=== PATIENT | female | born 1955 | race Caucasian/White ===

== ENCOUNTER → 2017-09-29 16:03 | Outpatient (CLI) | payer OTHER, SELFPAY ==
[2017-09-29 17:28] LABS: Vitamin D,25 Hydroxy 36.9 ng/mL (19.95-100.01)
[2017-09-29 17:33] LABS: ALB/GLOB Ratio 0.8 RATIO (0.9-2.4); AST(SGOT) 16 U/L (15-37); Alanine Aminotransfer ALT/SGPT 18 U/L (13-56); Albumin, Serum 3.2 g/dL (3.2-5.0); Alkaline Phosphatase 94 U/L (45-117); Anion Gap 10 (5-15); BUN 17 mg/dL (7-18); BUN/Creat Ratio 19.3 RATIO (10-20); Calcium,Total 7.3 mg/dL (8.5-10.1); Chloride 103 mmol/L (98-107); Creatinine, Serum 0.88 mg/dL (0.55-1.02); EST Glomerular Filtration Rate 69 mL/min (>60); Est Glom Filt Rate - Afr Amer 84 mL/min (>60); Glucose 93 mg/dL (74-106); Magnesium 2.1 mg/dL (1.6-2.6); Potassium 3.7 mmol/L (3.5-5.1); Protein, Total 7.2 g/dL (6.4-8.2); Sodium Level 140 mmol/L (136-145)
== END ==
PROVIDERS: Family Provider Student in an Organized Health Care Education/Training Program; PCP Student in an Organized Health Care Education/Training Program; Visit Provider Internal Medicine Endocrinology, Diabetes & Metabolism
DX: E89.0 Postprocedural hypothyroidism (principal); E83.42 Hypomagnesemia; M81.0 Age-related osteoporosis without current pathological fracture; E55.9 Vitamin D deficiency, unspecified
CPT/HCPCS: 36415; 80053; 82306; 83735; 83970; 84443

== ENCOUNTER → 2017-10-21 11:26 | Outpatient (CLI) | payer OTHER, SELFPAY ==
[2017-10-21 13:40] LABS: Anion Gap 9 (5-15); BUN 21 mg/dL (7-18); BUN/Creat Ratio 20.8 RATIO (10-20); Calcium,Total 8.5 mg/dL (8.5-10.1); Chloride 105 mmol/L (98-107); Creatinine, Serum 1.01 mg/dL (0.55-1.02); EST Glomerular Filtration Rate 59 mL/min (>60); Est Glom Filt Rate - Afr Amer 71 mL/min (>60); Glucose 81 mg/dL (74-106); Potassium 3.8 mmol/L (3.5-5.1); Sodium Level 141 mmol/L (136-145)
== END ==
PROVIDERS: Family Provider Student in an Organized Health Care Education/Training Program; PCP Student in an Organized Health Care Education/Training Program; Visit Provider Internal Medicine Endocrinology, Diabetes & Metabolism
DX: E89.0 Postprocedural hypothyroidism (principal)
CPT/HCPCS: 36415; 80048; 84439

== ENCOUNTER → 2018-03-12 15:48 | Outpatient (CLI) | payer OTHER, SELFPAY ==
[2018-03-12 18:49] LABS: ALB/GLOB Ratio 0.8 RATIO (0.9-2.4); AST(SGOT) 15 U/L (15-37); Alanine Aminotransfer ALT/SGPT 17 U/L (13-56); Albumin, Serum 3.2 g/dL (3.2-5.0); Alkaline Phosphatase 89 U/L (45-117); Anion Gap 8 (5-15); BUN 11 mg/dL (7-18); BUN/Creat Ratio 12.6 RATIO (10-20); Calcium,Total 7.9 mg/dL (8.5-10.1); Chloride 104 mmol/L (98-107); Creatinine, Serum 0.87 mg/dL (0.55-1.02); EST Glomerular Filtration Rate 70 mL/min (>60); Est Glom Filt Rate - Afr Amer 84 mL/min (>60); Globulin 4.1 g/dL (2.2-4.2); Glucose 76 mg/dL (74-106); Potassium 3.9 mmol/L (3.5-5.1); Protein, Total 7.3 g/dL (6.4-8.2); Sodium Level 142 mmol/L (136-145); Thyroid Stim Hormone (TSH) 0.23 uIU/mL (0.358-3.74)
== END ==
PROVIDERS: Family Provider Student in an Organized Health Care Education/Training Program; PCP Student in an Organized Health Care Education/Training Program; Visit Provider Internal Medicine Endocrinology, Diabetes & Metabolism
DX: E89.0 Postprocedural hypothyroidism (principal)
CPT/HCPCS: 36415; 80053; 83735; 84443

== ENCOUNTER → 2018-05-05 08:40 | Outpatient (CLI) | payer OTHER, SELFPAY ==
[2018-05-05 10:17] LABS: Anion Gap 8 (5-15); BUN 19 mg/dL (7-18); BUN/Creat Ratio 19.4 RATIO (10-20); Calcium,Total 8.6 mg/dL (8.5-10.1); Chloride 104 mmol/L (98-107); Cholesterol 197 mg/dL (200); Creatinine, Serum 0.98 mg/dL (0.55-1.02); EST Glomerular Filtration Rate 61 mL/min (>60); Est Glom Filt Rate - Afr Amer 74 mL/min (>60); Glucose 83 mg/dL (74-106); High Density Lipoprotein 62 mg/dL; Magnesium 2.1 mg/dL (1.6-2.6); Potassium 3.9 mmol/L (3.5-5.1); Sodium Level 142 mmol/L (136-145); Thyroid Stim Hormone (TSH) 0.26 uIU/mL (0.358-3.74); Triglycerides 120 mg/dL; Very Low Density Lipoprotein 24 mg/dL (5-40)
[2018-05-07 09:55] LABS: PTHIN 11.5 pg/mL (18.4-80.1)
== END ==
PROVIDERS: Family Provider Student in an Organized Health Care Education/Training Program; PCP Student in an Organized Health Care Education/Training Program; Visit Provider Internal Medicine Endocrinology, Diabetes & Metabolism
DX: E89.0 Postprocedural hypothyroidism (principal); E83.51 Hypocalcemia; E78.00 Pure hypercholesterolemia, unspecified
CPT/HCPCS: 36415; 80048; 80061; 82306; 83735; 83970; 84443

== ENCOUNTER → 2018-06-28 15:34 | Outpatient (CLI) | payer OTHER, SELFPAY ==
[2018-06-28 16:18] LABS: Thyroid Stim Hormone (TSH) 0.32 uIU/mL (0.358-3.74)
== END ==
PROVIDERS: Family Provider Student in an Organized Health Care Education/Training Program; PCP Student in an Organized Health Care Education/Training Program
DX: E89.0 Postprocedural hypothyroidism (principal)
CPT/HCPCS: 36415; 84443

== ENCOUNTER → 2018-08-08 13:00 | Outpatient (CLI) | payer OTHER, SELFPAY ==
[2018-08-08 14:09] LABS: ALB/GLOB Ratio 0.8 RATIO (0.9-2.4); AST(SGOT) 13 U/L (15-37); Alanine Aminotransfer ALT/SGPT 14 U/L (13-56); Albumin, Serum 3.4 g/dL (3.2-5.0); Alkaline Phosphatase 98 U/L (45-117); Anion Gap 7 (5-15); BUN 15 mg/dL (7-18); BUN/Creat Ratio 14.2 RATIO (10-20); Calcium,Total 8.7 mg/dL (8.5-10.1); Chloride 105 mmol/L (98-107); Creatinine, Serum 1.06 mg/dL (0.55-1.02); EST Glomerular Filtration Rate 56 mL/min (>60); Est Glom Filt Rate - Afr Amer 67 mL/min (>60); Globulin 4.1 g/dL (2.2-4.2); Glucose 60 mg/dL (74-106); Potassium 3.8 mmol/L (3.5-5.1); Protein, Total 7.5 g/dL (6.4-8.2); Sodium Level 143 mmol/L (136-145); Thyroid Stim Hormone (TSH) 0.74 uIU/mL (0.358-3.74)
--- OUTSIDE RECORDS SUMMARY | 2018-11-09 18:24 | XMS RPT_ITS ---
:1955 Author Organization OHIP Care Team Providers Name Role Phone MISSY SMITH Attending Unavailable MISSY SMITH Referring Unavailable Blane Gusman Primary Care Unavailable MISSY SMITH Attending Unavailable MISSY SMITH Referring Unavailable Blane Gusman Primary Care Unavailable MISSY SMITH Attending Unavailable WIETECHA, MISSY Referring Unavailable Gusman, Blane Primary Care Unavailable WITOMI MISSY Attending Unavailable WIETECHA, MISSY Referring Unavailable Gusman, Blane Primary Care Unavailable WIETECHA, MISSY Attending Unavailable WIETECHA, MISSY Referring Unavailable Gusman, Blane Primary Care Unavailable ABILIO GARRETT Attending Unavailable ABILIO GARRETT Referring Unavailable Gusman, Blane Primary Care Unavailable PODLOGAR, DOMENICO (CASE LOADER OPERATOR) Referring Unavailable PODLOGDOMENICO ORELLANA (KETAN) Attending Unavailable VISHAL ANNE Attending Unavailable VISHAL ANNE Referring Unavailable PROBLEMS PROBLEMS DATE TYPE CONDITION / CODE ATTENDING STATUS SOURCE 08/08/2018 Unknown E89.0 - Postprocedural WIETECHA, Active [place] hypothyroidism / [facility] E89.0(ICD-10) Hospital Repository 08/08/2018 Unknown E89.2 - Postprocedural WIETECHA, Active [place] hypoparathyroidism / [facility] E89.2(ICD-10) Hospital Repository 05/05/2018 Unknown E83.51 - Hypocalcemia / WIETECHA, Active [place] E83.51(ICD-10) [facility] Hospital Repository 05/05/2018 Unknown E78.00 - Pure WIETECHA, Active [place] hypercholesterolemia, [facility] unspecified / Hospital E78.00(ICD-10) Repository 03/28/2018 Active Dysuria / R30.0(ICD-10) NA Active [facility] Repository 12/12/2017 Active Unknown / UNK(Unknown) [place] Active [facility] Repository PROCEDURES PROCEDURES No Procedure Records FoundRESULTS RESULTS PTHIN Collected: 08/08/2018 Status: F Source: [place] 1:03 PM [facility] REPOSITORY TYPE CODE TESTS RESULT OUT OF RANGE REFERENCE UNITS LAB L509.1000 18.4-80.1 pg/mL Low PTHIN 14.0 Performed By: #### L509.1000 #### [facility] [place], [address] COMPREHENSIVE METABOLIC Collected: 08/08/2018 Status: F Source: [place] PROFIL 1:03 PM [facility] REPOSITORY TYPE CODE TESTS RESULT OUT OF RANGE REFERENCE UNITS LAB L501.0100 74-106 mg/dL Low GLU 60 Result Comment: Please note revised GLUCOSE reference range effective 2017. LAB L501.1000 7-18 mg/dL Normal BUN 15 LAB L501.1100 0.55-1.02 mg/dL High CREAT,SERUM 1.06 Result Comment: The validity of the calculated GFR AND GFRAA in patients over 70 years has not been determined. Clinical correlation is essential. LAB L501.1110 >60 mL/min Low EST GFR 56 Result Comment: Non- GFR Calc LAB L501.1115 >60 mL/min Normal EST GFR - AA 67 Result Comment: GFR Calc LAB L501.1300 10-20 RATIO Normal BUN/CRE 14.2 LAB L501.1500 6.4-8.2 g/dL T Normal PROT 7.5 LAB L501.1800 3.2-5.0 g/dL Normal ALB 3.4 LAB L501.1950 2.2-4.2 g/dL Normal GLOB 4.1 LAB L501.2000 0.9-2.4 RATIO Low A/G 0.8 LAB L501.2200 8.5-10.1 mg/dL CA Normal 8.7 LAB L501.4100 15-37 U/L Low AST 13 LAB L501.4305 45-117 U/L Normal ALK P 98 LAB L501.4405 13-56 U/L Normal ALT 14 LAB L501.4600 0.20-1.00 mg/dL T Normal BILI 0.50 LAB L501.5300 136-145 mmol/L NA Normal 143 LAB L501.5600 3.5-5.1 mmol/L K Normal 3.8 LAB L501.5900 98-107 mmol/L CL Normal 105 LAB L501.6100 21.0-32.0 mmol/L Normal CO2 31.0 LAB L501.6200 5-15 Normal GAP 7 Performed By: #### L500.4050, L501.9520 #### [facility] [address] [place], [place], [id number] THYROID STIM HORMONE Collected: 08/08/2018 Status: F Source: [place] (TSH) 1:03 PM [facility] REPOSITORY TYPE CODE TESTS RESULT OUT OF RANGE REFERENCE UNITS LAB L501.9520 0.358-3.74 uIU/mL Normal TSH 0.74 Performed By: #### L500.4050, L501.9520 #### [facility] [address] [place], [address] THYROID STIM HORMONE Collected: 06/28/2018 Status: F Source: [place] (TSH) 3:37 PM [facility] REPOSITORY TYPE CODE TESTS RESULT OUT OF RANGE REFERENCE UNITS LAB L501.9520 0.358-3.74 uIU/mL Low TSH 0.32 Performed By: #### L501.9520 #### [facility] [address] [place], [address] BASIC METABOLIC Collected: 05/05/2018 Status: F Source: [place] PROFILE (BMP) 8:45 AM [facility] REPOSITORY TYPE CODE TESTS RESULT OUT OF RANGE REFERENCE UNITS LAB L501.0100 74-106 mg/dL Normal GLU 83 Result Comment: Please note revised GLUCOSE reference range effective 2017. LAB L501.1000 7-18 mg/dL High BUN 19 LAB L501.1100 0.55-1.02 mg/dL Normal CREAT,SERUM 0.98 Result Comment: The validity of the calculated GFR AND GFRAA in patients over 70 years has not been determined. Clinical correlation is essential. LAB L501.1110 >60 mL/min Normal EST GFR 61 Result Comment: Non- GFR Calc LAB L501.1115 >60 mL/min Normal EST GFR - AA 74 Result Comment: GFR Calc LAB L501.1300 10-20 RATIO Normal BUN/CRE 19.4 LAB L501.2200 8.5-10.1 mg/dL CA Normal 8.6 LAB L501.5300 136-145 mmol/L NA Normal 142 LAB L501.5600 3.5-5.1 mmol/L K Normal 3.9 LAB L501.5900 98-107 mmol/L CL Normal 104 LAB L501.6100 21.0-32.0 mmol/L Normal CO2 30.0 LAB L501.6200 5-15 Normal GAP 8 Performed By: #### L500.2500, L500.4100, L501.5200, L501.9520 #### [facility] [address] [place], [place], [address] LIPID PROFILE Collected: 05/05/2018 Status: F Source: [place] 8:45 AM [facility] REPOSITORY TYPE CODE TESTS RESULT OUT OF RANGE REFERENCE UNITS LAB L501.4900 200 mg/dL Normal CHOL 197 Result Comment: <200 mg/dL Desirable 200-240 mg/dL Borderline >240 mg/dL High Risk LAB L501.5000 mg/dL Normal TRIG 120 Result Comment: The drugs N-Acetylcysteine and Metamizole may falsely depress this assay. Serum Triglycerides Reference Interval Normal <150 mg/dL Borderline high 150 - 199 mg/dL High 200 - 499 mg/dL Very High > or = 500 mg/dL LAB L501.6400 mg/dL Normal HDL 62 Result Comment: The drugs N-Acetylcysteine and Metamizole may falsely depress this assay. Reference Range HDL <40 mg/dL Low HDL Cholesterol HDL >or= 60 mg/dL High HDL Cholesterol LAB L501.6500 0-130 mg/dL Normal LDL 111 LAB L501.6600 5-40 mg/dL Normal VLDL 24 Performed By: #### L500.2500, L500.4100, L501.5200, L501.9520 #### [facility] [address] [place], [place], [id number] MAGNESIUM Collected: 05/05/2018 Status: F Source: [place] 8:45 AM [facility] REPOSITORY TYPE CODE TESTS RESULT OUT OF RANGE REFERENCE UNITS LAB L501.5200 1.6-2.6 mg/dL Normal MG 2.1 Performed By: #### L500.2500, L500.4100, L501.5200, L501.9520 #### [facility] [address] [place], [address] THYROID STIM HORMONE Collected: 05/05/2018 Status: F Source: [place] (TSH) 8:45 AM [facility] REPOSITORY TYPE CODE TESTS RESULT OUT OF RANGE REFERENCE UNITS LAB L501.9520 0.358-3.74 uIU/mL Low TSH 0.26 Performed By: #### L500.2500, L500.4100, L501.5200, L501.9520 #### [facility] [address] [place], [address] VITAMIN D,25 HYDROXY Collected: 05/05/2018 Status: F Source: [facility] 8:45 AM [facility] REPOSITORY TYPE CODE TESTS RESULT OUT OF RANGE REFERENCE UNITS LAB L506.1000 29.95-100.01 ng/mL Normal Vitamin D 57.0 25-OH Result Comment: Vitamin D 25(OH) Status Range Deficiency <20 ng/mL (50nmol/L) Insuffciency 20 - 30 ng/mL (50 - 75 nmol/L) Sufficiency 30 - 100 ng/mL (75 - 250 nmol/L) Toxicity >100 ng/mL (>250 nmol/L) Performed By: #### L506.1000 #### [facility] [address] [place], [address] PTHIN Collected: 05/05/2018 Status: F Source: [facility] 8:45 AM [facility] REPOSITORY TYPE CODE TESTS RESULT OUT OF RANGE REFERENCE UNITS LAB L509.1000 18.4-80.1 pg/mL Low PTHIN 11.5 Performed By: #### L509.1000 #### [facility] [address] [place], [address] URINALYSIS WITH Collected: 03/28/2018 Status: F [facility] 3[facility]37 PM [facility] REPOSITORY TYPE CODE TESTS RESULT OUT OF RANGE REFERENCE UNITS LAB UCOL Yellow Color Abnormal Peggy Alert LAB [facility] Clear Clarity Clear LAB UGLUC Negative mg/dL Glucose, Urine Negative LAB UBIL Negative Bilirubin, Urine Negative LAB UKET Negative Ketones, Abnormal Urine Trace Alert LAB USPG 1.005-1.030 Specific [place], Ur 1.017 LAB UHGB Negative Abnormal Hemoglobin/Blood, 2+ Alert Ur LAB UPH 4.5-8.0 pH 6.0 LAB UPROT Negative mg/dL Protein, Abnormal Urine 100 Alert LAB UUROB Normal Abnormal Urobilinogen Elevated Alert LAB UNITR Negative Nitrites Abnormal Positive Alert LAB ULKEST Negative Leukest Negative LAB UCOM Comments SEE COMMENT Result Comment: N/A LAB UMCOM Urine SEE Star Comment COMMENT Result Comment: N/A LAB UWBC 0-5 /HPF Abnormal Alert WBC 6-10 LAB URBC 0-3 /HPF Abnormal Alert RBC >25 LAB UCAST 0 /LPF Abnormal Alert Cast SEE COMMENT Result Comment: 1-3 Hyaline Cast LAB UEPI /HPF Epithelial SEE Cells COMMENT Result Comment: Few Squamous Epithelial Cells Performed By: #### UAWMIC #### [facility] [address], [place] [address] Observed: 03/28/2018 Status: F Source: [place] URINE CULTURE 3:37 PM [facility] REPOSITORY Culture Result - <10,000 CFU/ml Normal urogenital rocky Performed By: #### URCUL #### [facility] [address] [address] Observed: 03/22/2018 Status: F Source: [place] URINE CULTURE 9:48 AM [facility] REPOSITORY Sp. Request/Comment: - Specimen received in preservative Culture Result - <10,000 CFU/ml Enterococcus faecalis --> ABNORMAL ALERT Cephalosporins, clindamycin, and TMP-SMX are not effective for the treatment of enterococcal infections. --> ABNORMAL AL ERT Insignificant colony count. No further workup. --> ABNORMAL ALERT <10,000 CFU/ml Normal urogenital rocky Performed By: #### URCUL #### [facility] [address] [place], [place] [address] PROGRESS Observed: 03/22/2018 Status: COMPLETED Source: [place] 8:44 AM [facility] REPOSITORY HNO ID: [id number] Author: Domenico (Insurance Follow Up Rep) Podlogar Service: (none) Author Type: Nurse Practitioner Type: Progress Notes Filed: 03/22/2018 9:39 AM Note Text: 03/22/2018 Patient presents with: Kidney Problem: pt states history of kidney stones, For about a week been having rt flank pain that goes around to the front abdomin with low abdominal pressure SUBJECTIVE: This is a 62 year old that is here today for Above Complaints. ONSET: 1 week ago LOCATION: right flank DURATION: intemittnet CHARACTERISTICS:achy AGGRAVATING FEATURES: after urination ALLITERATING FEATURES: heat, left over oxycodone RADIATION: to right lower abdomen Denies fever, vomiting, constipation, hematochezia, melena, frequency, urgency dysuria, vomiting, and abnormal vaginal bleeding. Positive for hx of kidney stones, hot/cold flash, blood after wiping, loose stools, and mild nausea. Urine dip shows: Glucose, Urine (mg/dL) Date Value 03/22/2018 neg Bilirubin, Urine (no units) Date Value 03/22/2018 neg Bilirubin, Urine (no units) Date Value 03/22/2018 neg Ketones, Urine (no units) Date Value 03/22/2018 neg Specific Val[place], Ur (no units) Date Value 03/22/2018 1.005 Hemoglobin/Blood,Ur (no units) Date Value 03/22/2018 large No results found for: PH Protein, Urine (mg/dL) Date Value 03/22/2018 trace Urobilinogen, Urine (EU) Date Value 03/22/2018 normal No components found for: NITR Leukocytes (no units) Date Value 03/22/2018 trace Color/Appearance (comment:) Date Value 03/22/2018 peggy PAST MEDICAL HISTORY Diagnosis Date - Broken wrist Left wrist - Hemorrhage of gastrointestinal tract, unspecified - Herpes zoster without mention of complication shingles - hyperparathyroidism Endo Dr. Smith, s/p removal x 1 gland, cause of kidney stones - Hyperthyroidism - Osteoporosis due to hyperparathyroidism - Other malignant neoplasm of skin, site unspecified basal cell carcinoma - PMH - PAST MEDICAL HISTORY OF renal/kidney stones - Post-surgical hypothyroidism s/p thyroidectomy total, Endo Dr. Smith - Sciatica ALLERGIES No Known Drug Allergies MEDICATIONS Current Outpatient Prescriptions: venlafaxine ER (EFFEXOR XR) 75 mg 24 hr capsule TAKE 1 CAPSULE BY MOUTH ONCE DAILY. conjugated estrogens-medroxyPROGESTERone (PREMPRO) 0.45-1.5 mg per tablet Take 1 tablet by mouth once daily. Omeprazole 40 mg capsule TAKE 1 CAPSULE EVERY DAY levothyroxine (SYNTHROID) 50 mcg tablet Take 1 tablet by mouth once daily. Take on empty stomach. Take one tablet M-Sat and / on Monday. Per endo calcium combo no.2-vitamin D3 600 mg calcium- 500 unit TbER Take 600 mg by mouth three times daily. Magnesium 250 mg Tab Take 400 mg by mouth once daily. calcitriol 0.25 mcg ORAL capsule daily tamsulosin ER (FLOMAX) 0.4 mg cp24 Take 0.4 mg by mouth daily at bedtime. As needed for kidney stone symptoms/pain clotrimazole (LOTRIMIN, CLOTRIM) 1 % cream Apply 1 application to affected area twice daily as needed (angular chelitis). cyanocobalamin (VITAMIN B-12) 1,000 mcg ORAL Tab Take 1,000 mcg by mouth once daily. 2 tabs No current facility-administered medications for this visit. Medications and allergies reviewed by this provider. 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 Social History Main Topics Smoking status: Never Smoker Smokeless tobacco: Never Used Alcohol use: No Drug use: No Sexual activity: Yes Partners with: Male control/protection: Tubal Ligation Comment: btl Social History Narrative , 3 grown children (goes by [place]) REVIEW OF SYSTEMS All other reviewed and negative other than HPI. OBJECTIVE: BP 100/64 (BP Site: Right Arm, BP Position: Sitting, BP Cuff Size: Regular Adult) Pulse 64 Resp 18 Wt 54.5 kg (120 lb 1.3 oz) LMP 11/23/2010 BMI 21.96 kg/m? . Vital signs reviewed by this provider. APPEARANCE Well appearing, alert, in no acute distress, well-hydrated, well nourished. HEART RRR with normal S1 and S2, no murmurs, no gallops, no JVD appreciated LUNG clear to auscultation. No wheezes, rhonchi, or rales ABDOMEN bowel sounds normoactive, no bruits, soft, non-tender, non-distended, without organomegaly or palpable masses, no tenderness to palpation BACK: Normal exam, No CVA tenderness SKIN Skin color, texture, turgor normal, no suspicious rashes or lesions to exposed skin ASSESSMENT/PLAN: 1. Right flank pain - ICD9: 789.09, ICD10: R10.9 (primary diagnosis) - suspect kidney stone - no red flag exam findings - red flag symptoms discussed, verbalizes understanding - UA DIP B/O - CT ABD/PEL WO IVCON - URINALYSIS WITH MICROSCOPIC - URINE CULTURE - follow-up pending CT 2. Microscopic hematuria - ICD9: 599.72, ICD10: R31.29 - plan as above - CT ABD/PEL WO IVCON - URINALYSIS WITH MICROSCOPIC - URINE CULTURE 3. Need for vaccination - ICD9: V05.9, ICD10: Z23 - TETANUS/DIPTHERIA BOOSTER (OVER 7), PF IM 4. Personal history of kidney stones - ICD9: V13.01, ICD10: Z87.442 - Plan as in #1 Domenico Olmedo APRN.CNP Prescription instructions reviewed with patient as applicable. Patient advised if symptoms do not improve or if symptoms worsen sooner, to contact their primary care physician. Potential red flag symptoms discussed with the patient. Reviewed appropriate action plan to take if red flag symptoms occur. Patient agreeable to treatment plan. CNOV Observed: 03/22/2018 Status: COMPLETED Source: [place] 8:20 AM [facility] REPOSITORY Office Visit (FAMPWS) GELY SHIRLEY ([id number]) 1955 F Date Time Provider Department 03/22/18 8:20 AM DOMENICO OLMEDO (KETAN) FAMPWS During your visit today, we recorded the following information about you: Pulse Respiration Blood pressure Weight 64/minute 18/minute 100/64 54.5 kg Domenico Olmedo APRN.CNP 03/22/2018 9:39 AM Signed 03/22/2018 Patient presents with: Kidney Problem: pt states history of kidney stones, For about a week been having rt flank pain that goes around to the front abdomin with low abdominal pressure SUBJECTIVE: This is a 62 year old that is here today for Above Complaints. ONSET: 1 week ago LOCATION: right flank DURATION: intemittnet CHARACTERISTICS:achy AGGRAVATING FEATURES: after urination ALLITERATING FEATURES: heat, left over oxycodone RADIATION: to right lower abdomen Denies fever, vomiting, constipation, hematochezia, melena, frequency, urgency dysuria, vomiting, and abnormal vaginal bleeding. Positive for hx of kidney stones, hot/cold flash, blood after wiping, loose stools, and mild nausea. Urine dip shows: Glucose, Urine (mg/dL) Date Value 03/22/2018 neg Bilirubin, Urine (no units) Date Value 03/22/2018 neg Bilirubin, Urine (no units) Date Value 03/22/2018 neg Ketones, Urine (no units) Date Value 03/22/2018 neg Specific [place], Ur (no units) Date Value 03/22/2018 1.005 Hemoglobin/Blood,Ur (no units) Date Value 03/22/2018 large No results found for: PH Protein, Urine (mg/dL) Date Value 03/22/2018 trace Urobilinogen, Urine (EU) Date Value 03/22/2018 normal No components found for: NITR Leukocytes (no units) Date Value 03/22/2018 trace Color/Appearance (comment:) Date Value 03/22/2018 peggy PAST MEDICAL HISTORY Diagnosis Date - Broken wrist Left wrist - Hemorrhage of gastrointestinal tract, unspecified - Herpes zoster without mention of complication shingles - hyperparathyroidism Endo Dr. Smith, s/p removal x 1 gland, cause of kidney stones - Hyperthyroidism - Osteoporosis due to hyperparathyroidism - Other malignant neoplasm of skin, site unspecified basal cell carcinoma - PMH - PAST MEDICAL HISTORY OF renal/kidney stones - Post-surgical hypothyroidism s/p thyroidectomy total, Endo Dr. Smith - Sciatica ALLERGIES No Known Drug Allergies MEDICATIONS Current Outpatient Prescriptions: venlafaxine ER (EFFEXOR XR) 75 mg 24 hr capsule TAKE 1 CAPSULE BY MOUTH ONCE DAILY. conjugated estrogens-medroxyPROGESTERone (PREMPRO) 0.45-1.5 mg per tablet Take 1 tablet by mouth once daily. Omeprazole 40 mg capsule TAKE 1 CAPSULE EVERY DAY levothyroxine (SYNTHROID) 50 mcg tablet Take 1 tablet by mouth once daily. Take on empty stomach. Take one tablet M-Sat and 06/22 on Monday. Per endo calcium combo no.2-vitamin D3 600 mg calcium- 500 unit TbER Take 600 mg by mouth three times daily. Magnesium 250 mg Tab Take 400 mg by mouth once daily. calcitriol 0.25 mcg ORAL capsule daily tamsulosin ER (FLOMAX) 0.4 mg cp24 Take 0.4 mg by mouth daily at bedtime. As needed for kidney stone symptoms/pain clotrimazole (LOTRIMIN, CLOTRIM) 1 % cream Apply 1 application to affected area twice daily as needed (angular chelitis). cyanocobalamin (VITAMIN B-12) 1,000 mcg ORAL Tab Take 1,000 mcg by mouth once daily. 2 tabs No current facility-administered medications for this visit. Medications and allergies reviewed by this provider. 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 OBJECTIVE: BP 100/64 (BP Site: Right Arm, BP Position: Sitting, BP Cuff Size: Regular Adult) Pulse 64 Resp 18 Wt 54.5 kg (120 lb 1.3 oz) LMP 11/23/2010 BMI 21.96 kg/m? . Vital signs reviewed by this provider. APPEARANCE Well appearing, alert, in no acute distress, well- hydrated, well nourished. HEART RRR with normal S1 and S2, no murmurs, no gallops, no JVD appreciated LUNG clear to auscultation. No wheezes, rhonchi, or rales ABDOMEN bowel sounds normoactive, no bruits, soft, non-tender, non-distended, without organomegaly or palpable masses, no tenderness to palpation BACK: Normal exam, No CVA tenderness SKIN Skin color, texture, turgor normal, no suspicious rashes or lesions to exposed skin ASSESSMENT/PLAN: 1. Right flank pain - ICD9: 789.09, ICD10: R10.9 (primary diagnosis) - suspect kidney stone - no red flag exam findings - red flag symptoms discussed, verbalizes understanding - UA DIP B/O - CT ABD/PEL WO IVCON - URINALYSIS WITH MICROSCOPIC - URINE CULTURE - follow-up pending CT 2. Microscopic hematuria - ICD9: 599.72, ICD10: R31.29 - plan as above - CT ABD/PEL WO IVCON - URINALYSIS WITH MICROSCOPIC - URINE CULTURE 3. Need for vaccination - ICD9: V05.9, ICD10: Z23 - TETANUS/DIPTHERIA BOOSTER (OVER 7), PF IM 4. Personal history of kidney stones - ICD9: V13.01, ICD10: Z87.442 - Plan as in #1 Domenico Podlogar, FORMING PROCESS LINE WORKER.KETAN Prescription instructions reviewed with patient as applicable. Patient advised if symptoms do not improve or if symptoms worsen sooner, to contact their primary care physician. Potential red flag symptoms discussed with the patient. Reviewed appropriate action plan to take if red flag symptoms occur. Patient agreeable to treatment plan. Domenico Michellelogammon, JASPER.KETAN 03/22/2018 9:02 AM Signed If you develop severe pain, nausea, abdominal pain, fevers, or difficult urinating got to ER Referring Provider: SELF [200] Allergies As of Date: 03/22/2018 Noted Allergy Reaction NO KNOWN DRUG ALLERGIES 09/01/2009 Date Reviewed: 03/22/2018 Reviewed by: Domenico (Ketan) Podlogar - Fully Assessed Reason for Visit: Kidney Problem [61] Cmt: pt states history of kidney stones, For about a week been having rt flank pain that goes around to the front abdomin with low abdominal pressure Primary Visit Diagnosis:Right flank pain [R10.9] Other Visit Diagnoses:Microscopic hematuria [R31.29] Need for vaccination [Z23] Personal history of kidney stones [Z87.442] Order(s):TETANUS/DIPTHERIA BOOSTER (OVER 7), PF IM [[id number]] Order #: [id number] UA DIP B/O [[id number]] Order #: [id number] CT ABD/PEL WO IVCON [[id number]] Order #: [id number] FUTURE URINALYSIS WITH MICROSCOPIC [SQUAWMIC] Order #: [id number]. #:[id number] URINE CULTURE [SQURCUL] Order #: [id number] naproxen (NAPROSYN) 500 mg tabletTake 1 tablet by mouth twice daily as needed (for pain/inflammation). Take with food.Disp: 60 tabletRfl: 1 Prescriptions as of 03/22/2018 Sig: VENLAFAXINE ER 75 MG CAPSULE,* TAKE 1 CAPSULE BY MOUTH ONCE * CONJ ESTROGEN-MEDROXYPROGESTE* Take 1 tablet by mouth once d* OMEPRAZOLE 40 MG CAPSULE,ROSITA* TAKE 1 CAPSULE EVERY DAY LEVOTHYROXINE 50 MCG TABLET Take 1 tablet by mouth once d* CALCIUM CARB,CIT ER 600 MG CA* Take 600 mg by mouth three ti* MAGNESIUM 250 MG TABLET Take 400 mg by mouth once yvette* CALCITRIOL 0.25 MCG CAPSULE daily NAPROXEN 500 MG TABLET Take 1 tablet by mouth twice * Problem List As Of Date 03/22/2018 Noted Resolved MALIGNANT NEOPLASM NOS [C80.1] INVALID FOR* SEBORRHEIC KERATOSIS INFLAMED [L82.0] INVALID FOR* SOLAR LENGINES///DYSCHROMIA OTHER [L81.9] INVALID FOR* NEVUS///BENIGN SALEEM SKIN TRUNK [D23.5] INVALID FOR* CHR SOLAR SKIN DAMAGE NOS [L57.8] INVALID FOR* NEVI///BENIGN SALEEM SKIN LEG [D23.70] INVALID FOR* MELENA, BLOOD IN STOOL [K92.1] INVALID FOR* Thyroid Dysfunction [E07.9] INVALID FOR* Osteoporosis [M81.0] INVALID FOR* Hyperparathyroidism, Primary [E21.0] INVALID FOR* 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 Take with food. Medications Discontinued During This Encounter tamsulosin ER (FLOMAX) 0.4 mg cp24 30 c* 1 08/08/2017 03/22/2018 Route: ORAL Sig: Take 0.4 mg by mouth daily at bedtime. As needed for kidney stone symptoms/pain Disc: Discontinued by Patient clotrimazole (LOTRIMIN, CLOTRIM) 1 %* 30 g 3 11/11/2015 03/22/2018 Route: TOPICAL Sig: Apply 1 application to affected area twice daily as needed (angular chelitis). Disc: Discontinued by another Health Care Provider cyanocobalamin (VITAMIN B-12) 1,000 * 03/22/2018 Class: Med Update Route: ORAL Sig: Take 1,000 mcg by mouth once daily. 2 tabs Disc: Discontinued by another Health Care Provider Follow-up and Disposition History Recorded Encounter Status:Closed by BASILLOGDOMENICO ORELLANA CNP on 03/22/18 URINALYSIS WITH Collected: 03/22/2018 Status: F Source: [facility] 8:00 AM [facility] REPOSITORY TYPE CODE TESTS RESULT OUT OF RANGE REFERENCE UNITS LAB UCOL Yellow Color Yellow LAB [facility] Clear Clarity Abnormal Cloudy Alert LAB UGLUC Negative mg/dL Glucose, Urine Negative LAB UBIL Negative Bilirubin, Urine Negative LAB UKET Negative Ketones, Urine Negative LAB USPG 1.005-1.030 Specific [place], Ur 1.017 LAB UHGB Negative Abnormal Hemoglobin/Blood, 2+ Alert Ur LAB UPH 4.5-8.0 pH 7.0 LAB UPROT Negative mg/dL Protein, Abnormal Urine 30 Alert LAB UUROB Normal Urobilinogen Normal LAB UNITR Negative Nitrites Negative LAB ULKEST Negative Leukest Abnormal Trace Alert LAB UCOM Comments SEE COMMENT Result Comment: N/A LAB UMCOM Urine SEE Star Comment COMMENT Result Comment: N/A LAB UWBC 0-5 /HPF Abnormal Alert WBC 6-10 LAB URBC 0-3 /HPF Abnormal Alert RBC >25 LAB UCAST 0 /LPF Abnormal Alert Cast SEE COMMENT Result Comment: 1-3 Hyaline Cast LAB UEPI /HPF Epithelial SEE Cells COMMENT Result Comment: Few Squamous Epithelial Cells Performed By: #### UAWMIC #### [facility] [address] [place] [address] COMPREHENSIVE METABOLIC Collected: 03/12/2018 Status: F Source: [facility] [place] 4:07 PM [facility] REPOSITORY Order Comment: Comments: TSH TYPE CODE TESTS RESULT OUT OF RANGE REFERENCE UNITS LAB L501.0100 74-106 mg/dL Normal GLU 76 Result Comment: Please note revised GLUCOSE reference range effective 2017. LAB L501.1000 7-18 mg/dL Normal BUN 11 LAB L501.1100 0.55-1.02 mg/dL Normal CREAT,SERUM 0.87 Result Comment: The validity of the calculated GFR AND GFRAA in patients over 70 years has not been determined. Clinical correlation is essential. LAB L501.1110 >60 mL/min Normal EST GFR 70 Result Comment: Non- GFR Calc LAB L501.1115 >60 mL/min Normal EST GFR - AA 84 Result Comment: GFR Calc LAB L501.1300 10-20 RATIO Normal BUN/CRE 12.6 LAB L501.1500 6.4-8.2 g/dL T Normal PROT 7.3 LAB L501.1800 3.2-5.0 g/dL Normal ALB 3.2 LAB L501.1950 2.2-4.2 g/dL Normal GLOB 4.1 LAB L501.2000 0.9-2.4 RATIO Low A/G 0.8 LAB L501.2200 8.5-10.1 mg/dL Low CA 7.9 LAB L501.4100 15-37 U/L Normal AST 15 LAB L501.4305 45-117 U/L Normal ALK P 89 LAB L501.4405 13-56 U/L Normal ALT 17 LAB L501.4600 0.20-1.00 mg/dL T Normal BILI 0.40 LAB L501.5300 136-145 mmol/L NA Normal 142 LAB L501.5600 3.5-5.1 mmol/L K Normal 3.9 LAB L501.5900 98-107 mmol/L CL Normal 104 LAB L501.6100 21.0-32.0 mmol/L Normal CO2 30.0 LAB L501.6200 5-15 Normal GAP 8 Performed By: #### L500.4050, L501.5200, L501.9520 #### [facility] [address] [place], [address] MAGNESIUM Collected: 03/12/2018 Status: F Source: [place] 4:07 PM [facility] REPOSITORY Order Comment: Comments: TSH TYPE CODE TESTS RESULT OUT OF RANGE REFERENCE UNITS LAB L501.5200 1.6-2.6 mg/dL Normal MG 2.0 Performed By: #### L500.4050, L501.5200, L501.9520 #### [facility] [address] [place], [address] THYROID STIM HORMONE Collected: 03/12/2018 Status: F Source: [place] (TSH) 4:07 PM [facility] REPOSITORY Order Comment: Comments: TSH TYPE CODE TESTS RESULT OUT OF RANGE REFERENCE UNITS LAB L501.9520 0.358-3.74 uIU/mL Low TSH 0.23 Performed By: #### L500.4050, L501.5200, L501.9520 #### [facility] [address] [place], [address] PROGRESS Observed: 01/03/2018 Status: COMPLETED Source: [place] 4:29 PM [facility] REPOSITORY HNO ID: [id number] Author: Leta Stephen Service: (none) Author Type: Nurse Practitioner Type: Progress Notes Filed: 01/03/2018 4:45 PM Note Text: Subjective The history is provided by the patient. No world language teacher was used. MAHAMED Shirley is a 62 year old female who presents today for CC of right side jaw swelling. This started over the past 2 days and is painful. She was seen 2 weeks ago by her dentist for dental pain and was treated for a sinus infection with amoxicillin, and he did upper xrays at the time which did not show any dental infection. She returned to him after the 10 days and was not better, having a mild scratchy throat. Symptoms are worsened by chewing. She has tried treatments as discussed above. Since starting on antibiotics she has developed redness and white patches on tongue and a burning sensation in mouth. Risk factors antibiotic use. PMH h/o thrush BP 124/72 Pulse 74 Temp 36.6 ?C (97.8 ?F) (Tympanic) Resp 16 Wt 55.3 kg (122 lb) LMP 11/23/2010 BMI 22.31 kg/m? ALLERGIES Allergen Reactions - No Known Drug Aller* ACTIVE PROBLEM LIST Other Malignant Neoplasm Without Specification of Site Inflamed Seborrheic Keratosis SOLAR LENGINES///DYSCHROMIA OTHER NEVUS///BENIGN SALEEM SKIN TRUNK Other Chronic Dermatitis Due to Solar Radiation NEVI///BENIGN SALEEM SKIN LEG Blood in Stool Thyroid Dysfunction Osteoporosis Hyperparathyroidism, Primary (Hcc) Calcium Nephrolithiasis Iron Deficiency Anemia Hot flushes, perimenopausal Diarrhea Llq Pain Angular Cheilitis Post-Surgical Hypothyroidism Family History Problem Relation Age of Onset - Colon Cancer Maternal Grandmother - Breast Cancer Sister diagnosed september 2005 - Cancer Sister lymphoma, leukemia - Thyroid Sister Social History Marital status: Spouse name: earnest Years of education: 12 Number of children: 3 Occupational History 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 Social History Main Topics Smoking status: Never Smoker Smokeless tobacco: Never Used Alcohol use: No Drug use: No Sexual activity: Yes Partners with: Male control/protection: Tubal Ligation Comment: btl Social History Narrative , 3 grown children (goes by [place]) Review of Systems Constitutional: Negative. Negative for chills, fever and malaise/fatigue. HENT: Positive for ear pain (referred) and sore throat (mild scratchy, burning.). Negative for congestion and sinus pain. See HPI Respiratory: Negative for cough, sputum production, shortness of breath and wheezing. Cardiovascular: Negative for chest pain. Musculoskeletal: Negative for myalgias. Skin: Negative for rash. Neurological: Negative for headaches. Objective Physical Exam Constitutional: She is oriented to person, place, and time and well-developed, well-nourished, and in no distress. HENT: Head: Normocephalic and atraumatic. Right Ear: Tympanic membrane, external ear and ear canal normal. Tympanic membrane is not injected, not erythematous, not retracted and not bulging. No middle ear effusion. Left Ear: Tympanic membrane, external ear and ear canal normal. Tympanic membrane is not injected, not erythematous, not retracted and not bulging. No middle ear effusion. Nose: Nose normal. Right sinus exhibits no maxillary sinus tenderness and no frontal sinus tenderness. Left sinus exhibits no maxillary sinus tenderness and no frontal sinus tenderness. Mouth/Throat: Uvula is midline and mucous membranes are normal. Posterior oropharyngeal erythema (mild) present. No oropharyngeal exudate, posterior oropharyngeal edema or tonsillar abscesses. Eyes: Conjunctivae and EOM are normal. Pupils are equal, round, and reactive to light. Neck: Normal range of motion. Neck supple. Pulmonary/Chest: Effort normal. Lymphadenopathy: Head (right side): No submental, no submandibular, no tonsillar, no preauricular and no posterior auricular adenopathy present. Head (left side): No submental, no submandibular, no tonsillar, no preauricular and no posterior auricular adenopathy present. She has no cervical adenopathy. Right cervical: No superficial cervical adenopathy present. Left cervical: No superficial cervical adenopathy present. Neurological: She is alert and oriented to person, place, and time. Skin: Skin is warm and dry. Psychiatric: Affect normal. Nursing note and vitals reviewed. ASSESSMENT/PLAN: 1. Jaw swelling - ICD9: 784.2, ICD10: R22.0 Possible parotitis Advise to stop clindamycin, consult dentist also Advise to notify dentist, and follow up with him if continued dental pain. Advise to use lemon heads, suck on hard candy several times through out the day Tylenol and ibuprofen as needed for pain If worsening symptoms spike a fever, need to go to ER for treatment You can take an OTC probiotic such as Culturelle or Align to help with stomach upset/loose stool that you may get as a side effect of the antibiotic. 2. Thrush - ICD9: 112.0, ICD10: B37.0 Use as directed for 14 days - CLOTRIMAZOLE 10 MG NEELIMA Diagnosis and treatment plan were discussed and questions were answered to the patient's satisfaction. Pt acknowledged understanding of concepts and follow up plan. Specific signs and symptoms that would indicate the need for higher level of care were discussed in detail warranting prompt ER evaluation. Leta Stephen APRN.CASE LOADER OPERATOR CNOV Observed: 01/03/2018 Status: COMPLETED Source: [place] 4:00 PM [facility] REPOSITORY Office Visit ([facility]) GELY SHIRLEY ([id number]) 1955 F Date Time Provider Department 01/03/18 4:00 PM LETA STEPHEN (KETAN) WSTR During your visit today, we recorded the following information about you: Temperature Pulse Respiration Blood pressure 97.8 degrees 74/minute 16/minute 124/72 Weight 55.3 kg Leta Stephen APRN.CNP 01/03/2018 4:22 PM Signed ASSESSMENT/PLAN: 1. Jaw swelling - ICD9: 784.2, ICD10: R22.0 Possible parotitis Advise to stop clindamycin, consult dentist also Advise to notify dentist, and follow up with him if continued dental pain. Advise to use lemon heads, suck on hard candy several times through out the day Tylenol and ibuprofen as needed for pain If worsening symptoms spike a fever, need to go to ER for treatment You can take an OTC probiotic such as Culturelle or Align to help with stomach upset/loose stool that you may get as a side effect of the antibiotic. 2. Thrush - ICD9: 112.0, ICD10: B37.0 Use as directed for 14 days - CLOTRIMAZOLE 10 MG NEELIMA Leta Stephen APRN.CNP 01/03/2018 4:45 PM Signed Subjective The history is provided by the patient. No world language teacher was used. HPI Gely Shirley is a 62 year old female who presents today for CC of right side jaw swelling. This started over the past 2 days and is painful. She was seen 2 weeks ago by her dentist for dental pain and was treated for a sinus infection with amoxicillin, and he did upper xrays at the time which did not show any dental infection. She returned to him after the 10 days and was not better, having a mild scratchy throat. Symptoms are worsened by chewing. She has tried treatments as discussed above. Since starting on antibiotics she has developed redness and white patches on tongue and a burning sensation in mouth. Risk factors antibiotic use. PMH h/o thrush BP 124/72 Pulse 74 Temp 36.6 ?C (97.8 ?F) (Tympanic) Resp 16 Wt 55.3 kg (122 lb) LMP 11/23/2010 BMI 22.31 kg/m? ALLERGIES Allergen Reactions - No Known Drug Aller* ACTIVE PROBLEM LIST Other Malignant Neoplasm Without Specification of Site Inflamed Seborrheic Keratosis SOLAR LENGINES///DYSCHROMIA OTHER NEVUS///BENIGN SALEEM SKIN TRUNK Other Chronic Dermatitis Due to Solar Radiation NEVI///BENIGN SALEEM SKIN LEG Blood in Stool Thyroid Dysfunction Osteoporosis Hyperparathyroidism, Primary (Hcc) Calcium Nephrolithiasis Iron Deficiency Anemia Hot flushes, perimenopausal Diarrhea Llq Pain Angular Cheilitis Post-Surgical Hypothyroidism Family History Problem Relation Age of Onset - Colon Cancer Maternal Grandmother - Breast Cancer Sister diagnosed september 2005 - Cancer Sister lymphoma, leukemia - Thyroid Sister Social History Marital status: Spouse name: earnest Years of education: 12 Number of children: 3 Occupational History 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 Negative for chills, fever and malaise/fatigue. HENT: Positive for ear pain (referred) and sore throat (mild scratchy, burning.). Negative for congestion and sinus pain. See HPI Respiratory: Negative for cough, sputum production, shortness of breath and wheezing. Cardiovascular: Negative for chest pain. Musculoskeletal: Negative for myalgias. Skin: Negative for rash. Neurological: Negative for headaches. Objective Physical Exam Constitutional: She is oriented to person, place, and time and well-developed, well-nourished, and in no distress. HENT: Head: Normocephalic and atraumatic. Right Ear: Tympanic membrane, external ear and ear canal normal. Tympanic membrane is not injected, not erythematous, not retracted and not bulging. No middle ear effusion. Left Ear: Tympanic membrane, external ear and ear canal normal. Tympanic membrane is not injected, not erythematous, not retracted and not bulging. No middle ear effusion. Nose: Nose normal. Right sinus exhibits no maxillary sinus tenderness and no frontal sinus tenderness. Left sinus exhibits no maxillary sinus tenderness and no frontal sinus tenderness. Mouth/Throat: Uvula is midline and mucous membranes are normal. Posterior oropharyngeal erythema (mild) present. No oropharyngeal exudate, posterior oropharyngeal edema or tonsillar abscesses. Eyes: Conjunctivae and EOM are normal. Pupils are equal, round, and reactive to light. Neck: Normal range of motion. Neck supple. Pulmonary/Chest: Effort normal. Lymphadenopathy: Head (right side): No submental, no submandibular, no tonsillar, no preauricular and no posterior auricular adenopathy present. Head (left side): No submental, no submandibular, no tonsillar, no preauricular and no posterior auricular adenopathy present. She has no cervical adenopathy. Right cervical: No superficial cervical adenopathy present. Left cervical: No superficial cervical adenopathy present. Neurological: She is alert and oriented to person, place, and time. Skin: Skin is warm and dry. Psychiatric: Affect normal. Nursing note and vitals reviewed. ASSESSMENT/PLAN: 1. Jaw swelling - ICD9: 784.2, ICD10: R22.0 Possible parotitis Advise to stop clindamycin, consult dentist also Advise to notify dentist, and follow up with him if continued dental pain. Advise to use lemon heads, suck on hard candy several times through out the day Tylenol and ibuprofen as needed for pain If worsening symptoms spike a fever, need to go to ER for treatment You can take an OTC probiotic such as Culturelle or Align to help with stomach upset/loose stool that you may get as a side effect of the antibiotic. 2. Thrush - ICD9: 112.0, ICD10: B37.0 Use as directed for 14 days - CLOTRIMAZOLE 10 MG NEELIMA Diagnosis and treatment plan were discussed and questions were answered to the patient's satisfaction. Pt acknowledged understanding of concepts and follow up plan. Specific signs and symptoms that would indicate the need for higher level of care were discussed in detail warranting prompt ER evaluation. Leta Stephen APRN.CASE LOADER OPERATOR Referring Provider: SELF [[id number]] Allergies As of Date: 01/03/2018 Noted Allergy Reaction NO KNOWN DRUG ALLERGIES 09/01/2009 Date Reviewed: 12/12/2017 Reviewed by: Jacklyn Quijano Ma - Fully Assessed Reason for Visit: Mass [64] Cmt: right side jaw area was previously seen at dentist dx with sinus infection, given amoxillin switched to clindamycin 2 days ago Primary Visit Diagnosis:Jaw swelling [R22.0] Other Visit Diagnosis:Thrush [B37.0] Order(s):clotrimazole (MYCELEX) 10 mg trocheUse 1 Neelima as instructed five times daily for 14 days.Disp: 70 tabletRfl: 0 Prescriptions as of 01/03/2018 Sig: CLOTRIMAZOLE 10 MG NEELIMA Use 1 Neelima as instructed fi* CONJ ESTROGEN-MEDROXYPROGESTE* Take 1 tablet by mouth once d* VENLAFAXINE ER 75 MG CAPSULE,* TAKE 1 CAPSULE BY MOUTH ONCE * OMEPRAZOLE 40 MG CAPSULE,ROSITA* TAKE 1 CAPSULE EVERY DAY TAMSULOSIN 0.4 MG CAPSULE Take 0.4 mg by mouth daily at* LEVOTHYROXINE 50 MCG TABLET Take 1 tablet by mouth once d* CLOTRIMAZOLE 1 % TOPICAL CREAM Apply 1 application to affect* CALCIUM CARB,CIT ER 600 MG CA* Take 600 mg by mouth three ti* MAGNESIUM 250 MG TABLET Take 400 mg by mouth once yvette* CYANOCOBALAMIN (VIT B-12) 1,0* Take 1,000 mcg by mouth once * CALCITRIOL 0.25 MCG CAPSULE daily Problem List As Of Date 01/03/2018 Noted Resolved MALIGNANT NEOPLASM NOS [C80.1] INVALID FOR* SEBORRHEIC KERATOSIS INFLAMED [L82.0] INVALID FOR* SOLAR LENGINES///DYSCHROMIA OTHER [L81.9] INVALID FOR* NEVUS///BENIGN SALEEM SKIN TRUNK [D23.5] INVALID FOR* CHR SOLAR SKIN DAMAGE NOS [L57.8] INVALID FOR* NEVI///BENIGN SALEEM SKIN LEG [D23.70] INVALID FOR* MELENA, BLOOD IN STOOL [K92.1] INVALID FOR* Thyroid Dysfunction [E07.9] INVALID FOR* Osteoporosis [M81.0] INVALID FOR* Hyperparathyroidism, Primary [E21.0] INVALID FOR* Calcium Nephrolithiasis [N20.0] INVALID FOR* Iron deficiency anemia [D50.9] INVALID FOR* Hot flushes, perimenopausal [N95.1] INVALID FOR* Diarrhea [R19.7] INVALID FOR* LLQ pain [R10.32] INVALID FOR* Angular cheilitis [K13.0] INVALID FOR* Post-surgical hypothyroidism [E89.0] INVALID FOR* Other instructions from your clinician: ASSESSMENT/PLAN: 1. Jaw swelling - ICD9: 784.2, ICD10: R22.0 Possible parotitis Advise to stop clindamycin, consult dentist also Advise to notify dentist, and follow up with him if continued dental pain. Advise to use lemon heads, suck on hard candy several times through out the day Tylenol and ibuprofen as needed for pain If worsening symptoms spike a fever, need to go to ER for treatment You can take an OTC probiotic such as Culturelle or Align to help with stomach upset/loose stool that you may get as a side effect of the antibiotic. 2. Thrush - ICD9: 112.0, ICD10: B37.0 Use as directed for 14 days - CLOTRIMAZOLE 10 MG NEELIMA Prescriptions ordered this encounter Disp Refills Start End CLOTRIMAZOLE 10 MG NEELIMA 70 t* 0 01/03/2018 01/17/2018 Route: MUCOUS MEM Sig: Use 1 Neelima as instructed five times daily for 14 days. Encounter Status:Closed by LETA STEPHEN CNP on 01/03/18 PROGRESS Observed: 12/20/2017 Status: COMPLETED Source: [place] 11:42 AM [facility] REPOSITORY HNO ID: [id number] Author: Mirela Mas Psr Service: (none) Author Type: (none) Type: Progress Notes Filed: 12/20/2017 11:43 AM Note Text: pap logged, letter sent. Mirela Mas Psr CYTOLOGY Observed: 12/12/2017 Status: C Source: [place] 9:25 AM [facility] REPOSITORY ADDITIONAL PROCEDURES PRESENT Specimen originated from [facility] Specimen #: [id number] Submitting Physician: VISHAL JOAQUIN MD SPECIMEN SUBMITTED A: CERVICAL, SCREENING, FLUID FINAL DIAGNOSIS A. CERVICAL, SCREENING, FLUID Satisfactory for interpretation. Negative for intraepithelial lesion or malignancy. This specimen has been analyzed by the ThinPrep Imaging System, an automated imaging and review system, which assists the laboratory in evaluating cells on ThinPrep Pap tests. Following automated imaging, selected kennedy from every slide are reviewed by a wheel borer. SHAISTA Carranza (ASCP) (Electronic Signature) ADDITIONAL PROCEDURE(S) HUMAN PAPILLOMA VIRUS Date Ordered: 12/13/2017 Date Reported: 12/14/2017 Procedure Results and Interpretation Negative for HPV DNA high risk type 16 by PCR. Negative for HPV DNA high risk type 18 by PCR. Negative for HPV DNA high risk types: 31,33,35,39,45,51,52,56,58,59,66,68 by PCR. This test was developed and its performance characteristics determined by [facility]'s Raghav Johansen [facility] [place] ([facility]). It has not been cleared or approved by the FDA. -[facility] is regulated under CLIA as qualified to perform high-complexity testing. This test is used for clinical purposes. It should not be regarded as investigational or for research. CLINICAL DATA ROUTINE EXAM, HPV Testing: Yes, automatic HPV patients over 30 Date of Last Menstrual Period: 11/23/2010 Menstrual History: Post-Menopausal STAINS A: CERVICAL, SCREENING, FLUID THIN PREP STATOR TESTER Deisy Parrish M.D., Senior Administrative Services Officer Date of Report: 12/20/2017 Date of Procedure: 12/12/2017 Date of Receipt: 12/13/2017 Submitted by: VISHAL JOAQUIN MD Location: [facility] Diagnostic interpretation performed at [facility], [address] [place] [address]. The Pap Smear is a screening test for cervical cancer. False negative results occur with all screening tests, emphasizing the need for rescreening at recommended intervals, and clinical correlation. PROGRESS Observed: 12/12/2017 Status: COMPLETED Source: [place] 9:03 AM [facility] REPOSITORY HNO ID: [id number] Author: Vishal Joaquin Service: (none) Author Type: Physician Type: Progress Notes Filed: 12/12/2017 9:27 AM Note Text: Water Softener Servicer And Installer offered: Patient declines. Gely Shirley is a 62 year old who presents for her annual gynecologic exam without complaints. Works at [employer]. Two grandchildren ages 1/2. Planning family trip to [facility] April. Postmenopausal: Yes since age 55 HRT use: Yes, Prempro How long: years . Last Pap: 2011 normal HPV: 2011 negative History of abnormal pap: No Last mammogram: 2017 normal History of abnormal mammogram: No Sexually active: Yes History of STDS: None Patient concerns for STD exposure: No. Pain with intercourse: No Postcoital bleeding: No Hot flashes: No Night sweats: No Vaginal dryness: No Exercise: not routine Diet: balanced Obstetric History T4 L3 SAB0 TAB0 Ectopic0 Multiple0 Live Births0 Comment: one son born living but passed 2 days after . Still has 3 living children. PAST MEDICAL HISTORY Diagnosis Date - Broken wrist Left wrist - Hemorrhage of gastrointestinal tract, unspecified - Herpes zoster without mention of complication shingles - hyperparathyroidism Endo Dr. Smith, s/p removal x 1 gland, cause of kidney stones - Hyperthyroidism - Osteoporosis due to hyperparathyroidism - Other malignant neoplasm of skin, site unspecified basal cell carcinoma - PMH - PAST MEDICAL HISTORY OF renal/kidney stones - Post-surgical hypothyroidism s/p thyroidectomy total, Endo Dr. Ev Myers PAST SURGICAL HISTORY Procedure Laterality Date - ; THYROIDECTOMY TOTAL OR COMPLETE 05/10/12 total - COLONOSCOP W/ OR W/O BRS SPEC 07/11/2008 Normal - COLONOSCOP W/ OR W/O BRS SPEC 04/05/13 Colonoscopy - COLONOSCOPY W/BX 10/02/15 normal - EGD W/O BRSH SPECIMEN W/BX 10/02/15 gastritis - ENDOMETRIAL BIOPSY 03/2010 - F ESWL UNILATERAL Left 2010 - HYSTEROSCOPY BX W/WO DANDC 11/2013 benign - LIGATE FALLOPIAN TUBE - PARATHYROID 05/10/12 removed - PAST SURGICAL HISTORY OF excision of a basal cell carcinoma, left supraorbital area. - PAST SURGICAL HISTORY OF 02/2015 surgery on left wrist after breaking it FAMILY HISTORY Problem Relation Age of Onset - Breast Cancer Sister diagnosed september 2005 - Colon Cancer Maternal Grandmother - Cancer Sister lymphoma, leukemia - Thyroid Sister SOCIAL HISTORY Social History Substance Use Topics - Smoking status: Never Smoker - Smokeless tobacco: Never Used - Alcohol use No REVIEW OF SYSTEMS Abdomen: No abdominal pain, nausea, vomiting, diarrhea, or constipation. No bloating, early satiety, indigestion, or increased flatulence. Bladder: No dysuria, gross hematuria, urinary frequency, urinary urgency, or incontinence Breast: No breast lumps, nipple d/c, overlying skin changes, redness or skin retraction Allergies and current medication updated:Yes EXAM: LMP 11/23/2010 GENERAL: pleasant, female in no apparent distress HEENT: Normocephalic, atraumatic, mucus membranes moist and no lesions NECK: Supple, full range of motion, no adenopathy and thyroid normal DERMATOLOGY: Normal, without lesions, non-icteric and non-hirsute BREAST: soft, non-tender, symmetric, no dominant mass, normal nipple-areolar complex, no lymphadenopathy and no nipple discharge ABDOMEN: soft, non-tender and no masses PELVIC: external genitalia normal, normal Bartholin's glands, urethra, Itasca's glands, no vulvar lesions, no cervical lesions, good vaginal support, physiologic discharge present, normal appearing perineal body and perianal region BIMANUAL: uterus normal size, shape and consistency, no adnexal masses and non-tender RECTOVAGINAL: deferred. NEURO: alert and oriented x3,exam grossly non-focal EXTREMITIES: normal ASSESSMENT/PLAN: 1) Health maintenance: Pap done with HPV. Mammogram ordered Nutrition, exercise and routine health maintenance exams reviewed. Calcium/Vitamin D supplementation information provided. Smoking cessation: Patient does not smoke. 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 Gely Shirley is a 62 year old who presents for her annual gynecologic exam without complaints. Works at [employer]. Two grandchildren ages 1/2. Planning family trip to [facility] April. Postmenopausal: Yes since age 55 HRT use: Yes, Prempro How long: years . Last Pap: 2011 normal HPV: 2011 negative History of abnormal pap: No Last mammogram: 2017 normal History of abnormal mammogram: No Sexually active: Yes History of STDS: None Patient concerns for STD exposure: No. Pain with intercourse: No Postcoital bleeding: No Hot flashes: No Night sweats: No Vaginal dryness: No Exercise: not routine Diet: balanced Obstetric History T4 L3 SAB0 TAB0 Ectopic0 Multiple0 Live Births0 Comment: one son born living but passed 2 days after . Still has 3 living children. PAST MEDICAL HISTORY Diagnosis Date - Broken wrist Left wrist - Hemorrhage of gastrointestinal tract, unspecified - Herpes zoster without mention of complication shingles - hyperparathyroidism Endo Dr. Smith, s/p removal x 1 gland, cause of kidney stones - Hyperthyroidism - Osteoporosis due to hyperparathyroidism - Other malignant neoplasm of skin, site unspecified basal cell carcinoma - PMH - PAST MEDICAL HISTORY OF renal/kidney stones - Post-surgical hypothyroidism s/p thyroidectomy total, Endo Dr. Smith - Sciatica PAST SURGICAL HISTORY Procedure Laterality Date - ; THYROIDECTOMY TOTAL OR COMPLETE 05/10/12 total - COLONOSCOP W/ OR W/O BRSH SPEC 07/11/2008 Normal - COLONOSCOP W/ OR W/O BRSH SPEC 04/05/13 Colonoscopy - COLONOSCOPY W/BX 10/02/15 normal - EGD W/O BRSH SPECIMEN W/BX 10/02/15 gastritis - ENDOMETRIAL BIOPSY 03/2010 - F ESWL UNILATERAL Left 2010 - HYSTEROSCOPY BX W/WO DANDC 11/2013 benign - LIGATE FALLOPIAN TUBE - PARATHYROID 05/10/12 removed - PAST SURGICAL HISTORY OF excision of a basal cell carcinoma, left supraorbital area. - PAST SURGICAL HISTORY OF 02/2015 surgery on left wrist after breaking it FAMILY HISTORY Problem Relation Age of Onset - Breast Cancer Sister diagnosed september 2005 - Colon Cancer Maternal Grandmother - Cancer Sister lymphoma, leukemia - Thyroid Sister SOCIAL HISTORY Social History Substance Use Topics - Smoking status: Never Smoker - Smokeless tobacco: Never Used - Alcohol use No REVIEW OF SYSTEMS Abdomen: No abdominal pain, nausea, vomiting, diarrhea, or constipation. No bloating, early satiety, indigestion, or increased flatulence. Bladder: No dysuria, gross hematuria, urinary frequency, urinary urgency, or incontinence Breast: No breast lumps, nipple d/c, overlying skin changes, redness or skin retraction Allergies and current medication updated:Yes EXAM: LMP 11/23/2010 GENERAL: pleasant, female in no apparent distress HEENT: Normocephalic, atraumatic, mucus membranes moist and no lesions NECK: Supple, full range of motion, no adenopathy and thyroid normal DERMATOLOGY: Normal, without lesions, non-icteric and non-hirsute BREAST: soft, non-tender, symmetric, no dominant mass, normal nipple-areolar complex, no lymphadenopathy and no nipple discharge ABDOMEN: soft, non-tender and no masses PELVIC: external genitalia normal, normal Bartholin's glands, urethra, Itasca's glands, no vulvar lesions, no cervical lesions, good vaginal support, physiologic discharge present, normal appearing perineal body and perianal region BIMANUAL: uterus normal size, shape and consistency, no adnexal masses and non-tender RECTOVAGINAL: deferred. NEURO: alert and oriented x3,exam grossly non-focal EXTREMITIES: normal ASSESSMENT/PLAN: 1) Health maintenance: Pap done with HPV. Mammogram ordered Nutrition, exercise and routine health maintenance exams reviewed. Calcium/Vitamin D supplementation information provided. Smoking cessation: Patient does not smoke. Colon cancer screening: up to date with screening 2) Follow up one year or sooner as needed MD Mirela Elizabeth Psr 12/20/2017 11:43 AM Signed pap logged, letter sent. Mirela Mas Psr Referring Provider: VISHAL ANNE [[id number]] Allergies As of Date: 12/12/2017 Noted Allergy Reaction NO KNOWN DRUG ALLERGIES 09/01/2009 Date Reviewed: 12/12/2017 Reviewed by: Jacklyn Quijano Ma - Fully Assessed Reason for Visit: Yearly Exam [187] Visit Diagnoses:Encounter for gynecological examination (general) (routine) without abnormal findings [Z01.419] Encounter for screening for human papillomavirus (HPV) [Z11.51] Pap smear for cervical cancer screening [Z12.4] Encounter for screening mammogram for breast cancer [Z12.31] Order(s):PAP FLUID CERVICAL SCREENING [[id number]] Order #: [id number] #:[id number] [place] SCREENING [[id number]] Order #: [id number] FUTURE conjugated estrogens-medroxyPROGESTERone (PREMPRO) 0.45-1.5 mg per tabletTake 1 tablet by mouth once daily.Disp: 84 tabletRfl: 3 HPV W/GENOTYPE [SQHPVHRR] Order #: [id number]. #:[id number] Prescriptions as of 12/12/2017 Sig: CONJ ESTROGEN-MEDROXYPROGESTE* Take 1 tablet by mouth once d* VENLAFAXINE ER 75 MG CAPSULE,* TAKE 1 CAPSULE BY MOUTH ONCE * OMEPRAZOLE 40 MG CAPSULE,ROSITA* TAKE 1 CAPSULE EVERY DAY LEVOTHYROXINE 50 MCG TABLET Take 1 tablet by mouth once d* CALCIUM CARB,CIT ER 600 MG CA* Take 600 mg by mouth three ti* MAGNESIUM 250 MG TABLET Take 400 mg by mouth once yvette* CALCITRIOL 0.25 MCG CAPSULE daily TAMSULOSIN 0.4 MG CAPSULE Take 0.4 mg by mouth daily at* CLOTRIMAZOLE 1 % TOPICAL CREAM Apply 1 application to affect* CYANOCOBALAMIN (VIT B-12) 1,0* Take 1,000 mcg by mouth once * Problem List As Of Date 12/12/2017 Noted Resolved MALIGNANT NEOPLASM NOS [C80.1] INVALID FOR* SEBORRHEIC KERATOSIS INFLAMED [L82.0] INVALID FOR* SOLAR LENGINES///DYSCHROMIA OTHER [L81.9] INVALID FOR* NEVUS///BENIGN SALEEM SKIN TRUNK [D23.5] INVALID FOR* CHR SOLAR SKIN DAMAGE NOS [L57.8] INVALID FOR* NEVI///BENIGN SALEEM SKIN LEG [D23.70] INVALID FOR* MELENA, BLOOD IN STOOL [K92.1] INVALID FOR* Thyroid Dysfunction [E07.9] INVALID FOR* Osteoporosis [M81.0] INVALID FOR* Hyperparathyroidism, Primary [E21.0] INVALID FOR* Calcium Nephrolithiasis [N20.0] INVALID FOR* Iron deficiency anemia [D50.9] INVALID FOR* Hot flushes, perimenopausal [N95.1] INVALID FOR* Diarrhea [R19.7] INVALID FOR* LLQ pain [R10.32] INVALID FOR* Angular cheilitis [K13.0] INVALID FOR* Post-surgical hypothyroidism [E89.0] INVALID FOR* Prescriptions ordered this encounter Disp Refills Start End CONJ ESTROGEN-MEDROXYPROGESTERONE 0.* 84 t* 3 12/12/2017 Route: ORAL Sig: Take 1 tablet by mouth once daily. Medications Discontinued During This Encounter PREMPRO 0.45-1.5 mg per tablet 84 t* 0 10/23/2017 12/12/2017 Sig: TAKE 1 TAB BY MOUTH DAILY Disc: Reason for discontinue is not on file. Disposition: Return in 1 year (on 12/12/2018) for Annual Exam. Follow-up and Disposition History Recorded Letter Text Vishal Joaquin MD [facility] [address], [place] [address] Gely Shirley [address] [facility] [address] 12/20/2017 [facility]: [id number] Dear Gely, We are pleased to inform you that your recent Pap Test was within normal limits. Because Pap tests are so effective in the early detection of cervical cancer, you are encouraged to continue having the test at regular intervals. You will be due for a 1 year Gynecological Exam after this date 12/12/2018. If you have any questions regarding the above information, do not hesitate to call our office at between the hours of 8:00 a.m. and 5:00 p.m. Sincerely, Vishal Joaquin MD Encounter Status:Closed by VISHAL JOAQUIN MD on 12/12/17 HPV W/GENOTYPE Collected: 12/12/2017 Status: F Source: [place] 4:38 AM [facility] REPOSITORY TYPE CODE TESTS RESULT OUT OF REFERENCE UNITS RANGE LAB HPVT16 HPV HighRisk Negative for Type 16 HPV DNA high risk type 16 by PCR. LAB HPVT18 HPV HighRisk Negative for Type 18 HPV DNA high risk type 18 by PCR. LAB HPVHRO HPV HighRisk Negative for Other HPV DNA high risk types: 31,33,35,39,45 ,51,52,56,58,5 9,66,68 by PCR. Result Comment: This test was developed and its performance characteristics determined by [facility] [place] ([facility]). It has not been cleared or approved by the FDA. [facility] is regulated under CLIA as qualified to perform high-complexity testing. This test is used for clinical purposes. It should not be regarded as inv estigational or for research. Performed By: #### HPVHRR #### [facility] [address] [place], [place] [address] BASIC METABOLIC Collected: 10/21/2017 Status: F Source: [facility] PROFILE ([facility]) 11:31 AM [facility] REPOSITORY TYPE CODE TESTS RESULT OUT OF RANGE REFERENCE UNITS LAB L501.0100 74-106 mg/dL Normal GLU 81 Result Comment: Please note revised GLUCOSE reference range effective 2017. LAB L501.1000 7-18 mg/dL High BUN 21 LAB L501.1100 0.55-1.02 mg/dL Normal CREAT,SERUM 1.01 Result Comment: The validity of the calculated GFR AND GFRAA in patients over 70 years has not been determined. Clinical correlation is essential. LAB L501.1110 >60 mL/min Low EST GFR 59 Result Comment: Non- GFR Calc LAB L501.1115 >60 mL/min Normal EST GFR - AA 71 Result Comment: GFR Calc LAB L501.1300 10-20 RATIO High BUN/CRE 20.8 LAB L501.2200 8.5-10.1 mg/dL CA Normal 8.5 LAB L501.5300 136-145 mmol/L NA Normal 141 LAB L501.5600 3.5-5.1 mmol/L K Normal 3.8 LAB L501.5900 98-107 mmol/L CL Normal 105 LAB L501.6100 21.0-32.0 mmol/L Normal CO2 27.0 LAB L501.6200 5-15 Normal GAP 9 Performed By: #### L500.2500, L506.0400 #### [facility] [address] [place], [address] T4 FREE DIRECT Collected: 10/21/2017 Status: F Source: [place] 11:31 AM [facility] REPOSITORY TYPE CODE TESTS RESULT OUT OF RANGE REFERENCE UNITS LAB L506.0400 0.76-1.46 ng/dL Normal T4 FREE 1.10 DIRECT Performed By: #### L500.2500, L506.0400 #### [facility] [address] [place], [address] VITAMIN D,25 HYDROXY Collected: 09/29/2017 Status: F Source: [place] 4:07 PM [facility] REPOSITORY TYPE CODE TESTS RESULT OUT OF RANGE REFERENCE UNITS LAB L506.1000 19.95-100.01 ng/mL Normal Vitamin D 36.9 25-OH Result Comment: Vitamin D 25(OH) Status Range Deficiency <20 ng/mL (50nmol/L) Insuffciency 20 - 30 ng/mL (50 - 75 nmol/L) Sufficiency 30 - 100 ng/mL (75 - 250 nmol/L) Toxicity >100 ng/mL (>250 nmol/L) Performed By: #### L506.1000 #### [facility] [address] [place], [address] PTHIN Collected: 09/29/2017 Status: F Source: [facility] 4:07 PM [facility] REPOSITORY TYPE CODE TESTS RESULT OUT OF RANGE REFERENCE UNITS LAB L509.1000 18.4-80.1 pg/mL Normal PTHIN 50.0 Result Comment: Please Note: PTH INTACT METHOD AND REFERENCE RANGE CHANGE Effective 08/09/2017. Performed By: #### L509.1000 #### [facility] [address] [place], [address] COMPREHENSIVE METABOLIC Collected: 09/29/2017 Status: F Source: [facility] 4:07 PM [facility] REPOSITORY TYPE CODE TESTS RESULT OUT OF RANGE REFERENCE UNITS LAB L501.0100 74-106 mg/dL Normal GLU 93 Result Comment: Please note revised GLUCOSE reference range effective 2017. LAB L501.1000 7-18 mg/dL Normal BUN 17 LAB L501.1100 0.55-1.02 mg/dL Normal CREAT,SERUM 0.88 Result Comment: The validity of the calculated GFR AND GFRAA in patients over 70 years has not been determined. Clinical correlation is essential. LAB L501.1110 >60 mL/min Normal EST GFR 69 Result Comment: Non- GFR Calc LAB L501.1115 >60 mL/min Normal EST GFR - AA 84 Result Comment: GFR Calc LAB L501.1300 10-20 RATIO Normal BUN/CRE 19.3 LAB L501.1500 6.4-8.2 g/dL T Normal PROT 7.2 LAB L501.1800 3.2-5.0 g/dL Normal ALB 3.2 LAB L501.1950 2.2-4.2 g/dL Normal GLOB 4.0 LAB L501.2000 0.9-2.4 RATIO Low A/G 0.8 LAB L501.2200 8.5-10.1 mg/dL Low CA 7.3 LAB L501.4100 15-37 U/L Normal AST 16 LAB L501.4305 45-117 U/L Normal ALK P 94 LAB L501.4405 13-56 U/L Normal ALT 18 Result Comment: Please note revised ALT reference range effective 2017. LAB L501.4600 0.20-1.00 mg/dL Normal T BILI 0.30 LAB L501.5300 136-145 mmol/L Normal NA 140 LAB L501.5600 3.5-5.1 mmol/L Normal K 3.7 LAB L501.5900 98-107 mmol/L Normal CL 103 LAB L501.6100 21.0-32.0 mmol/L Normal CO2 27.0 LAB L501.6200 5-15 Normal GAP 10 Performed By: #### L500.4050, L501.5200, L501.9520 #### [facility] [address] [place], [place], [address] MAGNESIUM Collected: 09/29/2017 Status: F Source: [facility] 4:07 PM [facility] REPOSITORY TYPE CODE TESTS RESULT OUT OF RANGE REFERENCE UNITS LAB L501.5200 1.6-2.6 mg/dL Normal MG 2.1 Result Comment: Please note revised Magnesium reference range effective 2017. Performed By: #### L500.4050, L501.5200, L501.9520 #### [facility] [address] [place], [place], [address] THYROID STIM HORMONE Collected: 09/29/2017 Status: F Source: [facility] ([facility]) 4:07 PM [facility] REPOSITORY TYPE CODE TESTS RESULT OUT OF RANGE REFERENCE UNITS LAB L501.9520 0.358-3.74 uIU/mL High TSH 4.90 Performed By: #### L500.4050, L501.5200, L501.9520 #### [facility] [address] [place], [address] ALLERGIES ALLERGIES DATE TYPE / CODE NAME / CODE REACTION SEVERITY SOURCE 09/01/2009 Drug NO KNOWN DRUG [facility] Class/30351 ALLERGIES Main [place] 1003(SNOMED Repository CT) ENCOUNTERS ENCOUNTERS ADMIT/DISCHARGE ACCOUNT ADMITTING ENCOUNTER LOCATION SOURCE NUMBER CLASS 08/08/2018 [id number] [facility] ing:LAB Repository 06/28/2018 [id number] [facility] ing:LAB Repository 05/05/2018 [id number] [facility] ing:LAB Repository 03/28/2018/03/28/20 [id number] Ambulatory [address] Repository 03/22/2018/03/23/20 [id number] Ambulatory [address] Repository 03/12/2018 [id number] Ambulatory [facility] ing:LAB Repository 01/03/2018/01/05/20 [id number] Ambulatory [address] Repository 12/12/2017/12/15/19 [id number] Ambulatory [address] Repository 10/21/2017 [id number] [facility] ing:LAB Repository 09/29/2017 [id number] [facility] ing:LAB Repository PAYERS PAYERS ENCOUNTER GUARANTOR PAYER SUBSCRIBER SOURCE 08/08/2018 GELY Keenan Primary GELY Avendaño [id number] [facility] [place] [address] [id number] Number: Repository [address]Wey: 330 [id number] [phone] () Date:4436-81-16FY [id number] [place] [address]NF: 08/08/2018 Secondary NOT GIVENUNK [place] Insurance:SELF PAY [facility] Number: Effective Repository Date:2018-08-08 06/28/2018 GELY Keenan Primary GELY Avendaño [id number] [facility]: [address] [id number] Number: Repository [address]Vmf: [phone] [id number] [phone] () Date:[id number] [address]LX: 06/28/2018 Secondary NOT GIVENUNK [place] Insurance:SELF PAY [facility] Number: Effective Repository Date:2018-06-28 05/05/2018 GELY Keenan Primary GELY Keenan [place] [id number] Insurance:[employer] REESEDOB: Community [facility] [id number] [id number] Number: Repository [address]Xob: 330 [id number] [phone] (HP) Date:4650-91-42TL [facility] [address]55[address], [place] [address]CL: 05/05/2018 Secondary NOT GIVENUNK [place] Insurance:SELF PAY [facility] Number: Effective Repository Date:2018-05-05 03/12/2018 GELY Keenan Primary GELY Keenan [place] [id number] Insurance:[employer] REESEDOB: Community [facility] [id number] [id number] Number: Repository [address]Ckq: 330 [id number] [phone] () Date:6339-95-86KR [facility] 395128ZSQ[place]FI, [place] [address]JD: 03/12/2018 Secondary NOT GIVENUNK [place] Insurance:SELF PAY [facility] Number: Effective Repository Date:2018-03-12 10/21/2017 GELY Keenan Primary GELY Keenan [place] [id number] Insurance:[employer] REESEDOB: Community [facility] [id number] [id number], [place] Number: Repository [address]Crg: 330 [id number] [phone] () Date:7120-91-41SE [facility] 394648BCWJEQV, [place] [address]SY: 10/21/2017 Secondary NOT GIVENUNK [place] Insurance:SELF PAY [facility] Number: Effective Repository Date:2017-10-21 09/29/2017 GELY Keenan Primary GELY Avendaño [id number] Insurance:[facility] REESEDOB: [facility] [address]Xbjmfg [id number], [place] Number: Repository [address]Jum: [phone] [id number] [phone] () Date:4477-80-99FP [address]XLUGDE, [place] [address]IX: 09/29/2017 Secondary NOT GIVENRAMÍREZ [place] Insurance:SELF PAY [facility] Number: Effective Repository Date:2017-09-29
== END ==
PROVIDERS: Family Provider Student in an Organized Health Care Education/Training Program; PCP Student in an Organized Health Care Education/Training Program; Referring Provider Internal Medicine Endocrinology, Diabetes & Metabolism; Visit Provider Internal Medicine Endocrinology, Diabetes & Metabolism
DX: E89.0 Postprocedural hypothyroidism (principal); E89.2 Postprocedural hypoparathyroidism
CPT/HCPCS: 36415; 80053; 83970; 84443

== ENCOUNTER → 2018-10-24 14:59 | Outpatient (CLI) | payer OTHER, SELFPAY ==
--- NOTE | 2018-10-24 15:27 | CT_ITS ---
STUDY: CT ABDOMEN AND PELVIS WITH CONTRAST REASON FOR EXAM: Female, 62 years old. Left lower quadrant pain. RADIATION DOSAGE (If Supplied By Facility): CTDIvol = ( 10.91 ) mGy, DLP = ( 423.78 ) mGycm TECHNIQUE: Transaxial images were obtained from the dome of the diaphragm to the symphysis pubis without oral contrast. 100 ml of Isovue 300 contrast was administered. Sagittal and coronal images were reconstructed. Individualized dose optimization techniques were used for this CT. COMPARISON: None. FINDINGS: The visualized lung bases are clear. The visualized portions of the heart and pericardium are within normal limits. There are no calcified gallstones present. The liver is within normal limits. There are no suspicious hepatic lesions. The spleen is normal in size. The pancreas is within normal limits. The adrenal glands are within normal limits. There are no renal or ureteral stones. There is no hydronephrosis. There are bilateral subcentimeter renal hypodensities which are too small to characterize. Normal visualized stomach. There is no bowel obstruction or inflammation. There is a large amount of stool in the colon, consistent with constipation. The appendix is visualized and appears normal. The aorta is normal in caliber. Uterus is normal in size. There are bilateral adnexal clips, consistent with prior tubal ligation. There is no abdominal or pelvic free air, free fluid, fluid collection or lymphadenopathy. There are no destructive osseous lesions. CT/Abdomen/Pelvis WITH Contrast IMPRESSION: No acute abdominal or pelvic pathology. Constipation. Electronically Signed: Bishnu Mcknight, at 18:01 EST Tel , Service support ,
[2018-10-24 17:30] LABS: CREATININE FINGERSTICK 1.2 mg/dL (0.55-1.02)
== END ==
PROVIDERS: Family Provider Student in an Organized Health Care Education/Training Program; PCP Student in an Organized Health Care Education/Training Program; Referring Provider Student in an Organized Health Care Education/Training Program; Visit Provider Student in an Organized Health Care Education/Training Program
DX: R10.32 Left lower quadrant pain (principal); K65.9 Peritonitis, unspecified; R11.0 Nausea; R19.7 Diarrhea, unspecified; R63.0 Anorexia
CPT/HCPCS: 74177; Q9967

== ENCOUNTER → 2018-12-03 15:52 | Outpatient (CLI) | payer OTHER, SELFPAY ==
[2018-12-03 18:34] LABS: PTHIN 7.6 pg/mL (18.4-80.1); Vitamin D,25 Hydroxy 47.4 ng/mL (29.95-100.01)
[2018-12-03 18:35] LABS: ALB/GLOB Ratio 0.9 RATIO (0.9-2.4); AST(SGOT) 16 U/L (15-37); Alanine Aminotransfer ALT/SGPT 13 U/L (13-56); Albumin, Serum 3.5 g/dL (3.2-5.0); Alkaline Phosphatase 95 U/L (45-117); Anion Gap 4 (5-15); BUN 21 mg/dL (7-18); BUN/Creat Ratio 19.4 RATIO (10-20); Calcium,Total 8.6 mg/dL (8.5-10.1); Chloride 103 mmol/L (98-107); Creatinine, Serum 1.08 mg/dL (0.55-1.02); EST Glomerular Filtration Rate 54 mL/min (>60); Est Glom Filt Rate - Afr Amer 66 mL/min (>60); Globulin 4.1 g/dL (2.2-4.2); Glucose 78 mg/dL (74-106); Potassium 3.3 mmol/L (3.5-5.1); Protein, Total 7.6 g/dL (6.4-8.2); Sodium Level 138 mmol/L (136-145); Thyroid Stim Hormone (TSH) 0.42 uIU/mL (0.358-3.74)
== END ==
PROVIDERS: Family Provider Student in an Organized Health Care Education/Training Program; PCP Student in an Organized Health Care Education/Training Program; Referring Provider Internal Medicine Endocrinology, Diabetes & Metabolism; Visit Provider Internal Medicine Endocrinology, Diabetes & Metabolism
DX: E89.0 Postprocedural hypothyroidism (principal); E89.2 Postprocedural hypoparathyroidism; E55.9 Vitamin D deficiency, unspecified
CPT/HCPCS: 36415; 80053; 82306; 83970; 84443

== ENCOUNTER → 2018-12-07 16:10 | Outpatient (CLI) | payer OTHER, SELFPAY ==
[2018-12-07 17:33] LABS: Anion Gap 4 (5-15); BUN 18 mg/dL (7-18); BUN/Creat Ratio 16.8 RATIO (10-20); Calcium,Total 8.1 mg/dL (8.5-10.1); Chloride 107 mmol/L (98-107); Creatinine, Serum 1.07 mg/dL (0.55-1.02); EST Glomerular Filtration Rate 55 mL/min (>60); Est Glom Filt Rate - Afr Amer 67 mL/min (>60); Glucose 89 mg/dL (74-106); Potassium 4.2 mmol/L (3.5-5.1); Sodium Level 140 mmol/L (136-145)
== END ==
PROVIDERS: Family Provider Student in an Organized Health Care Education/Training Program; PCP Student in an Organized Health Care Education/Training Program
DX: E89.0 Postprocedural hypothyroidism (principal)
CPT/HCPCS: 36415; 80048

== ENCOUNTER → 2019-06-14 11:16 | Outpatient (CLI) | payer OTHER, SELFPAY ==
[2019-06-14 12:34] LABS: ALB/GLOB Ratio 0.8 RATIO (0.9-2.4); AST(SGOT) 14 U/L (15-37); Alanine Aminotransfer ALT/SGPT 16 U/L (13-56); Albumin, Serum 3.2 g/dL (3.2-5.0); Alkaline Phosphatase 110 U/L (45-117); Anion Gap 4 (5-15); BUN 15 mg/dL (7-18); BUN/Creat Ratio 15.2 RATIO (10-20); Calcium,Total 8.6 mg/dL (8.5-10.1); Chloride 103 mmol/L (98-107); Creatinine, Serum 0.99 mg/dL (0.55-1.02); EST Glomerular Filtration Rate 60 mL/min (>60); Est Glom Filt Rate - Afr Amer 73 mL/min (>60); Globulin 4.1 g/dL (2.2-4.2); Glucose 76 mg/dL (74-106); Potassium 3.6 mmol/L (3.5-5.1); Protein, Total 7.3 g/dL (6.4-8.2); Sodium Level 138 mmol/L (136-145); Thyroid Stim Hormone (TSH) 2.49 uIU/mL (0.358-3.74)
== END ==
PROVIDERS: Family Provider Student in an Organized Health Care Education/Training Program; PCP Student in an Organized Health Care Education/Training Program; Referring Provider Internal Medicine Endocrinology, Diabetes & Metabolism; Visit Provider Internal Medicine Endocrinology, Diabetes & Metabolism
DX: E89.0 Postprocedural hypothyroidism (principal)
CPT/HCPCS: 36415; 80053; 84443

== ENCOUNTER → 2020-04-08 10:53 | Outpatient (CLI) | payer OTHER, SELFPAY ==
[2020-04-08 11:57] LABS: Vitamin D,25 Hydroxy 71.6 ng/mL
[2020-04-08 12:06] LABS: ALB/GLOB Ratio 0.8 RATIO (0.9-2.4); AST(SGOT) 12 U/L (15-37); Alanine Aminotransfer ALT/SGPT 13 U/L (13-56); Albumin, Serum 3.2 g/dL (3.2-5.0); Alkaline Phosphatase 100 U/L (45-117); Anion Gap 4 (5-15); BUN 16 mg/dL (7-18); BUN/Creat Ratio 16.3 RATIO (10-20); Calcium,Total 7.7 mg/dL (8.5-10.1); Chloride 107 mmol/L (98-107); Creatinine, Serum 0.98 mg/dL (0.55-1.02); EST Glomerular Filtration Rate 61 mL/min (>60); Est Glom Filt Rate - Afr Amer 73 mL/min (>60); Globulin 4.2 g/dL (2.2-4.2); Glucose 78 mg/dL (74-106); Potassium 3.8 mmol/L (3.5-5.1); Protein, Total 7.4 g/dL (6.4-8.2); Sodium Level 140 mmol/L (136-145); Thyroid Stim Hormone (TSH) 2.27 uIU/mL (0.358-3.74)
== END ==
PROVIDERS: PCP Student in an Organized Health Care Education/Training Program; Referring Provider Internal Medicine Endocrinology, Diabetes & Metabolism; Visit Provider Internal Medicine Endocrinology, Diabetes & Metabolism
DX: E89.0 Postprocedural hypothyroidism (principal); E55.9 Vitamin D deficiency, unspecified
CPT/HCPCS: 36415; 80053; 82306; 84443

== ENCOUNTER → 2020-04-18 08:59 | Outpatient (CLI) | payer OTHER, SELFPAY ==
[2020-04-18 09:54] LABS: Anion Gap 4 (5-15); BUN 20 mg/dL (7-18); BUN/Creat Ratio 18.3 RATIO (10-20); Calcium,Total 8.2 mg/dL (8.5-10.1); Chloride 108 mmol/L (98-107); Creatinine, Serum 1.09 mg/dL (0.55-1.02); EST Glomerular Filtration Rate 54 mL/min (>60); Est Glom Filt Rate - Afr Amer 65 mL/min (>60); Glucose 87 mg/dL (74-106); Potassium 3.8 mmol/L (3.5-5.1); Sodium Level 142 mmol/L (136-145)
== END ==
PROVIDERS: PCP Student in an Organized Health Care Education/Training Program; Referring Provider Internal Medicine Endocrinology, Diabetes & Metabolism; Visit Provider Internal Medicine Endocrinology, Diabetes & Metabolism
DX: M81.0 Age-related osteoporosis without current pathological fracture (principal)
CPT/HCPCS: 36415; 80048

== ENCOUNTER → 2020-05-01 12:02 | Outpatient (CLI) | payer OTHER, SELFPAY ==
[2020-05-01 13:09] LABS: Anion Gap 5 (5-15); BUN 19 mg/dL (7-18); Calcium,Total 9.3 mg/dL (8.5-10.1); Chloride 104 mmol/L (98-107); Creatinine, Serum 1.27 mg/dL (0.55-1.02); EST Glomerular Filtration Rate 45 mL/min (>60); Est Glom Filt Rate - Afr Amer 54 mL/min (>60); Glucose 94 mg/dL (74-106); Potassium 3.8 mmol/L (3.5-5.1); Sodium Level 140 mmol/L (136-145)
[2020-05-01 13:13] LABS: Vitamin B12 287 pg/mL (211-911)
== END ==
PROVIDERS: PCP Student in an Organized Health Care Education/Training Program; Referring Provider Physician Assistant; Visit Provider Physician Assistant
DX: E89.0 Postprocedural hypothyroidism (principal); E53.9 Vitamin B deficiency, unspecified
CPT/HCPCS: 36415; 80048; 82607

== ENCOUNTER → 2020-05-20 12:13 | Outpatient (CLI) | payer OTHER, SELFPAY ==
[2020-05-20 13:22] LABS: Anion Gap 4 (5-15); BUN 20 mg/dL (7-18); BUN/Creat Ratio 13.8 RATIO (10-20); Calcium,Total 8.8 mg/dL (8.5-10.1); Chloride 103 mmol/L (98-107); Creatinine, Serum 1.45 mg/dL (0.55-1.02); EST Glomerular Filtration Rate 39 mL/min (>60); Est Glom Filt Rate - Afr Amer 47 mL/min (>60); Glucose 90 mg/dL (74-106); Potassium 3.9 mmol/L (3.5-5.1); Sodium Level 138 mmol/L (136-145)
== END ==
PROVIDERS: PCP Student in an Organized Health Care Education/Training Program; Referring Provider Internal Medicine Endocrinology, Diabetes & Metabolism; Visit Provider Internal Medicine Endocrinology, Diabetes & Metabolism
DX: E89.0 Postprocedural hypothyroidism (principal)
CPT/HCPCS: 36415; 80048

== ENCOUNTER → 2020-05-28 09:44 | Outpatient (CLI) | payer OTHER, SELFPAY ==
[2020-05-28 10:31] LABS: Anion Gap 5 (5-15); BUN 15 mg/dL (7-18); BUN/Creat Ratio 13.3 RATIO (10-20); Calcium,Total 8.1 mg/dL (8.5-10.1); Chloride 104 mmol/L (98-107); Creatinine, Serum 1.13 mg/dL (0.55-1.02); EST Glomerular Filtration Rate 51 mL/min (>60); Est Glom Filt Rate - Afr Amer 62 mL/min (>60); Glucose 93 mg/dL (74-106); Potassium 4.1 mmol/L (3.5-5.1); Sodium Level 138 mmol/L (136-145)
== END ==
PROVIDERS: PCP Student in an Organized Health Care Education/Training Program; Referring Provider Internal Medicine Endocrinology, Diabetes & Metabolism; Visit Provider Internal Medicine Endocrinology, Diabetes & Metabolism
DX: E89.0 Postprocedural hypothyroidism (principal)
CPT/HCPCS: 36415; 80048

== ENCOUNTER → 2020-06-03 11:53 | Outpatient (CLI) | payer OTHER, SELFPAY ==
[2020-06-03 13:28] LABS: Anion Gap 4 (5-15); BUN 17 mg/dL (7-18); BUN/Creat Ratio 12.6 RATIO (10-20); Calcium,Total 9.3 mg/dL (8.5-10.1); Chloride 102 mmol/L (98-107); Creatinine, Serum 1.35 mg/dL (0.55-1.02); EST Glomerular Filtration Rate 42 mL/min (>60); Est Glom Filt Rate - Afr Amer 51 mL/min (>60); Glucose 105 mg/dL (74-106); Magnesium 2.3 mg/dL (1.6-2.6); Potassium 3.6 mmol/L (3.5-5.1); Sodium Level 138 mmol/L (136-145)
== END ==
PROVIDERS: PCP Student in an Organized Health Care Education/Training Program; Referring Provider Nurse Practitioner Adult Health; Visit Provider Nurse Practitioner Adult Health
DX: D50.9 Iron deficiency anemia, unspecified (principal); E83.42 Hypomagnesemia
CPT/HCPCS: 36415; 80048; 83735

== ENCOUNTER → 2020-07-29 11:32 | Outpatient (CLI) | payer OTHER, SELFPAY ==
[2020-07-29 13:23] LABS: Vitamin D,25 Hydroxy 66.8 ng/mL
[2020-07-29 13:31] LABS: ALB/GLOB Ratio 0.7 RATIO (0.9-2.4); AST(SGOT) 12 U/L (15-37); Alanine Aminotransfer ALT/SGPT 15 U/L (13-56); Albumin, Serum 3.2 g/dL (3.2-5.0); Alkaline Phosphatase 108 U/L (45-117); Anion Gap 3 (5-15); BUN 22 mg/dL (7-18); BUN/Creat Ratio 14.3 RATIO (10-20); Chloride 103 mmol/L (98-107); Creatinine, Serum 1.54 mg/dL (0.55-1.02); EST Glomerular Filtration Rate 36 mL/min (>60); Est Glom Filt Rate - Afr Amer 44 mL/min (>60); Globulin 4.3 g/dL (2.2-4.2); Glucose 77 mg/dL (74-106); Potassium 3.6 mmol/L (3.5-5.1); Protein, Total 7.5 g/dL (6.4-8.2); Sodium Level 137 mmol/L (136-145); Thyroid Stim Hormone (TSH) 3.12 uIU/mL (0.358-3.74)
== END ==
PROVIDERS: PCP Student in an Organized Health Care Education/Training Program; Referring Provider Internal Medicine Endocrinology, Diabetes & Metabolism; Visit Provider Internal Medicine Endocrinology, Diabetes & Metabolism
DX: D50.9 Iron deficiency anemia, unspecified (principal); E89.0 Postprocedural hypothyroidism; E55.9 Vitamin D deficiency, unspecified
CPT/HCPCS: 36415; 80053; 82306; 84443

== ENCOUNTER → 2020-08-05 12:12 | Outpatient (CLI) | payer OTHER, SELFPAY ==
[2020-08-05 13:28] LABS: Anion Gap 6 (5-15); BUN 19 mg/dL (7-18); BUN/Creat Ratio 13.8 RATIO (10-20); Calcium,Total 9.4 mg/dL (8.5-10.1); Chloride 103 mmol/L (98-107); Creatinine, Serum 1.38 mg/dL (0.55-1.02); EST Glomerular Filtration Rate 41 mL/min (>60); Est Glom Filt Rate - Afr Amer 49 mL/min (>60); Glucose 81 mg/dL (74-106); Potassium 4.1 mmol/L (3.5-5.1); Sodium Level 138 mmol/L (136-145)
== END ==
PROVIDERS: PCP Student in an Organized Health Care Education/Training Program; Referring Provider Internal Medicine Endocrinology, Diabetes & Metabolism; Visit Provider Internal Medicine Endocrinology, Diabetes & Metabolism
DX: E89.0 Postprocedural hypothyroidism (principal)
CPT/HCPCS: 36415; 80048

== ENCOUNTER → 2020-12-09 13:31 | Outpatient (CLI) | payer MEDICARE, BC, SELFPAY ==
[2020-12-09 15:05] LABS: Vitamin D,25 Hydroxy 58.9 ng/mL
[2020-12-09 15:12] LABS: ALB/GLOB Ratio 0.9 RATIO (0.9-2.4); AST(SGOT) 10 U/L (15-37); Alanine Aminotransfer ALT/SGPT 11 U/L (13-56); Albumin, Serum 3.5 g/dL (3.2-5.0); Alkaline Phosphatase 115 U/L (45-117); Anion Gap 5 (5-15); BUN 20 mg/dL (7-18); Chloride 102 mmol/L (98-107); Creatinine, Serum 1.67 mg/dL (0.55-1.02); EST Glomerular Filtration Rate 33 mL/min (>60); Est Glom Filt Rate - Afr Amer 40 mL/min (>60); Globulin 4.1 g/dL (2.2-4.2); Glucose 83 mg/dL (74-106); Potassium 3.9 mmol/L (3.5-5.1); Protein, Total 7.6 g/dL (6.4-8.2); Sodium Level 136 mmol/L (136-145); Thyroid Stim Hormone (TSH) 3.84 uIU/mL (0.358-3.74)
== END ==
PROVIDERS: PCP Student in an Organized Health Care Education/Training Program; Referring Provider Internal Medicine Endocrinology, Diabetes & Metabolism; Visit Provider Internal Medicine Endocrinology, Diabetes & Metabolism
DX: E89.0 Postprocedural hypothyroidism (principal)
CPT/HCPCS: 36415; 80053; 82306; 84443

== ENCOUNTER → 2020-12-16 12:22 | Outpatient (CLI) | payer MEDICARE, BC, SELFPAY ==
[2020-12-16 13:48] LABS: Anion Gap 5 (5-15); BUN 27 mg/dL (7-18); Calcium,Total 9.7 mg/dL (8.5-10.1); Chloride 103 mmol/L (98-107); Creatinine, Serum 1.93 mg/dL (0.55-1.02); EST Glomerular Filtration Rate 28 mL/min (>60); Est Glom Filt Rate - Afr Amer 34 mL/min (>60); Glucose 84 mg/dL (74-106); Sodium Level 136 mmol/L (136-145)
== END ==
PROVIDERS: PCP Student in an Organized Health Care Education/Training Program; Referring Provider Internal Medicine Endocrinology, Diabetes & Metabolism; Visit Provider Internal Medicine Endocrinology, Diabetes & Metabolism
DX: M81.0 Age-related osteoporosis without current pathological fracture (principal)
CPT/HCPCS: 36415; 80048

== ENCOUNTER → 2020-12-24 12:56 | Outpatient (CLI) | payer MEDICARE, BC, SELFPAY ==
[2020-12-24 13:55] LABS: Anion Gap 7 (5-15); BUN 19 mg/dL (7-18); BUN/Creat Ratio 15.6 RATIO (10-20); Calcium,Total 8.7 mg/dL (8.5-10.1); Chloride 104 mmol/L (98-107); Creatinine, Serum 1.22 mg/dL (0.55-1.02); EST Glomerular Filtration Rate 47 mL/min (>60); Est Glom Filt Rate - Afr Amer 57 mL/min (>60); Glucose 80 mg/dL (74-106); Sodium Level 136 mmol/L (136-145)
== END ==
PROVIDERS: PCP Student in an Organized Health Care Education/Training Program; Referring Provider Internal Medicine Endocrinology, Diabetes & Metabolism; Visit Provider Internal Medicine Endocrinology, Diabetes & Metabolism
DX: E89.0 Postprocedural hypothyroidism (principal)
CPT/HCPCS: 36415; 80048

== ENCOUNTER → 2021-01-13 12:05 | Outpatient (CLI) | payer MEDICARE, BC, SELFPAY ==
[2021-01-13 12:59] LABS: Anion Gap 5 (5-15); BUN 31 mg/dL (7-18); BUN/Creat Ratio 24.8 RATIO (10-20); Chloride 107 mmol/L (98-107); Creatinine, Serum 1.25 mg/dL (0.55-1.02); EST Glomerular Filtration Rate 46 mL/min (>60); Est Glom Filt Rate - Afr Amer 55 mL/min (>60); Glucose 104 mg/dL (74-106); Potassium 4.1 mmol/L (3.5-5.1); Sodium Level 139 mmol/L (136-145)
== END ==
PROVIDERS: PCP Student in an Organized Health Care Education/Training Program; Referring Provider Internal Medicine Endocrinology, Diabetes & Metabolism; Visit Provider Internal Medicine Endocrinology, Diabetes & Metabolism
DX: E89.2 Postprocedural hypoparathyroidism (principal)
CPT/HCPCS: 36415; 80048

== ENCOUNTER → 2021-02-16 10:01 | Outpatient (CLI) | payer MEDICARE, BC, SELFPAY ==
[2021-02-16 11:08] LABS: ALB/GLOB Ratio 0.8 RATIO (0.9-2.4); AST(SGOT) 15 U/L (15-37); Alanine Aminotransfer ALT/SGPT 14 U/L (13-56); Albumin, Serum 3.2 g/dL (3.2-5.0); Alkaline Phosphatase 93 U/L (45-117); Anion Gap 3 (5-15); BUN 23 mg/dL (7-18); BUN/Creat Ratio 21.3 RATIO (10-20); Calcium,Total 8.7 mg/dL (8.5-10.1); Chloride 107 mmol/L (98-107); Creatinine, Serum 1.08 mg/dL (0.55-1.02); EST Glomerular Filtration Rate 54 mL/min (>60); Est Glom Filt Rate - Afr Amer 65 mL/min (>60); Glucose 91 mg/dL (74-106); Potassium 4.1 mmol/L (3.5-5.1); Protein, Total 7.2 g/dL (6.4-8.2); Sodium Level 139 mmol/L (136-145); Thyroid Stim Hormone (TSH) 0.12 uIU/mL (0.358-3.74)
== END ==
PROVIDERS: PCP Student in an Organized Health Care Education/Training Program; Referring Provider Internal Medicine Endocrinology, Diabetes & Metabolism; Visit Provider Internal Medicine Endocrinology, Diabetes & Metabolism
DX: E89.0 Postprocedural hypothyroidism (principal)
CPT/HCPCS: 36415; 80053; 84443

== ENCOUNTER → 2021-03-31 11:57 | Outpatient (CLI) | payer MEDICARE, BC, SELFPAY ==
[2021-03-31 13:21] LABS: Thyroid Stim Hormone (TSH) 0.43 uIU/mL (0.358-3.74)
== END ==
PROVIDERS: PCP Student in an Organized Health Care Education/Training Program; Visit Provider Internal Medicine Endocrinology, Diabetes & Metabolism
DX: E89.0 Postprocedural hypothyroidism (principal)
CPT/HCPCS: 36415; 84443

== ENCOUNTER → 2021-04-27 | Outpatient (CLI) | payer MEDICARE, BC, SELFPAY | END | disposition home or self-care (01) | LOC: LABSPEC 15:26 | PROVIDERS: PCP Student in an Organized Health Care Education/Training Program; Referring Provider Otolaryngology; Visit Provider Otolaryngology | DX: J02.9 Acute pharyngitis, unspecified (principal) | CPT/HCPCS: 87070; 87077; 87186 ==

== ENCOUNTER 2021-08-23 10:50 | Outpatient (CLI) | payer MEDICARE, BC, SELFPAY ==
[2021-08-23 11:53] LABS: Vitamin D,25 Hydroxy 95.3 ng/mL
[2021-08-23 12:07] LABS: ALB/GLOB Ratio 0.6 RATIO (0.9-2.4); AST(SGOT) 19 U/L (15-37); Alanine Aminotransfer ALT/SGPT 25 U/L (13-56); Albumin, Serum 2.9 g/dL (3.2-5.0); Alkaline Phosphatase 129 U/L (45-117); Anion Gap 8 (5-15); BUN 20 mg/dL (7-18); BUN/Creat Ratio 20.5 RATIO (10-20); Calcium,Total 8.5 mg/dL (8.5-10.1); Chloride 104 mmol/L (98-107); Cholesterol 222 mg/dL (200); Creatinine, Serum 0.97 mg/dL (0.55-1.02); EST Glomerular Filtration Rate 61 mL/min (>60); Est Glom Filt Rate - Afr Amer 74 mL/min (>60); Globulin 4.8 g/dL (2.2-4.2); Glucose 89 mg/dL (74-106); High Density Lipoprotein 51 mg/dL; Potassium 4.2 mmol/L (3.5-5.1); Protein, Total 7.7 g/dL (6.4-8.2); Sodium Level 137 mmol/L (136-145); Thyroid Stim Hormone (TSH) 0.37 uIU/mL (0.358-3.74); Triglycerides 180 mg/dL; Very Low Density Lipoprotein 36 mg/dL (5-40)
== END 2021-08-23 23:59 | disposition short-term general hospital (02) ==
LOC: LAB 10:53
PROVIDERS: PCP Student in an Organized Health Care Education/Training Program; Referring Provider Internal Medicine Endocrinology, Diabetes & Metabolism; Visit Provider Internal Medicine Endocrinology, Diabetes & Metabolism
DX: E89.0 Postprocedural hypothyroidism (principal); E78.00 Pure hypercholesterolemia, unspecified; E55.9 Vitamin D deficiency, unspecified
CPT/HCPCS: 36415; 80053; 80061; 82306; 84443

== ENCOUNTER 2021-09-22 09:37 | Outpatient (CLI) | payer MEDICARE, BC, SELFPAY ==
[2021-09-22 10:26] LABS: PTHIN 8.2 pg/mL (18.4-80.1)
== END 2021-09-22 23:59 | disposition short-term general hospital (02) ==
LOC: LAB.FUTURE 09:41 → LAB 09:44
PROVIDERS: PCP Student in an Organized Health Care Education/Training Program; Referring Provider Internal Medicine Endocrinology, Diabetes & Metabolism; Visit Provider Internal Medicine Endocrinology, Diabetes & Metabolism
DX: N20.0 Calculus of kidney (principal); E89.2 Postprocedural hypoparathyroidism
CPT/HCPCS: 36415; 81050; 83970

== ENCOUNTER → 2021-10-18 11:41 | Outpatient (CLI) | payer MEDICARE, BC, SELFPAY | LOC: LABSPEC 10-12 12:31 → LAB 11:42 | PROVIDERS: PCP Student in an Organized Health Care Education/Training Program | DX: D47.2 Monoclonal gammopathy (principal) | CPT/HCPCS: 82274 ==

== ENCOUNTER 2021-11-17 10:28 | Outpatient (CLI) | payer MEDICARE, BC, SELFPAY ==
[2021-11-17 11:37] LABS: PTHIN 23.5 pg/mL (18.4-80.1); Vitamin D,25 Hydroxy 97.5 ng/mL
[2021-11-17 11:50] LABS: ALB/GLOB Ratio 0.7 RATIO (0.9-2.4); AST(SGOT) 18 U/L (15-37); Alanine Aminotransfer ALT/SGPT 14 U/L (13-56); Albumin, Serum 3.3 g/dL (3.2-5.0); Alkaline Phosphatase 107 U/L (45-117); Anion Gap 5 (5-15); BUN 22 mg/dL (7-18); Chloride 105 mmol/L (98-107); Cholesterol 147 mg/dL (200); EST Glomerular Filtration Rate 59 mL/min (>60); Est Glom Filt Rate - Afr Amer 71 mL/min (>60); Globulin 4.5 g/dL (2.2-4.2); Glucose 86 mg/dL (74-106); High Density Lipoprotein 61 mg/dL; Protein, Total 7.8 g/dL (6.4-8.2); Sodium Level 137 mmol/L (136-145); Thyroid Stim Hormone (TSH) 0.15 uIU/mL (0.358-3.74); Triglycerides 92 mg/dL; Very Low Density Lipoprotein 18 mg/dL (5-40)
== END 2021-11-17 23:59 | disposition home or self-care (01) ==
LOC: LAB 10:30
PROVIDERS: PCP Student in an Organized Health Care Education/Training Program; Referring Provider Internal Medicine Endocrinology, Diabetes & Metabolism; Visit Provider Internal Medicine Endocrinology, Diabetes & Metabolism
DX: E89.0 Postprocedural hypothyroidism (principal); E89.2 Postprocedural hypoparathyroidism; E78.2 Mixed hyperlipidemia; E55.9 Vitamin D deficiency, unspecified
CPT/HCPCS: 36415; 80053; 80061; 82306; 83970; 84443

== ENCOUNTER 2021-12-08 08:20 | Outpatient (CLI) | payer MEDICARE, BC, SELFPAY ==
[2021-12-08 09:24] LABS: Anion Gap 5 (5-15); BUN 22 mg/dL (7-18); BUN/Creat Ratio 20.6 RATIO (10-20); Calcium,Total 8.7 mg/dL (8.5-10.1); Chloride 107 mmol/L (98-107); Creatinine, Serum 1.07 mg/dL (0.55-1.02); EST Glomerular Filtration Rate 55 mL/min (>60); Est Glom Filt Rate - Afr Amer 66 mL/min (>60); Glucose 96 mg/dL (74-106); PTHIN 12.1 pg/mL (18.4-80.1); Potassium 4.4 mmol/L (3.5-5.1); Sodium Level 140 mmol/L (136-145)
== END 2021-12-08 23:59 | disposition home or self-care (01) ==
LOC: LAB 08:22
PROVIDERS: PCP Student in an Organized Health Care Education/Training Program; Visit Provider Internal Medicine Endocrinology, Diabetes & Metabolism
DX: E89.2 Postprocedural hypoparathyroidism (principal); E89.0 Postprocedural hypothyroidism
CPT/HCPCS: 36415; 80048; 83970

== ENCOUNTER → 2021-12-23 | Outpatient (CLI) | payer MEDICARE, BC, SELFPAY ==
[2021-12-23 13:40] LABS: Absolute Lymphocyte Count 1.94 X10^3/uL (0.83-4.51); Absolute Neutrophil Count 3.8 X10^3/uL (2.0-7.7); Basophil# 0.05 X10^3/uL; Basophil% 0.8 % (0-1); Eosinophil# 0.15 X10^3/uL; Eosinophils% 2.4 % (0-5); Hematocrit 41.2 % (37-47); Lymphocyte # 1.94 X10^3/ul (0.83-4.51); Lymphocyte % 30.7 % (19-41); Mean Corp Hgb Conc 31.6 g/dL (32-36); Mean Corpuscular Volume 88.6 fL (81-99); Mean Platelet Vol. 9.7 fl (6.2-12.0); Monocyte# 0.33 X10^3/uL; Monocyte% 5.2 % (0-10); NRBC Flagged by Analyzer 0 % (0-5); Neutrophil # 3.83 X10^3/uL (2.7-7.7); Neutrophil % 60.6 % (47-70); Platelet Count 254 K/mm3 (150-450); RBC Distribution Width CV 13.5 % (11.6-14.6); Red Blood Count 4.65 M/mm3 (4.2-5.4); White Blood Count 6.3 K/mm3 (4.4-11.0)
[2021-12-23 14:23] LABS: ALB/GLOB Ratio 0.8 RATIO (0.9-2.4); AST(SGOT) 16 U/L (15-37); Alanine Aminotransfer ALT/SGPT 16 U/L (13-56); Albumin, Serum 3.6 g/dL (3.2-5.0); Alkaline Phosphatase 89 U/L (45-117); Anion Gap 4 (5-15); BUN 17 mg/dL (7-18); BUN/Creat Ratio 17.6 RATIO (10-20); Calcium,Total 8.7 mg/dL (8.5-10.1); Chloride 107 mmol/L (98-107); Creatinine, Serum 0.96 mg/dL (0.55-1.02); EST Glomerular Filtration Rate 62 mL/min (>60); Est Glom Filt Rate - Afr Amer 74 mL/min (>60); Ferritin 19 ng/mL (8-252); Globulin 4.3 g/dL (2.2-4.2); Glucose 81 mg/dL (74-106); Iron 64 ug/dL (50-170); Iron Binding Capacity,Total 355 ug/dL (250-450); Potassium 4.5 mmol/L (3.5-5.1); Protein, Total 7.9 g/dL (6.4-8.2); Sodium Level 138 mmol/L (136-145)
[2021-12-28 00:06] LABS: Albumin 3.8 g/dL (2.9-4.4); Alpha-1-Globulins 0.3 g/dL (0.0-0.4); Alpha-2-Globulins 0.8 g/dL (0.4-1.0); Free Kappa Light Chains 28.6 mg/L (3.3-19.4); Free Lambda Light Chains 19.5 mg/L (5.7-26.3); Gamma Globulin 1.4 g/dL (0.4-1.8); Immunoglobulin A 257 mg/dL (87-352); Immunoglobulin G 1394 mg/dL (586-1602); Immunoglobulin M 127 mg/dL (26-217); PROEL- TOTAL PROTEIN 7.3 g/dL (6.0-8.5)
[2021-12-28 14:09] LABS: Albumin, Ur 43.2 % (.); Alpha-1-Globulin, Ur 5.8 % (.); Alpha-2-Globulins, Ur 12.7 % (.); Gamma Globulin, Ur 18.3 % (.); M-Spike, Ur % Not Observed % (Not Observed); Total Protein, Ur 16.8 mg/dL (Not Estab.)
== END | disposition home or self-care (01) ==
PROVIDERS: PCP Student in an Organized Health Care Education/Training Program
DX: D47.2 Monoclonal gammopathy (principal)
CPT/HCPCS: 36415; 80053; 82728; 82784; 83540; 83550; 83883; 84165; 84166; 85025; 86334; 86335

== ENCOUNTER → 2022-01-06 | Outpatient (CLI) | payer MEDICARE, BC, SELFPAY ==
[2022-01-06 10:29] LABS: PTHIN 31.8 pg/mL (18.4-80.1)
[2022-01-06 10:43] LABS: Anion Gap 7 (5-15); BUN 14 mg/dL (7-18); BUN/Creat Ratio 14.8 RATIO (10-20); Calcium,Total 7.8 mg/dL (8.5-10.1); Chloride 108 mmol/L (98-107); Creatinine, Serum 0.94 mg/dL (0.55-1.02); EST Glomerular Filtration Rate 63 mL/min (>60); Est Glom Filt Rate - Afr Amer 76 mL/min (>60); Glucose 92 mg/dL (74-106); Potassium 3.9 mmol/L (3.5-5.1); Sodium Level 141 mmol/L (136-145); Thyroid Stim Hormone (TSH) 0.12 uIU/mL (0.358-3.74)
== END | disposition home or self-care (01) ==
LOC: LAB 09:13
PROVIDERS: PCP Student in an Organized Health Care Education/Training Program; Visit Provider Physician Assistant Medical
DX: E89.0 Postprocedural hypothyroidism (principal); E89.2 Postprocedural hypoparathyroidism
CPT/HCPCS: 36415; 80048; 83970; 84443

== ENCOUNTER → 2022-01-13 | Outpatient (CLI) | payer MEDICARE, BC, SELFPAY ==
[2022-01-13 13:59] LABS: PTHIN 12.8 pg/mL (18.4-80.1)
[2022-01-13 14:01] LABS: ALB/GLOB Ratio 0.9 RATIO (0.9-2.4); AST(SGOT) 17 U/L (15-37); Alanine Aminotransfer ALT/SGPT 17 U/L (13-56); Albumin, Serum 3.4 g/dL (3.2-5.0); Alkaline Phosphatase 90 U/L (45-117); Anion Gap 5 (5-15); BUN 16 mg/dL (7-18); BUN/Creat Ratio 15.1 RATIO (10-20); Calcium,Total 8.6 mg/dL (8.5-10.1); Chloride 105 mmol/L (98-107); Creatinine, Serum 1.06 mg/dL (0.55-1.02); EST Glomerular Filtration Rate 55 mL/min (>60); Est Glom Filt Rate - Afr Amer 67 mL/min (>60); Globulin 3.9 g/dL (2.2-4.2); Glucose 91 mg/dL (74-106); Magnesium 2.1 mg/dL (1.6-2.6); Potassium 3.6 mmol/L (3.5-5.1); Protein, Total 7.3 g/dL (6.4-8.2); Sodium Level 140 mmol/L (136-145)
[2022-01-13 14:03] LABS: Vitamin D,25 Hydroxy 80.9 ng/mL
== END | disposition home or self-care (01) ==
LOC: LAB 13:14
PROVIDERS: PCP Student in an Organized Health Care Education/Training Program; Visit Provider Internal Medicine Endocrinology, Diabetes & Metabolism
DX: E89.0 Postprocedural hypothyroidism (principal); E89.2 Postprocedural hypoparathyroidism; E55.9 Vitamin D deficiency, unspecified
CPT/HCPCS: 36415; 80053; 82306; 83735; 83970

== ENCOUNTER → 2022-01-27 | Outpatient (CLI) | payer MEDICARE, BC, SELFPAY ==
[2022-01-27 10:57] LABS: Anion Gap 5 (5-15); BUN 20 mg/dL (7-18); BUN/Creat Ratio 16.7 RATIO (10-20); Calcium,Total 9.7 mg/dL (8.5-10.1); Chloride 107 mmol/L (98-107); EST Glomerular Filtration Rate 48 mL/min (>60); Est Glom Filt Rate - Afr Amer 58 mL/min (>60); Glucose 92 mg/dL (74-106); Potassium 3.5 mmol/L (3.5-5.1); Sodium Level 142 mmol/L (136-145)
== END | disposition home or self-care (01) ==
LOC: LAB 08:35
PROVIDERS: PCP Student in an Organized Health Care Education/Training Program; Referring Provider Internal Medicine Endocrinology, Diabetes & Metabolism; Visit Provider Internal Medicine Endocrinology, Diabetes & Metabolism
DX: E89.0 Postprocedural hypothyroidism (principal)
CPT/HCPCS: 36415; 80048

== ENCOUNTER → 2022-02-02 | Outpatient (CLI) | payer MEDICARE, BC, SELFPAY ==
[2022-02-02 11:05] LABS: Thyroid Stim Hormone (TSH) 0.29 uIU/mL (0.358-3.74)
== END | disposition home or self-care (01) ==
LOC: LAB 09:13
PROVIDERS: PCP Student in an Organized Health Care Education/Training Program; Referring Provider Internal Medicine Endocrinology, Diabetes & Metabolism; Visit Provider Internal Medicine Endocrinology, Diabetes & Metabolism
DX: E89.0 Postprocedural hypothyroidism (principal)
CPT/HCPCS: 36415; 84443

== ENCOUNTER → 2022-04-13 | Outpatient (CLI) | payer MEDICARE, BC, SELFPAY ==
[2022-04-13 09:42] LABS: ALB/GLOB Ratio 0.8 RATIO (0.9-2.4); AST(SGOT) 15 U/L (15-37); Alanine Aminotransfer ALT/SGPT 21 U/L (13-56); Albumin, Serum 3.3 g/dL (3.2-5.0); Alkaline Phosphatase 88 U/L (45-117); Anion Gap 5 (5-15); BUN 19 mg/dL (7-18); BUN/Creat Ratio 15.2 RATIO (10-20); Calcium,Total 9.5 mg/dL (8.5-10.1); Chloride 103 mmol/L (98-107); Creatinine, Serum 1.25 mg/dL (0.55-1.02); EST Glomerular Filtration Rate 46 mL/min (>60); Est Glom Filt Rate - Afr Amer 55 mL/min (>60); Globulin 4.1 g/dL (2.2-4.2); Glucose 91 mg/dL (74-106); Potassium 3.6 mmol/L (3.5-5.1); Protein, Total 7.4 g/dL (6.4-8.2); Sodium Level 138 mmol/L (136-145); Thyroid Stim Hormone (TSH) 7.83 uIU/mL (0.358-3.74)
[2022-04-13 09:44] LABS: Vitamin D,25 Hydroxy 82.8 ng/mL
== END | disposition home or self-care (01) ==
LOC: LAB 08:15
PROVIDERS: PCP Student in an Organized Health Care Education/Training Program; Referring Provider Internal Medicine Endocrinology, Diabetes & Metabolism; Visit Provider Internal Medicine Endocrinology, Diabetes & Metabolism
DX: E89.0 Postprocedural hypothyroidism (principal); E55.9 Vitamin D deficiency, unspecified
CPT/HCPCS: 36415; 80053; 82306; 84443

== ENCOUNTER → 2022-05-30 | Outpatient (CLI) | payer MEDICARE, BC, SELFPAY | END | disposition home or self-care (01) | LOC: LAB 12:11 | PROVIDERS: PCP Student in an Organized Health Care Education/Training Program; Referring Provider Internal Medicine Endocrinology, Diabetes & Metabolism; Visit Provider Internal Medicine Endocrinology, Diabetes & Metabolism | DX: E89.0 Postprocedural hypothyroidism (principal) | CPT/HCPCS: 36415; 84443 ==

== ENCOUNTER → 2022-06-30 | Outpatient (CLI) | payer MEDICARE, BC, SELFPAY ==
[2022-06-30 09:27] LABS: Absolute Lymphocyte Count 1.61 X10^3/uL (0.83-4.51); Absolute Neutrophil Count 3.9 X10^3/uL (2.0-7.7); Basophil# 0.04 X10^3/uL; Basophil% 0.7 % (0-1); Eosinophil# 0.13 X10^3/uL; Eosinophils% 2.1 % (0-5); Hematocrit 34.4 % (37-47); Hemoglobin 11.3 g/dL (12.0-15.0); Lymphocyte # 1.61 X10^3/ul (0.83-4.51); Lymphocyte % 26.6 % (19-41); Mean Corp Hgb Conc 32.8 g/dL (32-36); Mean Corpuscular Volume 91.2 fL (81-99); Mean Platelet Vol. 9.3 fl (6.2-12.0); Monocyte# 0.32 X10^3/uL; Monocyte% 5.3 % (0-10); NRBC Flagged by Analyzer 0 % (0-5); Neutrophil # 3.94 X10^3/uL (2.7-7.7); Platelet Count 242 K/mm3 (150-450); RBC Distribution Width SD 43.2 fl (35.1-43.9); Red Blood Count 3.77 M/mm3 (4.2-5.4); White Blood Count 6.1 K/mm3 (4.4-11.0)
[2022-06-30 10:12] LABS: ALB/GLOB Ratio 0.9 RATIO (0.9-2.4); AST(SGOT) 30 U/L (15-37); Alanine Aminotransfer ALT/SGPT 35 U/L (13-56); Albumin, Serum 3.4 g/dL (3.2-5.0); Alkaline Phosphatase 84 U/L (45-117); Anion Gap 5 (5-15); BUN 26 mg/dL (7-18); Calcium,Total 8.8 mg/dL (8.5-10.1); Chloride 106 mmol/L (98-107); Creatinine, Serum 1.18 mg/dL (0.55-1.02); EST Glomerular Filtration Rate 49 mL/min (>60); Est Glom Filt Rate - Afr Amer 59 mL/min (>60); Ferritin 63 ng/mL (8-252); Globulin 3.9 g/dL (2.2-4.2); Glucose 85 mg/dL (74-106); Iron 62 ug/dL (50-170); Iron Binding Capacity,Total 310 ug/dL (250-450); Protein, Total 7.3 g/dL (6.4-8.2); Sodium Level 140 mmol/L (136-145)
[2022-07-04 11:08] LABS: Albumin, Ur 27.4 % (.); Alpha-1-Globulin, Ur 6.7 % (.); Alpha-2-Globulins, Ur 14.3 % (.); Beta Globulin, Ur 30.9 % (.); Gamma Globulin, Ur 20.7 % (.); M-Spike, Ur % Not Observed % (Not Observed); Total Protein, Ur 10.4 mg/dL (Not Estab.)
[2022-07-04 16:09] LABS: Free Kappa Light Chains 41.8 mg/L (3.3-19.4); Free Lambda Light Chains 29.8 mg/L (5.7-26.3); Immunoglobulin A 246 mg/dL (87-352); Immunoglobulin G 1213 mg/dL (586-1602); Immunoglobulin M 122 mg/dL (26-217); PROEL- A/G Ratio 1.1 (0.7-1.7); PROEL- Albumin 3.7 g/dL (2.9-4.4); PROEL- Alpha-1 Globulin 0.3 g/dL (0.0-0.4); PROEL- Alpha-2 Globulin 0.8 g/dL (0.4-1.0); PROEL- Beta Globulin 1.1 g/dL (0.7-1.3); PROEL- Gamma Globulin 1.1 g/dL (0.4-1.8); PROEL- Globulin, Total 3.3 g/dL (2.2-3.9)
== END | disposition home or self-care (01) ==
PROVIDERS: PCP Student in an Organized Health Care Education/Training Program
DX: D47.2 Monoclonal gammopathy (principal)
CPT/HCPCS: 36415; 80053; 82728; 82784; 83540; 83550; 83883; 84165; 84166; 85025; 86335

== ENCOUNTER → 2022-11-09 | Outpatient (CLI) | payer MEDICARE, BC, SELFPAY ==
[2022-11-09 11:27] LABS: Vitamin D,25 Hydroxy 73.5 ng/mL
[2022-11-09 11:34] LABS: ALB/GLOB Ratio 0.8 RATIO (0.9-2.4); AST(SGOT) 35 U/L (15-37); Alanine Aminotransfer ALT/SGPT 48 U/L (13-56); Albumin, Serum 3.2 g/dL (3.2-5.0); Alkaline Phosphatase 87 U/L (45-117); Anion Gap 7 (5-15); BUN 24 mg/dL (7-18); BUN/Creat Ratio 20.7 RATIO (10-20); Calcium,Total 8.5 mg/dL (8.5-10.1); Chloride 106 mmol/L (98-107); Cholesterol 163 mg/dL (200); Creatinine, Serum 1.16 mg/dL (0.55-1.02); EST Glomerular Filtration Rate 50 mL/min (>60); Est Glom Filt Rate - Afr Amer 60 mL/min (>60); Glucose 90 mg/dL (74-106); High Density Lipoprotein 57 mg/dL; Potassium 4.1 mmol/L (3.5-5.1); Protein, Total 7.2 g/dL (6.4-8.2); Sodium Level 141 mmol/L (136-145); Thyroid Stim Hormone (TSH) 2.38 uIU/mL (0.358-3.74); Triglycerides 113 mg/dL; Very Low Density Lipoprotein 23 mg/dL (5-40)
== END | disposition home or self-care (01) ==
PROVIDERS: PCP Student in an Organized Health Care Education/Training Program; Referring Provider Internal Medicine Endocrinology, Diabetes & Metabolism; Visit Provider Internal Medicine Endocrinology, Diabetes & Metabolism
DX: E89.0 Postprocedural hypothyroidism (principal); E78.2 Mixed hyperlipidemia; E55.9 Vitamin D deficiency, unspecified
CPT/HCPCS: 36415; 80053; 80061; 82306; 84443

== ENCOUNTER → 2023-01-04 | Outpatient (CLI) | payer MEDICARE, BC, SELFPAY ==
[2023-01-04 09:29] LABS: Absolute Lymphocyte Count 1.92 X10^3/uL (0.83-4.51); Absolute Neutrophil Count 3.4 X10^3/uL (2.0-7.7); Basophil# 0.07 X10^3/uL; Basophil% 1.1 % (0-1); Eosinophil# 0.24 X10^3/uL; Eosinophils% 3.9 % (0-5); Hematocrit 34.5 % (37-47); Hemoglobin 11.1 g/dL (12.0-15.0); Lymphocyte # 1.92 X10^3/ul (0.83-4.51); Lymphocyte % 31.5 % (19-41); Mean Corp Hgb Conc 32.2 g/dL (32-36); Mean Corpuscular Hgb 30.2 pg (27.0-32.0); Mean Platelet Vol. 9.4 fl (6.2-12.0); Monocyte# 0.41 X10^3/uL; Monocyte% 6.7 % (0-10); NRBC Flagged by Analyzer 0 % (0-5); Neutrophil # 3.43 X10^3/uL (2.7-7.7); Neutrophil % 56.3 % (47-70); Platelet Count 245 K/mm3 (150-450); RBC Distribution Width CV 13.4 % (11.6-14.6); RBC Distribution Width SD 46.4 fl (35.1-43.9); Red Blood Count 3.67 M/mm3 (4.2-5.4); White Blood Count 6.1 K/mm3 (4.4-11.0)
[2023-01-04 09:48] LABS: Anion Gap 3 (5-15); BUN 28 mg/dL (7-18); BUN/Creat Ratio 20.4 RATIO (10-20); Calcium,Total 9.7 mg/dL (8.5-10.1); Chloride 105 mmol/L (98-107); Creatinine, Serum 1.37 mg/dL (0.55-1.02); EST Glomerular Filtration Rate 41 mL/min (>60); Est Glom Filt Rate - Afr Amer 49 mL/min (>60); Ferritin 60 ng/mL (8-252); Glucose 95 mg/dL (74-106); Iron 62 ug/dL (50-170); Iron Binding Capacity,Total 295 ug/dL (250-450); Sodium Level 137 mmol/L (136-145)
[2023-01-04 09:57] LABS: Vitamin B12 > 2000 pg/mL (211-911)
[2023-01-06 15:08] LABS: Albumin 3.5 g/dL (2.9-4.4); Albumin, Ur 48.9 % (.); Alpha-1-Globulin, Ur 6.3 % (.); Alpha-1-Globulins 0.3 g/dL (0.0-0.4); Alpha-2-Globulins 0.7 g/dL (0.4-1.0); Alpha-2-Globulins, Ur 12.5 % (.); Beta Globulin, Ur 19.1 % (.); Free Kappa Light Chains 38.7 mg/L (3.3-19.4); Free Lambda Light Chains 25.4 mg/L (5.7-26.3); Gamma Globulin 1.2 g/dL (0.4-1.8); Gamma Globulin, Ur 13.1 % (.); Immunoglobulin A 218 mg/dL (87-352); Immunoglobulin G 1269 mg/dL (586-1602); Immunoglobulin M 101 mg/dL (26-217); M-Spike, Ur % Not Observed % (Not Observed); PROEL- TOTAL PROTEIN 6.8 g/dL (6.0-8.5); Total Protein, Ur 9.8 mg/dL (Not Estab.)
== END | disposition home or self-care (01) ==
PROVIDERS: PCP Student in an Organized Health Care Education/Training Program
DX: D47.2 Monoclonal gammopathy (principal); D69.6 Thrombocytopenia, unspecified
CPT/HCPCS: 36415; 80048; 82607; 82728; 82784; 83540; 83550; 83883; 84165; 84166; 85025; 86334; 86335

== ENCOUNTER → 2023-07-17 | Outpatient (CLI) | payer MEDICARE, BC, SELFPAY ==
[2023-07-17 10:02] LABS: Absolute Lymphocyte Count 1.64 X10^3/uL (0.83-4.51); Absolute Neutrophil Count 3.4 X10^3/uL (2.0-7.7); Basophil# 0.06 X10^3/uL; Basophil% 1.1 % (0-1); Eosinophil# 0.17 X10^3/uL; Eosinophils% 3.1 % (0-5); Hematocrit 37.7 % (37-47); Hemoglobin 12.3 g/dL (12.0-15.0); Lymphocyte # 1.64 X10^3/ul (0.83-4.51); Lymphocyte % 29.8 % (19-41); Mean Corp Hgb Conc 32.6 g/dL (32-36); Mean Corpuscular Hgb 30.4 pg (27.0-32.0); Mean Corpuscular Volume 93.1 fL (81-99); Mean Platelet Vol. 9.1 fl (6.2-12.0); Monocyte# 0.27 X10^3/uL; Monocyte% 4.9 % (0-10); NRBC Flagged by Analyzer 0 % (0-5); Neutrophil # 3.35 X10^3/uL (2.7-7.7); Neutrophil % 60.9 % (47-70); Platelet Count 214 K/mm3 (150-450); RBC Distribution Width CV 13.1 % (11.6-14.6); RBC Distribution Width SD 44.6 fl (35.1-43.9); Red Blood Count 4.05 M/mm3 (4.2-5.4); White Blood Count 5.5 K/mm3 (4.4-11.0)
[2023-07-17 11:01] LABS: Vitamin B12 > 2000 pg/mL (211-911)
[2023-07-17 11:04] LABS: ALB/GLOB Ratio 0.8 RATIO (0.9-2.4); AST(SGOT) 105 U/L (15-37); Alanine Aminotransfer ALT/SGPT 164 U/L (13-56); Albumin, Serum 3.3 g/dL (3.2-5.0); Alkaline Phosphatase 124 U/L (45-117); Anion Gap 4 (5-15); BUN 22 mg/dL (7-18); BUN/Creat Ratio 20.4 RATIO (10-20); Calcium,Total 8.4 mg/dL (8.5-10.1); Chloride 107 mmol/L (98-107); Creatinine, Serum 1.08 mg/dL (0.55-1.02); EST Glomerular Filtration Rate 54 mL/min (>60); Est Glom Filt Rate - Afr Amer 65 mL/min (>60); Ferritin 85 ng/mL (8-252); Globulin 3.9 g/dL (2.2-4.2); Glucose 113 mg/dL (74-106); Iron 74 ug/dL (50-170); Iron Binding Capacity,Total 336 ug/dL (250-450); Potassium 3.9 mmol/L (3.5-5.1); Protein, Total 7.2 g/dL (6.4-8.2); Sodium Level 138 mmol/L (136-145)
== END | disposition home or self-care (01) ==
PROVIDERS: PCP Student in an Organized Health Care Education/Training Program
DX: D47.2 Monoclonal gammopathy (principal); D64.9 Anemia, unspecified
CPT/HCPCS: 36415; 80053; 82607; 82728; 83540; 83550; 85025

== ENCOUNTER → 2023-08-18 | Outpatient (CLI) | payer MEDICARE, BC, SELFPAY ==
[2023-08-18 11:05] LABS: ALB/GLOB Ratio 0.8 RATIO (0.9-2.4); AST(SGOT) 78 U/L (15-37); Alanine Aminotransfer ALT/SGPT 138 U/L (13-56); Albumin, Serum 3.1 g/dL (3.2-5.0); Alkaline Phosphatase 94 U/L (45-117); Anion Gap 7 (5-15); BUN 25 mg/dL (7-18); BUN/Creat Ratio 20.7 RATIO (10-20); Calcium,Total 8.3 mg/dL (8.5-10.1); Chloride 108 mmol/L (98-107); Creatinine, Serum 1.21 mg/dL (0.55-1.02); EST Glomerular Filtration Rate 47 mL/min (>60); Est Glom Filt Rate - Afr Amer 57 mL/min (>60); Globulin 3.7 g/dL (2.2-4.2); Glucose 111 mg/dL (74-106); Protein, Total 6.8 g/dL (6.4-8.2); Sodium Level 141 mmol/L (136-145); Thyroid Stim Hormone (TSH) 7.46 uIU/mL (0.358-3.74)
== END | disposition home or self-care (01) ==
LOC: LAB 09:25
PROVIDERS: PCP Student in an Organized Health Care Education/Training Program; Referring Provider Internal Medicine Endocrinology, Diabetes & Metabolism; Visit Provider Internal Medicine Endocrinology, Diabetes & Metabolism
DX: E89.0 Postprocedural hypothyroidism (principal)
CPT/HCPCS: 36415; 80053; 84443

== ENCOUNTER → 2023-08-26 | Outpatient (CLI) | payer MEDICARE, BC, SELFPAY ==
--- OUTSIDE RECORDS SUMMARY | 2023-08-26 11:49 | XMS RPT_ITS | CCD ---
Author Name Unknown Address [address] [place] [address] Organization [facility] Care Team Providers Care Cloud Security Architect Name Role Phone Blane Gannon DO Primary Care Provider [phone] BLANE GANNON Primary Care Unavailable MARYANNE JACOBS Referring Unavailable BLANE GANNON Primary Care Unavailable MARYANNE JACOBS Attending Unavailable BLANE GANNON Referring Unavailable BLANE GANNON Primary Care Unavailable MARYANNE JACOBS Attending Unavailable VISHAL CARRASCO Attending Unavail able BLANE GANNON Primary Care Unavailable BLANE GANNON Primary Care Unavailable LUANN LAGUNAS Attending Unavailable BLANE GANNON Referring Unavailable BLANE GANNON Primary Care Unavailable Medications Current Medications Medication Drug Class(es) Dates Sig (Normalized) Sig (Original) diclofenac sodium 75 mg delayed release oral tablet (9 sources) Nonsteroidal Anti-inflammatory Drug Start: 11-07-2022 End: 03-07-2023 take 1 tablet by mouth twice daily for pain diclofenac, EC, (VOLTAREN) 75 mg EC tablet Indications: Hip pain TAKE 1 TABLET BY MOUTH TWICE DAILY. FOR PAIN 60 tablet 3 11/07/2022 03/07/2023 Active Completed/Discontinued Medications Medication Drug Class(es) Dates Sig (Normalized) Sig (Original) atorvastatin 20 mg oral tablet (3 sources) HMG-CoA Reductase Inhibitor Start: 04-05-2023 take 1 tablet by mouth once atorvastatin (LIPITOR) 20 mg tablet Take 1 tablet by mouth every afternoon. 0 04/05/2023 Active Problems Active Problems Problem Classification Problem Date Documented Da te Episodic/Chronic Abdominal pain (20 sources) Left lower quadrant pain; Translations: [Left lower quadrant pain] Onset: 09-10-2015 09-10-2015 Episodic Biliary tract disease (1 source) Polyp of gallbladder; Translations: [Cholesterolosis of gallbladder] Episodic Complications of surgical procedures or medical care (20 sources) Postoperative hypothyroidism; Translations: [Postprocedural hypothyroidism] Onset: 11-12-2015 11-12-2015 Chronic Esophageal disorders (3 sources) Gastro-esophageal reflux disease with esophagitis; Translations: [Gastroesophageal reflux disease with esophagitis without hemorrhage] Chronic Esophageal disorders (1 source) Esophageal disorders; Translations: [Gastroesophageal reflux disease with esophagitis, unspecified whether hemorrhage] Onset: 10-20-2022 Gastritis and duodenitis (1 source) Gastritis; Translations: [Other gastritis without bleeding] Episodic Malignant neoplasm without specification of site (20 sources) Malignant neoplastic disease; Translations: [Malignant (primary) neoplasm, unspecified] Onset: 04-16-2004 04-16-2004 Chronic Menopausal disorders (20 sources) Menopausal flushing; Translations: [Menopausal and female climacteric states] Onset: 05-21-2012 05-21-2012 Chronic Menopausal disorders (2 sources) Drug therapy status; Translations: [Hormone replacement therapy] Episodic Menstrual disorders (3 sources) Menstrual spotting; Translations: [Excessive and frequent menstruation with regular cycle] Onset: 04-27-2023 04-13-2023 Chronic Nutritional deficiencies (1 source) Iron deficiency; Translations: [Iron deficiency] Episodic Osteoarthritis (20 sources) Osteoarthritis of first carpometacarpal joint of right hand; Translations: [Unilateral primary osteoarthritis of first carpometacarpal joint, right hand] Onset: 10-19-2020 10-19-2020 Chronic Osteoporosis (20 sources) Osteoporosis; Translations: [Age-related osteoporosis without current pathological fracture] Onset: 10-02-2009 10-02-2009 Chronic Other endocrine disorders (20 sources) Primary hyperparathyroidism; Translations: [Primary hyperparathyroidism] Onset: 10-02-2009 10-02-2009 Chronic Other female genital disorders (1 source) Polyp of corpus uteri; Translations: [Polyp of corpus uteri] Episodic Other female genital disorders (1 source) Polyp of corpus uteri; Translations: [Polyp of corpus uteri] 07-04-2023 Episodic Other gastrointestinal disorders (1 source) Loose stool; Translations: [Other fecal abnormalities] Episodic Other gastrointestinal disorders (1 source) Alteration in bowel elimination; Translations: [Change in bowel habit] Episodic Other non-traumatic joint disorders (5 sources) Hip pain; Translations: [Pain in left hip] Episodic Other screening for suspected conditions (not mental disorders or infectious disease) (7 sources) Patient encounter status; Translations: [Encounter for screening mammogram for malignant neoplasm of breast] Onset: 04-27-2023 Episodic Past or Other Problems Problem Classification Problem Date Documented Da te Episodic/Chronic Allergic reactions (20 sources) Radiation-induced dermatosis; Translations: [Other skin changes due to chronic exposure to nonionizing radiation] Onset: 10-10-2007 10-10-2007 Episodic Calculus of urinary tract (20 sources) Calcium renal calculus ; Translations: [Calculus of kidney] Onset: 10-02-2009 10-02-2009 Episodic Deficiency and other anemia (20 sources) Iron deficiency anemia; Translations: [Iron deficiency anemia, unspecified] Onset: 07-29-2011 07-29-2011 Episodic Diseases of mouth; excluding dental (20 sources) Angular cheilitis; Translations: [Diseases of lips] Onset: 11-11-2015 11-11-2015 Episodic Gastrointestinal hemorrhage (20 sources) Hematochezia; Translations: [Melena] Onset: 07-08-2008 07-08-2008 Episodic Other and unspecified benign neoplasm (20 sources) Benign neoplasm of skin of trunk; Translations: [Other benign neoplasm of skin of trunk] Onset: 10-10-2007 10-10-2007 Episodic Other and unspecified benign neoplasm (20 sources) Benign neoplasm of skin of lower limb; Translations: [Other benign neoplasm of skin of unspecified lower limb, including hip] Onset: 10-10-2007 10-10-2007 Episodic Other gastrointestinal disorders (20 sources) Diarrhea; Translations: [Diarrhea, unspecified] Onset: 09-10-2015 09-10-2015 Episodic Other skin disorders (20 sources) Inflamed seborrheic keratosis; Translations: [Inflamed seborrheic keratosis] Onset: 10-10-2007 10-10-2007 Episodic Other skin disorders (20 sources) Disorder of skin pigmentation; Translations: [Disorder of pigmentation, unspecified] Onset: 10-10-2007 10-10-2007 Episodic Thyroid disorders (20 sources) Thyroid dysfunction; Translations: [Disorder of thyroid, unspecified] Onset: 10-02-2009 10-02-2009 Episodic Results Test Name Value Interpretation Reference Range Facil ity Vital Signs Date Time Vital Sign Value Performing Clinician Vernon romero 07-04-2023 09:02-0500 Body weight 55.79 kg Vishal Solis MD Work Phone: [facility] 07-04-2023 09:02-0500 Diastolic blood pressure 78 mm[Hg] Vishal Solis MD Work Phone: [facility] 07-04-2023 09:02-0500 Systolic blood pressure 120 mm[Hg] Vishal Solis MD Work Phone: [facility] 04-13-2023 08:35-0400 Body height 158 cm Maryanne Jacobs SR ACCOUNT EXECUTIVE.CHIMNEY BUILDER BRICK Work Phone: [facility] 04-13-2023 08:35-0400 Body weight 56.06 kg Maryanne Jacobs SR ACCOUNT EXECUTIVE.CHIMNEY BUILDER BRICK Work Phone: [facility] 04-13-2023 08:35-0400 Diastolic blood pressure 68 mm[Hg] Maryanne Jacobs SR ACCOUNT EXECUTIVE.CHIMNEY BUILDER BRICK Work Phone: [facility] 04-13-2023 08:35-0400 Heart rate 82 /min Maryanne Jacobs SR ACCOUNT EXECUTIVE.CHIMNEY BUILDER BRICK Work Phone: [facility] 04-13-2023 08:35-0400 Respiratory rate 12 /min Maryanne Jacobs SR ACCOUNT EXECUTIVE.CHIMNEY BUILDER BRICK Work Phone: [facility] 04-13-2023 08:35-0400 Systolic blood pressure 112 mm[Hg] Maryanne Jacobs SR ACCOUNT EXECUTIVE.CHIMNEY BUILDER BRICK Work Phone: [facility] 10-20-2022 07:59-0500 Body weight 57.64 kg Maryanne Jacobs SR ACCOUNT EXECUTIVE.CHIMNEY BUILDER BRICK Work Phone: [facility] 10-20-2022 07:59-0500 Diastolic blood pressure 76 mm[Hg] Maryanne Jacobs SR ACCOUNT EXECUTIVE.CHIMNEY BUILDER BRICK Work Phone: [facility] 10-20-2022 07:59-0500 Heart rate 64 /min Maryanne Jacobs SR ACCOUNT EXECUTIVE.CHIMNEY BUILDER BRICK Work Phone: [facility] 10-20-2022 07:59-0500 Respiratory rate 14 /min Maryanne Jacobs SR ACCOUNT EXECUTIVE.CHIMNEY BUILDER BRICK Work Phone: [facility] 10-20-2022 07:59-0500 Systolic blood pressure 120 mm[Hg] Maryanne Jacobs SR ACCOUNT EXECUTIVE.CHIMNEY BUILDER BRICK Work Phone: [facility] 06-14-2022 09:09-0400 Body weight 57.15 kg Vishal Solis MD Work Phone: [facility] 06-14-2022 09:09-0400 Diastolic blood pressure 72 mm[Hg] Vishal Solis MD Work Phone: [facility] 06-14-2022 09:09-0400 Systolic blood pressure 118 mm[Hg] Vishal Solis MD Work Phone: [facility] 01-26-2022 09:54-0400 Body height 156.2 cm Vishal Solis MD Work Phone: [facility] 01-26-2022 09:54-0400 Body weight 53.52 kg Vishal Solis MD Work Phone: [facility] 01-26-2022 09:54-0400 Diastolic blood pressure 72 mm[Hg] Vishal Solis MD Work Phone: [facility] 01-26-2022 09:54-0400 Systolic blood pressure 110 mm[Hg] Vishal Solis MD Work Phone: [facility] 11-02-2021 09:51-0400 Body height 157.5 cm Lexi NEGRON-C Work Phone: [facility] 11-02-2021 09:51-0400 Body temperature 97.5 [degF] Lexi NEGRON-C Work Phone: [facility] 11-02-2021 09:51-0400 Body weight 53.98 kg Lexi Villeda PA-C Work Phone: [facility] 11-02-2021 09:51-0400 Diastolic blood pressure 75 mm[Hg] Lexi Villeda PA-C Work Phone: [facility] 11-02-2021 09:51-0400 Heart rate 89 /min Lexi Villeda PA-C Work Phone: [facility] 11-02-2021 09:51-0400 SaO2% (BldA) [Mass fraction] 99 % Lexi Villeda PA-C Work Phone: [facility] 11-02-2021 09:51-0400 Systolic blood pressure 127 mm[Hg] Lexi Villeda PA-C Work Phone: [facility] Encounters Encounter Date Encounter Type Care Provider Facility Start: 07-21-2023 Admission to [facility] Vishal Solis MD Work Phone: OB/Gynecology Procedures Date Procedure Procedure Detail Performing Clinician Start: 04-27-2023 Us pelvic nonobstetr ic image dcmtn limited/f/u Maryanne Jacobs SR ACCOUNT EXECUTIVE.CHIMNEY BUILDER BRICK Work Phone: Start: 04-27-2023 End: 04-27-2023 Mammography Bulk Order Provider Start: 04-13-2023 Urnls dip stick/tabl et rgnt auto w/o microscopy Maryanne Jacobs SR ACCOUNT EXECUTIVE.CHIMNEY BUILDER BRICK Work Phone: Start: 02-07-2022 Radex hip unilateral with pelvis 2-3 views Crow Cross MD Work Phone: Start: 01-27-2022 VALENTINA SCREENING W ULI Green MD Work Phone: Start: 01-27-2022 Mammography Screen Wst r Start: 10-19-2021 Colonoscopy Lexi chang PA-C Work Phone: Start: 01-21-2021 Mammography Lexi chang PA-C Work Phone: Start: 10-24-2018 Adult depression scr eening assessment Lexi Layton PA-C Work Phone: Start: 05-05-2018 Lipid 1996 panel - S kimmie or Plasma Screen [facility] Plan of Treatment Date Care Activity Detail Author Start: 10-20-2031 Colonoscopy COLONOSCOPY [facility] Start: 10-20-2031 COLORECTAL CANCER SCREENING COLORECTAL CANCER SCREENING [facility] Start: 04-13-2026 DIABETES [facility]CRE[facility] Start: 04-13-2026 Diabetes Screening Diabetes Screenin g [facility] Start: 04-27-2024 Mammography [facility] Start: 04-13-2024 ANNUAL PCP TEAM DIGITAL SALES MANAGER LUCIANO DISEASE VISIT ANNUAL PCP TEAM CHRONIC DISEASE VISIT [facility] Start: 04-13-2024 BONE DENSITY BONE DENSITY [facility] Immunizations Immunization Date Immunization Notes Care Provider Fa jeremy 08-27-2021 pneumococcal polysaccharide vaccine, 23 valent Lexi Villeda PA-C Work Phone: [facility] 07-29-2021 influenza virus vacc ine, unspecified formulation Screen [facility] 06-05-2019 influenza, seasonal, injectable Lexi Villeda PA-C Work Phone: [facility] 03-22-2018 tetanus and diphther ia toxoids, adsorbed, preservative free, for adult use (5 Lf of tetanus toxoid and 2 Lf of diphtheria toxoid) Lexi Villeda PA-C Work Phone: [facility] 07-26-2017 zoster vaccine, live Lexi NEGRON-C Work Phone: [facility] Work Phone: 06-07-2017 influenza, seasonal, injectable Lexi Villeda PA-C Work Phone: [facility] Work Phone: 04-30-2011 influenza virus vacc ine, unspecified formulation Lexi Vilelda PA-C Work Phone: [facility] Payers Date Payer Category Payer Medicare MEDICARE MEDICAR E A AND B [id number] 2020-Present [phone] [place] [address] Medicare [id number] 2020 Medicare MEDICARE MEDICAR E A AND B [id number] 2020-Present [phone] [address] [address] [place] [address] Medicare [id number] 2020 Medicare [id number] 2020 Medicare [id number] 2020 Unknown [place] D[place]LE[place] [id number] 2020-Present [phone] [address] [place] [address] Indemnity [id number] 2020 Unknown [employer] [place] DICARE SUPPLEMENT [id number] 2020-Present [phone] [address] [place] [address] Indemnity [id number] Social History Date Type Detail Facility Start: 07-27-2011 End: 06-14-2022 Tobacco smoking status WAIS Never smoked tobacco [facility] Start: 11-02-2021 End: 07-04-2023 Alcohol intake Current non-drinker of alcohol (finding) [facility] Start: 01-01-2020 History SDOH Social Connections Phone 5 [facility] Start: 01-01-2020 History SDOH Social Connections Get Together 2 [facility] Start: 01-01-2020 History SDOH Social Connections Yarsanism 3 [facility] Start: 01-01-2020 History SDOH Social Connections Meetings 1 [facility] Start: 1955 Sex Assigned At Not on file [facility] Start: 10-23-2021 End: 02-07-2022 Exposure to SARS-CoV-2 (event) Not sure [facility] Start: 01-09-2022 End: 01-19-2022 Exposure to SARS-CoV-2 (event) Unable to assess [facility] Start: 07-27-2011 End: 06-14-2022 Tobacco use and exposure Smokeless tobacco non-user [facility] Work Phone: Start: 10-20-2022 End: 04-13-2023 History of Social function [facility] Work Phone: Start: 10-20-2022 End: 04-13-2023 Tobacco use panel [facility] Work Phone: Adult Depression Screening Assessment 0 [facility] Work Phone: Start: 12-07-2020 Gender identity Identifies as female gender (finding) [facility] Start: 12-07-2020 Sexual orientation Heterosexual (finding) [facility] Do you belong to any clubs or organizations such as uatsdin groups, [employer], fraMoney-Wizards or athletic groups, or school groups? No [facility] Are you now , , , , never or living with a partner? [facility] Do you feel stress - tense, restless, nervous, or anxious, or unable to sleep at night because your mind is troubled all the time - these days [OSQ] Not at all [facility] (I/We) worried wheth er (my/our) food would run out before (I/we) got money to buy more. Never true [facility] Clinical Notes 11-06-2020 to 07-19-2023 Telephone Encounter - Shelley Alcala LPN - 07/19/2023 12:29 PM ESTTelephone Encounter - Deisy Jose RN - 07/18/2023 10:58 AM Vishal Hutton MD - 07/04/2023 9:01 AM EST Note Date & Type Note Facility 07-19-2023 Miscellaneous Notes Patient rescheduled Patient returned call. She would like September 07 for surgery. Rescheduled her Pre Op for 08/30. Left message to call officel. Next available dates for surgery with Dr. Solis at [facility] are , , or . Patient will need pre-operative appointment rescheduled Left message on patient's voicemail that I would contact her next week to reschedule surgery Patient changed her mind and does not want surgery on 08/18. Wants to wait until sometime in August instead. Forwarded to patient scheduler. Nicci Lopez RN Noted. Patient called to inform DM that she found her bottle of Estradiol and does not need additional refills. Aware patient scheduler will be contacting her to schedule. Patient met her deductible and hoping to have it done this year. Message also forwarded to patient scheduler. Deisy Jose RN documented in this encounter [facility] 07-04-2023 Note HNO ID: [id number] Author: Vishal Carrasco MD Service: ? Author Type: Physician Type: Progress Notes Filed: 07/04/2023 1:24 PM Note Text: Provider Enrollment Specialist offered: Patient declines. Gely Shirley is a 67 year old female who presents discussion regarding PMB. Pt reports had spotting intermittently. Has had ultrasound with EMB and Endosee which was benign and did not show any lesions. Pt is taking HRT, does not wish to stop it at this time. Pt understands that bleeding may stop if she stops HRT- pt understands but declines this option and would like to proceed with hysteroscopy DANDC with possible polypectomy at this time. OB History T4 L3 SAB0 IAB0 Ectopic0 Multiple0 Live Births0 Comment: one son born living but passed 2 days after . Still has 3 living children. Epic Analyst History LMP: 11/23/2010, Postmenopausal Age at Menarche: Age at First : Age at Menopause: Epic Analyst History Comments: Sexual Activity: Yes; Male; btl Contraception: Tubal Ligation PAST MEDICAL HISTORY Diagnosis Date Broken wrist Left wrist Hemorrhage of gastrointestinal tract, unspecified Herpes zoster without mention of complication shingles History of transfusion hyperparathyroidism Endo Dr. Carreno, s/p removal x 1 gland, cause of kidney stones Hyperthyroidism Osteoporosis due to hyperparathyroidism PMH - PAST MEDICAL HISTORY OF renal/kidney stones Post-surgical hypothyroidism s/p thyroidectomy total, Endo Dr. Carreno Sciatica PAST SURGICAL HISTORY Procedure Laterality Date ARTHRP INTERPOS INTERCARPAL/METACARPAL JOINTS Right 11/06/2020 Right thumb CMC arthroplasty with ligament reconstruction tendon interposition, palmaris longus ; THYROIDECTOMY TOTAL OR COMPLETE 05/10/2012 total COLONOSCOPY 10/02/2015 COLONOSCOPY 10/19/2021 repeat in 10 years COLONOSCOPY FLX DX W/COLLJ SPEC WHEN PFRMD 07/11/2008 Normal COLONOSCOPY FLX DX W/COLLJ SPEC WHEN PFRMD 04/05/2013 Colonoscopy COLONOSCOPY FLX DX W/COLLJ SPEC WHEN PFRMD 12/04/2018 Colonoscopy COLONOSCOPY W/BIOPSY SINGLE/MULTIPLE 10/02/2015 normal EGD TRANSORAL BIOPSY SINGLE/MULTIPLE 10/02/2015 gastritis EGD W/O BRSH SPEC VARICIES INJ 10/19/2021 ENDOMETRIAL BX W/WO ENDOCERVIX BX W/O DILAT SPX 03/2010 ESOPHAGOGASTRODUODENOSCOPY TRANSORAL DIAGNOSTIC 12/04/2018 EGD F ESWL UNILATERAL Left 2011 FRACTURE SURGERY HYSTEROSCOPY BX W/WO DANDC 11/2013 benign LIG/TRNSXJ FLP TUBE ABDL/VAG APPR UNI/BI PARATHYROID 05/10/2012 removed PAST SURGICAL HISTORY OF excision of a basal cell carcinoma, left supraorbital area. PAST SURGICAL HISTORY OF 02/2015 ORIF left wrist, hardware remains as of 08-09 SKIN BIOPSY HX FAMILY HISTORY Problem Relation Age of Onset No Known Problems Mother other (lymphoma) Father Colon Cancer Maternal Grandmother Breast Cancer Sister diagnosed september 2005 Cancer Sister lymphoma, leukemia Thyroid Sister Social History Tobacco Use Smoking status: Never Smokeless tobacco: Never Vaping Use Vaping Use: Never used Substance Use Topics Alcohol use: No Drug use: No Current Outpatient Medications Medication Sig atorvastatin (LIPITOR) 20 mg tablet Take 1 tablet by mouth every afternoon. calcitriol (ROCALTROL) 0.25 mcg capsule Take 1 capsule by mouth every afternoon. miSOPROStol (CYTOTEC) 200 mcg tablet Use 2 tablets vaginally as directed. The night before the procedure and the morning of the procedure. medroxyPROGESTERone (PROVERA) 2.5 mg tablet TAKE 1 TABLET BY MOUTH EVERY DAY venlafaxine ER (EFFEXOR XR) 75 mg 24 hr capsule TAKE 1 CAPSULE BY MOUTH ONCE DAILY omeprazole (PRILOSEC) 20 mg capsule Take 1 capsule by mouth daily before breakfast. 1/2 hr before meal. estradiol (ESTRACE) 1 mg tablet Take 1 tablet by mouth once daily. ferrous sulfate 325 mg (65 mg iron) tablet Take 325 mg by mouth daily with breakfast. VITAMIN E ORAL Take by mouth once daily. levothyroxine (SYNTHROID) 75 mcg tablet Take 75 mcg by mouth once daily. calcium combo no.2-vitamin D3 600 mg calcium- 500 unit TbER Take 600 mg by mouth three times daily. Magnesium 250 mg Tab Take 400 mg by mouth twice daily. No current facility-administered medications for this visit. Allergies As of Date: 07/04/2023 Allergen Noted Reaction NO KNOWN DRUG ALLERGIES 09/01/2009 Fully Assessed 05/18/2023 REVIEW OF SYSTEMS Abdomen: no pain . Expanded ROS: negative fever Allergies and current medication updated:Yes EXAM: BP 120/78 Wt 123 lb (55.8kg) LMP 11/23/2010 GENERAL: pleasant, female in no apparent distress HEENT: Normocephalic and atraumatic NECK: full range of motion DERMATOLOGY: Normal and without lesions NEURO: alert and oriented x3,exam grossly non-focal ASSESSMENT AND PLAN: Encounter Diagnosis ICD-10-CM 1. PMB (postmenopausal bleeding) N95.0 2. Hormone replacement therapy (HRT) Z79.890 3. Endometrial polyp N84.0 4. Reviewed (more content not included)... [facility] 07-04-2023 History of Present illness Narrative Provider Enrollment Specialist offered: Patient declines. Gely Shirley is a 67 year old female who presents discussion regarding PMB. Pt reports had spotting intermittently. Has had ultrasound with EMB and Endosee which was benign and did not show any lesions. Pt is taking HRT, does not wish to stop it at this time. Pt understands that bleeding may stop if she stops HRT- pt understands but declines this option and would like to proceed with hysteroscopy D&C with possible polypectomy at this time. OB History T4 L3 SAB0 IAB0 Ectopic0 Multiple0 Live Births0 Comment: one son born living but passed 2 days after . Still has 3 living children. Epic Analyst History LMP: 11/23/2010, Postmenopausal Age at Menarche: Age at First : Age at Menopause: Epic Analyst History Comments: Sexual Activity: Yes; Male; btl Contraception: Tubal Ligation PAST MEDICAL HISTORY Diagnosis Date Broken wrist Left wrist Hemorrhage of gastrointestinal tract, unspecified Herpes zoster without mention of complication shingles History of transfusion hyperparathyroidism Endo Dr. Carreno, s/p removal x 1 gland, cause of kidney stones Hyperthyroidism Osteoporosis due to hyperparathyroidism PMH - PAST MEDICAL HISTORY OF renal/kidney stones Post-surgical hypothyroidism s/p thyroidectomy total, Endo Dr. Carreno Sciatica PAST SURGICAL HISTORY Procedure Laterality Date ARTHRP INTERPOS INTERCARPAL/METACARPAL JOINTS Right 11/06/2020 Right thumb CMC arthroplasty with ligament reconstruction tendon interposition, palmaris longus ; THYROIDECTOMY TOTAL OR COMPLETE 05/10/2012 total COLONOSCOPY 10/02/2015 COLONOSCOPY 10/19/2021 repeat in 10 years COLONOSCOPY FLX DX W/COLLJ SPEC WHEN PFRMD 07/11/2008 Normal COLONOSCOPY FLX DX W/COLLJ SPEC WHEN PFRMD 04/05/2013 Colonoscopy COLONOSCOPY FLX DX W/COLLJ SPEC WHEN PFRMD 12/04/2018 Colonoscopy COLONOSCOPY W/BIOPSY SINGLE/MULTIPLE 10/02/2015 normal EGD TRANSORAL BIOPSY SINGLE/MULTIPLE 10/02/2015 gastritis EGD W/O BRSH SPEC VARICIES INJ 10/19/2021 ENDOMETRIAL BX W/WO ENDOCERVIX BX W/O DILAT SPX 03/2010 ESOPHAGOGASTRODUODENOSCOPY TRANSORAL DIAGNOSTIC 12/04/2018 EGD F ESWL UNILATERAL Left 2010 FRACTURE SURGERY HYSTEROSCOPY BX W/WO D&C 11/2013 benign LIG/TRNSXJ FLP TUBE ABDL/VAG APPR UNI/BI PARATHYROID 05/10/2012 removed PAST SURGICAL HISTORY OF excision of a basal cell carcinoma, left supraorbital area. PAST SURGICAL HISTORY OF 02/2015 ORIF left wrist, hardware remains as of 08-09 SKIN BIOPSY HX FAMILY HISTORY Problem Relation Age of Onset No Known Problems Mother other (lymphoma) Father Colon Cancer Maternal Grandmother Breast Cancer Sister diagnosed september 2005 Cancer Sister lymphoma, leukemia Thyroid Sister Social History Tobacco Use Smoking status: Never Smokeless tobacco: Never Vaping Use Vaping Use: Never used Substance Use Topics Alcohol use: No Drug use: No Current Outpatient Medications Medication Sig atorvastatin (LIPITOR) 20 mg tablet Take 1 tablet by mouth every afternoon. calcitriol (ROCALTROL) 0.25 mcg capsule Take 1 capsule by mouth every afternoon. miSOPROStol (CYTOTEC) 200 mcg tablet Use 2 tablets vaginally as directed. The night before the procedure and the morning of the procedure. medroxyPROGESTERone (PROVERA) 2.5 mg tablet TAKE 1 TABLET BY MOUTH EVERY DAY venlafaxine ER (EFFEXOR XR) 75 mg 24 hr capsule TAKE 1 CAPSULE BY MOUTH ONCE DAILY omeprazole (PRILOSEC) 20 mg capsule Take 1 capsule by mouth daily before breakfast. 1/2 hr before meal. estradiol (ESTRACE) 1 mg tablet Take 1 tablet by mouth once daily. ferrous sulfate 325 mg (65 mg iron) tablet Take 325 mg by mouth daily with breakfast. VITAMIN E ORAL Take by mouth once daily. levothyroxine (SYNTHROID) 75 mcg tablet Take 75 mcg by mouth once daily. calcium combo no.2-vitamin D3 600 mg calcium- 500 unit TbER Take 600 mg by mouth three times daily. Magnesium 250 mg Tab Take 400 mg by mouth twice daily. No current facility-administered medications for this visit. Allergies As of Date: 07/04/2023 Allergen Noted Reaction NO KNOWN DRUG ALLERGIES 09/01/2009 Fully Assessed 05/18/2023 REVIEW OF SYSTEMS Abdomen: no pain . Expanded ROS: negative fever Allergies and current medication updated:Yes EXAM: BP 120/78 Wt 123 lb (55.8kg) LMP 11/23/2010 GENERAL: pleasant, female in no apparent distress HEENT: Normocephalic and atraumatic NECK: full range of motion DERMATOLOGY: Normal and without lesions NEURO: alert and oriented x3,exam grossly non-focal ASSESSMENT AND PLAN: Encounter Diagnosis ICD-10-CM 1. PMB (postmenopausal bleeding) N95.0 2. Hormone replacement therapy (HRT) Z79.890 3. Endometrial polyp N84.0 4. Reviewed previous Endosee and EMB results- benign- discussed at this time since she has had multiple episodes would recommend Hysteroscopy D&C with possibly polypectomy. Pt agreeable to this. OR booking sheet filled out. Will see her back in office for pre op. Medical Decision Making: Problems: Moderate: New problem with uncertain prognosis Data: Unique test result(s) reviewed: 2 Risk: Moderate: Decision on minor surgery w/ risk factors Medical Decision Making Level: 4 - Moderate Vsihal Luna MD documented in this encounter [facility] 05-18-2023 Note HNO ID: [id number] Author: Luann Lagunas APRN.KETAN Service: ? Author Type: Nurse Practitioner Type: Progress Notes Filed: 05/18/2023 10:28 AM Note Text: Gely is a 67 year old Female who presents today for an endometrial biopsy for post menopausal bleeding. test: n/a UNIVERSAL PROTOCOL / SAFETY CHECKLIST Procedure to be Performed: Endometrial biopsy Sign In: A Moment of CARE was completed. Personnel directly involved with the procedure wore the appropriate PPE (Personal Protective Equipment). Patient/Surrogate Stated/Verified: PATIENT VERIFIED(optional for EMERGENT procedures): Patient name, Date of , Relevant allergies, and The intended procedure Time Out Communication: Intended patient and procedure match the source documents. Consent documented and matches the intended procedure. Sign Out: SIGN OUT (optional for EMERGENT procedures): All specimen containers correctly labeled. All instruments, equipment, possible retained foreign bodies accounted for. Post-procedure follow-up management communicated and Plan of Care Visit completed when applicable. Luann Lagunas CNP PROCEDURE: EXTERNAL GENITALIA: Normal in appearance without lesions VAGINA: Normal in appearance without lesions BIOPSY: Speculum placed into the vagina with excellent visualization of the cervix. Cervix cleaned with betadine. Anterior lip of cervix grasped with single toothed tenaculum. Uterus sounded to 7 cm. Pipelle inserted into the uterus without difficulty and endometrial biopsy obtained. Specimen labeled and sent to pathology. Hemostasis achieved. Procedure Summary: Patient tolerated procedure well. ASSESSMENT: post menopausal bleeding PLAN: Specimens labeled and sent to Pathology. Will notify patient of results in 1-2 weeks. Post-procedure instructions reviewed and written material given to the patient. Luann Lagunas APRN.[facility] 04-27-2023 Note HNO ID: [id number] Author: Libby Esquivel Mammo Tech Service: ? Author Type: Credit Report Checker Type: Progress Notes Filed: 04/27/2023 9:52 AM Note Text: Radiology Service Progress Note PATIENT NAME: Gely Shirley DATE OF SERVICE: April 27, 2023 TIME: 9:34 AM PATIENT IDENTITY VERIFICATION COMPLETED USING TWO (2) IDENTIFIERS: Name and Date of confirmed by patient verbally. FALL SCREENING: Has the patient had 2 falls in the last year or 1 fall with injury or currently using an Ambulatory Assistive Device (Walker, Cane, Wheelchair, Crutches, etc.)? No PATIENT GENDER DATA: Female. status: : No status: NO. PATIENT RELEVANT IMPLANT DATA REVIEWED: Not Applicable RADIOLOGY DEPARTMENT: Mammography PERIPHERAL IV DATA: Not applicable SIGNED BY: Conor Mahoney April 27, 2023 9:34 AM [facility] 04-27-2023 Note HNO ID: [id number] Author: Gisselle Millan RDMS Service: ? Author Type: Interior Decorator Painting Type: Progress Notes Filed: 04/27/2023 11:09 AM Note Text: Radiology Service Progress Note PATIENT NAME: Gely Shirley DATE OF SERVICE: April 27, 2023 TIME: 11:09 AM PATIENT IDENTITY VERIFICATION COMPLETED USING TWO (2) IDENTIFIERS: Name and Date of confirmed by patient verbally. FALL SCREENING: Has the patient had 2 falls in the last year or 1 fall with injury or currently using an Ambulatory Assistive Device (Walker, Cane, Wheelchair, Crutches, etc.)? No PATIENT GENDER DATA: Female. status: : No status: NO. PATIENT RELEVANT IMPLANT DATA REVIEWED: Not Applicable RADIOLOGY DEPARTMENT: Ultrasound PERIPHERAL IV DATA: Not applicable SIGNED BY: Gisselle Millan RDMS RVT April 27, 2023 11:09 AM [facility] 04-27-2023 History of Present illness Narrative Radiology Service Progress Note PATIENT NAME: Gely Shirley DATE OF SERVICE: April 27, 2023 TIME: 9:34 AM PATIENT IDENTITY VERIFICATION COMPLETED USING TWO (2) IDENTIFIERS: Name and Date of confirmed by patient verbally. FALL SCREENING: Has the patient had 2 falls in the last year or 1 fall with injury or currently using an Ambulatory Assistive Device (Walker, Cane, Wheelchair, Crutches, etc.)? No PATIENT GENDER DATA: Female. status: : No status: NO. PATIENT RELEVANT IMPLANT DATA REVIEWED: Not Applicable RADIOLOGY DEPARTMENT: Mammography PERIPHERAL IV DATA: Not applicable SIGNED BY: Conor Mahoney April 27, 2023 9:34 AM documented in this encounter [facility] 04-27-2023 Miscellaneous Notes April 28, 2023 PID: [id number] Gely Shirley [address] [place] [address] Dear Ms. Shirley, We are pleased to inform you that the results of your recent breast imaging exam on 04/27/2023 are normal. Your mammogram demonstrates that you have dense breast tissue, which could hide abnormalities. Dense breast tissue, in and of itself, is a relatively common condition. Therefore, this information is not provided to cause undue concern; rather, it is to raise your awareness and promote discussion with your health care provider regarding the presence of dense breast tissue in addition to other risk factors. Early detection of cancer is very important. We also understand recommendations regarding breast cancer screening are controversial. Please discuss with your primary care provider which strategy is best for you and whether a mammogram is right for you. Your imaging studies and report will be kept on file at [facility] as part of your permanent medical record and are available for your continuing care. Thank you for allowing us to help in meeting your health care needs. Sincerely, Dr. Leslie Interpreting Radiologist [facility] (Normal over 40) documented in this encounter [facility] 04-27-2023 History of Present illness Narrative Radiology Service Progress Note PATIENT NAME: Gely Shirley DATE OF SERVICE: April 27, 2023 TIME: 11:09 AM PATIENT IDENTITY VERIFICATION COMPLETED USING TWO (2) IDENTIFIERS: Name and Date of confirmed by patient verbally. FALL SCREENING: Has the patient had 2 falls in the last year or 1 fall with injury or currently using an Ambulatory Assistive Device (Walker, Cane, Wheelchair, Crutches, etc.)? No PATIENT GENDER DATA: Female. status: : No status: NO. PATIENT RELEVANT IMPLANT DATA REVIEWED: Not Applicable RADIOLOGY DEPARTMENT: Ultrasound PERIPHERAL IV DATA: Not applicable SIGNED BY: Gisselle Millan RDMS RVT April 27, 2023 11:09 AM documented in this encounter [facility] 04-14-2023 Miscellaneous Notes Pt informed, verbalized understanding. Yara Edmonds Please call patient and let her know that urine culture was inconclusive for bacteria. Continue antibiotic if improving symptoms. OK to start diflucan if symptoms are not resolving as well. 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 Thank you, Maryanne Jacobs APRN.KETAN documented in this encounter [facility] 04-13-2023 Note HNO ID: [id number] Author: Maryanne Jacobs APRN.CNP Service: ? Author Type: Nurse Practitioner Type: Progress Notes Filed: 04/13/2023 10:31 AM Note Text: Chief Complaint Patient presents with: Physical HPI Gely Shirley is a 67 year old female who presents here today for Above Complaints.. Gely is an established patient of Dr. Gannon, and myself. Concerns today... Vaginal bleeding -- Spotting intermittently x 6 weeks. Reports 4 episodes in the last 6 weeks lasting a few days at a time. Reports dark blood x 1 episode, but bright red blood the other 3 episodes. Also reports mild pelvic pressure. Hx of polyp that was removed about 1.5-[address] Solis. Also reports feeling like she had yeast infection a few days ago -- treated with OTC Monostat with no relief. Itchiness remains. Past medical history, appointments, medications, allergies reviewed. Previous Medical History PAST MEDICAL HISTORY Diagnosis Date Broken wrist Left wrist Hemorrhage of gastrointestinal tract, unspecified Herpes zoster without mention of complication shingles History of transfusion hyperparathyroidism Endo Dr. Carreno, s/p removal x 1 gland, cause of kidney stones Hyperthyroidism Osteoporosis due to hyperparathyroidism PMH - PAST MEDICAL HISTORY OF renal/kidney stones Post-surgical hypothyroidism s/p thyroidectomy total, Endo Dr. Carreno Sciatica Previous Surgical History PAST SURGICAL HISTORY Procedure Laterality Date ARTHRP INTERPOS INTERCARPAL/METACARPAL JOINTS Right 11/06/2020 Right thumb CMC arthroplasty with ligament reconstruction tendon interposition, palmaris longus ; THYROIDECTOMY TOTAL OR COMPLETE 05/10/2012 total COLONOSCOPY 10/02/2015 COLONOSCOPY 10/19/2021 repeat in 10 years COLONOSCOPY FLX DX W/COLLJ SPEC WHEN PFRMD 07/11/2008 Normal COLONOSCOPY FLX DX W/COLLJ SPEC WHEN PFRMD 04/05/2013 Colonoscopy COLONOSCOPY FLX DX W/COLLJ SPEC WHEN PFRMD 12/04/2018 Colonoscopy COLONOSCOPY W/BIOPSY SINGLE/MULTIPLE 10/02/2015 normal EGD TRANSORAL BIOPSY SINGLE/MULTIPLE 10/02/2015 gastritis EGD W/O BRSH SPEC VARICIES INJ 10/19/2021 ENDOMETRIAL BX W/WO ENDOCERVIX BX W/O DILAT SPX 03/2010 ESOPHAGOGASTRODUODENOSCOPY TRANSORAL DIAGNOSTIC 12/04/2018 EGD F ESWL UNILATERAL Left 2011 FRACTURE SURGERY HYSTEROSCOPY BX W/WO DANDC 11/2013 benign LIG/TRNSXJ FLP TUBE ABDL/VAG APPR UNI/BI PARATHYROID 05/10/2012 removed PAST SURGICAL HISTORY OF excision of a basal cell carcinoma, left supraorbital area. PAST SURGICAL HISTORY OF 02/2015 ORIF left wrist, hardware remains as of 08-09 SKIN BIOPSY HX Family History FAMILY HISTORY Problem Relation Age of Onset No Known Problems Mother other (lymphoma) Father Colon Cancer Maternal Grandmother Breast Cancer Sister diagnosed september 2005 Cancer Sister lymphoma, leukemia Thyroid Sister Patient Allergies ALLERGIES Allergen Reactions No Known Drug Aller* Current Medications Current Outpatient Medications on File Prior to Visit Medication Sig medroxyPROGESTERone (PROVERA) 2.5 mg tablet TAKE 1 TABLET BY MOUTH EVERY DAY venlafaxine ER (EFFEXOR XR) 75 mg 24 hr capsule TAKE 1 CAPSULE BY MOUTH ONCE DAILY omeprazole (PRILOSEC) 20 mg capsule Take 1 capsule by mouth daily before breakfast. 1/2 hr before meal. estradiol (ESTRACE) 1 mg tablet Take 1 tablet by mouth once daily. ferrous sulfate 325 mg (65 mg iron) tablet Take 325 mg by mouth daily with breakfast. VITAMIN E ORAL Take by mouth once daily. levothyroxine (SYNTHROID) 75 mcg tablet Take 75 mcg by mouth once daily. calcium combo no.2-vitamin D3 600 mg calcium- 500 unit TbER Take 600 mg by mouth three times daily. Magnesium 250 mg Tab Take 400 mg by mouth twice daily. No current facility-administered medications on file prior to visit. Social History Social History Tobacco Use Smoking status: Never Smokeless tobacco: Never Vaping Use Vaping Use: Never used Substance Use Topics Alcohol use: No Drug use: No REVIEW OF SYSTEMS: as above Reviewed relevant PMHx, PSHx, Social Hx, current medications and allergies. Review of Symptoms REVIEW OF SYSTEMS See HPI. EXAM: BP 112/68 (BP Site: Left Arm, BP Position: Sitting, BP Cuff Size: Regular Adult) Pulse 82 Resp 12 Ht 158 cm (5' 2.21 ) Wt 56.1 kg (123 lb 9.6 oz) LMP 11/23/2010 BMI 22.46 kg/m? General Appearance: Well appearing, alert, in no acute distress, well-hydrated, well nourished.. Skin: Skin color, texture, turgor normal, no suspicious rashes or lesions. Head: Normocephalic, no masses, lesions, tenderness or abnormalities. Lungs: Lungs clear to auscultation. No wheezing, rhonchi, rales.. Heart: RRR without murmur, gallop, or rubs. No ectopy. Abdomen: Normal abdominal exam, Abdomen soft, non-tender. Bowel sounds normal. No masses, organomegaly. Pelvic: Deferred . Genitalia: deferred. Rectal: Deferred exam. (more content not included)... [facility] 04-13-2023 History of Present illness Narrative Chief Complaint Patient presents with: Physical HPI Gely Shirley is a 67 year old female who presents here today for Above Complaints.. Gely is an established patient of Dr. Gannon, and myself. Concerns today... Vaginal bleeding -- Spotting intermittently x 6 weeks. Reports 4 episodes in the last 6 weeks lasting a few days at a time. Reports dark blood x 1 episode, but bright red blood the other 3 episodes. Also reports mild pelvic pressure. Hx of polyp that was removed about 1.5-[address] Solis. Also reports feeling like she had yeast infection a few days ago -- treated with OTC Monostat with no relief. Itchiness remains. Past medical history, appointments, medications, allergies reviewed. Previous Medical History PAST MEDICAL HISTORY Diagnosis Date Broken wrist Left wrist Hemorrhage of gastrointestinal tract, unspecified Herpes zoster without mention of complication shingles History of transfusion hyperparathyroidism Endo Dr. Carreno, s/p removal x 1 gland, cause of kidney stones Hyperthyroidism Osteoporosis due to hyperparathyroidism PMH - PAST MEDICAL HISTORY OF renal/kidney stones Post-surgical hypothyroidism s/p thyroidectomy total, Endo Dr. Carreno Sciatica Previous Surgical History PAST SURGICAL HISTORY Procedure Laterality Date ARTHRP INTERPOS INTERCARPAL/METACARPAL JOINTS Right 11/06/2020 Right thumb CMC arthroplasty with ligament reconstruction tendon interposition, palmaris longus ; THYROIDECTOMY TOTAL OR COMPLETE 05/10/2012 total COLONOSCOPY 10/02/2015 COLONOSCOPY 10/19/2021 repeat in 10 years COLONOSCOPY FLX DX W/COLLJ SPEC WHEN PFRMD 07/11/2008 Normal COLONOSCOPY FLX DX W/COLLJ SPEC WHEN PFRMD 04/05/2013 Colonoscopy COLONOSCOPY FLX DX W/COLLJ SPEC WHEN PFRMD 12/04/2018 Colonoscopy COLONOSCOPY W/BIOPSY SINGLE/MULTIPLE 10/02/2015 normal EGD TRANSORAL BIOPSY SINGLE/MULTIPLE 10/02/2015 gastritis EGD W/O BRSH SPEC VARICIES INJ 10/19/2021 ENDOMETRIAL BX W/WO ENDOCERVIX BX W/O DILAT SPX 03/2010 ESOPHAGOGASTRODUODENOSCOPY TRANSORAL DIAGNOSTIC 12/04/2018 EGD F ESWL UNILATERAL Left 2010 FRACTURE SURGERY HYSTEROSCOPY BX W/WO D&C 11/2013 benign LIG/TRNSXJ FLP TUBE ABDL/VAG APPR UNI/BI PARATHYROID 05/10/2012 removed PAST SURGICAL HISTORY OF excision of a basal cell carcinoma, left supraorbital area. PAST SURGICAL HISTORY OF 02/2015 ORIF left wrist, hardware remains as of 08-09 SKIN BIOPSY HX Family History FAMILY HISTORY Problem Relation Age of Onset No Known Problems Mother other (lymphoma) Father Colon Cancer Maternal Grandmother Breast Cancer Sister diagnosed september 2005 Cancer Sister lymphoma, leukemia Thyroid Sister Patient Allergies ALLERGIES Allergen Reactions No Known Drug Aller* Current Medications Current Outpatient Medications on File Prior to Visit Medication Sig medroxyPROGESTERone (PROVERA) 2.5 mg tablet TAKE 1 TABLET BY MOUTH EVERY DAY venlafaxine ER (EFFEXOR XR) 75 mg 24 hr capsule TAKE 1 CAPSULE BY MOUTH ONCE DAILY omeprazole (PRILOSEC) 20 mg capsule Take 1 capsule by mouth daily before breakfast. 1/2 hr before meal. estradiol (ESTRACE) 1 mg tablet Take 1 tablet by mouth once daily. ferrous sulfate 325 mg (65 mg iron) tablet Take 325 mg by mouth daily with breakfast. VITAMIN E ORAL Take by mouth once daily. levothyroxine (SYNTHROID) 75 mcg tablet Take 75 mcg by mouth once daily. calcium combo no.2-vitamin D3 600 mg calcium- 500 unit TbER Take 600 mg by mouth three times daily. Magnesium 250 mg Tab Take 400 mg by mouth twice daily. No current facility-administered medications on file prior to visit. Social History Social History Tobacco Use Smoking status: Never Smokeless tobacco: Never Vaping Use Vaping Use: Never used Substance Use Topics Alcohol use: No Drug use: No REVIEW OF SYSTEMS: as above Reviewed relevant PMHx, PSHx, Social Hx, current medications and allergies. Review of Symptoms REVIEW OF SYSTEMS See HPI. EXAM: BP 112/68 (BP Site: Left Arm, BP Position: Sitting, BP Cuff Size: Regular Adult) Pulse 82 Resp 12 Ht 158 cm (5' 2.21 ) Wt 56.1 kg (123 lb 9.6 oz) LMP 11/23/2010 BMI 22.46 kg/m General Appearance: Well appearing, alert, in no acute distress, well-hydrated, well nourished.. Skin: Skin color, texture, turgor normal, no suspicious rashes or lesions. Head: Normocephalic, no masses, lesions, tenderness or abnormalities. Lungs: Lungs clear to auscultation. No wheezing, rhonchi, rales.. Heart: RRR without murmur, gallop, or rubs. No ectopy. Abdomen: Normal abdominal exam, Abdomen soft, non-tender. Bowel sounds normal. No masses, organomegaly. Pelvic: Deferred . Genitalia: deferred. Rectal: Deferred exam. Health Maintenance List HEPATITIS C SCREENING Never done ADVANCE DIRECTIVE DISCUSSION Never done DIABETES SCREEN due on 10/11/2022 MAMMOGRAM due on 01/27/2023 LIPID SCREEN due on 05/05/2023 COVID-19 VACCINE(4 - Moderna series) due on 10/21/2023 DTAP,TDAP,TD(1 - Tdap) due on 04/13/2024 BONE DENSITY due on 04/13/2024 SHINGRIX VACCINE(2 of 3) due on 04/13/2024 PNEUMOCOCCAL: 65+(2 - PCV) due on 04/13/2024 INFLUENZA(1) due on 04/21/2023 ANNUAL PCP TEAM CHRONIC DISEASE VISIT due on 04/13/2024 COLORECTAL CANCER SCREENING due on 10/20/2031 DEPRESSION ASSESSMENT Completed HPV VACCINE Aged Out PAP TESTING Discontinued ASSESSMENT/PLAN: 1. Post-menopausal bleeding - ICD9: 627.1, ICD10: N95.0 (primary diagnosis) Transvag and abd US to find cause. Make appointment to follow-up with OBGYN. - UA DIP, URINE (POC) - UA DIP, URINE (POC) - US FEMALE PELVIS TRANSABD LTD - US FEMALE PELVIS TRANSVAG - URINE CULTURE - NITROFURANTOIN MONOHYDRATE & MACROCRYSTAL 100 MG ORAL CAP - FLUCONAZOLE 150 MG TABLET 2. Spotting - ICD9: 623.8, ICD10: N92.0 UA dip + for leukocytes, negative for blood. Antibiotic as prescribed for UTI , will reach out with urine culture results. Diflucan if itchiness remains after UTI regimen. - UA DIP, URINE (POC) - UA DIP, URINE (POC) - US FEMALE PELVIS TRANSABD LTD - US FEMALE PELVIS TRANSVAG - URINE CULTURE - NITROFURANTOIN MONOHYDRATE & MACROCRYSTAL 100 MG ORAL CAP - FLUCONAZOLE 150 MG TABLET 3. Pelvic pressure in female - ICD9: 625.8, ICD10: R10.2 - Work up with Ultrasound transvaginal UA dip + for leukocytes, negative for blood. Antibiotic as prescribed for UTI , will reach out with urine culture results. Diflucan if itchiness remains after UTI regimen. Make appointment to follow-up with OBGYN. - UA DIP, URINE (POC) - UA DIP, URINE (POC) - US FEMALE PELVIS TRANSABD LTD - US FEMALE PELVIS TRANSVAG - URINE CULTURE - NITROFURANTOIN MONOHYDRATE & MACROCRYSTAL 100 MG ORAL CAP - FLUCONAZOLE 150 MG TABLET RTO as needed. Prescription instructions reviewed with patient as applicable. Potential red flag symptoms discussed with the patient. Reviewed appropriate action plan to take if red flag symptoms occur. Patient agreeable to treatment plan. Maryanne Davison APRN.[employer]IM[employer] [address] [place] [address] documented in this encounter [facility] 04-13-2023 Nurse Note Pt states spotting states in last 6 weeks 4 different times. Pt states feels has a yeast infection . Did treat with over the counter meds . It helped a little but is coming back. documented in this encounter [facility] 03-15-2023 Note Patient Outreach (IN [facility]) GELY SHIRLEY ([id number]) 1955 F Date Time Provider Department 03/15/23 BLANE GANNON During your visit today, we recorded the following information about you: Allergies As of Date: 03/15/2023 Noted Allergy Reaction NO KNOWN DRUG ALLERGIES 09/01/2009 Date Reviewed: 10/20/2022 Reviewed by: Maryanne Jacobs APRN.CHIM[employer] BUIL[employer] - Fully Assessed Visit Diagnosis:Encounter for screening mammogram for breast cancer [Z12.31] Order(s):[facility] SCREENING [facility] [[id number]] Order #: [id number] FUTURE Prescriptions as of 03/20/2023 - medroxyPROGESTERone (PROVERA) 2.5 mg tablet TAKE 1 TABLET BY MOUTH EVERY DAY - venlafaxine ER (EFFEXOR XR) 75 mg 24 hr capsule TAKE 1 CAPSULE BY MOUTH ONCE DAILY - omeprazole (PRILOSEC) 20 mg capsule Take 1 capsule by mouth daily before breakfast. 1/2 hr before meal. - estradiol (ESTRACE) 1 mg tablet Take 1 tablet by mouth once daily. - ferrous sulfate 325 mg (65 mg iron) tablet Take 325 mg by mouth daily with breakfast. - VITAMIN E ORAL Take by mouth once daily. - levothyroxine (SYNTHROID) 75 mcg tablet Take 75 mcg by mouth once daily. - calcium combo no.2-vitamin D3 600 mg calcium- 500 unit TbER Take 600 mg by mouth three times daily. - Magnesium 250 mg Tab Take 400 mg by mouth twice daily. 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 Pt was last seen in the office 06/14/22. Please advise. Mirela Gonzales LPN ' documented in this encounter [facility] 01-20-2023 Miscellaneous Notes Jeffery--10/20/22 Nov--nothing scheduled Last refill--10/20/22 30 with 2 refills Last labs--01/04/23 Patient has been identified by name and date of : Yes Last office visit in this department: 10/20/2022 RX INSTRUCTIONS: Patient aware RX will be sent to pharmacy. No need to notify patient. Patient phones requesting refills as follows: Requested Prescriptions Pending Prescriptions Disp Refills omeprazole (PRILOSEC) 20 mg capsule 30 capsule 2 Sig: Take 1 capsule by mouth daily before breakfast. 1/2 hr before meal. Please review and advise. Divya Cross Pss documented in this encounter [facility] 10-20-2022 Note HNO ID: [id number] Author: Maryanne Jacobs APRN.[employer] Service: ? Author Type: Nurse Practitioner Type: Progress Notes Filed: 10/20/2022 8:36 AM Note Text: Chief Complaint Patient presents with: stomach issues: For about a monyh now stomach issues with burning , nausea, bloated , HPI Gely Shirley is a 66 year old female who presents here today for Above Complaints.. Gely is an established patient of Dr. Naseem DO. She is a new patient to me today. Concerns today.. Intermittent burning sensation in chest x 1 month. Occurring daily/constantly at this point. Very nausea. Burping a lot. Feeling very bloating to epigastric and upper abdominal region. Worse at night. Unsure if certain foods makes it worse or not. Eating crackers in the middle of the night to help with the discomfort and settle stomach. No dx of GERD. No current regimen with H2 stephen or PPI. Has not tried OTC TUMs EGD on 10/19/21-- Impression: - Normal examined jejunum. - Normal examined duodenum. - Gastritis. Biopsied. - Non-severe reflux esophagitis. Biopsied. Recommended follow-up EGD in 10 years. Past medical history, appointments, medications, allergies reviewed. Previous Medical History PAST MEDICAL HISTORY Diagnosis Date Broken wrist Left wrist Hemorrhage of gastrointestinal tract, unspecified Herpes zoster without mention of complication shingles History of transfusion hyperparathyroidism Endo Dr. Carreno, s/p removal x 1 gland, cause of kidney stones Hyperthyroidism Osteoporosis due to hyperparathyroidism PMH - PAST MEDICAL HISTORY OF renal/kidney stones Post-surgical hypothyroidism s/p thyroidectomy total, Endo Dr. Carreno Sciatica Previous Surgical History PAST SURGICAL HISTORY Procedure Laterality Date ARTHRP INTERPOS INTERCARPAL/METACARPAL JOINTS Right 11/06/2020 Right thumb CMC arthroplasty with ligament reconstruction tendon interposition, palmaris longus ; THYROIDECTOMY TOTAL OR COMPLETE 05/10/2012 total COLONOSCOPY 10/02/2015 COLONOSCOPY 10/19/2021 repeat in 10 years COLONOSCOPY FLX DX W/COLLJ SPEC WHEN PFRMD 07/11/2008 Normal COLONOSCOPY FLX DX W/COLLJ SPEC WHEN PFRMD 04/05/2013 Colonoscopy COLONOSCOPY FLX DX W/COLLJ SPEC WHEN PFRMD 12/04/2018 Colonoscopy COLONOSCOPY W/BIOPSY SINGLE/MULTIPLE 10/02/2015 normal EGD TRANSORAL BIOPSY SINGLE/MULTIPLE 10/02/2015 gastritis EGD W/O BRSH SPEC VARICIES INJ 10/19/2021 ENDOMETRIAL BX W/WO ENDOCERVIX BX W/O DILAT SPX 03/2010 ESOPHAGOGASTRODUODENOSCOPY TRANSORAL DIAGNOSTIC 12/04/2018 EGD F ESWL UNILATERAL Left 2011 FRACTURE SURGERY HYSTEROSCOPY BX W/WO DANDC 11/2013 benign LIG/TRNSXJ FLP TUBE ABDL/VAG APPR UNI/BI PARATHYROID 05/10/2012 removed PAST SURGICAL HISTORY OF excision of a basal cell carcinoma, left supraorbital area. PAST SURGICAL HISTORY OF 02/2015 ORIF left wrist, hardware remains as of 08-09 SKIN BIOPSY HX Family History FAMILY HISTORY Problem Relation Age of Onset No Known Problems Mother other (lymphoma) Father Colon Cancer Maternal Grandmother Breast Cancer Sister diagnosed september 2005 Cancer Sister lymphoma, leukemia Thyroid Sister Patient Allergies ALLERGIES Allergen Reactions No Known Drug Aller* Current Medications Current Outpatient Medications on File Prior to Visit Medication Sig miSOPROStol (CYTOTEC) 200 mcg tablet Take two tablets PO night before procedure and two tablets morning of procedure venlafaxine ER (EFFEXOR XR) 75 mg 24 hr capsule Take 1 capsule by mouth once daily. medroxyPROGESTERone (PROVERA, CYCRIN) 2.5 mg tablet Take 1 tablet by mouth once daily. estradiol (ESTRACE) 1 mg tablet Take 1 tablet by mouth once daily. ferrous sulfate (IRON) 325 mg (65 mg iron) tablet Take 325 mg by mouth daily with breakfast. VITAMIN E ORAL Take by mouth once daily. levothyroxine (LEVOXYL) 75 mcg tablet Take 75 mcg by mouth once daily. calcium combo no.2-vitamin D3 600 mg calcium- 500 unit TbER Take 600 mg by mouth three times daily. Magnesium 250 mg Tab Take 400 mg by mouth twice daily. No current facility-administered medications on file prior to visit. Social History Social History Tobacco Use Smoking status: Never Smokeless tobacco: Never Vaping Use Vaping Use: Never used Substance Use Topics Alcohol use: No Drug use: No REVIEW OF SYSTEMS: as above Reviewed relevant PMHx, PSHx, Social Hx, current medications and allergies. Review of Symptoms REVIEW OF SYSTEMS See HPI. EXAM: BP 120/76 (BP Site: Left Arm, BP Position: Sitting, BP Cuff Size: Regular Adult) Pulse 64 Resp 14 Wt 57.6 kg (127 lb 1.3 oz) LMP 11/23/2010 BMI 23.62 kg/m? General Appearance: Well appearing, alert, in no acute distress, well-hydrated, well nourished.. Skin: Skin color, texture, turgor normal, no suspicious rashes or lesions. Head: Normocephalic, no masses, lesions, tenderness or abnormalities. (more content not included)... [facility] 10-20-2022 History of Present illness Narrative Chief Complaint Patient presents with: stomach issues: For about a monyh now stomach issues with burning , nausea, bloated , HPI Gely Shirley is a 66 year old female who presents here today for Above Complaints.. Gely is an established patient of Dr. Naseem DO. She is a new patient to me today. Concerns today.. Intermittent burning sensation in chest x 1 month. Occurring daily/constantly at this point. Very nausea. Burping a lot. Feeling very bloating to epigastric and upper abdominal region. Worse at night. Unsure if certain foods makes it worse or not. Eating crackers in the middle of the night to help with the discomfort and settle stomach. No dx of GERD. No current regimen with H2 stephen or PPI. Has not tried OTC TUMs EGD on 10/19/21-- Impression: - Normal examined jejunum. - Normal examined duodenum. - Gastritis. Biopsied. - Non-severe reflux esophagitis. Biopsied. Recommended follow-up EGD in 10 years. Past medical history, appointments, medications, allergies reviewed. Previous Medical History PAST MEDICAL HISTORY Diagnosis Date Broken wrist Left wrist Hemorrhage of gastrointestinal tract, unspecified Herpes zoster without mention of complication shingles History of transfusion hyperparathyroidism Endo Dr. Carreno, s/p removal x 1 gland, cause of kidney stones Hyperthyroidism Osteoporosis due to hyperparathyroidism PMH - PAST MEDICAL HISTORY OF renal/kidney stones Post-surgical hypothyroidism s/p thyroidectomy total, Endo Dr. Carreno Sciatica Previous Surgical History PAST SURGICAL HISTORY Procedure Laterality Date ARTHRP INTERPOS INTERCARPAL/METACARPAL JOINTS Right 11/06/2020 Right thumb CMC arthroplasty with ligament reconstruction tendon interposition, palmaris longus ; THYROIDECTOMY TOTAL OR COMPLETE 05/10/2012 total COLONOSCOPY 10/02/2015 COLONOSCOPY 10/19/2021 repeat in 10 years COLONOSCOPY FLX DX W/COLLJ SPEC WHEN PFRMD 07/11/2008 Normal COLONOSCOPY FLX DX W/COLLJ SPEC WHEN PFRMD 04/05/2013 Colonoscopy COLONOSCOPY FLX DX W/COLLJ SPEC WHEN PFRMD 12/04/2018 Colonoscopy COLONOSCOPY W/BIOPSY SINGLE/MULTIPLE 10/02/2015 normal EGD TRANSORAL BIOPSY SINGLE/MULTIPLE 10/02/2015 gastritis EGD W/O [facility] SPEC VARICIES INJ 10/19/2021 ENDOMETRIAL BX W/WO ENDOCERVIX BX W/O DILAT SPX 03/2010 ESOPHAGOGASTRODUODENOSCOPY TRANSORAL DIAGNOSTIC 12/04/2018 EGD F ESWL UNILATERAL Left 2011 FRACTURE SURGERY HYSTEROSCOPY BX W/WO D&C 11/2013 benign LIG/TRNSXJ FLP TUBE ABDL/VAG APPR UNI/BI PARATHYROID 05/10/2012 removed PAST SURGICAL HISTORY OF excision of a basal cell carcinoma, left supraorbital area. PAST SURGICAL HISTORY OF 02/2015 ORIF left wrist, hardware remains as of 08-09 SKIN BIOPSY HX Family History FAMILY HISTORY Problem Relation Age of Onset No Known Problems Mother other (lymphoma) Father Colon Cancer Maternal Grandmother Breast Cancer Sister diagnosed september 2005 Cancer Sister lymphoma, leukemia Thyroid Sister Patient Allergies ALLERGIES Allergen Reactions No Known Drug Aller* Current Medications Current Outpatient Medications on File Prior to Visit Medication Sig miSOPROStol (CYTOTEC) 200 mcg tablet Take two tablets PO night before procedure and two tablets morning of procedure venlafaxine ER (EFFEXOR XR) 75 mg 24 hr capsule Take 1 capsule by mouth once daily. medroxyPROGESTERone (PROVERA, CYCRIN) 2.5 mg tablet Take 1 tablet by mouth once daily. estradiol (ESTRACE) 1 mg tablet Take 1 tablet by mouth once daily. ferrous sulfate (IRON) 325 mg (65 mg iron) tablet Take 325 mg by mouth daily with breakfast. VITAMIN E ORAL Take by mouth once daily. levothyroxine (LEVOXYL) 75 mcg tablet Take 75 mcg by mouth once daily. calcium combo no.2-vitamin D3 600 mg calcium- 500 unit TbER Take 600 mg by mouth three times daily. Magnesium 250 mg Tab Take 400 mg by mouth twice daily. No current facility-administered medications on file prior to visit. Social History Social History Tobacco Use Smoking status: Never Smokeless tobacco: Never Vaping Use Vaping Use: Never used Substance Use Topics Alcohol use: No Drug use: No REVIEW OF SYSTEMS: as above Reviewed relevant PMHx, PSHx, Social Hx, current medications and allergies. Review of Symptoms REVIEW OF SYSTEMS See HPI. EXAM: BP 120/76 (BP Site: Left Arm, BP Position: Sitting, BP Cuff Size: Regular Adult) Pulse 64 Resp 14 Wt 57.6 kg (127 lb 1.3 oz) LMP 11/23/2010 BMI 23.62 kg/m General Appearance: Well appearing, alert, in no acute distress, well-hydrated, well nourished.. Skin: Skin color, texture, turgor normal, no suspicious rashes or lesions. Head: Normocephalic, no masses, lesions, tenderness or abnormalities. Neck: Supple, no adenopathy; thyroid symmetric, normal size, no bruits. Back:no pain to palpation of vertebrae, good flexion and extension, good range of motion, no muscle tenderness, reflexes are 2+ and symmetric, motor and sensory appear to be normal, negative SLR test, no evidence of scoliosis Lungs: Lungs clear to auscultation. No wheezing, rhonchi, rales.. Heart: RRR without murmur, gallop, or rubs. No ectopy. Abdomen: Normal abdominal exam, Abdomen soft, non-tender. Bowel sounds normal. No masses, organomegaly. Health Maintenance List HEPATITIS C SCREENING Never done SHINGRIX VACCINE(2 of 3) due on 09/20/2017 DTAP,TDAP,TD(1 - Tdap) due on 03/23/2018 BONE DENSITY due on 10/26/2020 COVID-19 VACCINE(4 - Booster for Moderna series) due on 08/15/2021 INFLUENZA(1) due on 04/21/2022 ADVANCE DIRECTIVE DISCUSSION Never done DEPRESSION ASSESSMENT Never done ANNUAL PCP TEAM CHRONIC DISEASE VISIT due on 08/27/2022 PNEUMOCOCCAL: 65+(2 - PCV) due on 08/27/2022 DIABETES SCREEN due on 10/11/2022 MAMMOGRAM due on 01/27/2023 LIPID SCREEN due on 05/05/2023 COLORECTAL CANCER SCREENING due on 10/20/2031 ASSESSMENT/PLAN: 1. Gastroesophageal reflux disease with esophagitis, unspecified whether hemorrhage - ICD9: 530.11, ICD10: K21.00 - Discussed lifestyle modifications including losing weight, limiting caffeine, no meals three hours before sleep, and head of bed elevation - Begin treatment with Prilosec 20 mg every day After 8 weeks on medication and asymptomatic, can trial off of medication. Pt agreeable. - OTC TUMs as needed for breakthrough discomfort/heartburn. - DEPRESSION SCREENING/ASSESSMENT - OMEPRAZOLE 20 MG CAPSULE,DELAYED RELEASE RTO if symptoms do not improve. RTO for routine wellness exam -- pt declined scheduling at this time. Prescription instructions reviewed with patient as applicable. Potential red flag symptoms discussed with the patient. Reviewed appropriate action plan to take if red flag symptoms occur. Patient agreeable to treatment plan. Maryanne Davison APRN.[employer] [address] [place] [address] documented in this encounter [facility] 06-14-2022 Instructions Jacklyn Esparza Ma - 06/14/2022 9:48 AM EDT YOUR RECOVERY After your biopsy you may have: Vaginal bleeding (less than a normal menstrual period) Mild cramping Do NOT put anything in the vagina for 1 week after your endometrial biopsy. This includes: tampons douches and refraining from having sexual intercourse If you have any discomfort, you may take an over the counter pain medication (motrin, advil, ibuprofen, tylenol, etc). If this does not relieve your discomfort, contact the office. It is okay to wear a sanitary pad until the discharge and spotting stops. RISKS Although problems seldom occur with endometrial biopsies, there can be some complications. You may feel faint during and shortly after the procedure as well as have some bleeding after the procedure. There is also a risk of infection after the procedure. These complications are rare and can be easily treated. You should contact you doctor is you have any of the following: Heavy bleeding (more than your normal period) Bleeding with clots Severe abdominal pain Fever (more than 100.4F) Foul smelling vaginal discharge RESULTS We will have the results of your biopsy in 1-2 weeks. If you do not hear the results of your biopsy after 2 weeks, please contact the office for the results. If you have any additional questions or concerns please do not hesitate to contact the office. documented in this encounter [facility] 06-14-2022 History of Present illness Narrative Gely Shirley presents for hysteroscopy. Indication: Postmenopausal bleeding possible EMB Age: [age] year old LMP: Patient's last menstrual period was 11/23/2010. Contraception: none test: n/a VS: BP 118/72 Wt 126 lb (57.2kg) LMP 11/23/2010 UNIVERSAL PROTOCOL / SAFETY CHECKLIST Procedure to be Performed: ENDOSEE and EMB Sign In: A Moment of CARE was completed. Personnel directly involved with the procedure wore the appropriate PPE (Personal Protective Equipment). Patient/Surrogate Stated/Verified: PATIENT VERIFIED(optional for EMERGENT procedures): Patient name, Date of , Relevant allergies, and The intended procedure Time Out Communication: Intended patient and procedure match the source documents. Consent documented and matches the intended procedure. Sign Out: SIGN OUT (optional for EMERGENT procedures): All specimen containers correctly labeled. Vishal Luna MD OBJECTIVE: Cervix cleaned with betadine. A single tooth tenaculum was used to grasp cervix. Cervix was dilated. Under sterile conditions, using 30 mL normal saline as distention, ENDOSEE hysteroscopy performed without incident. No endocervical lesions seen. Endometrial lining is atrophic. Scant tissue on posterior aspect of uterus- but not polypoid and appears to be free floating. Thick cervical mucous present. No intrauterine lesions. Tubal ostia visualized and normal. Endometrial biopsy performed. PROCEDURE SUMMARY: Patient tolerated procedure well. ASSESMENT: Postmenopausal bleeding with no lesions on hysteroscopy. PLAN: Follow up endometrial biopsy results. Vishal Luna MD documented in this encounter [facility] 06-13-2022 Miscellaneous Notes Patient notified. Nicci Lopez RN Left message for patient to call office. Nicci Lopez RN ----- Message from Vishal Solis MD sent at 06/08/2022 12:55 PM EDT ----- Notify patient that she has likely endometrial polyp which is source of bleeding- recommend Hysteroscopy, D&C, polypectomy in OR. Has small likely dermoid cyst on right ovary- will need follow up in 6-12 weeks with ultrasound. We an discuss further at her appt on 06/14/22 documented in this encounter [facility] 02-24-2022 Miscellaneous Notes Patient calling needing a refill on her Effexor as she is leaving for vacation tomorrow. Refill was sent on 02/22, but went to incorrect place. Pharmacy updated, please file. Claudette Cheung RN documented in this encounter [facility] 02-22-2022 Miscellaneous Notes Patient called needing a refill. Last annual 01/26/22. Leaving for vacation and will run out while out of town. Pending Prescriptions Disp Refills VENLAFAXINE ER 75 MG CAPSULE,EXTENDED RELEASE 24 HR 90 capsule 3 Sig: Take 1 capsule by mouth once daily. IGLESIA: No documented in this encounter [facility] 02-14-2022 Miscellaneous Notes Pt. notified and verbalizes understanding. Rx for oral diclofenac was sent to her pharmacy. Pt called in to say that she is having no luck relieving symptoms with Tylenol as directed. Pt states that Dr. Cross offered a prescription for an antiinflammatory medication and she would like that filled. Pt did not know the name of the medication. Pt states she gets her medication filled at [facility] in [place]. Please call pt at [phone]. documented in this encounter [facility] 02-07-2022 History of Present illness Narrative Crow Cross MD Department of Orthopaedics Orthopaedics [address] [facility] [address] Dept: [phone] Dept February 07, 2022 CHIEF COMPLAINT: Established Patient and Pain of the Left Hip HPI Patient here today for left hip pain x 9 months. She denies any injury. Pain gradually becoming worse. She has been taking tylenol with good relief. She is active in water aerobics and she is quite painful during the exercises. She pushes through the pain and then takes Tylenol when she gets home. She does not work outside the home. ASSESSMENT: M16.12 Primary osteoarthritis of left hip (primary encounter diagnosis) M25.552, G89.29 Chronic left hip pain PLAN: Based on her history exam and x-ray findings, I do feel that her symptoms are stemming from some early arthritic changes in the left hip. We discussed multiple treatment options including her activities and strengthening and some short-term anti-inflammatories as she is concerned about her long-term kidney function. Also possibility of a cortisone injection intra-articularly. She certainly has not anywhere close to hip replacement discussions. Ms. Gely Shirley was advised as to contrast therapies and/or to take analgesics/anti-inflammatories as needed and all contraindications were reviewed. OBJECTIVE: Ms. Gely Shirley is a pleasant 66 year old in no apparent distress. Gen:LMP 11/23/2010 nl development, Fit appearing, no deformities ENT: Normocephalic, normal hearing, moist mucosa CV: Pulses:DP/PT= 2+ and symmetric, capillary refill < 2 secs, no peripheral edema/varicosities Skin: no rash, bruising or lesions. Good turgor. Psych: cooperative and appropriate, alert and oriented x 3, good mood and affect. Musculoskeletal: Patient walks without antalgia. Able to get up and down from a seated position without any issues. Flexion and internal rotation reproduce pain in the groin with about 110 degrees of flexion and 25 degrees of internal rotation. Nontender over the greater trochanter, short external rotators and posterior hip. Imaging: IMPRESSION: Minimal/mild narrowing of the left hip. Warehouse Distribution Associate: JOSÉ ANTONIO Transcribe Date/Time: Feb 07 2022 12:57P Dictated by : JANYN SOTO MD This examination was interpreted and the report reviewed and electronically signed by: JANNY SOTO MD on Feb 07 2022 1:10PM EST Results-Findings * * *Final Report* * * DATE OF EXAM: Feb 07 2022 8:09AM [id number] - XR HIP 3V PELV+ AP/LAT LT / PROCEDURE REASON: Pain in left hip * * * * Physician Interpretation * * * * HISTORY: Anterior left hip pain x 9 months without injury. Pain in left hip . TECHNIQUE: XR HIP 3V PELV+ AP/LAT LT Laterality: LEFT Number of different views (projections): 3 COMPARISON: None RESULT: There is minimal/mild narrowing of the superolateral medial aspect of the left hip compared to the right side. No other significant findings about the left hip. Bony pelvis is intact. SI joints appear unremarkable. Tubal ligation clips Supporting Subjective Information Below: Past Surgical History: PAST SURGICAL HISTORY Procedure Laterality Date ARTHRP INTERPOS INTERCARPAL/METACARPAL JOINTS Right 11/06/2020 Right thumb CMC arthroplasty with ligament reconstruction tendon interposition, palmaris longus ; THYROIDECTOMY TOTAL OR COMPLETE 05/10/2012 total COLONOSCOPY 10/02/2015 COLONOSCOPY 10/19/2021 repeat in 10 years COLONOSCOPY FLX DX W/COLLJ SPEC WHEN PFRMD 07/11/2008 Normal COLONOSCOPY FLX DX W/COLLJ SPEC WHEN PFRMD 04/05/2013 Colonoscopy COLONOSCOPY FLX DX W/COLLJ SPEC WHEN PFRMD 12/04/2018 Colonoscopy COLONOSCOPY W/BIOPSY SINGLE/MULTIPLE 10/02/2015 normal EGD TRANSORAL BIOPSY SINGLE/MULTIPLE 10/02/2015 gastritis EGD W/O BRSH SPEC VARICIES INJ 10/19/2021 ENDOMETRIAL BX W/WO ENDOCERVIX BX W/O DILAT SPX 03/2010 ESOPHAGOGASTRODUODENOSCOPY TRANSORAL DIAGNOSTIC 12/04/2018 EGD F ESWL UNILATERAL Left 2011 FRACTURE SURGERY HYSTEROSCOPY BX W/WO D&C 11/2013 benign LIG/TRNSXJ FLP TUBE ABDL/VAG APPR UNI/BI PARATHYROID 05/10/2012 removed PAST SURGICAL HISTORY OF excision of a basal cell carcinoma, left supraorbital area. PAST SURGICAL HISTORY OF 02/2015 ORIF left wrist, hardware remains as of 08-09 SKIN BIOPSY HX Medications: Current Outpatient Medications Medication Sig medroxyPROGESTERone (PROVERA, CYCRIN) 2.5 mg tablet Take 1 tablet by mouth once daily. estradiol (ESTRACE) 1 mg tablet Take 1 tablet by mouth once daily. ferrous sulfate (IRON) 325 mg (65 mg iron) tablet Take 325 mg by mouth daily with breakfast. venlafaxine ER (EFFEXOR XR) 75 mg 24 hr capsule TAKE 1 CAPSULE BY MOUTH EVERY DAY VITAMIN E ORAL Take by mouth once daily. levothyroxine (LEVOXYL) 75 mcg tablet Take 75 mcg by mouth once daily. calcium combo no.2-vitamin D3 600 mg calcium- 500 unit TbER Take 600 mg by mouth three times daily. Magnesium 250 mg Tab Take 400 mg by mouth twice daily. No current facility-administered medications for this visit. Allergies: No Known Drug Allergies ROS: General (negative for fatigue, malaise, weight loss/gain) HEENT (negative for headache, earache, recent vision changes, sinus pain, sore throat) Respiratory (no recent shortness of breath, hemoptysis) CV (negative for chest tightness, palpitations) Musculoskeletal (see HPI) Psych (no depression, anxiety) Crow Cross MD documented in this encounter [facility] 02-07-2022 History of Present illness Narrative Radiology Service Progress Note PATIENT NAME: Gely Shirley DATE OF SERVICE: February 07, 2022 TIME: 7:57 AM PATIENT IDENTITY VERIFICATION COMPLETED USING TWO (2) IDENTIFIERS: Name and Date of confirmed by patient verbally. FALL SCREENING: Has the patient had 2 falls in the last year or 1 fall with injury or currently using an Ambulatory Assistive Device (Walker, Cane, Wheelchair, Crutches, etc.)? No PATIENT GENDER DATA: Female. status: : No status: NO. PATIENT RELEVANT IMPLANT DATA REVIEWED: Yes RADIOLOGY DEPARTMENT: General X-ray: Exam(s) Completed: Pelvis X-Ray: Pelvis with Hip Left PERIPHERAL IV DATA: Not applicable SIGNED BY: RT Chitra(R) February 07, 2022 7:57 AM documented in this encounter [facility] 01-27-2022 Miscellaneous Notes January 27, 2022 PID: [id number] Gely Shirley [id number] [id number] Dear Ms. Shirley, We are pleased to inform you that the results of your recent breast imaging exam on 01/27/2022 are normal. Your mammogram demonstrates that you have dense breast tissue, which could hide abnormalities. Dense breast tissue, in and of itself, is a relatively common condition. Therefore, this information is not provided to cause undue concern; rather, it is to raise your awareness and promote discussion with your health care provider regarding the presence of dense breast tissue in addition to other risk factors. Early detection of cancer is very important. We also understand recommendations regarding breast cancer screening are controversial. Please discuss with your primary care provider which strategy is best for you and whether a mammogram is right for you. Your imaging studies and report will be kept on file at [facility] as part of your permanent medical record and are available for your continuing care. Thank you for allowing us to help in meeting your health care needs. Sincerely, Dr. Leslie Interpreting Radiologist [facility] (Normal over 40) documented in this encounter [facility] 01-27-2022 History of Present illness Narrative Radiology Service Progress Note PATIENT NAME: Gely Shirley DATE OF SERVICE: January 27, 2022 TIME: 9:29 AM PATIENT IDENTITY VERIFICATION COMPLETED USING TWO (2) IDENTIFIERS: Name and Date of confirmed by patient verbally. FALL SCREENING: Has the patient had 2 falls in the last year or 1 fall with injury or currently using an Ambulatory Assistive Device (Walker, Cane, Wheelchair, Crutches, etc.)? No PATIENT GENDER DATA: Female. status: : No status: NO. PATIENT RELEVANT IMPLANT DATA REVIEWED: Not Applicable RADIOLOGY DEPARTMENT: Mammography PERIPHERAL IV DATA: Not applicable SIGNED BY: RT Blue(R) January 27, 2022 9:29 AM documented in this encounter [facility] 01-26-2022 History of Present illness Narrative Provider Enrollment Specialist offered: Patient declinesJimena Smith is a 66 year old who presents for an annual gynecologic exam without complaints. Heading to this year with family . Left sided hip pain this year seeing ortho Postmenopausal: Yes HRT use: yes, years. Last Pap: 12/20/2017 normal HPV: 12/14/2017 negative History of abnormal pap: No Last mammogram: 2020 normal History of abnormal mammogram: No Sexually active: Yes History of STDS: None Patient concerns for STD exposure: No. Pain with intercourse: No Postcoital bleeding: No Hot flashes: occasional Night sweats: No Vaginal dryness: No Exercise: water aerobics Diet: balanced OB History T4 L3 SAB0 IAB0 Ectopic0 Multiple0 Live Births0 Comment: one son born living but passed 2 days after . Still has 3 living children. Epic Analyst History LMP: 11/23/2010, Postmenopausal Age at Menarche: Age at First : Age at Menopause: Epic Analyst History Comments: Sexual Activity: Yes; Male; btl Contraception: Tubal Ligation PAST MEDICAL HISTORY Diagnosis Date Broken wrist Left wrist Hemorrhage of gastrointestinal tract, unspecified Herpes zoster without mention of complication shingles History of transfusion hyperparathyroidism Endo Dr. Carreno, s/p removal x 1 gland, cause of kidney stones Hyperthyroidism Osteoporosis due to hyperparathyroidism PMH - PAST MEDICAL HISTORY OF renal/kidney stones Post-surgical hypothyroidism s/p thyroidectomy total, Gerardo Carreno Sciatica PAST SURGICAL HISTORY Procedure Laterality Date ARTHRP INTERPOS INTERCARPAL/METACARPAL JOINTS Right 11/06/2020 Right thumb CMC arthroplasty with ligament reconstruction tendon interposition, palmaris longus ; THYROIDECTOMY TOTAL OR COMPLETE 05/10/2012 total COLONOSCOPY 10/02/2015 COLONOSCOPY 10/19/2021 repeat in 10 years COLONOSCOPY FLX DX W/COLLJ SPEC WHEN PFRMD 07/11/2008 Normal COLONOSCOPY FLX DX W/COLLJ SPEC WHEN PFRMD 04/05/2013 Colonoscopy COLONOSCOPY FLX DX W/COLLJ SPEC WHEN PFRMD 12/04/2018 Colonoscopy COLONOSCOPY W/BIOPSY SINGLE/MULTIPLE 10/02/2015 normal EGD TRANSORAL BIOPSY SINGLE/MULTIPLE 10/02/2015 gastritis EGD W/O BRSH SPEC VARICIES INJ 10/19/2021 ENDOMETRIAL BX W/WO ENDOCERVIX BX W/O DILAT SPX 03/2010 ESOPHAGOGASTRODUODENOSCOPY TRANSORAL DIAGNOSTIC 12/04/2018 EGD F ESWL UNILATERAL Left 2010 FRACTURE SURGERY HYSTEROSCOPY BX W/WO D&C 11/2013 benign LIG/TRNSXJ FLP TUBE ABDL/VAG APPR UNI/BI PARATHYROID 05/10/2012 removed PAST SURGICAL HISTORY OF excision of a basal cell carcinoma, left supraorbital area. PAST SURGICAL HISTORY OF 02/2015 ORIF left wrist, hardware remains as of 08-09 SKIN BIOPSY HX FAMILY HISTORY Problem Relation Age of Onset No Known Problems Mother other (lymphoma) Father Colon Cancer Maternal Grandmother Breast Cancer Sister diagnosed september 2005 Cancer Sister lymphoma, leukemia Thyroid Sister SOCIAL HISTORY Social History Tobacco Use Smoking status: Never Smoker Smokeless tobacco: Never Used Vaping Use Vaping Use: Never used Substance Use Topics Alcohol use: No Drug use: No REVIEW OF SYSTEMS Abdomen: No abdominal pain, nausea, vomiting, diarrhea, or constipation. No bloating, early satiety, indigestion, or increased flatulence. Bladder: No dysuria, gross hematuria, urinary frequency, urinary urgency, or incontinence Breast: No breast lumps, nipple d/c, overlying skin changes, redness or skin retraction Allergies and current medication updated:Yes EXAM: BP 110/72 Ht 5' 1.5 (1.56m) Wt 118 lb (53.5kg) LMP 11/23/2010 BMI 21.94 kg/(m^2). GENERAL: pleasant, female in no apparent distress HEENT: Normocephalic, atraumatic, mucus membranes moist and no lesions NECK: Supple, full range of motion, no adenopathy and thyroid absent DERMATOLOGY: Normal, without lesions, non-icteric and non-hirsute BREAST: soft, non-tender, symmetric, no dominant mass, normal nipple-areolar complex, no lymphadenopathy and no nipple discharge ABDOMEN: soft, non-tender and no masses PELVIC: external genitalia normal, normal Bartholin's glands, urethra, [place]'s glands, no vulvar lesions, no cervical lesions, good vaginal support, physiologic discharge present, normal appearing perineal body and perianal region BIMANUAL: uterus normal size, shape and consistency, no adnexal masses and non-tender RECTOVAGINAL: deferred. NEURO: alert and oriented x3,exam grossly non-focal EXTREMITIES: normal ASSESSMENT/PLAN: 1) Health maintenance: Pap/HPV screening no longer needed Mammogram ordered Nutrition, exercise and routine health maintenance exams reviewed. Calcium/Vitamin D supplementation information provided. Colon cancer screening: up to date with screening BMD: scheduled by jukebox route driver 2) Follow up one year or sooner as needed 3) HRT reviewed- no contraindication to continue. Vishal Luna MD documented in this encounter [facility] 12-23-2021 Miscellaneous Notes Received refill request for Progesterone. Called patient to inquire how she was doing with estradiol and progesterone together. States she is doing well. Needs 90 days supply. A new RX for Estradiol was sent on 12/17/21. Please file. Pending Prescriptions Disp Refills MEDROXYPROGESTERONE 2.5 MG TABLET 90 tablet 0 Sig: TAKE 1 TABLET BY MOUTH EVERY DAY IGLESIA: Yes Deisy Jose RN documented in this encounter [facility] 11-02-2021 Instructions Lexi Villeda PA-C - 11/02/2021 10:30 AM EDT -Contact office if any recurrent right upper quadrant pain or if diarrhea recurs -Recommend follow up right upper quadrant ultrasound at 6 months (due February 2022) for surveillance of gallbladder polyp noted on prior ultrasound in August The following instructions are important for you related to your office visit today with the [facility]. INSTRUCTIONS FOLLOWING A NORMAL COLONOSCOPY 10YR I discussed with you the findings of your colonoscopy. Since there were no worrisome abnormalities, I recommend you undergo repeat endoscopic screening every 10 years. This is the current recommendation for colon cancer screening. If you note bleeding, change in bowel habits, or other suspicious colon related symptoms before that time, those symptoms should be evaluated as necessary. INSTRUCTIONS FOR PEPTIC ULCER DISEASE - ESOPHAGITIS I discussed with you the findings of your upper endoscopy. Your upper endoscopy demonstrated esophagitis Esophagitis may be a form of peptic irritation, with acid moving from the stomach to the esophagus (gastroesophageal reflux) Factors that increase acid production include smoking and stress. If you smoke, stopping smoking will often cure these issues without needing other medications. Over the counter medications including antiacids and acid reducing medications including H2 blockers (Zantac and the like) and proton pump inhibitors (prilosec, prevacid and the like) neutralize or prevent acid production. Prescription strength proton pump inhibitors (PPIs) may be necessary if your symptoms persist. Carafate may be added to PPI treatment in refractory cases. Avoiding smoking, alcohol and antiinflammatory medications are important in the successful treatment of reflux esophagitis and peptic diseases. Other factors that contribute to GERD and esophagitis are being overweight, eating large meals before laying down and certain foods. Weight loss will help improve many GERD complaints. Remaining upright after eating large meals and having a small supper will also help symptoms. Avoiding food that contribute to reflux - chocolate, caffeine, cheddar cheese may also help. Follow up upper endoscopy may be recommended to assure healing of the esophagus. New or worsening symptoms such are epigastric pain, burning, difficulty swallowing or food sticking should be relayed to your physician. Feeling full early after eating, or black, tarry, foul smelling stools are also worrisome. If you have any difficulties or concerns, you should contact our office immediately. If you note any additional difficulties, questions, or concerns, you should contact our office immediately @ [phone] and ask to be transferred to the General Surgery department. documented in this encounter [facility] 11-02-2021 History of Present illness Narrative FOLLOW UP VISIT - ENDOSCOPY NAME: Gely Keenan [facility] NO.: [id number] DATE OF SERVICE: 11/02/2021 : 1955 REFERRING PHYSICIAN: Blane Gannon DO Gely is a patient I am following with Dr. Wan for loose stools and anemia. Dr. Wan performed upper and lower endoscopy on 10/19/21. The patient was found to have per EGD report: Impression: - Normal examined jejunum. - Normal examined duodenum. - Gastritis. Biopsied. - Non-severe reflux esophagitis. Biopsied. And per colonoscopy report: Impression: - The entire examined colon is normal. Biopsied. - Foreign body in the cecum. Removal was successful. - The distal rectum and anal verge are normal on retroflexion view. Pathology demonstrated: FINAL DIAGNOSIS A. Stomach, antrum, biopsy: - Antral type gastric mucosa with changes of reactive gastropathy. - No helicobacter organisms identified. B. Esophagogastric junction, biopsy: - Squamous mucosa with reactive and regenerative epithelial changes of the type often associated with gastroesophageal reflux disease. C. Colon, biopsy: - Colonic mucosa with no diagnostic abnormalities. The patient notes no complaints since the procedure. Notes bowel movements have been improving. On review of records, it was noted that patient had a prior incidental finding of gallbladder polyp on imaging ordered by her jukebox route driver: IMPRESSION: Gallbladder polyp. No biliary dilatation. Hyperechoic RIGHT kidney consistent medical renal disease. Lower pole RIGHT renal hyperechoic foci suggestive of calculi. Right renal cysts one of which is mildly complex VITALS: Blood pressure 127/75, pulse 89, temperature 36.4 C (97.5 F), height 157.5 cm (5' 2 ), weight 54 kg (119 lb), last menstrual period 11/23/2010, SpO2 99 %. General: patient is alert, cooperative, pleasant and in no acute distress On examination, the abdomen is benign. Assessment IMPRESSION: Gastritis and esophagitis. Foreign material in colon, possibly residue from OTC supplement. History of gallbladder polyp PLAN: The operative findings and pathology report were reviewed with the patient, and the patient has had the opportunity to ask questions and have questions answered. If the patient notes any problems or changes in bowel function, the patient should contact me immediately. Otherwise I recommend follow up endoscopy in 10 years. HM updated and recall letter generated. Reviewed dietary and lifestyle modifications for GERD. -Contact office if any recurrent right upper quadrant pain or if diarrhea recurs -Recommend follow up right upper quadrant ultrasound at 6 months (due February 2022) for surveillance of gallbladder polyp noted on prior ultrasound in August Patient verbalized understanding of all above and agreed with the plan Diagnoses: (K29.60) Other gastritis without bleeding (primary encounter diagnosis) (K21.00) Gastroesophageal reflux disease with esophagitis without hemorrhage (R19.5) Loose stools (K82.4) Gallbladder polyp I spent a total of 25 minutes on the date of the service which included preparing to see the patient, [id number] patient care, completing clinical documentation, obtaining and/or reviewing separately obtained history, counseling and educating the patient/family/caregiver, communicating with other HCPs (not separately reported), independently interpreting results (not separately reported), communicating results to the patient/family/caregiver and care coordination (not separately reported). Lexi Villeda PA-C documented in this encounter [facility] 10-05-2021 Miscellaneous Notes 10/19/21 EGD & Colonoscopy with Dr. Wan at the [facility] with Miralax/Dulcolax prep documented in this encounter [facility] 01-11-2021 Note HNO ID: [id number] Author: Piper Bullock OT/Shlomo Service: ? Author Type: Occupational Therapist Type: Progress Notes Filed: 01/11/2021 12:03 PM Note Text: Episode Visit Count: 5 Therapist That Will Oversee The Plan Of Care: Kobe Saldaña Start of Care Date: 12/08/20 Onset Date: 11/06/20 Plan of Care Certification Date: 12/08/20 Next Certification Due Date: 02/17/21 Patient Identified by Name and Date of : Yes REHABILITATION AND SPORTS THERAPY OCCUPATIONAL THERAPY DISCONTINUANCE OF CARE PLAN OF CARE UPDATE: Assessment: Gely Shirley is discontinued from Occupational Therapy services due to goal achievement and maximal benefit.. Patient was seen for 5 visits from Start of Care Date: 12/08/20 to 01/11/2021 and treatment included: Therapeutic exercise, Self-fci management, Modalities, Custom orthosis fabrication and Prefabricated orthosis fitting. Goals for Episode of Care created on 12/08/20 through 02/17/21 Patient will report a good understanding of diagnosis and OT recommendations for progression of program.MET Patient will demonstrate independence with ongoing home recommendations/exercise program throughout therapy plan of care.MET Patient will increase AROM of Right wrist and thumb to WFL in order to be able to improve function for basic self-care tasks and light functional tasks.MET Patient will independently demonstrate correct application of CUSTOM orthosis and verbalize understanding of proper wear/care. MET Patient will report a good understanding of edema control, scar / wound management throughout therapy plan of care to promote non-adherent / non-tender soft tissue MET SUBJECTIVE: 8 weeks s/p CMC arthroplasty reporting motion is better but she feel a lack of strength Pain: Pain Pain Level: 1 Post Treatment Pain Post Treatment Pain Level: No Change PROMIS Scales T-scores: mean of general population = 50. 5 points is clinically meaningfully difference Percentiles provide an indication of how the patient's score ranks in relation to the general population. Higher percentile rankings indicate better function/quality of life. 50th percentile is the average of the general population and indicates half of respondents had a worse score. T-scores: mean of general population = 50. 5 points is clinically meaningfully difference Percentiles provide an indication of how the patient's score ranks in relation to the general population. Higher percentile rankings indicate better function/quality of life. 50th percentile is the average of the general population and indicates half of respondents had a worse score. OBJECTIVE MEASURES WITH LEVEL OF FUNCTION: Hand Wrist AROM: Right Limitation Thumb AROM: Right Limitation Strength: Cattle Rancher Position 2;Pinch Meter Hand Strength R Cattle Rancher Position 2 (lbs): 30 lbs R Lateral Pinch (lbs): 5 lbs R Tripod/ 3 Jaw Kavin (lbs): 5 lbs R Tip Pinch (lbs): 6.5 lbs UE AROM R Wrist Extension: 65 Degrees R Wrist Flexion: 50 Degrees R Wrist Radial Deviation: 20 Degrees R Wrist Ulnar Deviation: 35 Degrees Thumb AROM: Right Limitation Hand AROM R Thumb MP Flexion : 43 Degrees R Thumb IP Flexion : 52 Degrees R Thumb Radial Abduction: 70 Degrees R Thumb Palmar Abduction: 60 Degrees TREATMENT: Therapeutic Exercise: 1: objective measurements taken and recorded 2: thumb AROM flex/ext circumduction cw and ccw flex ext and opposition 3: with med putty plant operator helper, digit flexion tripod pinch 4: instrucxted in activity modification and use of splint during heavier functional activities Skilled Intervention: Patient was educated in proper exercise technique and purpose for exercises. Skilled judgment was provided in selection of appropriate interventions. Modalities: Fluidotherapy Body Region Treated - Fluidotherapy: right hand Patient Position: seated Temperature: 104 Minute(s): 10 Activity 1: AROM Skilled Intervention: Proper administration and selection of modality based on clinical presentation, deficits, and needs. Patient response monitored throughout treatment. Billing: [place]: Therapeutic Exercise (40497): 1:1 time:30 minutes (2 units: 23-37 mins) Fluidotherapy (31874) 1 unit(s) Total time / Length of visit: 45 minutes Piper Bullock OT/Shlomo [facility] 01-04-2021 Note HNO ID: [id number] Author: ANITA Cyr Service: ? Author Type: Occupational Therapist Type: Progress Notes Filed: 01/04/2021 12:02 PM Note Text: Episode Visit Count: 4 Therapist That Will Oversee The Plan Of Care: Kobe Saldaña Start of Care Date: 12/08/20 Onset Date: 11/06/20 Plan of Care Certification Date: 12/08/20 Next Certification Due Date: 02/17/21 Patient Identified by Name and Date of : Yes REHABILITATION AND SPORTS THERAPY OCCUPATIONAL THERAPY TREATMENT NOTE ASSESSMENT: Gely Shirley demonstrated difficulty with strength. The patient will continue to benefit from continued skilled occupational therapy for exercises education and modalities PLAN FOR NEXT VISIT: reassess anticipate discharge determine tolerance to strengthening SUBJECTIVE: 7 weeks s/p CMC arthroplasty reporting some soreness not constant No longer using splint per MD, does not need to return to him unless she has an issue Pain: OBJECTIVE MEASURES WITH LEVEL OF FUNCTION: Hand Skin / Wound: Scar Strength: Cattle Rancher Position 2;Pinch Meter Hand Strength R Cattle Rancher Position 2 (lbs): 6 lbs L Cattle Rancher Position 2 (lbs): 54 lbs R Lateral Pinch (lbs): 4 lbs R Tripod/ 3 Jaw Kavin (lbs): 5 lbs R Tip Pinch (lbs): 5 lbs TREATMENT: Therapeutic Exercise: 1: with soft puttyu plant operator helper digit ext roll digit flexion 2: with soft putty digit extension abduction 3: wrist flex, ext deviation and sup pro 4: thumb flex ext radial and palmar abduction and opposition 5: with 1# weight 6: with soft putty lateral pinch and thumb adduction Skilled Intervention: Patient was educated in proper exercise technique and purpose for exercises. Skilled judgment was provided in selection of appropriate interventions. Modalities: Fluidotherapy Body Region Treated - Fluidotherapy: right hand Patient Position: seated Temperature: 104 Minute(s): 10 Activity 1: AROM Skilled Intervention: Proper administration and selection of modality based on clinical presentation, deficits, and needs. Patient response monitored throughout treatment. Billing: [place]: Therapeutic Exercise (31275): 1:1 time:35 minutes (2 units: 23-37 mins) Fluidotherapy (62849) 1 unit(s) Total time / Length of visit: 45 minutes Piper Bullock OT/Shlomo [facility] 12-28-2020 Note HNO ID: [id number] Author: ANITA Cyr Service: ? Author Type: Occupational Therapist Type: Progress Notes Filed: 12/28/2020 11:59 AM Note Text: Episode Visit Count: 3 Therapist That Will Oversee The Plan Of Care: Kobe Saldaña Start of Care Date: 12/08/20 Onset Date: 11/06/20 Plan of Care Certification Date: 12/08/20 Next Certification Due Date: 02/17/21 Patient Identified by Name and Date of : Yes REHABILITATION AND SPORTS THERAPY OCCUPATIONAL THERAPY TREATMENT NOTE ASSESSMENT: Gely Shirley demonstrated difficulty with strength. The patient will continue to benefit from continued skilled occupational therapy for exercises modalities education PLAN FOR NEXT VISIT: progress to weight and putty SUBJECTIVE: 6 weeks s/p CMC arthroplasty reporting some soreness not constant Pain: Pain Pain Level: 5 OBJECTIVE MEASURES WITH LEVEL OF FUNCTION: Hand Wrist AROM: Right Limitation Thumb AROM: Right Limitation UE AROM R Wrist Extension: 60 Degrees R Wrist Flexion: 35 Degrees Thumb AROM: Right Limitation Hand AROM R Thumb MP Flexion : 41 Degrees R Thumb IP Flexion : 35 Degrees R Thumb Radial Abduction: 70 Degrees R Thumb Palmar Abduction: 60 Degrees TREATMENT: Therapeutic Exercise: 1: instructed pt in weaning form splint 2: discussed precautions in returning to water aerobics 3: wrist flex, ext deviation and sup pro 4: thumb flex ext radial and palmar abduction and opposition 5: soft sponge plant operator helper manipulate and worm picker 6: adjusted splint 7: circumduction cw and ccw 8: notched pegboard Skilled Intervention: Patient was educated in proper exercise technique and purpose for exercises. Skilled judgment was provided in selection of appropriate interventions. Modalities: Fluidotherapy Body Region Treated - Fluidotherapy: right hand Patient Position: seated Temperature: 104 Minute(s): 10 Activity 1: AROM Skilled Intervention: Proper administration and selection of modality based on clinical presentation, deficits, and needs. Patient response monitored throughout treatment. Billing: [place]: Therapeutic Exercise ([id number]): 1:1 time:35 minutes (2 units: 23-37 mins) Fluidotherapy (38879) 1 unit(s) Total time / Length of visit: 45 minutes Piper Bullock OT/Shlomo [facility] 12-14-2020 Note HNO ID: [id number] Author: Piper Bullock Service: ? Author Type: Occupational Therapist Type: Progress Notes Filed: 12/14/2020 4:44 PM Note Text: Episode Visit Count: 2 Therapist That Will Oversee The Plan Of Care: Kobe Saldaña Start of Care Date: 12/08/20 Onset Date: 11/06/20 Plan of Care Certification Date: 12/08/20 Next Certification Due Date: 02/17/21 Patient Identified by Name and Date of : Yes REHABILITATION AND SPORTS THERAPY OCCUPATIONAL THERAPY TREATMENT NOTE ASSESSMENT: Gely Shirley demonstrated difficulty with strength and full AROM . The patient will continue to benefit from continued skilled occupational therapy for education exercises and modalities PLAN FOR NEXT VISIT: progress to soft sponge SUBJECTIVE: 5 weeks s/p CMC arthroplasty reporting hand is feeling somewhat better has some discomfort with splint Pain: Pain Pain Level: 6 (after exercises ) OBJECTIVE MEASURES WITH LEVEL OF FUNCTION: Hand Strength: Cattle Rancher Position 2;Pinch Meter Hand Strength R Cattle Rancher Position 2 (lbs): 19 lbs L Cattle Rancher Position 2 (lbs): 49 lbs R Lateral Pinch (lbs): 5 lbs R Tripod/ 3 Jaw Kavin (lbs): 5 lbs R Tip Pinch (lbs): 5 lbs L Lateral Pinch (lbs): 14 lbs L Tripod/ 3 Jaw Kavin (lbs): 15 lbs L Tip Pinch (lbs): 10 lbs TREATMENT: Therapeutic Exercise: 1: wrist flex, ext deviation 2: thumb flex ext opposition radial and palmar abduction 3: reviewed scar management 4: IP blocking 5: medium pegs in and out 6: notched pegs in and out 7: adjusted splint o increase comfort and account for decreased edema Skilled Intervention: Patient was educated in proper exercise technique and purpose for exercises. Reviewed and educated patient on additions/changes for home exercise program as above (*) Modalities: Fluidotherapy Body Region Treated - Fluidotherapy: right hand Patient Position: seated Temperature: 102 Minute(s): 10 Activity 1: AROM Skilled Intervention: Proper administration and selection of modality based on clinical presentation, deficits, and needs. Patient response monitored throughout treatment. Billing: [place]: Therapeutic Exercise ([id number]): 1:1 time:30 minutes (2 units: 23-37 mins) Fluidotherapy (40251) 1 unit(s) Total time / Length of visit: 40 minutes Piper Bullock OT/Shlomo [facility] 12-08-2020 Note HNO ID: [id number] Author: Piper Bullock Service: ? Author Type: Occupational Therapist Type: Progress Notes Filed: 12/08/2020 10:34 AM Note Text: Episode Visit Count: 1 Therapist That Will Oversee The Plan Of Care: Kobe [place] Start of Care Date: 12/08/20 Onset Date: 11/06/20 Plan of Care Certification Date: 12/08/20 Next Certification Due Date: 02/17/21 Patient Identified by Name and Date of : Yes [facility] OCCUPATIONAL THERAPY EVALUATION PLAN OF CARE: Assessment: Gely Shirley presents with the diagnosis of s/p CMC arthroplasty. She presents with impairments of AROM edema and scar. She may benefit from skilled occupational therapy services to improve function. Prognosis: Good Good due to: current objective clinical presentation Goals for Episode of Care created on 12/08/20 through 02/17/21 Patient will report a good understanding of diagnosis and OT recommendations for progression of program. Patient will demonstrate independence with ongoing home recommendations/exercise program throughout therapy plan of care. Patient will increase AROM of Right wrist and thumb to WFL in order to be able to improve function for basic self-care tasks and light functional tasks. Patient will independently demonstrate correct application of CUSTOM orthosis and verbalize understanding of proper wear/care. Patient will report a good understanding of edema control, scar / wound management throughout therapy plan of care to promote non-adherent / non-tender soft tissue. Patient Goals: R handed retired, lives with kitchen migue moniquet gardening and babysits Planned Interventions, Frequency, and Duration: Current Frequency: 1x/week Duration: 8 weeks Total Number of Visits Planned: 8 Planned Treatment Interventions: Custom orthosis fabrication;Therapeutic exercise (29446);Prefabricated orthosis fitting;Self-fci management (44119);Fluidotherapy (14527) PLAN FOR NEXT VISIT: adjust splint PRN trial fluido measure strength Patient demonstrates good understanding of plan of care and treatment. The above goals and plan of care were discussed and agreed upon by patient/family. 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 5 points is clinically meaningfully difference Percentiles provide an indication of how the patient's score ranks in relation to the general population. Higher percentile rankings indicate better function/quality of life. 50th percentile is the average of the general population and indicates half of respondents had a worse score. T-scores: mean of general population = 50. 5 points is clinically meaningfully difference Percentiles provide an indication of how the patient's score ranks in relation to the general population. Higher percentile rankings indicate better function/quality of life. 50th percentile is the average of the general population and indicates half of respondents had a worse score. 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 Position 2;Pinch Meter Sensation: Denies tingling or numbness UE AROM R Forearm Supination: 90 Degrees R Forearm Pronation: 90 Degrees R Wrist Extension: 55 Degrees R Wrist Flexion: 30 Degrees R Wrist Radial Deviation: 15 Degrees R Wrist Ulnar Deviation: 20 Degrees Thumb AROM: Right Limitation Hand AROM R Thumb MP Flexion : 22 Degrees R Thumb IP Flexion : 33 Degrees R Thumb Radial Abduction: 55 Degrees R Thumb Palmar Abduction: 60 Degrees Education: Education Learning Preferences: Demonstration;Explanation;Performa nce Barriers: None Learning/educational needs: Brace Fit;Home exercise program;Plan of Care Education Provided: Yes, see treatment interventions for education provided Education Provided To: Patient Education Mode/Type: Demonstration;Explanation/D (more content not included)... [facility] 12-08-2020 Note HNO ID: [id number] Author: SHAISTA Camacho (Ct) Service: Radiology Author Type: Clinical Credit Report Checker Type: Progress Notes Filed: 12/08/2020 8:21 AM Note Text: Radiology Service Progress Note PATIENT NAME: Gely Shirley DATE OF SERVICE: December 08, 2020 TIME: 8:21 AM PATIENT IDENTITY VERIFICATION COMPLETED USING TWO (2) IDENTIFIERS: Name and Date of confirmed by patient verbally. FALL SCREENING: Has the patient had 2 falls in the last year or 1 fall with injury or currently using an Ambulatory Assistive Device (Walker, Cane, Wheelchair, Crutches, etc.)? No PATIENT GENDER DATA: Female. status: : No status: NO. PATIENT RELEVANT IMPLANT DATA REVIEWED: Not Applicable RADIOLOGY DEPARTMENT: General X-ray: Exam(s) Completed: Upper Extremity X-Ray(s): Hand, right : PERIPHERAL IV DATA: Not applicable SIGNED BY: SHAISTA Camacho December 08, 2020 8:21 AM [facility] 11-06-2020 Note HNO ID: [id number] Author: George Fabian MD Service: Anesthesiology Author Type: Anesthesiologist Type: Anesthesia Procedure Notes Filed: 11/06/2020 7:28 AM Note Text: ANESTHESIOLOGY PROCEDURE NOTE Peripheral Nerve Block General Information Procedure Start Time/Medication Administration: 11/06/2020 7:15 AM Patient location during procedure: induction room Timeout Performed Pre-procedure: timeout performed Consent Obtained: Yes Patient identity confirmed: arm band and patient Reason for block: post-op pain management/at surgeon's request Staffing Anesthesiologist: George Fabian MD Performed by: anesthesiologist Preparation Sterility Preparation: hand hygiene performed prior to procedure, surgical cap used, mask used, sterile drape used during line insertion, skin prep agent completely dried prior to procedure Site Prep: Chloraprep Pre-Procedure Neuro Exam Location: RUE Sensory: intact Motor: intact Procedure Details Patient Position: supine Monitoring: Pulse OX, EKG and NIBP Block Type Upper Extremity: axillary Laterality: right Injection Technique: single-shot Ultrasound Guided: Yes Image in Chart: yes Local Infiltration: Yes Needle Needle Gauge: 21 G Needle Length: 51 mm Needle Localization: ultrasound Assessment Injection assessment: negative aspiration, no paresthesia on injection, incremental injection and local visualized surrounding nerve on ultrasound Paresthesia: none Post-Procedure Neuro Exam Expected Regional Anesthesia: Yes Medications Administered Dexamethasone sodium phosphate injection (DECADRON), 10 mg ropivacaine (PF) 5 mg/mL (0.5 %) injection (NAROPIN), 30 mL SIGNATURE: George Fabian MD PATIENT NAME: Gely Shirley DATE: November 06, 2020 TIME: 7:27 AM CSN: [id number] [facility] Diagnosis Encounter for gynecological examination without abnormal finding- Primary Routine gynecological examination Hormone replacement therapy (HRT) Need for prophylactic hormone replacement therapy (postmenopausal) [facility] Diagnosis Encounter for screening mammogram for malignant neoplasm of breast Other screening mammogram [facility] Diagnosis Pain in left hip- Primary Pain in joint, pelvic region and thigh [facility] Diagnosis Pain in left hip Pain in joint, pelvic region and thigh [facility] Diagnosis Hip pain- Primary Pain in joint, pelvic region and thigh [facility] Diagnosis Iron deficiency- Primary Iron deficiency anemia, unspecified Change in bowel habits Other symptoms involving digestive system [facility] Diagnosis Primary osteoarthritis of left hip- Primary Primary localized osteoarthrosis, pelvic region and thigh Chronic left hip pain Pain in joint, pelvic region and thigh documented in this encounter [facility] note* Diagnosis Postmenopausal bleeding- Primary documented in this encounter [facility] note* Diagnosis PMB (postmenopausal bleeding)- Primary Postmenopausal bleeding Endometrial polyp Polyp of corpus uteri documented in this encounter [facility] note* Diagnosis Hip pain Pain in joint, pelvic region and thigh [facility]* Diagnosis Gastroesophageal reflux disease with esophagitis, unspecified whether hemorrhage- Primary [facility]* Diagnosis NSAID long-term use- Primary Encounter for long-term (current) use of non-steroidal anti-inflammatories documented in this encounter [facility] note* Diagnosis Gastroesophageal reflux disease with esophagitis, unspecified whether hemorrhage documented in this encounter [facility] note* Diagnosis Encounter for screening mammogram for breast cancer documented in this encounter [facility] note* Diagnosis Post-menopausal bleeding- Primary Postmenopausal bleeding Spotting Other specified noninflammatory disorder of vagina Pelvic pressure in female Other specified symptom associated with female genital organs [facility] Diagnosis Encounter for screening mammogram for breast cancer documented in this encounter [facility] note* Diagnosis Post-menopausal bleeding Postmenopausal bleeding Spotting Other specified noninflammatory disorder of vagina Pelvic pressure in female Other specified symptom associated with female genital organs documented in this encounter [facility] note* Diagnosis PMB (postmenopausal bleeding)- Primary Postmenopausal bleeding Hormone replacement therapy (HRT) Need for prophylactic hormone replacement therapy (postmenopausal) Endometrial polyp Polyp of corpus uteri documented in this encounter [facility] for referral (narrative)* Diagnostic Procedure Only (Routine) - Closed Specialty Diagnoses / Procedures Referred By Stephanie santana Referred To Contact [facility] Diagnoses Encounter for screening mammogram for malignant neoplasm of breast Procedures VALENT[place] SCREENING W ULI SCREENING DIGITAL BREAST TOMOSYNTHESIS BI SCREENING MAMMOGRAPHY BI 2-VIEW BREAST INC CAD Vishal Carrasco MD [address] [place] [address] [facility] [address] [place] [address] Referral ID Status Reason Start Date Expiration Date V isits Requested Visits Authorized [id number] Closed Auto-Generate d Referral 12/29/2021 01/28/2023 1 1 [facility] for referral (narrative)* Diagnostic Procedure Only (Routine) - Pending Review Specialty Diagnoses / Procedures Referred By Contac t Referred To Contact XR IMAGING Diagnoses Pain in left hip Procedures XR HIP GENERAL 3V PELV/AP/LAT LEFT RADEX HIP UNILATERAL WITH PELVIS 2-3 VIEWS Crow Cross MD [address] [place] [address] Xr Imaging Referral ID Status Reason Start Date Expiration Date Visits Requested Visits Authorized [id number] Pending Review Auto-Generat ed Referral 02/02/2022 03/04/2023 1 1 [facility] for referral (narrative)* Diagnostic Procedure Only (Routine) - Closed Specialty Diagnoses / Procedures Referred By Contac t Referred To Contact XR IMAGING Diagnoses Pain in left hip Procedures XR HIP GENERAL 3V PELV/AP/LAT LEFT RADEX HIP UNILATERAL WITH PELVIS 2-3 VIEWS Crow Cross MD [address] [place] [address] Xr Imaging Referral ID Status Reason Start Date Expiration Date V isits Requested Visits Authorized [id number] Closed Auto-Generate d Referral 02/02/2022 03/04/2023 1 1 [facility] for referral (narrative)* Outpatient Procedure (Routine) - Closed Specialty Diagnoses / Procedures Referred By Contac t Referred To Contact [facility] Diagnoses Iron deficiency Change in bowel habits Procedures COLONOSCOPY SCREENING COLONOSCOPY FLX DX W/COLLJ SPEC WHEN PFRMD Lexi Villeda PA-C [address] [place] [address] [address] Referral ID Status Reason Start Date Expiration Date V isits Requested Visits Authorized [id number] Closed Auto-Generate d Referral 10/05/2021 10/05/2022 1 1 * Outpatient Procedure (Routine) - Closed Specialty Diagnoses / Procedures Referred By Contac t Referred To Contact [facility] Diagnoses Iron deficiency Change in bowel habits Procedures EGD DIAGNOSTIC ESOPHAGOGASTRODUODENOSC OPY TRANSORAL DIAGNOSTIC Lexi Villeda PA-C [address] [place] [address] [place] [id number] Referral ID Status Reason Start Date Expiration Date V isits Requested Visits Authorized [id number] Closed Auto-Generate d Referral 10/05/2021 10/05/2022 1 1 [facility] for referral (narrative)* Outpatient Procedure (Routine) - Pending Review Specialty Diagnoses / Procedures Referred By Contac t Referred To Contact [facility] Diagnoses PMB (postmenopausal bleeding) Endometrial polyp Procedures ENDOMETRIAL BIOPSY ENDOMETRIAL BX W/WO ENDOCERVIX BX W/O DILAT SPX Vishal Carrasco MD [address] [place] [address] [place] [phone] Referral ID Status Reason Start Date Expiration Date Visits Requested Visits Authorized [id number] Pending Review Auto-Generat ed Referral 2 06/14/2023 1 1 [facility] for referral (narrative)* Diagnostic Procedure Only (Routine) - Pending Review Specialty Diagnoses / Procedures Referred By Contac t Referred To Contact [facility] Diagnoses Encounter for screening mammogram for breast cancer Procedures VALENTINA SCREENING W UIL SCREENING DIGITAL BREAST TOMOSYNTHESIS BI SCREENING MAMMOGRAPHY BI 2-VIEW BREAST INC Blane Calix DO [address] [place] [address] [facility] [address] [place] [address] Referral ID Status Reason Start Date Expiration Date Visits Requested Visits Authorized [id number] Pending Review Auto-Generat ed Referral 03/15/2023 04/13/2024 1 1 [facility] for referral (narrative)* Diagnostic Procedure Only (Routine) - Authorized Specialty Diagnoses / Procedures Referred By Gloryac t Referred To Contact [facility] Diagnoses Post-menopausal bleeding Spotting Pelvic pressure in female Procedures US FEMALE PELVIS TRANSVAG US TRANSVAGINAL Maryanne Jacobs APRN.[employer] [address] [place] [address] Us Imaging [facility] Referral ID Status Reason Start Date Expiration Date Visits Requested Visits Authorized [id number] Authorized Auto-Generat ed Referral 04/13/2023 05/12/2024 1 1 * Diagnostic Procedure Only (Routine) - Authorized Specialty Diagnoses / Procedures Referred By Stephanie santana Referred To Contact [facility] Diagnoses Post-menopausal bleeding Spotting Pelvic pressure in female Procedures US FEMALE PELVIS TRANSABD LTD US PELVIC NONOBSTETRIC IMAGE DCMTN LIMITED/F/U Maryanne Jacobs APRN.[employer] [place] [address] [place] [id number] Referral ID Status Reason Start Date Expiration Date Visits Requested Visits Authorized [id number] Authorized Auto-Generat ed Referral 04/13/2023 05/12/2024 1 1 [facility] for referral (narrative)* Diagnostic Procedure Only (Routine) - Closed Specialty Diagnoses / Procedures Referred By Stephanie santana Referred To Contact [facility] Diagnoses Encounter for screening mammogram for breast cancer Procedures VALENTINA SCREENING W ULI SCREENING DIGITAL BREAST TOMOSYNTHESIS BI SCREENING MAMMOGRAPHY BI 2-VIEW BREAST INC CAD Blane Gannon DO [address] [place] [address] [facility] [address] [place] [address] Referral ID Status Reason Start Date Expiration Date V isits Requested Visits Authorized [id number] Closed Auto-Generate d Referral 03/15/2023 04/13/2024 1 1 [facility] for referral (narrative)* Diagnostic Procedure Only (Routine) - Closed Specialty Diagnoses / Procedures Referred By Stephanie santana Referred To Contact [facility] Diagnoses Post-menopausal bleeding Spotting Pelvic pressure in female Procedures US FEMALE PELVIS TRANSVAG US TRANSVAGINAL Maryanne Jacobs APRN.[employer] [address] [place] [address] [place] [address] Referral ID Status Reason Start Date Expiration Date V isits Requested Visits Authorized [id number] Closed Auto-Generate d Referral 04/13/2023 05/12/2024 1 1 * Diagnostic Procedure Only (Routine) - Closed Specialty Diagnoses / Procedures Referred By Stephanie snatana Referred To Contact [facility] Diagnoses Post-menopausal bleeding Spotting Pelvic pressure in female Procedures US FEMALE PELVIS TRANSABD LTD US PELVIC NONOBSTETRIC IMAGE DCMTN LIMITED/F/U Maryanne Jacobs APRN.[employer] [place] [address] [place] [address] Referral ID Status Reason Start Date Expiration Date V isits Requested Visits Authorized [id number] Closed Auto-Generate d Referral 04/13/2023 05/12/2024 1 1 [facility] for visit Narrative* Diagnostic Procedure Only (Routine) - Closed Specialty Diagnoses / Procedures Referred By Stephanie santana Referred To Contact [facility] Diagnoses Encounter for screening mammogram for malignant neoplasm of breast Procedures VAL[place] SCREENING W ULI SCREENING DIGITAL BREAST TOMOSYNTHESIS BI SCREENING MAMMOGRAPHY BI 2-VIEW BREAST INC CAD Vishal Carrasco MD [address] [place] [address] [facility] [address] [place] [address] Referral ID Status Reason Start Date Expiration Date V isits Requested Visits Authorized [id number] Closed Auto-Generate d Referral 12/29/2021 01/28/2023 1 1 [facility] for visit Narrative* Diagnostic Procedure Only (Routine) - Closed Specialty Diagnoses / Procedures Referred By Contac t Referred To Contact XR IMAGING Diagnoses Pain in left hip Procedures XR HIP GENERAL 3V PELV/AP/LAT LEFT RADEX HIP UNILATERAL WITH PELVIS 2-3 VIEWS Crow Cross MD [address] [place] [address] Xr Imaging Referral ID Status Reason Start Date Expiration Date V isits Requested Visits Authorized [id number] Closed Auto-Generate d Referral 02/02/2022 03/04/2023 1 1 [facility] for visit Narrative* Diagnostic Procedure Only (Routine) - Closed Specialty Diagnoses / Procedures Referred By Contac t Referred To Contact [facility] Diagnoses Encounter for screening mammogram for breast cancer Procedures VALENTINA SCREENING W ULI SCREENING DIGITAL BREAST TOMOSYNTHESIS BI SCREENING MAMMOGRAPHY BI 2-VIEW BREAST INC CAD Blane Gannon L, DO [address] [place] [address] [facility] [address] [place] [address] Referral ID Status Reason Start Date Expiration Date V isits Requested Visits Authorized [id number] Closed Auto-Generate d Referral 03/15/2023 04/13/2024 1 1 [facility] Summary Purpose Family History No Family History Records FoundNo Family History Records FoundNo Family History Records Found Advance Directives No Advanced Directives Records FoundDocuments on File Type Date Recorded Patient Telecom Specialist Expl anation Advance Directive(s) 10/19/2021 7:14 AM Advance Directive(s) 11/06/2020 8:14 AM Advance Directive(s) 10/26/2020 11:10 AM Me jacquie Advance Directive(s) 10/23/2020 2:44 PM Advance Directive(s) 12/04/2018 6:50 AM Advance Directive(s) 11/16/2018 11:33 AM Documents on File Type Date Recorded Patient Telecom Specialist Expl anation Advance Directive(s) 10/19/2021 7:14 AM Advance Directive(s) 11/06/2020 8:14 AM Advance Directive(s) 10/26/2020 11:10 AM Me jacquie Advance Directive(s) 10/23/2020 2:44 PM Advance Directive(s) 12/04/2018 6:50 AM Advance Directive(s) 11/16/2018 11:33 AM Reason for Referral Specialty Diagnoses / Procedures Referred By Stephanie santana Referred To Contact [facility] Diagnoses Primary osteoarthritis of left hip Chronic left hip pain Procedures CONSULT TO PHYSICAL THERAPY PHYSICAL THERAPY EVALUATION HIGH COMPLEX 45 MINS Crow Cross MD [address] [place] [address] [facility] [address] [address] Referral ID Status Reason Start Date Expiration Date Visits Requested Visits Authorized [id number] Authorized PCP Requested Referral Auto-Generate d Referral 02/07/2022 02/07/2023 99 99 Additional Source Comments INFORMATION SOURCE (unrecogn ized section and content) DATE CREATED AUTHOR AUTHOR'S ORGANIZ ATION 10/05/2021 [facility] DATE CREATED AUTHOR AUTHOR'S ORGANIZ ATION 07/22/2023 [facility] Source Comments (unrecognize d section and content) In the event this informatio n is protected by the Federal Confidentiality of Alcohol and Drug Abuse Patient Records regulations: The Federal rules restrict any use of the information to criminally investigate or prosecute any alcohol or drug abuse patient.[facility] the event this information is protected by the Federal Confidentiality of Alcohol and Drug Abuse Patient Records regulations: The Federal rules restrict any use of the information to criminally investigate or prosecute any alcohol or drug abuse patient.[facility] the event this information is protected by the Federal Confidentiality of Alcohol and Drug Abuse Patient Records regulations: The Federal rules restrict any use of the information to criminally investigate or prosecute any alcohol or drug abuse patient.[facility] the event this information is protected by the Federal Confidentiality of Alcohol and Drug Abuse Patient Records regulations: The Federal rules restrict any use of the information to criminally investigate or prosecute any alcohol or drug abuse patient.[facility] the event this information is protected by the Federal Confidentiality of Alcohol and Drug Abuse Patient Records regulations: The Federal rules restrict any use of the information to criminally investigate or prosecute any alcohol or drug abuse patient.[facility] the event this information is protected by the Federal Confidentiality of Alcohol and Drug Abuse Patient Records regulations: The Federal rules restrict any use of the information to criminally investigate or prosecute any alcohol or drug abuse patient.[facility] the event this information is protected by the Federal Confidentiality of Alcohol and Drug Abuse Patient Records regulations: The Federal rules restrict any use of the information to criminally investigate or prosecute any alcohol or drug abuse patient.[facility] the event this information is protected by the Federal Confidentiality of Alcohol and Drug Abuse Patient Records regulations: The Federal rules restrict any use of the information to criminally investigate or prosecute any alcohol or drug abuse patient.[facility] the event this information is protected by the Federal Confidentiality of Alcohol and Drug Abuse Patient Records regulations: The Federal rules restrict any use of the information to criminally investigate or prosecute any alcohol or drug abuse patient.[facility] the event this information is protected by the Federal Confidentiality of Alcohol and Drug Abuse Patient Records regulations: The Federal rules restrict any use of the information to criminally investigate or prosecute any alcohol or drug abuse patient.[facility] the event this information is protected by the Federal Confidentiality of Alcohol and Drug Abuse Patient Records regulations: The Federal rules restrict any use of the information to criminally investigate or prosecute any alcohol or drug abuse patient.[facility] WestIn the event this information is protected by the Federal Confidentiality of Alcohol and Drug Abuse Patient Records regulations: The Federal rules restrict any use of the information to criminally investigate or prosecute any alcohol or drug abuse patient.[facility] WestIn the event this information is protected by the Federal Confidentiality of Alcohol and Drug Abuse Patient Records regulations: The Federal rules restrict any use of the information to criminally investigate or prosecute any alcohol or drug abuse patient.[facility] WestIn the event this information is protected by the Federal Confidentiality of Alcohol and Drug Abuse Patient Records regulations: The Federal rules restrict any use of the information to criminally investigate or prosecute any alcohol or drug abuse patient.[facility] WestIn the event this information is protected by the Federal Confidentiality of Alcohol and Drug Abuse Patient Records regulations: The Federal rules restrict any use of the information to criminally investigate or prosecute any alcohol or drug abuse patient.[facility] WestIn the event this information is protected by the Federal Confidentiality of Alcohol and Drug Abuse Patient Records regulations: The Federal rules restrict any use of the information to criminally investigate or prosecute any alcohol or drug abuse patient.[facility] WestIn the event this information is protected by the Federal Confidentiality of Alcohol and Drug Abuse Patient Records regulations: The Federal rules restrict any use of the information to criminally investigate or prosecute any alcohol or drug abuse patient.[facility] WestIn the event this information is protected by the Federal Confidentiality of Alcohol and Drug Abuse Patient Records regulations: The Federal rules restrict any use of the information to criminally investigate or prosecute any alcohol or drug abuse patient.[facility] WestIn the event this information is protected by the Federal Confidentiality of Alcohol and Drug Abuse Patient Records regulations: The Federal rules restrict any use of the information to criminally investigate or prosecute any alcohol or drug abuse patient.[facility] WestIn the event this information is protected by the Federal Confidentiality of Alcohol and Drug Abuse Patient Records regulations: The Federal rules restrict any use of the information to criminally investigate or prosecute any alcohol or drug abuse patient.[facility] WestIn the event this information is protected by the Federal Confidentiality of Alcohol and Drug Abuse Patient Records regulations: The Federal rules restrict any use of the information to criminally investigate or prosecute any alcohol or drug abuse patient.[facility] WestIn the event this information is protected by the Federal Confidentiality of Alcohol and Drug Abuse Patient Records regulations: The Federal rules restrict any use of the information to criminally investigate or prosecute any alcohol or drug abuse patient.[facility] WestIn the event this information is protected by the Federal Confidentiality of Alcohol and Drug Abuse Patient Records regulations: The Federal rules restrict any use of the information to criminally investigate or prosecute any alcohol or drug abuse patient.[facility] WestIn the event this information is protected by the Federal Confidentiality of Alcohol and Drug Abuse Patient Records regulations: The Federal rules restrict any use of the information to criminally investigate or prosecute any alcohol or drug abuse patient.[facility] WestIn the event this information is protected by the Federal Confidentiality of Alcohol and Drug Abuse Patient Records regulations: The Federal rules restrict any use of the information to criminally investigate or prosecute any alcohol or drug abuse patient.[facility] WestIn the event this information is protected by the Federal Confidentiality of Alcohol and Drug Abuse Patient Records regulations: The Federal rules restrict any use of the information to criminally investigate or prosecute any alcohol or drug abuse patient.[facility] WestIn the event this information is protected by the Federal Confidentiality of Alcohol and Drug Abuse Patient Records regulations: The Federal rules restrict any use of the information to criminally investigate or prosecute any alcohol or drug abuse patient.[facility] WestIn the event this information is protected by the Federal Confidentiality of Alcohol and Drug Abuse Patient Records regulations: The Federal rules restrict any use of the information to criminally investigate or prosecute any alcohol or drug abuse patient.[facility] WestIn the event this information is protected by the Federal Confidentiality of Alcohol and Drug Abuse Patient Records regulations: The Federal rules restrict any use of the information to criminally investigate or prosecute any alcohol or drug abuse patient.[facility] Reason for Visit (unrecogniz ed section and content) Reason Comments Refill Request Reason Comments Medication Request Reason Comments 10/19/21 EGD & Colonoscopy Reason Onset Date Comments Refill Request 02/22/2022 Reason Onset Date Comments Refill Request 02/24/2022 Reason Comments Established Patient Pain Reason Comments DUB Reason Comments Results Reason Comments stomach issues For about a monyh no w stomach issues with burning , nausea, bloated , Reason Comments Physical Reason Comments Radiology US Specialty Diagnoses / Procedures Referred By Contac t Referred To Contact US IMAGING Diagnoses Post-menopausal bleeding Spotting Pelvic pressure in female Procedures US FEMALE PELVIS TRANSVAG US TRANSVAGINAL Maryanne Jacobs, JASPER.[employer] [place] [address] [place] [id number] Referral ID Status Reason Start Date Expiration Date V isits Requested Visits Authorized [id number] Closed Auto-Generate d Referral 04/13/2023 05/12/2024 1 1 Reason Comments Follow Up Reason Comments Patient Update Care Teams (unrecognized sec tion and content) Cloud Security Architect Relationship Specialty Start Date End Date Blane Gannon DO [address] [place], [place] [address] PCP - General 10/02/15 Cloud Security Architect Relationship Specialty Start Date End Date Blane Gannon DO [address] [place], [place] [id number] PCP - General 10/02/15 Cloud Security Architect Relationship Specialty Start Date End Date Blane Gannon DO [address] [place] [address] PCP - General 10/02/15 Cloud Security Architect Relationship Specialty Start Date End Date Blane Gannon, DO [address] [place] [address] PCP - General 10/02/15 Cloud Security Architect Relationship Specialty Start Date End Date Blane Gannon, DO [address] [place] [address] PCP - General 10/02/15 Cloud Security Architect Relationship Specialty Start Date End Date Blane Gannon, DO [address] [place] [address] PCP - General 10/02/15 Cloud Security Architect Relationship Specialty Start Date End Date Blane Gannon, DO [address] [place] [address] PCP - General 10/02/15 Cloud Security Architect Relationship Specialty Start Date End Date Blane Gannon, DO [address] [place] [address] PCP - General 10/02/15 Cloud Security Architect Relationship Specialty Start Date End Date Blane Gannon, DO [address] [place] [address] PCP - General 10/02/15 Cloud Security Architect Relationship Specialty Start Date End Date Blane Gannon, DO [address] [place] [address] PCP - General 10/02/15 Cloud Security Architect Relationship Specialty Start Date End Date Blane Gannon DO [address] [place] [address] PCP - General 10/02/15 Cloud Security Architect Relationship Specialty Start Date End Date Blane Gannon DO [address] [place] [address] PCP - General 10/02/15 Cloud Security Architect Relationship Specialty Start Date End Date Blane Gannon DO [address] [place] [address] PCP - General 10/02/15 Cloud Security Architect Relationship Specialty Start Date End Date Blane Gannon DO [address] [place] [address] PCP - General 10/02/15 Cloud Security Architect Relationship Specialty Start Date End Date Blane Gannon DO [address] [place] [address] PCP - General 10/02/15 Cloud Security Architect Relationship Specialty Start Date End Date Blane Gannon DO [address] [place] [address] PCP - General 10/02/15 Cloud Security Architect Relationship Specialty Start Date End Date Blane Gannon DO [address] [place] [address] PCP - General 10/02/15 Cloud Security Architect Relationship Specialty Start Date End Date Blane Gannon, DO [address] [place] [address] PCP - General 10/02/15 FOR RECORDS PERTAINING TO PATIENTS WHO ARE OR HAVE BEEN ENROLLED IN A CHEMICAL DEPENDENCY/SUBSTANCEABUSE PROGRAM, SOME INFORMATION MAY BE OMITTED. This clinical summary was aggregated from multiple sources. Caution should be exercised in using it in the provision of clinical care. This summary normalizes information from multiple sources, and as a consequence, information in this document may materially change the coding, format and clinical context of patient data. In addition, data may be omitted in some cases. CLINICAL DECISIONS SHOULD BE BASED ON THE PRIMARY CLINICAL RECORDS. [facility] [employer] [facility]. provides no warranty or guarantee of the accuracy or completeness of information in this document.
[2023-08-26 12:42] LABS: ALB/GLOB Ratio 0.9 RATIO (0.9-2.4); AST(SGOT) 65 U/L (15-37); Alanine Aminotransfer ALT/SGPT 128 U/L (13-56); Albumin, Serum 3.4 g/dL (3.2-5.0); Alkaline Phosphatase 125 U/L (45-117); Anion Gap 9 (5-15); BUN 20 mg/dL (7-18); BUN/Creat Ratio 16.9 RATIO (10-20); Calcium,Total 8.9 mg/dL (8.5-10.1); Chloride 103 mmol/L (98-107); Creatinine, Serum 1.18 mg/dL (0.55-1.02); EST Glomerular Filtration Rate 48 mL/min (>60); Est Glom Filt Rate - Afr Amer 59 mL/min (>60); Globulin 3.8 g/dL (2.2-4.2); Glucose 88 mg/dL (74-106); Potassium 3.8 mmol/L (3.5-5.1); Protein, Total 7.2 g/dL (6.4-8.2); Sodium Level 140 mmol/L (136-145)
== END | disposition home or self-care (01) ==
LOC: LAB 11:47
PROVIDERS: PCP Student in an Organized Health Care Education/Training Program; Referring Provider Physician Assistant Medical; Visit Provider Physician Assistant Medical
DX: E89.0 Postprocedural hypothyroidism (principal)
CPT/HCPCS: 36415; 80053

== ENCOUNTER 2023-09-07 05:57 | Day surgery (SDC) | payer MEDICARE, BC, SELFPAY ==
--- NOTE | 2023-09-05 13:57 | HP.PCM.OB_ITS ---
History and Physical Date of Admission: 09/07/23 Pre-Op History and Physical ? HPI: The patient is a 67 year old female presenting for pre-operative visit. She is scheduled for Hysteroscopy D&C and possible polypectomy, for PMB on HRT on 09/07/23. Procedure discussed along with risks, benefits and complications. Other alternatives discussed for management. Consent form signed? Yes. ? ? PAST MEDICAL HISTORY PAST MEDICAL HISTORY Diagnosis Date ? Broken wrist ? ? Left wrist ? Hemorrhage of gastrointestinal tract, unspecified ? ? Herpes zoster without mention of complication ? ? shingles ? History of transfusion ? ? hyperparathyroidism ? ? Endo Dr. Carreno, s/p removal x 1 gland, cause of kidney stones ? Hyperthyroidism ? ? Osteoporosis ? ? due to hyperparathyroidism ? PMH - PAST MEDICAL HISTORY OF ? ? renal/kidney stones ? Post-surgical hypothyroidism ? ? s/p thyroidectomy total, Endo Dr. Carreno ? Sciatica ? ? ? PAST SURGICAL HISTORY PAST SURGICAL HISTORY Procedure Laterality Date ? ARTHRP INTERPOS INTERCARPAL/METACARPAL JOINTS Right 11/06/2020 ? Right thumb CMC arthroplasty with ligament reconstruction tendon i nterposition, palmaris longus ? ; THYROIDECTOMY TOTAL OR COMPLETE ? 05/10/2012 ? total ? COLONOSCOPY ? 10/02/2015 ? COLONOSCOPY ? 10/19/2021 ? repeat in 10 years ? COLONOSCOPY FLX DX W/COLLJ SPEC WHEN PFRMD ? 07/11/2008 ? Normal ? COLONOSCOPY FLX DX W/COLLJ SPEC WHEN PFRMD ? 04/05/2013 ? Colonoscopy ? COLONOSCOPY FLX DX W/COLLJ SPEC WHEN PFRMD ? 12/04/2018 ? Colonoscopy ? COLONOSCOPY W/BIOPSY SINGLE/MULTIPLE ? 10/02/2015 ? normal ? EGD TRANSORAL BIOPSY SINGLE/MULTIPLE ? 10/02/2015 ? gastritis ? EGD W/O BRSH SPEC VARICIES INJ ? 10/19/2021 ? ENDOMETRIAL BX W/WO ENDOCERVIX BX W/O DILAT SPX ? 03/2010 ? ESOPHAGOGASTRODUODENOSCOPY TRANSORAL DIAGNOSTIC ? 12/04/2018 ? EGD ? F ESWL UNILATERAL Left 2010 ? FRACTURE SURGERY ? ? ? HYSTEROSCOPY BX W/WO D&C ? 11/2013 ? benign ? LIG/TRNSXJ FLP TUBE ABDL/VAG APPR UNI/BI ? ? ? PARATHYROID ? 05/10/2012 ? removed ? PAST SURGICAL HISTORY OF ? ? ? excision of a basal cell carcinoma, left supraorbital area. ? PAST SURGICAL HISTORY OF ? 02/2015 ? ORIF left wrist, hardware remains as of 08-09 ? SKIN BIOPSY HX ? CURRENT MEDICATIONS Current Outpatient Medications Medication Sig Dispense Refill ? atorvastatin (LIPITOR) 20 mg tablet Take 1 tablet by mouth every afternoon. ? ? ? calcitriol (ROCALTROL) 0.25 mcg capsule Take 1 capsule by mouth every afternoon. ? ? ? medroxyPROGESTERone (PROVERA) 2.5 mg tablet TAKE 1 TABLET BY MOUTH EVERY DAY 90 tablet 3 ? venlafaxine ER (EFFEXOR XR) 75 mg 24 hr capsule TAKE 1 CAPSULE BY MOUTH ONCE DAILY 90 capsule 3 ? omeprazole (PRILOSEC) 20 mg capsule Take 1 capsule by mouth daily before breakfast. 1/2 hr before meal. 30 capsule 2 ? estradiol (ESTRACE) 1 mg tablet Take 1 tablet by mouth once daily. 90 tablet 3 ? ferrous sulfate 325 mg (65 mg iron) tablet Take 325 mg by mouth daily with breakfast. ? ? ? VITAMIN E ORAL Take by mouth once daily. ? ? ? levothyroxine (SYNTHROID) 75 mcg tablet Take 75 mcg by mouth once daily. ? calcium combo no.2-vitamin D3 600 mg calcium- 500 unit TbER Take 600 mg by mouth three times daily. ? ? ? Magnesium 250 mg Tab Take 400 mg by mouth twice daily. ? No current facility-administered medications for this visit. ? ? ALLERGIES: No Known Drug Allergies ? PERSONAL HISTORY: SOCIAL HISTORY Social History ? Tobacco Use ? Smoking status: Never ? Smokeless tobacco: Never Vaping Use ? Vaping Use: Never used Substance Use Topics ? Alcohol use: No ? Drug use: No ? FAMILY HISTORY: FAMILY HISTORY FAMILY HISTORY Problem Relation Age of Onset ? No Known Problems Mother ? ? other (lymphoma) Father ? ? Colon Cancer Maternal Grandmother ? ? Breast Cancer Sister ? ? diagnosed september 2005 ? Cancer Sister ? ? lymphoma, leukemia ? Thyroid Sister ? ? ? REVIEW OF SYMPTOMS: negative except as noted above PHYSICAL EXAMINATION: ? VITALS: Blood pressure 120/70, weight 123 lb (55.8 kg), last menstrual period 11/23/2010. ? GENERAL: The patient is well nourished, well hydrated in no acute distress. , The patient is oriented to time, place, and person. NECK: full range of motion ? IMPRESSION: 67yo with PMB (persistent light spotting) on HRT ? PLAN: Hysteroscopy, D&C, possible polypectomy ? Pt has been counseled on risks/benefits and alternatives of surgery including but not limited to anesthesia, bleeding, infection, uterine perforation with subsequent injury to pelvic structures including bowel, bladder, ureters and vessels. Pt wishes to proceed with surgery at this time. ? Discussed patient currently being worked up for elevated. Having liver ultrasound 09/11/23, otherwise asymptomatic. Should not impact surgery. Discussed stopping all supplements ? Pre and post op instructions reviewed ? I have reviewed and updated past medical and surgical history, medications and allergies Marissa Solis MD ?1:58 PM
--- NOTE | 2023-09-07 | EMB_PTH ---
PATHOLOGY RESULTS PATIENT: GELY ZIMMERMAN LOC: [facility] – [place] U#:[id number] AGE/SX: 67/F ROOM: RE09/07/[address]: Dr. Marissa Solis MD : [id number] BED: DIS: 09/07/2023 SPEC #: [id number] RECD: 09/07/23 11:42 STATUS: TREVOR REShadi #: [id number] MARYJO: 09/07/23 00:[address]: Marissa Solis DEPT: SURGICAL PATHOLOGY RECD BY: Shelbi Nunes ENTERED: 09/07/23 11:43 SP TYPE: ENDOM BX/C NICOLLEHR DR: Dr. Blane Gusman, DO Tissues: Endometrium, NOS Procedures: Surgery Specimen Level IV HEADER OPERATION: Hysteroscopy, D & C Symphion PRE-OP DIAGNOSIS: PMB on HRT TISSUE SUBMITTED: Endometrial curettings MICROSCOPIC DIAGNOSIS Endometrial curettings: Weakly proliferative endometrium and mucous. See comment. SJ:epdro 09/08/2023 COMMENT The specimen predominantly consists of mucoid tissue. Clinical correlation and appropriate follow up are necessary. MICROSCOPIC DESCRIPTION Slides are reviewed. GROSS DESCRIPTION Received in fixative is one container labeled with the patient's name and designated endometrial curettings. The specimen consists of multiple fragments of hemorrhagic mucoid tissue that in aggregate measure 3.0 x 2.5 x 0.3 cm. The specimen is totally submitted in one cassette. / JUAN CARLOS:pedro 09/07/2023 TC:5 CPT: 95227
--- OUTSIDE RECORDS SUMMARY | 2023-09-07 06:00 | XMS RPT_ITS | CCD ---
Author Name Unknown Address [address] [facility] [address] [place] [address] Organization [facility] Care Team Providers Care Fish Machine Feeder Name Role Phone Blane Gannon DO Primary Care Provider [phone] MARYANNE JACOBS Referring Unavailable BLANE GANNON Primary Care Unavailable MARYANNE JACOBS Attending Unavailable BLANE GANNON Referring Unavailable BLANE GANNON Primary Care Unavailable MARYANNE JACOBS Attending Unavailable BLANE GANNON Primary Care Unavailable BLANE GANNON Primary Care Unavailable VISHAL CARRASCO Attending Unavail able BLANE GANNON Primary Care Unavailable VISHAL CARRASCO Attending Unavail able BLANE GANNON Primary Care Unavailable LUANN LAGUNAS [...] Classification Problem Date Documented Da te Episodic/Chronic Biliary tract disease (1 source) Polyp of [...] pain; Translations: [Pain in left hip] Episodic Past or Other Problems Problem Classification Problem Date Documented Da te Episodic/Chronic Abdominal pain (20 sources) Left lower quadrant pain; Translations: [Left lower quadrant pain] Onset: 09-10-2015 09-10-2015 Episodic Allergic reactions (20 sources) Radiation-induced dermatosis; Translations: [...] [Diarrhea, unspecified] Onset: 09-10-2015 09-10-2015 Episodic Other screening for suspected conditions (not mental disorders or infectious disease) (7 sources) Patient encounter status; Translations: [Encounter for screening mammogram for malignant neoplasm of breast] Onset: 04-27-2023 Episodic Other skin disorders (20 sources) Inflamed [...] 55.79 kg Vishal Solis MD Work Phone: [facility] 07-04-2023 09:02-0500 Diastolic blood pressure 78 mm[Hg] Vishal Solis MD Work Phone: [facility] 07-04-2023 09:02-0500 Systolic blood pressure 120 mm[Hg] Vishal Solis MD Work Phone: [facility] 04-13-2023 08:35-0400 Body height 158 cm Maryanne Jacobs FACTORY HELPER.REPRODUCTION SPECIALIST Work Phone: [facility] 04-13-2023 08:35-0400 Body weight 56.06 kg Maryanne Jacobs FACTORY HELPER.REPRODUCTION SPECIALIST Work Phone: [facility] 04-13-2023 08:35-0400 Diastolic blood pressure 68 mm[Hg] Maryanne Jacobs FACTORY HELPER.REPRODUCTION SPECIALIST Work Phone: [facility] 04-13-2023 08:35-0400 Heart rate 82 /min Maryanne Jacobs FACTORY HELPER.REPRODUCTION SPECIALIST Work Phone: [facility] 04-13-2023 08:35-0400 Respiratory rate 12 /min Maryanne Jacobs FACTORY HELPER.REPRODUCTION SPECIALIST Work Phone: [facility] 04-13-2023 08:35-0400 Systolic blood pressure 112 mm[Hg] Maryanne Jacobs FACTORY HELPER.REPRODUCTION SPECIALIST Work Phone: [facility] 10-20-2022 07:59-0500 Body weight 57.64 kg Maryanne Jacobs FACTORY HELPER.REPRODUCTION SPECIALIST Work Phone: [facility] 10-20-2022 07:59-0500 Diastolic blood pressure 76 mm[Hg] Maryanne Jacobs FACTORY HELPER.REPRODUCTION SPECIALIST Work Phone: [facility] 10-20-2022 07:59-0500 Heart rate 64 /min Maryanne Jacobs FACTORY HELPER.REPRODUCTION SPECIALIST Work Phone: [facility] 10-20-2022 07:59-0500 Respiratory rate 14 /min Maryanne Jacobs FACTORY HELPER.REPRODUCTION SPECIALIST Work Phone: [facility] 10-20-2022 07:59-0500 Systolic blood pressure 120 mm[Hg] Maryanne Jacobs FACTORY HELPER.REPRODUCTION SPECIALIST Work Phone: [facility] 06-14-2022 09:09-0400 Body weight 57.15 kg Vishal Solis MD Work Phone: [facility] 06-14-2022 09:09-0400 Diastolic blood pressure 72 mm[Hg] Vishal Solis MD Work Phone: [facility] 06-14-2022 09:09-0400 Systolic blood pressure 118 mm[Hg] Vishal Solis MD Work Phone: [facility] 01-26-2022 09:54-0400 Body height 156.2 cm Vishal Solis MD Work Phone: [facility] 01-26-2022 09:54-0400 Body weight 53.52 kg Vishal Solis MD Work Phone: [facility] 01-26-2022 09:54-0400 Diastolic blood pressure 72 mm[Hg] Vishal Solis MD Work Phone: [facility] 01-26-2022 09:54-0400 Systolic blood pressure 110 mm[Hg] Vishal Solis MD Work Phone: [facility] 11-02-2021 09:51-0400 Body height 157.5 cm Lexi Villeda PA-C Work Phone: [facility] 11-02-2021 09:51-0400 Body temperature 97.5 [degF] Lexi Villeda PA-C Work Phone: [facility] 11-02-2021 09:51-0400 Body weight 53.98 kg Lexibandar Saeedf PA-C Work Phone: [facility] 11-02-2021 09:51-0400 Diastolic blood pressure 75 mm[Hg] Lexi Saeedf PA-C Work Phone: [facility] 11-02-2021 09:51-0400 Heart rate 89 /min Lexibandar Saeedf PA-C Work Phone: [facility] 11-02-2021 09:51-0400 SaO2% (BldA) [Mass fraction] 99 % Lexi Villeda PA-C Work Phone: [facility] 11-02-2021 09:51-0400 Systolic blood pressure 127 mm[Hg] Lexi Villeda PA-C Work Phone: [facility] Encounters Encounter Date Encounter Type Care Provider Facility Start: 08-30-2023 End: 08-30-2023 ambulatory BLANE GANNON Facility:[facility] Start: 07-21-2023 Admission to [facility] Vishal Solis MD Work Phone: OB/Gynecology Procedures Date Procedure Procedure Detail Performing Clinician Start: 04-27-2023 Us pelvic nonobstetr ic image dcmtn limited/f/u Maryanne Jacobs FACTORY HELPER.REPRODUCTION SPECIALIST Work Phone: Start: 04-27-2023 End: 04-27-2023 Mammography Bulk Order Provider Start: 04-13-2023 Urnls dip stick/tabl et rgnt auto w/o microscopy Maryannemartin Jacobs FACTORY HELPER.REPRODUCTION SPECIALIST Work Phone: Start: 02-07-2022 Radex hip unilateral with pelvis 2-3 views Crow Cross MD Work Phone: Start: 01-27-2022 VALENTINA SCREENING W ULI Green MD Work Phone: Start: 01-27-2022 Mammography Screen Wst r Start: 10-19-2021 Colonoscopy Lexi Gra f PA-C Work Phone: Start: 01-21-2021 Mammography Lexi chang PA-C Work Phone: Start: 10-24-2018 Adult depression scr eening assessment Lexi Villeda PA-C Work Phone: Start: 05-05-2018 Lipid 1996 panel - S kimmie or Plasma Screen Ws Plan of Treatment Date Care Activity Detail Author Start: 10-20-2031 Colonoscopy COLONOSCOPY [facility] Start: 10-20-2031 COLORECTAL CANCER SCREENING COLORECTAL CANCER SCREENING [facility] Start: 04-13-2026 DIABETES SCREEN DIABETES SCREEN [facility] Start: 04-13-2026 Diabetes Screening Diabetes Screenin g [facility] Start: 04-27-2024 Mammography [facility] Start: 04-13-2024 ANNUAL PCP TEAM CLERK TYPIST LUCIANO DISEASE VISIT ANNUAL PCP TEAM CHRONIC DISEASE VISIT [facility] Start: 04-13-2024 BONE DENSITY BONE DENSITY [facility] Immunizations Immunization Date Immunization Notes Care Provider Fa rohinity 08-27-2021 pneumococcal polysaccharide vaccine, 23 valent Lexibandar Villeda PA-C Work Phone: [facility] 07-29-2021 influenza virus vacc ine, unspecified formulation Screen Wstr [facility] 06-05-2019 influenza, seasonal, injectable Lexi Villeda PA-C Work Phone: [facility] 03-22-2018 tetanus and diphther ia toxoids, adsorbed, preservative free, for adult use (5 Lf of tetanus toxoid and 2 Lf of diphtheria toxoid) Lexi Villeda PA-C Work Phone: [facility] 07-26-2017 zoster vaccine, live Lexibandar Saeedf PA-C Work Phone: [facility] Work Phone: 06-07-2017 influenza, seasonal, injectable Lexi Ronal PA-C Work Phone: [facility] Work Phone: 04-30-2011 influenza virus vacc ine, unspecified formulation Lexi Ronal PA-C Work Phone: [facility] Payers Date Payer Category Payer Medicare MEDICARE MEDICAR E A AND B [id number] 2020-Present [phone] [place] [address] Medicare [id number] 2020 Medicare MEDICARE MEDICAR E A AND B [id number] 2020-Present [phone] [place] [address] Medicare [id number] 2020 Medicare [id number] 2020 Medicare [id number] 2020 Unknown [place] DIC[place] SUPPLE[place] [id number] 2020-Present [id number] [place] [address] Indemnity [id number] 2020 Unknown [employer] [place] DIC[place] SUPPLEMENT [id number] 2020-Present [id number] [place] [address] Indemnity [id number] Social History Date Type Detail Facility Start: 07-27-2011 End: 06-14-2022 Tobacco smoking status NHIS Never smoked tobacco [facility] Start: 11-02-2021 End: 07-04-2023 Alcohol intake Current non-drinker of alcohol (finding) [facility] Start: 01-01-2020 History SDOH Social Connections Phone 5 [facility] Start: 01-01-2020 History SDOH Social Connections Get Together 2 [facility] Start: 01-01-2020 History SDOH Social Connections Jewish 3 [facility] Start: 01-01-2020 History SDOH Social Connections Meetings 1 [facility] Start: 1955 Sex Assigned At Not on file [facility] Start: 10-23-2021 End: 02-07-2022 Exposure to SARS-CoV-2 (event) Not sure [facility] Start: 01-09-2022 End: 01-19-2022 Exposure to SARS-CoV-2 (event) Unable to assess [facility] Start: 07-27-2011 End: 06-14-2022 Tobacco use and exposure Smokeless tobacco non-user [facility] Work Phone: Start: 10-20-2022 End: 04-13-2023 History of Social function [facility] Work Phone: Start: 10-20-2022 End: 04-13-2023 Tobacco use panel [facility] Work Phone: Adult Depression Screening Assessment 0 [facility] Work Phone: Start: 12-07-2020 Gender identity Identifies as female gender (finding) [facility] Start: 12-07-2020 Sexual orientation Heterosexual (finding) [facility] Do you belong to any clubs or organizations such as lutheran groups, unions, fraCaperfly or athletic groups, or school groups? No [facility] Are you now , , , , never or living with a partner? [facility] Do you feel stress - tense, restless, nervous, or anxious, or unable to sleep at night because your mind is troubled all the time - these days [OSQ] Not at all [facility] (I/We) worried wheth er (my/our) food would run out before (I/we) got money to buy more. Never true [facility] Clinical Notes 11-06-2020 to 07-19-2023 Telephone Encounter [...] dates for surgery with Dr. Solis at [facility] are , , or . Patient will need pre-operative appointment rescheduled Left message on patient's voicemail that I would contact her next week to reschedule surgery Patient changed her mind and does not want surgery on 08/18. Wants to wait until sometime in August instead. Forwarded to scheduler conveyor. Nicci Lopez RN Noted. Patient called to inform DM that she found her bottle of Estradiol and does not need additional refills. Aware scheduler conveyor will be contacting her to schedule. Patient met her deductible and hoping to have it done this year. Message also forwarded to scheduler conveyor. Deisy Jose RN documented in this encounter [facility] 07-04-2023 Note HNO ID: [id number] Author: Vishal Carrasco MD Service: ? Author Type: Physician Type: Progress Notes Filed: 07/04/2023 1:24 PM Note Text: Discharge Planner offered: Patient declines. Gely Shirley is a [...] after . Still has 3 living children. Certified Nursing Attendant History LMP: 11/23/2010, Postmenopausal Age at Menarche: Age at First : Age at Menopause: Certified Nursing Attendant History Comments: Sexual Activity: Yes; Male; btl [...] N84.0 4. Reviewed (more content not included)... [facility] 07-04-2023 History of Present illness Narrative Discharge Planner offered: Patient declines. Gely Shirley is a [...] after . Still has 3 living children. Certified Nursing Attendant History LMP: 11/23/2010, Postmenopausal Age at Menarche: Age at First : Age at Menopause: Certified Nursing Attendant History Comments: Sexual Activity: Yes; Male; btl [...] Medical Decision Making Level: 4 - Moderate Vishal Luna MD documented in this encounter [facility] 05-18-2023 Note HNO ID: [id number] Author: Luann Lagunas APRN.KETAN Service: ? Author [...] of Care Visit completed when applicable. Luann Bebo, REPRODUCTION SPECIALIST PROCEDURE: EXTERNAL GENITALIA: Normal in appearance without [...] material given to the patient. Luann Lagunas APRN.REPRODUCTION SPECIALIST [facility] 04-27-2023 Note HNO ID: [id number] Author: Libby Esquivel Mammo Tech Service: ? Author Type: Senior Storage Administrator Type: Progress Notes Filed: 04/27/2023 9:52 AM [...] Conor Mahoney April 27, 2023 9:34 AM [facility] 04-27-2023 Note HNO ID: [id number] Author: Gisselle Millan RDMS Service: ? Author Type: Monitor Tech Type: Progress Notes Filed: 04/27/2023 11:09 AM [...] RDMS RVT April 27, 2023 11:09 AM [facility] 04-27-2023 History of Present illness Narrative Radiology [...] PERIPHERAL IV DATA: Not applicable SIGNED BY: Mervat MahoneyCRESCEL Doretha April 27, 2023 9:34 AM documented in this encounter [facility] 04-27-2023 Miscellaneous Notes April 28, 2023 PID: [id number] Gely Shirley [address] [place] [address] Dear Ms. Shirley, We are pleased to [...] report will be kept on file at [facility] as part of your permanent medical record and are available for your continuing care. Thank you for allowing us to help in meeting your health care needs. Sincerely, Dr. Leslie Interpreting Radiologist [facility] (Normal over 40) documented in this encounter [facility] 04-27-2023 History of Present illness Narrative Radiology [...] 2023 11:09 AM documented in this encounter [facility] 04-14-2023 Miscellaneous Notes Pt informed, verbalized understanding. Yara Edmonds Please call patient and let her know that urine culture was inconclusive for bacteria. Continue antibiotic if improving symptoms. OK to start diflucan if symptoms are not resolving as well. Continue with [place] and US. Thank you, Maryanne Jacobs APRN.KETAN documented in this encounter [facility] 04-13-2023 Note HNO ID: [id number] Author: Maryanne Jacobs APRN.CNP Service: ? Author [...] Rectal: Deferred exam. (more content not included)... [facility] 04-13-2023 History of Present illness Narrative Chief [...] Patient agreeable to treatment plan. Maryanne Davison APRN.REPRODUCTION SPECIALIST [address] [place] [address] documented in this encounter [facility] 04-13-2023 Nurse Note Pt states spotting states in last 6 weeks 4 different times. Pt states feels has a yeast infection . Did treat with over the counter meds . It helped a little but is coming back. documented in this encounter [facility] 03-15-2023 Note Patient Outreach (IN TMMN) GELY SHIRLEY ([id number]) 1955 F Date Time Provider Department 03/15/23 BLANE GANNON During your visit today, we recorded the following information about you: Allergies As of Date: 03/15/2023 Noted Allergy Reaction NO KNOWN DRUG ALLERGIES 09/01/2009 Date Reviewed: 10/20/2022 Reviewed by: Maryanne Jacobs APRN.REPRODUCTION SPECIALIST - Fully Assessed Visit Diagnosis:Encounter for screening mammogram for breast cancer [Z12.31] Order(s):[facility] SCREEN[facility] [[id number]] Order #: [id number] FUTURE Prescriptions as of 03/20/2023 - medroxyPROGESTERone [...] Encounter Status:Closed by DEDE COLLIER on 03/20/23 [facility] 02-24-2023 Miscellaneous Notes See pharmacy generated refill request. Pt was last seen in the office 06/14/22. Please advise. Mirela Gonzales LPN ' documented in this encounter [facility] 01-20-2023 Miscellaneous Notes Jeffery--10/20/22 Nov--nothing scheduled Last [...] Divya Cross Pss documented in this encounter [facility] 10-20-2022 Note HNO ID: [id number] Author: Maryanne Jacobs APRN.REPRODUCTION SPECIALIST Service: ? Author Type: Nurse Practitioner Type: [...] tenderness or abnormalities. (more content not included)... [facility] 10-20-2022 History of Present illness Narrative Chief [...] Patient agreeable to treatment plan. Maryanne Davison APRN.KETAN [address] [place] [address] documented in this encounter [facility] 06-14-2022 Instructions Jacklyn Esparza Nh - 06/14/2022 9:48 AM EDT YOUR RECOVERY [...] contact the office. documented in this encounter [facility] 06-14-2022 History of Present illness Narrative Gely [...] Vishal Luna MD documented in this encounter [facility] 06-13-2022 Miscellaneous Notes Patient notified. Nicci Lopez [...] appt on 06/14/22 documented in this encounter [facility] 02-24-2022 Miscellaneous Notes Patient calling needing a refill on her Effexor as she is leaving for vacation tomorrow. Refill was sent on 02/22, but went to incorrect place. Pharmacy updated, please file. Claudette Cheung RN documented in this encounter [facility] 02-22-2022 Miscellaneous Notes Patient called needing a refill. Last annual 01/26/22. Leaving for vacation and will run out while out of town. Pending Prescriptions Disp Refills VENLAFAXINE ER 75 MG CAPSULE,EXTENDED RELEASE 24 HR 90 capsule 3 Sig: Take 1 capsule by mouth once daily. IGLESIA: No documented in this encounter [facility] 02-14-2022 Miscellaneous Notes Pt. notified and verbalizes [...] states she gets her medication filled at [facility] in [place]. Please call pt at [phone]. documented in this encounter [facility] 02-07-2022 History of Present illness Narrative Crow Cross MD Department of Orthopaedics Orthopaedics [address] [facility] [address] Dept: [phone] Dept February 07, 2022 CHIEF COMPLAINT: Established [...] IMPRESSION: Minimal/mild narrowing of the left hip. Distribution Dispatcher: PSCB Transcribe Date/Time: Feb 07 2022 12:57P Dictated by : JANNY SOTO MD This examination was interpreted and [...] Crow Cross MD documented in this encounter [facility] 02-07-2022 History of Present illness Narrative Radiology [...] 2022 7:57 AM documented in this encounter [facility] 01-27-2022 Miscellaneous Notes January 27, 2022 PID: [id number] Gely Shirley [address] [place] [address] Dear Ms. Shirley, We are pleased to [...] report will be kept on file at [facility] as part of your permanent medical record and are available for your continuing care. Thank you for allowing us to help in meeting your health care needs. Sincerely, Dr. Leslie Interpreting Radiologist [facility] (Normal over 40) documented in this encounter [facility] 01-27-2022 History of Present illness Narrative Radiology [...] 2022 9:29 AM documented in this encounter [facility] 01-26-2022 History of Present illness Narrative Discharge Planner offered: Patient declinesJimena Smith is a 66 [...] after . Still has 3 living children. Certified Nursing Attendant History LMP: 11/23/2010, Postmenopausal Age at Menarche: Age at First : Age at Menopause: Certified Nursing Attendant History Comments: Sexual Activity: Yes; Male; btl [...] external genitalia normal, normal Bartholin's glands, urethra, Fallston's glands, no vulvar lesions, no cervical lesions, [...] to date with screening BMD: scheduled by sign carpenter 2) Follow up one year or sooner as needed 3) HRT reviewed- no contraindication to continue. Vishal Luna MD documented in this encounter [facility] 12-23-2021 Miscellaneous Notes Received refill request for [...] Deisy Jose RN documented in this encounter [facility] 11-02-2021 Instructions Lexi Villeda PA-C - 11/02/2021 10:30 AM EDT -Contact office if any recurrent right upper quadrant pain or if diarrhea recurs -Recommend follow up right upper quadrant ultrasound at 6 months (due February 2022) for surveillance of gallbladder polyp noted on prior ultrasound in August The following instructions are important for you related to your office visit today with the [facility] General Surgeons. INSTRUCTIONS FOLLOWING A NORMAL COLONOSCOPY [...] you should contact our office immediately @ [phone] and ask to be transferred to the General Surgery department. documented in this encounter [facility] 11-02-2021 History of Present illness Narrative FOLLOW UP VISIT - ENDOSCOPY NAME: Gely Shirley [facility] NO.: [id number] DATE OF SERVICE: 11/02/2021 : 1955 REFERRING [...] gallbladder polyp on imaging ordered by her sign carpenter: IMPRESSION: Gallbladder polyp. No biliary dilatation. Hyperechoic [...] recommend follow up endoscopy in 10 years. updated and recall letter generated. Reviewed dietary [...] which included preparing to see the patient, [id number] patient care, completing clinical documentation, obtaining and/or reviewing separately obtained history, counseling and educating the patient/family/caregiver, communicating with other HCPs (not separately reported), independently interpreting results (not separately reported), communicating results to the patient/family/caregiver and care coordination (not separately reported). Lexi Villeda PA-C documented in this encounter [facility] 10-05-2021 Miscellaneous Notes 10/19/21 EGD & Colonoscopy with Dr. Wan at the [facility] with Miralax/Dulcolax prep documented in this encounter [facility] 01-11-2021 Note HNO ID: [id number] Author: Piper Bullock OT/Shlomo Service: ? Author [...] to 01/11/2021 and treatment included: Therapeutic exercise, Self-senior living management, Modalities, Custom orthosis fabrication and Prefabricated [...] Right Limitation Thumb AROM: Right Limitation Strength: Risk Management Manager Position 2;Pinch Meter Hand Strength R Risk Management Manager Position 2 (lbs): 30 lbs R Lateral [...] ext and opposition 3: with med putty incinerator plant general supervisor, digit flexion tripod pinch 4: instrucxted in [...] needs. Patient response monitored throughout treatment. Billing: Malena: Therapeutic Exercise (89956): 1:1 time:30 minutes (2 units: 23-37 mins) Fluidotherapy (71021) 1 unit(s) Total time / Length of visit: 45 minutes Piper Bullock OT/Shlomo [facility] 01-04-2021 Note HNO ID: [id number] Author: ANITA Cyr Service: ? Author Type: [...] FUNCTION: Hand Skin / Wound: Scar Strength: Risk Management Manager Position 2;Pinch Meter Hand Strength R Risk Management Manager Position 2 (lbs): 6 lbs L Risk Management Manager Position 2 (lbs): 54 lbs R Lateral Pinch (lbs): 4 lbs R Tripod/ 3 Jaw Kavin (lbs): 5 lbs R Tip Pinch (lbs): 5 lbs TREATMENT: Therapeutic Exercise: 1: with soft puttyu incinerator plant general supervisor digit ext roll digit flexion 2: with [...] needs. Patient response monitored throughout treatment. Billing: Malena: Therapeutic Exercise (46147): 1:1 time:35 minutes (2 units: 23-37 mins) Fluidotherapy (42984) 1 unit(s) Total time / Length of visit: 45 minutes Piper Bullock OT/Shlomo [facility] 12-28-2020 Note HNO ID: [id number] Author: ANITA Cyr Service: ? Author Type: [...] palmar abduction and opposition 5: soft sponge incinerator plant general supervisor manipulate and picker / packer 6: adjusted splint 7: circumduction cw and [...] needs. Patient response monitored throughout treatment. Billing: [place]: Therapeutic Exercise (25016): 1:1 time:35 minutes (2 units: 23-37 mins) Fluidotherapy (99920) 1 unit(s) Total time / Length of visit: 45 minutes Piper Bullock OT/Shlomo [facility] 12-14-2020 Note HNO ID: [id number] Author: Piper Bullock Service: ? Author Type: [...] MEASURES WITH LEVEL OF FUNCTION: Hand Strength: Risk Management Manager Position 2;Pinch Meter Hand Strength R Risk Management Manager Position 2 (lbs): 19 lbs L Risk Management Manager Position 2 (lbs): 49 lbs R Lateral [...] needs. Patient response monitored throughout treatment. Billing: Malena: Therapeutic Exercise (38851): 1:1 time:30 minutes (2 units: 23-37 mins) Fluidotherapy (29604) 1 unit(s) Total time / Length of visit: 40 minutes Piper Bullock OT/[facility] 12-08-2020 Note HNO ID: [id number] Author: Piper Bullock Service: ? 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 Planned Interventions, Frequency, and Duration: Current Frequency: 1x/week Duration: 8 weeks Total Number of Visits Planned: 8 Planned Treatment Interventions: Custom orthosis fabrication;Therapeutic exercise (03759);Prefabricated orthosis fitting;Self-senior living management (98122);Fluidotherapy (41141) PLAN FOR NEXT VISIT: adjust splint PRN [...] Patient Goals: R handed retired, lives with irene camarena [employer] 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 [facility] 12-08-2020 Note HNO ID: [id number] Author: SHAISTA Camacho (Ct) Service: Radiology Author Type: Clinical Senior Storage Administrator Type: Progress Notes Filed: 12/08/2020 8:21 AM [...] SHAISTA Camacho December 08, 2020 8:21 AM [facility] 11-06-2020 Note HNO ID: [id number] Author: George Fabian MD Service: Anesthesiology Author [...] November 06, 2020 TIME: 7:27 AM CSN: [id number] [facility] documented in this encounter [facility] note* Diagnosis Encounter for gynecological examination without abnormal finding- Primary Routine gynecological examination Hormone replacement therapy (HRT) Need for prophylactic hormone replacement therapy (postmenopausal) documented in this encounter [facility] note* Diagnosis Encounter for screening mammogram for malignant neoplasm of breast Other screening mammogram documented in this encounter [facility] note* Diagnosis Pain in left hip- Primary Pain in joint, pelvic region and thigh documented in this encounter [facility] note* Diagnosis Pain in left hip Pain in joint, pelvic region and thigh [facility] Diagnosis Hip pain- Primary Pain in joint, pelvic region and thigh [facility] Diagnosis Iron deficiency- Primary Iron deficiency anemia, unspecified Change in bowel habits Other symptoms involving digestive system [facility] Diagnosis Primary osteoarthritis of left hip- Primary Primary localized osteoarthrosis, pelvic region and thigh Chronic left hip pain Pain in joint, pelvic region and thigh [facility]* Diagnosis Postmenopausal bleeding- Primary [facility]* Diagnosis PMB (postmenopausal bleeding)- Primary Postmenopausal bleeding Endometrial polyp Polyp of corpus uteri [facility]* Diagnosis Hip pain Pain in joint, pelvic region and thigh [facility]* Diagnosis Gastroesophageal reflux disease with esophagitis, unspecified whether hemorrhage- Primary [facility]* Diagnosis NSAID long-term use- Primary Encounter for long-term (current) use of non-steroidal anti-inflammatories documented in this encounter [facility] note* Diagnosis Gastroesophageal reflux disease with esophagitis, unspecified whether hemorrhage documented in this encounter [facility] note* Diagnosis Encounter for screening mammogram for breast cancer documented [facility]* Diagnosis Post-menopausal bleeding- Primary Postmenopausal bleeding Spotting Other specified noninflammatory disorder of vagina Pelvic pressure in female Other specified symptom associated with female genital organs documented in this encounter [facility] note* Diagnosis Encounter for screening mammogram for breast cancer documented in this encounter [facility] note* Diagnosis Post-menopausal bleeding Postmenopausal bleeding Spotting Other specified noninflammatory disorder of vagina Pelvic pressure in female Other specified symptom associated with female genital organs [facility]* Diagnosis PMB (postmenopausal bleeding)- Primary Postmenopausal bleeding Hormone replacement therapy (HRT) Need for prophylactic hormone replacement therapy (postmenopausal) Endometrial polyp Polyp of corpus uteri documented in this encounter [facility] for referral (narrative)* Diagnostic Procedure Only (Routine) - Closed Specialty Diagnoses / Procedures Referred By Stephanie santana Referred To Contact [facility] Diagnoses Encounter for screening mammogram for malignant neoplasm of breast Procedures VALENT[place] SCREENING W ULI SCREENING DIGITAL BREAST TOMOSYNTHESIS BI SCREENING MAMMOGRAPHY BI 2-VIEW BREAST INC CAD Vishal Carrasco MD [address] [place] [address] [facility] [address] [place] [address] Referral ID Status Reason Start Date Expiration Date V isits Requested Visits Authorized [id number] Closed Auto-Generate d Referral 12/29/2021 01/28/2023 1 1 [facility] for referral (narrative)* Diagnostic Procedure Only (Routine) - Pending Review Specialty Diagnoses / Procedures Referred By Contac t Referred To Contact [facility] Diagnoses Pain in left hip Procedures XR HIP GENERAL 3V PELV/AP/LAT LEFT RADEX HIP UNILATERAL WITH PELVIS 2-3 VIEWS Crow Cross MD [address] [place] [address] Xr Imaging Referral ID Status Reason Start Date Expiration Date Visits Requested Visits Authorized [id number] Pending Review Auto-Generat ed Referral 02/02/2022 03/04/2023 1 1 [facility] for referral (narrative)* Diagnostic Procedure Only (Routine) - Closed Specialty Diagnoses / Procedures Referred By Contac t Referred To Contact XR IMAGING Diagnoses Pain in left hip Procedures XR HIP GENERAL 3V PELV/AP/LAT LEFT RADEX HIP UNILATERAL WITH PELVIS 2-3 VIEWS Crow Cross MD [address] [place] [address] Xr Imaging Referral ID Status Reason Start Date Expiration Date V isits Requested Visits Authorized [id number] Closed Auto-Generate d Referral 02/02/2022 03/04/2023 1 1 [facility] for referral (narrative)* Outpatient Procedure (Routine) - Closed Specialty Diagnoses / Procedures Referred By Contac t Referred To Contact [facility] Diagnoses Iron deficiency Change in bowel habits Procedures COLONOSCOPY SCREENING COLONOSCOPY FLX DX W/COLLJ SPEC WHEN PFRMD Lexi Villeda PA-C [address] [place] [address] [address] Referral ID Status Reason Start Date Expiration Date V isits Requested Visits Authorized [id number] Closed Auto-Generate d Referral 10/05/2021 10/05/2022 1 1 * Outpatient Procedure (Routine) - Closed Specialty Diagnoses / Procedures Referred By Stephanie t Referred To Contact [facility] Diagnoses Iron deficiency Change in bowel habits Procedures EGD DIAGNOSTIC ESOPHAGOGASTRODUODENOSC OPY TRANSORAL DIAGNOSTIC Lexi Villeda PA-C [address] [place] [address] [id number] [place] [address] Referral ID Status Reason Start Date Expiration Date V isits Requested Visits Authorized [id number] Closed Auto-Generate d Referral 10/05/2021 10/05/2022 1 1 [facility] for referral (narrative)* Outpatient Procedure (Routine) - Pending Review Specialty Diagnoses / Procedures Referred By Stephanie t Referred To Contact [facility] Diagnoses PMB (postmenopausal bleeding) Endometrial polyp Procedures ENDOMETRIAL BIOPSY ENDOMETRIAL BX W/WO ENDOCERVIX BX W/O DILAT SPX Vishal Carrasco MD [address] [place] [address] [address] Referral ID Status Reason Start Date Expiration Date Visits Requested Visits Authorized [id number] Pending Review Auto-Generat ed Referral 2 06/14/2023 [facility] Diagnostic Procedure Only (Routine) - Pending Review Specialty Diagnoses / Procedures Referred By Conteugene t Referred To Contact [facility] Diagnoses Encounter for screening mammogram for breast cancer Procedures VALENT[place] SCREENING W ULI SCREENING DIGITAL BREAST TOMOSYNTHESIS BI SCREENING MAMMOGRAPHY BI 2-VIEW BREAST INC CAD Blane Gannon DO [address] [place] [address] [facility] [address] [place] [address] Referral ID Status Reason Start Date Expiration Date Visits Requested Visits Authorized [id number] Pending Review Auto-Generat ed Referral 03/15/2023 04/13/2024 1 1 [facility] for referral (narrative)* Diagnostic Procedure Only (Routine) - Authorized Specialty Diagnoses / Procedures Referred By Stephanie santana Referred To Contact [facility] Diagnoses Post-menopausal bleeding Spotting Pelvic pressure in female Procedures US FEMALE PELVIS TRANSVAG US TRANSVAGINAL Maryanne Jacobs APRN.REPRODUCTION SPECIALIST [address] [place] [address] [place] [address] Referral ID Status Reason Start Date Expiration Date Visits Requested Visits Authorized [id number] Authorized Auto-Generat ed Referral 04/13/2023 05/12/2024 1 1 * Diagnostic Procedure Only (Routine) - Authorized Specialty Diagnoses / Procedures Referred By Stephanie santana Referred To Contact [facility] Diagnoses Post-menopausal bleeding Spotting Pelvic pressure in female Procedures US FEMALE PELVIS TRANSABD LTD US PELVIC NONOBSTETRIC IMAGE DCMTN LIMITED/F/U Maryanne Jacobs APRN.REPRODUCTION SPECIALIST [address] [place] [address] [place] [address] Referral ID Status Reason Start Date Expiration Date Visits Requested Visits Authorized [id number] Authorized Auto-Generat ed Referral 04/13/2023 05/12/2024 1 1 [facility] for referral (narrative)* Diagnostic Procedure Only (Routine) - Closed Specialty Diagnoses / Procedures Referred By Stephanie t Referred To Contact [facility] Diagnoses Encounter for screening mammogram for breast cancer Procedures VALENT[place] SCREENING W ULI SCREENING DIGITAL BREAST TOMOSYNTHESIS BI SCREENING MAMMOGRAPHY BI 2-VIEW BREAST INC Blane Calix DO [address] [place] [address] [facility] [address] [place] [address] Referral ID Status Reason Start Date Expiration Date V isits Requested Visits Authorized [id number] Closed Auto-Generate d Referral 03/15/2023 04/13/2024 1 1 [facility] for referral (narrative)* Diagnostic Procedure Only (Routine) - Closed Specialty Diagnoses / Procedures Referred By Stephanie santana Referred To Contact [facility] Diagnoses Post-menopausal bleeding Spotting Pelvic pressure in female Procedures US FEMALE PELVIS TRANSVAG US TRANSVAGINAL Maryanne Jacobs APRN.REPRODUCTION SPECIALIST [address] [place] [address] [place] [address] Referral ID Status Reason Start Date Expiration Date V isits Requested Visits Authorized [id number] Closed Auto-Generate d Referral 04/13/2023 05/12/2024 1 1 * Diagnostic Procedure Only (Routine) - Closed Specialty Diagnoses / Procedures Referred By Stephanie t Referred To Contact [facility] Diagnoses Post-menopausal bleeding Spotting Pelvic pressure in female Procedures US FEMALE PELVIS TRANSABD LTD US PELVIC NONOBSTETRIC IMAGE DCMTN LIMITED/F/U Maryanne Jacobs APRN.REPRODUCTION SPECIALIST [address] [place] [address] [place] [address] Referral ID Status Reason Start Date Expiration Date V isits Requested Visits Authorized [id number] Closed Auto-Generate d Referral 04/13/2023 05/12/2024 1 1 [facility] for visit Narrative* Diagnostic Procedure Only (Routine) - Closed Specialty Diagnoses / Procedures Referred By Contac t Referred To Contact [facility] Diagnoses Encounter for screening mammogram for malignant neoplasm of breast Procedures VAL[place] SCREENING W ULI SCREENING DIGITAL BREAST TOMOSYNTHESIS BI SCREENING MAMMOGRAPHY BI 2-VIEW BREAST INC CAD Vishal Carrasco MD [address] [place] [address] [facility] [address] [place] [address] Referral ID Status Reason Start Date Expiration Date V isits Requested Visits Authorized [id number] Closed Auto-Generate d Referral 12/29/2021 01/28/2023 1 1 [facility] for visit Narrative* Diagnostic Procedure Only (Routine) - Closed Specialty Diagnoses / Procedures Referred By Gloryac t Referred To Contact XR IMAGING Diagnoses Pain in left hip Procedures XR HIP GENERAL 3V PELV/AP/LAT LEFT RADEX HIP UNILATERAL WITH PELVIS 2-3 VIEWS Crow Cross MD [address] [place] [address] Xr Imaging Referral ID Status Reason Start Date Expiration Date V isits Requested Visits Authorized [id number] Closed Auto-Generate d Referral 02/02/2022 03/04/2023 1 1 [facility] for visit Narrative* Diagnostic Procedure Only (Routine) - Closed Specialty Diagnoses / Procedures Referred By Contac t Referred To Contact [facility] Diagnoses Encounter for screening mammogram for breast cancer Procedures VALENT[place] SCREENING W ULI SCREENING DIGITAL BREAST TOMOSYNTHESIS BI SCREENING MAMMOGRAPHY BI 2-VIEW BREAST INC CAD Blane Gannon L, DO [address] [place] [address] [facility] [address] [place] [address] Referral ID Status Reason Start Date Expiration Date V isits Requested Visits Authorized [id number] Closed Auto-Generate d Referral 03/15/2023 04/13/2024 1 1 [facility] Summary Purpose Family History No Family History Records FoundNo Family History Records FoundNo Family History Records Found Advance Directives No Advanced Directives Records FoundDocuments on File Type Date 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 Advance Directive(s) 10/19/2021 7:14 AM Advance Directive(s) 11/06/2020 8:14 AM Advance Directive(s) 10/26/2020 11:10 AM Me jacquie Advance Directive(s) 10/23/2020 2:44 PM Advance Directive(s) 12/04/2018 6:50 AM Advance Directive(s) 11/16/2018 11:33 AM Documents on File Type Date 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 Advance Directive(s) 10/19/2021 7:14 AM Advance Directive(s) 11/06/2020 8:14 AM Advance Directive(s) 10/26/2020 11:10 AM Me jacquie Advance Directive(s) 10/23/2020 2:44 PM Advance Directive(s) 12/04/2018 6:50 AM Advance Directive(s) 11/16/2018 11:33 AM Reason for Referral Specialty Diagnoses / Procedures Referred By Contac t Referred To Contact [facility] Diagnoses Primary osteoarthritis of left hip Chronic left hip pain Procedures CONSULT TO PHYSICAL THERAPY PHYSICAL THERAPY EVALUATION HIGH COMPLEX 45 MINS Crow Cross MD [address] [place] [address] [facility] [address] [address] Referral ID Status Reason Start Date Expiration Date Visits Requested Visits Authorized [id number] Authorized PCP Requested Referral Auto-Generate d Referral 02/07/2022 02/07/2023 99 99 Additional Source Comments INFORMATION SOURCE (unrecogn ized section and content) DATE CREATED AUTHOR AUTHOR'S ORGANIZ ATION 10/05/2021 [facility] Keila Henriquez DATE CREATED AUTHOR AUTHOR'S ORGANIZ ATION 09/04/2023 [facility] Source Comments (unrecognize d section and content) In the event this informatio n is protected by the Federal Confidentiality of Alcohol and Drug Abuse Patient Records regulations: The Federal rules restrict any use of the information to criminally investigate or prosecute any alcohol or drug abuse patient.[facility] the event this information is protected by the Federal Confidentiality of Alcohol and Drug Abuse Patient Records regulations: The Federal rules restrict any use of the information to criminally investigate or prosecute any alcohol or drug abuse patient.[facility] the event this information is protected by the Federal Confidentiality of Alcohol and Drug Abuse Patient Records regulations: The Federal rules restrict any use of the information to criminally investigate or prosecute any alcohol or drug abuse patient.[facility] the event this information is protected by the Federal Confidentiality of Alcohol and Drug Abuse Patient Records regulations: The Federal rules restrict any use of the information to criminally investigate or prosecute any alcohol or drug abuse patient.[facility] the event this information is protected by the Federal Confidentiality of Alcohol and Drug Abuse Patient Records regulations: The Federal rules restrict any use of the information to criminally investigate or prosecute any alcohol or drug abuse patient.[facility] the event this information is protected by the Federal Confidentiality of Alcohol and Drug Abuse Patient Records regulations: The Federal rules restrict any use of the information to criminally investigate or prosecute any alcohol or drug abuse patient.[facility] the event this information is protected by the Federal Confidentiality of Alcohol and Drug Abuse Patient Records regulations: The Federal rules restrict any use of the information to criminally investigate or prosecute any alcohol or drug abuse patient.[facility] the event this information is protected by the Federal Confidentiality of Alcohol and Drug Abuse Patient Records regulations: The Federal rules restrict any use of the information to criminally investigate or prosecute any alcohol or drug abuse patient.[facility] the event this information is protected by the Federal Confidentiality of Alcohol and Drug Abuse Patient Records regulations: The Federal rules restrict any use of the information to criminally investigate or prosecute any alcohol or drug abuse patient.[facility] the event this information is protected by the Federal Confidentiality of Alcohol and Drug Abuse Patient Records regulations: The Federal rules restrict any use of the information to criminally investigate or prosecute any alcohol or drug abuse patient.[facility] the event this information is protected by the Federal Confidentiality of Alcohol and Drug Abuse Patient Records regulations: The Federal rules restrict any use of the information to criminally investigate or prosecute any alcohol or drug abuse patient.[facility] the event this information is protected by the Federal Confidentiality of Alcohol and Drug Abuse Patient Records regulations: The Federal rules restrict any use of the information to criminally investigate or prosecute any alcohol or drug abuse patient.[facility] the event this information is protected by the Federal Confidentiality of Alcohol and Drug Abuse Patient Records regulations: The Federal rules restrict any use of the information to criminally investigate or prosecute any alcohol or drug abuse patient.[facility] the event this information is protected by the Federal Confidentiality of Alcohol and Drug Abuse Patient Records regulations: The Federal rules restrict any use of the information to criminally investigate or prosecute any alcohol or drug abuse patient.[facility] the event this information is protected by the Federal Confidentiality of Alcohol and Drug Abuse Patient Records regulations: The Federal rules restrict any use of the information to criminally investigate or prosecute any alcohol or drug abuse patient.[facility] the event this information is protected by the Federal Confidentiality of Alcohol and Drug Abuse Patient Records regulations: The Federal rules restrict any use of the information to criminally investigate or prosecute any alcohol or drug abuse patient.[facility] the event this information is protected by the Federal Confidentiality of Alcohol and Drug Abuse Patient Records regulations: The Federal rules restrict any use of the information to criminally investigate or prosecute any alcohol or drug abuse patient.[facility] the event this information is protected by the Federal Confidentiality of Alcohol and Drug Abuse Patient Records regulations: The Federal rules restrict any use of the information to criminally investigate or prosecute any alcohol or drug abuse patient.[facility] the event this information is protected by the Federal Confidentiality of Alcohol and Drug Abuse Patient Records regulations: The Federal rules restrict any use of the information to criminally investigate or prosecute any alcohol or drug abuse patient.[facility] the event this information is protected by the Federal Confidentiality of Alcohol and Drug Abuse Patient Records regulations: The Federal rules restrict any use of the information to criminally investigate or prosecute any alcohol or drug abuse patient.[facility] the event this information is protected by the Federal Confidentiality of Alcohol and Drug Abuse Patient Records regulations: The Federal rules restrict any use of the information to criminally investigate or prosecute any alcohol or drug abuse patient.[facility] the event this information is protected by the Federal Confidentiality of Alcohol and Drug Abuse Patient Records regulations: The Federal rules restrict any use of the information to criminally investigate or prosecute any alcohol or drug abuse patient.[facility] the event this information is protected by the Federal Confidentiality of Alcohol and Drug Abuse Patient Records regulations: The Federal rules restrict any use of the information to criminally investigate or prosecute any alcohol or drug abuse patient.[facility] the event this information is protected by the Federal Confidentiality of Alcohol and Drug Abuse Patient Records regulations: The Federal rules restrict any use of the information to criminally investigate or prosecute any alcohol or drug abuse patient.[facility] the event this information is protected by the Federal Confidentiality of Alcohol and Drug Abuse Patient Records regulations: The Federal rules restrict any use of the information to criminally investigate or prosecute any alcohol or drug abuse patient.[facility] the event this information is protected by the Federal Confidentiality of Alcohol and Drug Abuse Patient Records regulations: The Federal rules restrict any use of the information to criminally investigate or prosecute any alcohol or drug abuse patient.[facility] the event this information is protected by the Federal Confidentiality of Alcohol and Drug Abuse Patient Records regulations: The Federal rules restrict any use of the information to criminally investigate or prosecute any alcohol or drug abuse patient.[facility] the event this information is protected by the Federal Confidentiality of Alcohol and Drug Abuse Patient Records regulations: The Federal rules restrict any use of the information to criminally investigate or prosecute any alcohol or drug abuse patient.[facility] Hospital[facility] the event this information is protected by the Federal Confidentiality of Alcohol and Drug Abuse Patient Records regulations: The Federal rules restrict any use of the information to criminally investigate or prosecute any alcohol or drug abuse patient.[facility] Reason for Visit (unrecogniz ed section and [...] US Specialty Diagnoses / Procedures Referred By Stephanie santana Referred To Contact US IMAGING Diagnoses Post-menopausal bleeding Spotting Pelvic pressure in female Procedures US FEMALE PELVIS TRANSVAG US TRANSVAGINAL Maryanne Jacobs APRN.REPRODUCTION SPECIALIST [address] [place] [address] Us Imaging [id number] Referral ID Status Reason Start Date Expiration Date V isits Requested Visits Authorized [id number] Closed Auto-Generate d Referral 04/13/2023 05/12/2024 1 1 Reason Comments Follow Up Reason Comments Patient Update Care Teams (unrecognized sec tion and content) Fish Machine Feeder Relationship Specialty Start Date End Date Blane Gannon DO [address] [place], [place] [id number] PCP - General 10/02/15 Fish Machine Feeder Relationship Specialty Start Date End Date Blane Gannon DO [address] [place] [address] PCP - General 10/02/15 Fish Machine Feeder Relationship Specialty Start Date End Date Blane Gannon, DO [address] [place] [address] PCP - General 10/02/15 Fish Machine Feeder Relationship Specialty Start Date End Date Blane Gannon, DO [address] [place] [address] PCP - General 10/02/15 Fish Machine Feeder Relationship Specialty Start Date End Date Blane Gannon, DO [address] [place] [address] PCP - General 10/02/15 Fish Machine Feeder Relationship Specialty Start Date End Date Blane Gannon, DO [address] [place] [address] PCP - General 10/02/15 Fish Machine Feeder Relationship Specialty Start Date End Date Blane Gannon, DO [address] [place] [address] PCP - General 10/02/15 Fish Machine Feeder Relationship Specialty Start Date End Date Blane Gannon, DO [address] [place] [address] PCP - General 10/02/15 Fish Machine Feeder Relationship Specialty Start Date End Date Blane Gannon, DO [address] [place] [address] PCP - General 10/02/15 Fish Machine Feeder Relationship Specialty Start Date End Date Blane Gannon, DO [address] [place] [address] PCP - General 10/02/15 Fish Machine Feeder Relationship Specialty Start Date End Date Blane Gannon, DO [address] [place] [address] PCP - General 10/02/15 Fish Machine Feeder Relationship Specialty Start Date End Date Blane Gannon DO [address] [place] [address] PCP - General 10/02/15 Fish Machine Feeder Relationship Specialty Start Date End Date Blane Gannon DO [address] [place] [address] PCP - General 10/02/15 Fish Machine Feeder Relationship Specialty Start Date End Date Blane Gannon DO [address] [place] [address] PCP - General 10/02/15 Fish Machine Feeder Relationship Specialty Start Date End Date Blane Gannon DO [address] [place] [address] PCP - General 10/02/15 Fish Machine Feeder Relationship Specialty Start Date End Date Blane Gannon DO [address] [place] [address] PCP - General 10/02/15 Fish Machine Feeder Relationship Specialty Start Date End Date Blane Gannon DO [address] [place] [address] PCP - General 10/02/15 Fish Machine Feeder Relationship Specialty Start Date End Date Blane Gannon DO [address] [place] [address] PCP - General 10/02/15 FOR RECORDS PERTAINING [...] BE BASED ON THE PRIMARY CLINICAL RECORDS. [facility]. provides no warranty or guarantee of the accuracy or completeness of information in this document.
[2023-09-07 06:32] VITALS: BP 143/73; PULSE 66; RESP 16; TEMP 37.1; O2SAT 100; BMI 22.5
[2023-09-07] MEDS: Lactated Ringers 1,000 ML 15 ML IV (06:39)
[2023-09-07 06:43] LABS: Hematocrit 34.3 % (37-47); Mean Corp Hgb Conc 32.1 g/dL (32-36); Mean Corpuscular Hgb 29.8 pg (27.0-32.0); Platelet Count 250 K/mm3 (150-450); RBC Distribution Width CV 13.2 % (11.6-14.6); RBC Distribution Width SD 44.9 fl (35.1-43.9); Red Blood Count 3.69 M/mm3 (4.2-5.4); White Blood Count 6.8 K/mm3 (4.4-11.0)
[2023-09-07 06:59] LABS: Anion Gap 3 (5-15); BUN 21 mg/dL (7-18); BUN/Creat Ratio 16.3 RATIO (10-20); Calcium,Total 8.9 mg/dL (8.5-10.1); Chloride 110 mmol/L (98-107); Creatinine, Serum 1.29 mg/dL (0.55-1.02); EST Glomerular Filtration Rate 44 mL/min (>60); Est Glom Filt Rate - Afr Amer 53 mL/min (>60); Estimated Creatinine Clearance 33.47 ml/min; Glucose 92 mg/dL (74-106); Potassium 3.7 mmol/L (3.5-5.1); Sodium Level 140 mmol/L (136-145)
--- NOTE | 2023-09-07 07:44 | OP.PCM_ITS ---
Report of Operation Date of Procedure: 09/07/23 Pre-Operative Diagnosis: PMB Post-Operative Diagnosis: Same Surgery/Procedure Performed:: Hysteroscopy, D&C Description of Surgical Findings:: Endometrium appeared atrophic- one small area at fundal aspect scant tissue. Both tubal ostia visualized. No polyps. Surgeon: Marissa Luna college advisor: None (Alessia Marie MS3) Type of Anesthesia: MAC Specimen's removed: Endometrial curettings Estimated Blood Loss (mL): <5 Fluids Replaced: 800 Description of Procedure: informed consent was obtained the patient was taken the operating room she was placed in supine position. She was given anesthesia. She was then placed in the [facility] where she was prepped and draped in the normal sterile fashion. Bladder drained prior to procedure. At this time the weighted speculum was placed in the posterior fornix of vagina. Single-tooth tenaculum was used to gently grasp the anterior lip the cervix. At this time the uterine cavity was sounded to approximately 7 cm. Gentle dilatation was performed once adequate dilatation of the cervix was achieved the hysteroscope using normal saline as a distention medium was placed. Tubal ostia visualized, endometrium appeared atrophic- one area at fundal aspect with scant tissue. Sharp curretage performed- then hysteroscopy repeated and that area of tissue was successfully removed and cavity was intact. Tissue will be sent to pathology for evaluation. Tenaculum removed. Good hemostasis. Instrument, lap count correct x 2. fluid deficit was zero Vaginal Sweep was negative. Grafts/Implants Used: none Procedure Start Time: 07:33 Procedure Stop Time: 07:41 Complications none Admit VTE Documentation VTE Present on Admission: Yes VTE Mechan Device Prophylaxis: SCD's VTE Pharm Prophylaxis ordered?: No Reason prophylaxis not ordered:: Procedure Not Indicated
--- NOTE | 2023-09-07 07:48 | DCINST_ITS ---
Discharge Instructions Diet Discharge Diet: No restrictions Activity May resume sexual activity in: 1 week Dressing / Incision Call your doctor if you observe: Fever of 101 or Higher, Inability to urinate, Using more than 1 pad per hour and Uncontrolled pain Follow Up Care Please Follow Up With: Marissa Luna MD When: 1-2 weeks post OP if you need an appointment please call [phone] Test Results: Test results from this visit will be discussed in further detail at your follow- up appointment, if applicable. Discharge Plan Admission Attending Provider: Marissa Luna Primary Care Provider: Blane Gusman Discharge Orders/Prescriptions Prescriptions: No Action levothyroxine 50 mcg tablet 50 mcg PO DAILY Patient Comments: 1 TAB BY MOUTH MONDAY THROUGH MONDAY AND 2 TABLETS ON MONDAY magnesium 200 mg tablet 800 mg PO DAILY calcitriol 0.25 mcg capsule 0.25 mcg PO DAILY Patient Comments: TAKE 1 CAPSULE BY MOUTH EVERY DAY medroxyprogesterone 2.5 mg tablet 2.5 mg PO DAILY Patient Comments: TAKE 1 TABLET BY MOUTH EVERY DAY calcium citrate 200 mg (950 mg) tablet 200 mg PO DAILY ferrous sulfate [Feosol] 325 mg (65 mg iron) tablet 325 mg PO DAILY diclofenac sodium 75 mg tablet,delayed release (DR/EC) 75 mg PO BID cholecalciferol (vitamin D3) [Vitamin D3] 50 mcg (2,000 unit) capsule 50 mcg PO DAILY vitamin E 100 unit tablet 100 unit PO DAILY zinc 50 mg capsule 50 mg PO DAILY ascorbic acid (vitamin C) [Vitamin C] 500 mg tablet 1 g PO DAILY quercetin 500 mg capsule 500 mg PO DAILY vitamin B complex [B Complex-Vitamin B12] Tablet 1 tab PO DAILY Referrals / Follow Up: Blane Gusman DO [Primary Care Provider] - Disposition Disposition (needs filled in before D/C Order can be placed): Home, Self Care
[2023-09-07 07:50] VITALS: BP 107/64; BP 143/73; PULSE 91; RESP 12; TEMP 36.3; O2SAT 94
[2023-09-07 07:55] VITALS: BP 115/62; BP 143/73; PULSE 84; RESP 16; O2SAT 93
[2023-09-07 08:01] VITALS: BP 123/72; BP 143/73; PULSE 79; RESP 16; TEMP 36.2; O2SAT 93
[2023-09-07 08:49] VITALS: BP 143/73
== END 2023-09-07 08:57 | disposition home or self-care (01) ==
LOC: SDC 05:57 → AC 05:59
PROVIDERS: PCP Student in an Organized Health Care Education/Training Program; Referring Provider Obstetrics & Gynecology; Visit Provider Obstetrics & Gynecology
PROC: 0UB98ZZ Excision of Uterus, Via Natural or Artificial Opening Endoscopic (ICD-10-PCS; CPT 58558; principal; 2023-09-07 07:15)
DX: N95.0 Postmenopausal bleeding (principal); Z79.899 Other long term (current) drug therapy; Z79.890 Hormone replacement therapy; E78.00 Pure hypercholesterolemia, unspecified; E89.0 Postprocedural hypothyroidism
CPT/HCPCS: 58558; 00952; 80048; 85027; 88305; J7120; J2405

== ENCOUNTER → 2023-10-05 | Outpatient (CLI) | payer MEDICARE, BC, SELFPAY ==
[2023-10-05 10:48] LABS: Vitamin D,25 Hydroxy 74.6 ng/mL
[2023-10-05 11:10] LABS: ALB/GLOB Ratio 0.9 RATIO (0.9-2.4); AST(SGOT) 101 U/L (15-37); Alanine Aminotransfer ALT/SGPT 169 U/L (13-56); Albumin, Serum 3.5 g/dL (3.2-5.0); Alkaline Phosphatase 104 U/L (45-117); Anion Gap 2 (5-15); BUN 22 mg/dL (7-18); BUN/Creat Ratio 17.3 RATIO (10-20); Calcium,Total 10.6 mg/dL (8.5-10.1); Chloride 105 mmol/L (98-107); Creatinine, Serum 1.27 mg/dL (0.55-1.02); EST Glomerular Filtration Rate 45 mL/min (>60); Est Glom Filt Rate - Afr Amer 54 mL/min (>60); Globulin 4.1 g/dL (2.2-4.2); Glucose 98 mg/dL (74-106); Potassium 4.1 mmol/L (3.5-5.1); Protein, Total 7.6 g/dL (6.4-8.2); Sodium Level 137 mmol/L (136-145); Thyroid Stim Hormone (TSH) 3.45 uIU/mL (0.358-3.74)
== END | disposition home or self-care (01) ==
LOC: LAB 09:43
PROVIDERS: PCP Student in an Organized Health Care Education/Training Program; Referring Provider Physician Assistant Medical; Visit Provider Physician Assistant Medical
DX: E89.0 Postprocedural hypothyroidism (principal); E55.9 Vitamin D deficiency, unspecified
CPT/HCPCS: 36415; 80053; 82306; 84443

== ENCOUNTER → 2023-10-28 | Outpatient (CLI) | payer MEDICARE, BC, SELFPAY ==
--- OUTSIDE RECORDS SUMMARY | 2023-10-28 09:09 | XMS RPT_ITS | CCD ---
Author Name Unknown Address [address] [place] [address] Organization [facility] Care Team Providers Care Crop Or 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 Name Role Phone Blane Gannon DO Primary Care Provider [phone] ALYCIA JACOBS Attending Unavailable BLANE GANNON Primary Care Unavailable BLANE GANNON Referring Unavailable ALYCIA JACOBS Referring Unavailable BLANE GANNON Primary Care Unavailable BLANE GANNON Primary Care Unavailable BLANE GANNON Referring Unavailable LUANN LAGUNAS Attending Unavailable BLANE GANNON Primary Care Unavailable MARISSA CARRASCO Attending Unavail able BLANE GANNON Primary Care Unavailable MARISSA CARRASCO Attending Unavail able BLANE GANNON Primary Care Unavailable BLANE GANNON Primary Care Unavailable ALESHIA HICKS Attending Unavailable BLANE GANNON Primary Care Unavailable BRENNON YANES Attending Unavailable BLANE GANNON Primary Care Unavailable ALESHIA HICKS Referring Unavailable BLANE GANNON Referring Unavailable BLANE GANNON Primary Care Unavailable ALYCIA JACOBS Attending Unavailable BLANE GANNON Primary Care Unavailable Blane Gannon DO Primary Care Provider [phone] Medications Current Medications Medication Drug Class(es) Dates Sig (Normalized) Sig (Original) fluconazole 150 mg oral tablet (1 source) Azole Antifungal Start: 04-13-2023 End: 04-13-2023 fluconazole (DIFLUCAN) 150 mg tablet Indications: Post-menopausal bleeding , Spotting , Pelvic pressure in female Take 1 tablet by mouth one time only for 1 dose. Repeat in 3 days as needed. 2 tablet 0 04/13/2023 04/13/2023 Active Completed/Discontinued Medications Medication Drug Class(es) Dates [...] hypothyroidism] Onset: 11-12-2015 11-12-2015 Chronic Esophageal disorders (8 sources) Gastro-esophageal reflux disease with esophagitis; Translations: [Gastroesophageal reflux disease with esophagitis without hemorrhage] Onset: 09-18-2023 Chronic Esophageal disorders (2 sources) Esophageal disorders; Translations: [Gastroesophageal reflux disease with esophagitis without hemorrhage] Onset: 10-20-2022 Gastritis and duodenitis (1 [...] with regular cycle] Onset: 04-27-2023 04-13-2023 Chronic Nausea and vomiting (6 sources) Nausea; Translations: [Nausea] Onset: 09-18-2023 09-13-2023 Episodic Nutritional deficiencies (1 source) Iron deficiency; Translations: [...] bowel habit] Episodic Other non-traumatic joint disorders (6 sources) Hip pain; Translations: [Pain in left hip] Episodic Other screening for suspected conditions (not mental disorders or infectious disease) (11 sources) Patient encounter status; Translations: [Encounter for [...] romero 07-04-2023 09:02-0500 Body weight 55.79 kg Marissa Solis MD Work Phone: [facility] 07-04-2023 09:02-0500 Diastolic blood pressure 78 mm[Hg] Marissa Solis MD Work Phone: [facility] 07-04-2023 09:02-0500 Systolic blood pressure 120 mm[Hg] Marissa Solis MD Work Phone: [facility] 04-13-2023 08:35-0400 Body height 158 cm Alycia Jacobs CIVIL ENGINEERING INTERN.CHILDREN'S TUTOR NURSERY Work Phone: [facility] 04-13-2023 08:35-0400 Body weight 56.06 kg Alycia Jacobs CIVIL ENGINEERING INTERN.CHILDREN'S TUTOR NURSERY Work Phone: [facility] 04-13-2023 08:35-0400 Diastolic blood pressure 68 mm[Hg] Alycia Jacobs CIVIL ENGINEERING INTERN.CHILDREN'S TUTOR NURSERY Work Phone: [facility] 04-13-2023 08:35-0400 Heart rate 82 /min Alycia Jacobs CIVIL ENGINEERING INTERN.CHILDREN'S TUTOR NURSERY Work Phone: [facility] 04-13-2023 08:35-0400 Respiratory rate 12 /min Alycia Jacobs CIVIL ENGINEERING INTERN.CHILDREN'S TUTOR NURSERY Work Phone: [facility] 04-13-2023 08:35-0400 Systolic blood pressure 112 mm[Hg] Alycia Jacobs CIVIL ENGINEERING INTERN.CHILDREN'S TUTOR NURSERY Work Phone: [facility] 10-20-2022 07:59-0500 Body weight 57.64 kg Alycia Jacobs CIVIL ENGINEERING INTERN.CHILDREN'S TUTOR NURSERY Work Phone: [facility] 10-20-2022 07:59-0500 Diastolic blood pressure 76 mm[Hg] Alycia Jacobs CIVIL ENGINEERING INTERN.CHILDREN'S TUTOR NURSERY Work Phone: [facility] 10-20-2022 07:59-0500 Heart rate 64 /min Alycia Jacobs CIVIL ENGINEERING INTERN.CHILDREN'S TUTOR NURSERY Work Phone: [facility] 10-20-2022 07:59-0500 Respiratory rate 14 /min Alycia Jacobs CIVIL ENGINEERING INTERN.CHILDREN'S TUTOR NURSERY Work Phone: [facility] 10-20-2022 07:59-0500 Systolic blood pressure 120 mm[Hg] Alycia Jacobs CIVIL ENGINEERING INTERN.CHILDREN'S TUTOR NURSERY Work Phone: [facility] 06-14-2022 09:09-0400 Body weight 57.15 kg Marissa Solis MD Work Phone: [facility] 06-14-2022 09:09-0400 Diastolic blood pressure 72 mm[Hg] Marissa Solis MD Work Phone: [facility] 06-14-2022 09:09-0400 Systolic blood pressure 118 mm[Hg] Marissa Solis MD Work Phone: [facility] 01-26-2022 09:54-0400 Body height 156.2 cm Marissa Solis MD Work Phone: [facility] 01-26-2022 09:54-0400 Body weight 53.52 kg Marissa Solis MD Work Phone: [facility] 01-26-2022 09:54-0400 Diastolic blood pressure 72 mm[Hg] Marissa Solis MD Work Phone: [facility] 01-26-2022 09:54-0400 Systolic blood pressure 110 mm[Hg] Marissa Solis MD Work Phone: [facility] 11-02-2021 09:51-0400 Body height 157.5 cm Lexi Opolis PA-C Work Phone: [facility] 11-02-2021 09:51-0400 Body temperature 97.5 [degF] Lexi Ronal PA-C Work Phone: [facility] 11-02-2021 09:51-0400 Body weight 53.98 kg Lexi Ronal PA-C Work Phone: [facility] 11-02-2021 09:51-0400 Diastolic blood pressure 75 mm[Hg] Lexi Ronal PA-C Work Phone: [facility] 11-02-2021 09:51-0400 Heart rate 89 /min Lexi Opolis PA-C Work Phone: [facility] 11-02-2021 09:51-0400 SaO2% (BldA) [Mass fraction] 99 % Lexi Ronal PA-C Work Phone: [facility] 11-02-2021 09:51-0400 Systolic blood pressure 127 mm[Hg] Lexi Opolis PA-C Work Phone: [facility] Encounters Encounter Date Encounter Type Care Provider Facility Start: 10-11-2023 Refill Odalis Vetovit z PA-C Work Phone: [facility] Procedures Date Procedure Procedure Detail Performing Clinician Start: 09-29-2023 Hepatobil syst imag inc gb w/pharma intervenj Blane Gannon DO Work Phone: Start: 04-27-2023 Us pelvic nonobstetr ic image dcmtn limited/f/u Alycia Jacobs CIVIL ENGINEERING INTERN.CHILDREN'S TUTOR NURSERY Work Phone: Start: 04-27-2023 End: 04-27-2023 Mammography Bulk Order Provider Start: 04-13-2023 Urnls dip stick/tabl et rgnt auto w/o microscopy Alycia Jacobs APRN.CNP Work Phone: Start: 02-07-2022 Radex hip unilateral with pelvis 2-3 views Crow Cross MD Work Phone: Start: 01-27-2022 VALENTINA SCREENING W ULI Green MD Work Phone: Start: 01-27-2022 Mammography Screen Wst r Start: 10-19-2021 Colonoscopy Lexi chang PA-C Work Phone: Start: 01-21-2021 Mammography Lexi chang PA-C Work Phone: Start: 10-24-2018 Adult depression scr eening assessment Lexi NEGRON-Claudette Work Phone: Start: 05-05-2018 Lipid 1996 panel - S kimmie or Plasma Screen Wstr Plan of Treatment Date Care Activity Detail Author Start: 10-20-2031 Colonoscopy COLONOSCOPY [facility] Start: 10-20-2031 COLORECTAL CANCER SCREENING COLORECTAL CANCER SCREENING [facility] Start: 10-20-2031 Screening for malign ant neoplasm of colon [facility] Start: 04-13-2026 DIABETES SCREEN DIABETES SCREEN [facility] Start: 04-13-2026 Diabetes Screening Diabetes Screenin g [facility] Start: 09-06-2024 Annual PCP Team Lead Software Development Engineer bernie Disease Visit Annual PCP Team Chronic Disease Visit [facility] Start: 04-27-2024 Mammography [facility] Start: 04-27-2024 Screening for malign ant neoplasm of breast Mammogram Screening [facility] Start: 04-13-2024 ANNUAL PCP TEAM LEARNING ENGINEER BERNIE DISEASE VISIT ANNUAL PCP TEAM CHRONIC DISEASE VISIT [facility] Start: 04-13-2024 BONE DENSITY BONE DENSITY [facility] Immunizations Immunization Date Immunization Notes Care Provider Fa rohinity 08-27-2021 pneumococcal polysaccharide vaccine, 23 valent Lexi Villeda PA-C Work Phone: [facility] 07-29-2021 influenza virus vacc ine, unspecified formulation Screen Wstr [facility] 06-05-2019 influenza, seasonal, injectable Lexi Villeda JAMIL-Claudette Work Phone: [facility] 03-22-2018 tetanus and diphther ia toxoids, adsorbed, preservative free, for adult use (5 Lf of tetanus toxoid and 2 Lf of diphtheria toxoid) Lexi Villeda JAMIL-C Work Phone: [facility] 07-26-2017 zoster vaccine, live Lexi Villeda JAMIL-Claudette Work Phone: [facility] Work Phone: 06-07-2017 influenza, seasonal, injectable Lexi Villeda JAMIL-C Work Phone: [facility] Work Phone: 04-30-2011 influenza virus vacc ine, unspecified formulation Lexi Villeda JAMIL-C Work Phone: [facility] Payers Date Payer Category Payer Medicare MEDICARE MEDICAR E A AND B [id number] 2020-Present [phone] [place] [address] Medicare [id number] 2020 Medicare MEDICARE MEDICAR E A AND B [id number] 2020-Present [phone] [place] [address] Medicare [id number] 2020 Medicare [id number] 2020 Medicare [id number] 2020 Unknown [employer] DICARE SUPPLEMENT [id number] 2020-Present [phone] [address] [place] [address] Indemnity [id number] 2020 Unknown [employer] DICARE SUPPLEMENT [id number] 2020-Present [phone] [address] [place] [address] John [id number] Social History Date Type Detail Facility Start: 07-27-2011 End: 06-14-2022 Tobacco smoking status NHIS Never smoked tobacco [facility] Start: 11-02-2021 End: 10-10-2023 Alcohol intake Current non-drinker of alcohol (finding) [facility] Start: 01-01-2020 History SDOH Social Connections Phone 5 [facility] Start: 01-01-2020 History SDOH Social Connections Get Together 2 [facility] Start: 01-01-2020 History SDOH Social Connections Episcopalian 3 [facility] Start: 01-01-2020 History SDOH Social Connections Meetings 1 [facility] Start: 1955 Sex Assigned At Not on file [facility] Start: 10-23-2021 End: 02-07-2022 Exposure to SARS-CoV-2 (event) Not sure [facility] Start: 01-09-2022 End: 01-19-2022 Exposure to SARS-CoV-2 (event) Unable to assess [facility] Start: 07-27-2011 End: 06-14-2022 Tobacco use and exposure Smokeless tobacco non-user [facility] Work Phone: Start: 10-20-2022 End: 04-13-2023 History of Social function [facility] Work Phone: Start: 10-20-2022 End: 04-13-2023 Tobacco use panel [facility] Work Phone: Adult Depression Screening Assessment 0 [facility] Work Phone: Start: 12-07-2020 Gender identity Identifies as female gender (finding) [facility] Start: 12-07-2020 Sexual orientation Heterosexual (finding) [facility] Do you belong to any clubs or organizations such as taoist groups, unions, fraternal or athletic groups, or school groups? No [facility] Are you now , , , , never or living with a partner? [facility] Do you feel stress - tense, restless, nervous, or anxious, or unable to sleep at night because your mind is troubled all the time - these days [OSQ] Not at all [facility] (I/We) worried wheth er (my/our) food would run out before (I/we) got money to buy more. Never true [facility] Clinical Notes 11-06-2020 to 09-29-2023 Catrina Navarro RT(R) - 09/29/2023 8:00 AM ESTTelephone Encounter - Sunita White LPN - 09/26/2023 9:44 AM ESTTelephone Encounter - Yara Edmonds - 09/13/2023 6:20 PM EST Note Date & Type Note Facility 09-29-2023 Note HNO ID: [id number] Author: CATRINA NAVARRO RT(Abdullahi) Service: Nuclear Medicine Author Type: Technologist Type: Progress Notes Filed: 09/29/2023 09:19 Note Text: RADIOLOGY SERVICE PROGRESS NOTE SERVICE DATE: 09/29/2023 SERVICE TIME: 9:18 AM PATIENT IDENTITY VERIFICATION COMPLETED USING TWO (2) STANDARD IDENTIFIERS: Name and Date of confirmed by patient verbally FALL SCREENING: Has the patient had 2 falls in the last year or 1 fall with injury or currently using an Ambulatory Assistive Device (Walker, Cane, Wheelchair, Crutches, etc.)? No PATIENT GENDER DATA: .female : No ALLERGIES: Reviewed and unchanged MEDICATIONS REVIEWED: No PATIENT RELEVANT IMPLANT DATA REVIEWED: Not Applicable PATIENT PRESENTS WITH AN IMPLANTABLE OR ATTACHED ACT ENGLISH TUTOR: No CREATININE: Creatinine Date Value Ref Range Status 10/11/2019 1.02 (H) 0.58 - 0.96 mg/dL Final 10/24/2018 1.04 (H) 0.58 - 0.96 mg/dL Final 05/05/2018 0.98 0.6 - 1.3 MG/DL Final eGFR-All Other Races Date Value Ref Range Status 10/11/2019 55 . Final Comment: eGFR (Estimated GFR) Units of measure: mL/min/1.73 meters squared eGFR is derived from the reexpressed MDRD Study equation using the following parameters: serum creatinine, age, gender and race. The creatinine assay has been calibrated to be traceable to IDMS. An eGFR <60 mL/min/1.73m2 for >3 months is consistent with chronic kidney disease. Refer to KDOQI guidelines for clinical interpretation. In patients with unstable renal function, e.g. those with acute kidney injury, the eGFR may not accurately reflect actual GFR. eGFR- Date Value Ref Range Status 10/11/2019 >60 Final P.O.C.T. RESULTS: N/A September 29, [address] PERFORMED: No IV SITE: Ambulatory: A peripheral IV was started in the Right hand with a Angio cath: 22 gauge. POST EXAM PIV STATUS: Discontinued PROCEDURE TYPE: NM INJECT: HIDA5.8. 5.8 mCi Tc99m CHOLETEC. CCK 1.1 micrograms intravenous at 0900. ADMINISTRATION TIME: 0800 PATIENT DISCHARGED TO: Ambulatory patient, left [place] department area. A Diagnostic radioactive procedure has taken place, with no further precautions necessary other than routine body substance precautions. More information regarding radiation safety can be found using this link: [email or web address] 20Diagnostic%20Nuclear%20Medicine% 20Procedures.pdf SIGNATURE: RT Heydi(R) PATIENT NAME: Gely Shirley DATE: September 29, 2023 TIME: 9:18 AM PAGER/CONTACT #: [facility] 09-29-2023 History of Present illness Narrative RADIOLOGY SERVICE PROGRESS NOTE SERVICE DATE: 09/29/2023 SERVICE TIME: 9:18 AM PATIENT IDENTITY VERIFICATION COMPLETED USING TWO (2) STANDARD IDENTIFIERS: Name and Date of confirmed by patient verbally FALL SCREENING: Has the patient had 2 falls in the last year or 1 fall with injury or currently using an Ambulatory Assistive Device (Walker, Cane, Wheelchair, Crutches, etc.)? No PATIENT GENDER DATA: .female : No ALLERGIES: Reviewed and unchanged MEDICATIONS REVIEWED: No PATIENT RELEVANT IMPLANT DATA REVIEWED: Not Applicable PATIENT PRESENTS WITH AN IMPLANTABLE OR ATTACHED ACT ENGLISH TUTOR: No CREATININE: Creatinine Date Value Ref Range Status 10/11/2019 1.02 (H) 0.58 - 0.96 mg/dL Final 10/24/2018 1.04 (H) 0.58 - 0.96 mg/dL Final 05/05/2018 0.98 0.6 - 1.3 MG/DL Final eGFR-All Other Races Date Value Ref Range Status 10/11/2019 55 . Final Comment: eGFR (Estimated GFR) Units of measure: mL/min/1.73 meters squared eGFR is derived from the reexpressed MDRD Study equation using the following parameters: serum creatinine, age, gender and race. The creatinine assay has been calibrated to be traceable to IDMS. An eGFR <60 mL/min/1.73m2 for >3 months is consistent with chronic kidney disease. Refer to KDOQI guidelines for clinical interpretation. In patients with unstable renal function, e.g. those with acute kidney injury, the eGFR may not accurately reflect actual GFR. eGFR- Date Value Ref Range Status 10/11/2019 >60 Final P.O.C.T. RESULTS: N/A September 29, [address] PERFORMED: No IV SITE: Ambulatory: A peripheral IV was started in the Right hand with a Angio cath: 22 gauge. POST EXAM PIV STATUS: Discontinued PROCEDURE TYPE: NM INJECT: HIDA5.8. 5.8 mCi Tc99m CHOLETEC. CCK 1.1 micrograms intravenous at 0900. ADMINISTRATION TIME: 0800 PATIENT DISCHARGED TO: Ambulatory patient, left [place] department area. A Diagnostic radioactive procedure has taken place, with no further precautions necessary other than routine body substance precautions. More information regarding radiation safety can be found using this link: [email or web address] [email or web address]%20Nuclear %20Medicine%20Procedures.[email or web address] SIGNATURE: RT Heydi(Abdullahi) PATIENT NAME: Gely Shirley DATE: September 29, 2023 TIME: 9:18 AM PAGER/CONTACT #: documented in this encounter [facility] 09-26-2023 Miscellaneous Notes Testing scheduled. Sunita White LPN Please assist with scheduling Yara Edmonds Pt informed, verbalized understanding. Yara Edmonds I'd like her to have a Hida scan done which looks at how well her gallbladder is functioning. Please assist her to schedule this. I'm sending in Carafate, a medication to take 4 times daily (before meals and at bedtime) that helps to coat the stomach in the case that she has or is beginning with a stomach ulcer. She can then see what general surgery recommends. The following approved medication requests have been transmitted electronically. Requested Prescriptions Signed Prescriptions Disp Refills sucralfate (CARAFATE) 1 gram tablet 56 tablet 0 Sig: Take 1 tablet by mouth before meals and at bedtime for 14 days. Authorizing Provider: BLANE GANNON Ordering User: ALESHIA HICKS APRN.CNP Pt informed, verbalized understanding. Pt reports she is now having upper back pain between her shoulders. She reports its more painful when she's hungry and after eating. Trying to eat a bland diet but not improving sx. Pt asking if she can take anything for the abd discomfort? Yara Edmonds MA Please let her know that she has a small polyp in her gallbladder and simple cysts on her kidney which are likely benign. As far as the small gallbladder polyp, we would typically just monitor this because it is small. However since she is having her symptoms, I would recommend she discuss this when she sees the general surgeon. Aleshia Hicks APRN.CHILDREN'S TUTOR NURSERY Rebecca with [facility] called to check and make sure you are following pt for the gallbladder polyp and cysts in right kidney. Please advise pt is there is anything they need to do. Sunita White LPN documented in this encounter [facility] 09-11-2023 Note HNO ID: [id number] Author: SENAIT TEIXEIRA RDMS Service: ? Author Type: Board Winder Type: Progress Notes Filed: 09/11/2023 10:35 Note Text: Radiology Service Progress Note PATIENT NAME: Gely Shirley DATE OF SERVICE: September 11, 2023 TIME: 10:35 AM PATIENT IDENTITY VERIFICATION COMPLETED USING TWO [...] PERIPHERAL IV DATA: Not applicable SIGNED BY: Senait Teixeira RDMS September 11, 2023 10:35 AM [facility] 09-06-2023 Note HNO ID: [id number] Author: ALESHIA HICKS APRN.CHILDREN'S TUTOR NURSERY Service: ? Author Type: Nurse Practitioner Type: Progress Notes Filed: 09/06/2023 11:07 Note Text: Chief Complaint Patient presents with: Abdominal Pain: Mid upper abdomen x 2 weeks, Lab work HPI Gely Shirley is a 67 year old female who presents here today for Above Complaints. Currently today: Upper mid abdominal pain-is always present, but intensity comes and goes. Eating does not help, occasionally makes it worse. Cannot pinpoint a specific food. Does have some pressure/pain between her shoulder blades. About a year ago was dx with GERD. But with this doesn't feel bloated. Omeprazole helped a while ago but has not been any more. No urinary concerns or bowel concerns. Past medical history, appointments, medications, allergies reviewed. [...] on File Prior to Visit Medication Sig estradiol (ESTRACE) 1 mg tablet Take 1 tablet by mouth once daily. calcitriol (ROCALTROL) 0.25 mcg capsule Take 1 capsule by mouth every afternoon. medroxyPROGESTERone (PROVERA) 2.5 mg tablet TAKE 1 TABLET BY MOUTH EVERY DAY venlafaxine ER (EFFEXOR XR) 75 mg 24 hr capsule TAKE 1 CAPSULE BY MOUTH ONCE DAILY omeprazole (PRILOSEC) 20 mg capsule Take 1 capsule by mouth daily before breakfast. 1/2 hr before meal. ferrous sulfate 325 mg (65 mg iron) [...] Take 400 mg by mouth twice daily. atorvastatin (LIPITOR) 20 mg tablet Take 1 tablet by mouth every afternoon. (Patient not taking: Reported on 09/06/2023) No current facility-administered medications on file prior to visit. Social History Social History Tobacco Use Smoking status: Never Smokeless tobacco: Never Vaping Use Vaping Use: Never used Substance Use Topics Alcohol use: No Drug use: No Review of Symptoms REVIEW OF SYSTEMS See HPI, otherwise negative EXAM: BP 126/80 (BP Site: Left Arm, BP Position: Sitting, BP Cuff Size: Regular Adult) Pulse 86 Wt 56.9 kg (125 lb 6.4 oz) LMP 11/23/2010 SpO2 96% BMI 22.79 kg/m? General Appearance: Well appearing, alert, in no acute distress, well-hydrated, well nourished.. Lungs: Lungs clear to auscultation. No wheezing, rhonchi, rales.. Heart: RRR without murmur, gallop, or rubs. No ectopy. Abdomen: mild tenderness to palpation of epigastric area, moderate tenderness with palpation of RUQ, bowel sounds normal and present x4, no masses or organomegaly noted, no guarding. Health Maintenance List Hepatitis C Screening Never done RSV Vaccine(1 - 1-dose 60+ series) Never done Influenz (more content not included)... [facility] 07-19-2023 Miscellaneous Notes Patient rescheduled Patient returned call. She would like September 07 for surgery. Rescheduled her Pre Op for 08/30. Left message to call officel. Next available dates for surgery with Dr. Solis at [facility] are , , or . Patient will need pre-operative appointment rescheduled Left message on patient's voicemail that I would contact her next week to reschedule surgery Patient changed her mind and does not want surgery on 08/18. Wants to wait until sometime in August instead. Forwarded to data entry representative. Nicci Lopez RN Noted. Patient called to inform DM that she found her bottle of Estradiol and does not need additional refills. Aware data entry representative will be contacting her to schedule. Patient met her deductible and hoping to have it done this year. Message also forwarded to data entry representative. Deisy Jose RN documented in this encounter [facility] 07-04-2023 Note HNO ID: [id number] Author: Marissa Carrasco MD Service: ? Author Type: Physician Type: Progress Notes Filed: 07/04/2023 1:24 PM Note Text: Wheel Press Clerk offered: Patient declines. Gely Shirley is a [...] after . Still has 3 living children. Parking Officer History LMP: 11/23/2010, Postmenopausal Age at Menarche: Age at First : Age at Menopause: Parking Officer History Comments: Sexual Activity: Yes; Male; btl [...] N84.0 4. Reviewed (more content not included)... [facility] 07-04-2023 History of Present illness Narrative Wheel Press Clerk offered: Patient declines. Gely Shirley is a [...] after . Still has 3 living children. Parking Officer History LMP: 11/23/2010, Postmenopausal Age at Menarche: Age at First : Age at Menopause: Parking Officer History Comments: Sexual Activity: Yes; Male; btl [...] Medical Decision Making Level: 4 - Moderate Marissa Luna MD documented in this encounter [facility] 05-18-2023 Note HNO ID: [id number] Author: Luann Lagunas APRN.CNP Service: ? Author Type: Nurse Practitioner [...] material given to the patient. Luann Lagunas APRN.[facility] 04-27-2023 Note HNO ID: [id number] Author: Libby Esquivel Mammo Tech Service: ? Author Type: Board Winder Type: Progress Notes Filed: 04/27/2023 9:52 AM [...] Conor Mahoney April 27, 2023 9:34 AM [facility] 04-27-2023 Note HNO ID: [id number] Author: Gisselle Millan RDMS Service: ? Author Type: Baller Tender Type: Progress Notes Filed: 04/27/2023 11:09 AM [...] RDMS RVT April 27, 2023 11:09 AM [facility] 04-27-2023 History of Present illness Narrative [...] IV DATA: Not applicable SIGNED BY: Mervat Mahoneyo Doretha April 27, 2023 9:34 AM documented in this encounter [facility] 04-27-2023 Miscellaneous Notes April 28, 2023 PID: [id number] Gely Shirley [address] [place] [address] Dear Ms. Shirley, We are pleased to [...] report will be kept on file at [facility] as part of your permanent medical record and are available for your continuing care. Thank you for allowing us to help in meeting your health care needs. Sincerely, Dr. Leslie Interpreting Radiologist [facility] (Normal over 40) documented in this encounter [facility] 04-27-2023 History of Present illness Narrative Radiology [...] 2023 11:09 AM documented in this encounter [facility] 04-14-2023 Miscellaneous Notes Pt informed, verbalized understanding. Yara Edmonds Please call patient and let her know that urine culture was inconclusive for bacteria. Continue antibiotic if improving symptoms. OK to start diflucan if symptoms are not resolving as well. Continue with CHEF FRENCH and US. Thank you, Alycia Jacobs APRN.[facility] documented in this encounter [facility] 04-13-2023 Note HNO ID: [id number] Author: Alycia Jacobs APRN.CNP Service: ? Author Type: Nurse [...] Rectal: Deferred exam. (more content not included)... [facility] 04-13-2023 History of Present illness Narrative [...] symptoms occur. Patient agreeable to treatment plan. Alycia Davison APRN.[facility] [address] [place] [address] documented in this encounter [facility] 04-13-2023 Nurse Note Pt states spotting states in last 6 weeks 4 different times. Pt states feels has a yeast infection . Did treat with over the counter meds . It helped a little but is coming back. documented in this encounter [facility] 03-15-2023 Note Patient Outreach (IN TMMN) GELY SHIRLEY ([id number]) 1955 F Date Time Provider Department 03/15/23 GANNON[facility] CHACON During your visit today, we recorded the following information about you: Allergies As of Date: 03/15/2023 Noted Allergy Reaction NO KNOWN DRUG ALLERGIES 09/01/2009 Date Reviewed: 10/20/2022 Reviewed by: Alycia Jacobs APRN.[facility]UR[facility] - Fully Assessed Visit Diagnosis:Encounter for screening mammogram for breast cancer [Z12.31] Order(s):[facility] SCREENING W ULI [[id number]] Order #: [id number] FUTURE Prescriptions as of 03/20/2023 - medroxyPROGESTERone [...] carpometacarpal (CMC) joint o*10/19/2020 Encounter Status:Closed by [employer] on 03/20/23 [facility] 02-24-2023 Miscellaneous Notes See pharmacy generated refill request. Pt was last seen in the office 06/14/22. Please advise. Mirela Gonzales LPN ' documented in this encounter [facility] 01-20-2023 Miscellaneous Notes Jeffery--10/20/22 Nov--nothing scheduled Last [...] Divya Cross Pss documented in this encounter [facility] 10-20-2022 Note HNO ID: [id number] Author: Alycia Jacobs APRN.[facility] Service: ? Author Type: Nurse Practitioner Type: [...] tenderness or abnormalities. (more content not included)... [facility] 10-20-2022 History of Present illness Narrative [...] TRANSORAL BIOPSY SINGLE/MULTIPLE 10/02/2015 gastritis EGD W/O [facility] SPEC VARICIES INJ 10/19/2021 ENDOMETRIAL BX W/WO [...] symptoms occur. Patient agreeable to treatment plan. Alycia Davison APRN.KETAN [address] [place] [address] documented in this encounter [facility] 06-14-2022 Instructions Jacklyn Esparza Ma - 06/14/2022 [...] contact the office. documented in this encounter [facility] 06-14-2022 History of Present illness Narrative Gely [...] EMERGENT procedures): All specimen containers correctly labeled. Marissa Luna MD OBJECTIVE: Cervix cleaned with betadine. [...] hysteroscopy. PLAN: Follow up endometrial biopsy results. Marissa Luna MD documented in this encounter [facility] 06-13-2022 Miscellaneous Notes Patient notified. Nicci Lopez RN Left message for patient to call office. Nicci Lopez RN ----- Message from Marissa Solis MD sent at 06/08/2022 12:55 PM EDT ----- Notify patient that she has likely endometrial polyp which is source of bleeding- recommend Hysteroscopy, D&C, polypectomy in [place]. Has small likely dermoid cyst on right ovary- will need follow up in 6-12 weeks with ultrasound. We an discuss further at her appt on 06/14/22 documented in this encounter [facility] 02-24-2022 Miscellaneous Notes Patient calling needing a refill on her Effexor as she is leaving for vacation tomorrow. Refill was sent on 02/22, but went to incorrect place. Pharmacy updated, please file. Claudette Cheung RN documented in this encounter [facility] 02-22-2022 Miscellaneous Notes Patient called needing a refill. Last annual 01/26/22. Leaving for vacation and will run out while out of town. Pending Prescriptions Disp Refills VENLAFAXINE ER 75 MG CAPSULE,EXTENDED RELEASE 24 HR 90 capsule 3 Sig: Take 1 capsule by mouth once daily. IGLESIA: No documented in this encounter [facility] 02-14-2022 Miscellaneous Notes Pt. notified and verbalizes [...] states she gets her medication filled at [facility] in [place]. Please call pt at [phone]. documented in this encounter [facility] 02-07-2022 History of Present illness Narrative Crow Cross MD Department of Orthopaedics Orthopaedics [address] [facility] [address] Dept: [phone] Dept February 07, 2022 CHIEF COMPLAINT: Established [...] IMPRESSION: Minimal/mild narrowing of the left hip. Mangle Press Catcher: JOSÉ ANTONIO Transcribe Date/Time: Feb 07 2022 [...] Crow Cross MD documented in this encounter [facility] 02-07-2022 History of Present illness Narrative Radiology [...] 2022 7:57 AM documented in this encounter [facility] 01-27-2022 Miscellaneous Notes January 27, 2022 PID: [id number] Gely Shirley [id number] [place] [id number] Dear Ms. Shirley, We are pleased to [...] report will be kept on file at [facility] as part of your permanent medical record and are available for your continuing care. Thank you for allowing us to help in meeting your health care needs. Sincerely, Dr. Leslie Interpreting Radiologist 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 Gely is a 66 year old who presents [...] after . Still has 3 living children. 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 Marissa Luna MD documented in this encounter [facility] 12-23-2021 Miscellaneous Notes Received refill request for [...] Deisy Jose RN documented in this encounter [facility] 11-02-2021 Instructions Lexi Villeda PA-C - 11/02/2021 10:30 AM EDT -Contact office if any recurrent right upper quadrant pain or if diarrhea recurs -Recommend follow up right upper quadrant ultrasound at 6 months (due February 2022) for surveillance of gallbladder polyp noted on prior ultrasound in August The following instructions are important for you related to your office visit today with the [facility] General Surgeons. INSTRUCTIONS FOLLOWING A NORMAL [...] you should contact our office immediately @ [phone] and ask to be transferred to the General Surgery department. documented in this encounter [facility] 11-02-2021 History of Present illness Narrative FOLLOW UP VISIT - ENDOSCOPY NAME: Gely Keenan [facility] NO.: [id number] DATE OF SERVICE: 11/02/2021 : 1955 REFERRING [...] gallbladder polyp on imaging ordered by her senior radiation therapist: IMPRESSION: Gallbladder polyp. No biliary dilatation. Hyperechoic [...] which included preparing to see the patient, [id number] patient care, completing clinical documentation, obtaining and/or reviewing separately obtained history, counseling and educating the patient/family/caregiver, communicating with other HCPs (not separately reported), independently interpreting results (not separately reported), communicating results to the patient/family/caregiver and care coordination (not separately reported). Lexi Villeda PA-C documented in this encounter [facility] 10-05-2021 Miscellaneous Notes 10/19/21 EGD & Colonoscopy with Dr. Wan at the [facility] with Miralax/Dulcolax prep documented in this encounter [facility] 01-11-2021 Note HNO ID: [id number] Author: Piper Bullock OT/Shlomo Service: ? Author [...] CARE PLAN OF CARE UPDATE: Assessment: Gely Shlomo Sharmase is discontinued from Occupational Therapy services due to goal achievement and maximal benefit.. Patient was seen for 5 visits from Start of Care Date: 12/08/20 to 01/11/2021 and treatment included: Therapeutic exercise, Self-long term management, Modalities, Custom orthosis fabrication and Prefabricated [...] Right Limitation Thumb AROM: Right Limitation Strength: Metal Hanging Helper Position 2;Pinch Meter Hand Strength R Metal Hanging Helper Position 2 (lbs): 30 lbs R Lateral [...] ext and opposition 3: with med putty naphthalene operator helper, digit flexion tripod pinch 4: [...] needs. Patient response monitored throughout treatment. Billing: Bath: Therapeutic Exercise (28020): 1:1 time:30 minutes (2 units: 23-37 mins) Fluidotherapy (16033) 1 unit(s) Total time / Length of visit: 45 minutes Piper Bullock OT/Shlomo [facility] 01-04-2021 Note HNO ID: [id number] Author: ANITA Cyr Service: ? Author Type: [...] FUNCTION: Hand Skin / Wound: Scar Strength: Metal Hanging Helper Position 2;Pinch Meter Hand Strength R Metal Hanging Helper Position 2 (lbs): 6 lbs L Metal Hanging Helper Position 2 (lbs): 54 lbs R Lateral Pinch (lbs): 4 lbs R Tripod/ 3 Jaw Kavin (lbs): 5 lbs R Tip Pinch (lbs): 5 lbs TREATMENT: Therapeutic Exercise: 1: with soft puttyu naphthalene operator helper digit ext roll digit flexion [...] needs. Patient response monitored throughout treatment. Billing: Bath: Therapeutic Exercise (45137): 1:1 time:35 minutes (2 units: 23-37 mins) Fluidotherapy (55656) 1 unit(s) Total time / Length of visit: 45 minutes Piper Bullock OT/Shlomo [facility] 12-28-2020 Note HNO ID: [id number] Author: ANITA Cyr Service: ? Author Type: [...] palmar abduction and opposition 5: soft sponge naphthalene operator helper manipulate and berry picker machine operator 6: adjusted splint 7: circumduction cw and [...] needs. Patient response monitored throughout treatment. Billing: Bath: Therapeutic Exercise (23742): 1:1 time:35 minutes (2 units: 23-37 mins) Fluidotherapy (80039) 1 unit(s) Total time / Length of visit: 45 minutes Piper Bullock OT/Shlomo [facility] 12-14-2020 Note HNO ID: [id number] Author: Piper Bullock Service: ? Author Type: [...] MEASURES WITH LEVEL OF FUNCTION: Hand Strength: Metal Hanging Helper Position 2;Pinch Meter Hand Strength R Metal Hanging Helper Position 2 (lbs): 19 lbs L Metal Hanging Helper Position 2 (lbs): 49 lbs R Lateral [...] needs. Patient response monitored throughout treatment. Billing: Bath: Therapeutic Exercise (71556): 1:1 time:30 minutes (2 units: 23-37 mins) Fluidotherapy (56647) 1 unit(s) Total time / Length of visit: 40 minutes Piper Bullock OT/Shlomo [facility] 12-08-2020 Note HNO ID: [id number] Author: Piper Bullock Service: ? 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 Planned Interventions, Frequency, and Duration: Current Frequency: 1x/week Duration: 8 weeks Total Number of Visits Planned: 8 Planned Treatment Interventions: Custom orthosis fabrication;Therapeutic exercise (75194);Prefabricated orthosis fitting;Self-long term management (08911);Fluidotherapy (69814) PLAN FOR NEXT VISIT: adjust splint PRN [...] R handed retired, lives with kitchen migue jimmy 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 [facility] 12-08-2020 Note HNO ID: [id number] Author: SHAISTA Camacho (Ct) Service: Radiology Author Type: Clinical Board Winder Type: Progress Notes Filed: 12/08/2020 8:21 AM [...] SHAISTA Camacho December 08, 2020 8:21 AM [facility] 11-06-2020 Note HNO ID: [id number] Author: George Fabian MD Service: Anesthesiology Author [...] November 06, 2020 TIME: 7:27 AM CSN: [id number] [facility] documented in this encounter [facility] note* Diagnosis Encounter for gynecological examination without abnormal finding- Primary Routine gynecological examination Hormone replacement therapy (HRT) Need for prophylactic hormone replacement therapy (postmenopausal) documented in this encounter [facility]* Diagnosis Encounter for screening mammogram for malignant neoplasm of breast Other screening mammogram [facility] Diagnosis Pain in left hip- Primary Pain in joint, pelvic region and thigh documented in this encounter [facility]* Diagnosis Pain in left hip Pain in joint, pelvic region and thigh documented in this encounter [facility]* Diagnosis Hip pain- Primary Pain in joint, pelvic region and thigh documented in this encounter [facility] note* Diagnosis Iron deficiency- Primary Iron deficiency anemia, unspecified Change in bowel habits Other symptoms involving digestive system documented in this encounter [facility] note* Diagnosis Primary osteoarthritis of left hip- Primary Primary localized osteoarthrosis, pelvic region and thigh Chronic left hip pain Pain in joint, pelvic region and thigh documented in this encounter [facility]* Diagnosis Postmenopausal bleeding- Primary documented in this encounter [facility] note* Diagnosis PMB (postmenopausal bleeding)- Primary Postmenopausal bleeding Endometrial polyp Polyp of corpus uteri documented in this encounter [facility]* Diagnosis Hip pain Pain in joint, pelvic region and thigh documented in this encounter [facility]* Diagnosis Gastroesophageal reflux disease with esophagitis, unspecified whether hemorrhage- Primary documented in this encounter [facility] note* Diagnosis NSAID long-term use- Primary Encounter for long-term (current) use of non-steroidal anti-inflammatories documented in this encounter [facility] note* Diagnosis Gastroesophageal reflux disease with esophagitis, unspecified whether hemorrhage documented in this encounter [facility] note* Diagnosis Encounter for screening mammogram for breast cancer documented in this encounter [facility]* Diagnosis Post-menopausal bleeding- Primary Postmenopausal bleeding Spotting Other specified noninflammatory disorder of vagina Pelvic pressure in female Other specified symptom associated with female genital organs documented in this encounter [facility] note* Diagnosis Encounter for screening mammogram for breast cancer documented in this encounter [facility] note* Diagnosis Post-menopausal bleeding Postmenopausal bleeding Spotting Other specified noninflammatory disorder of vagina Pelvic pressure in female Other specified symptom associated with female genital organs documented in this encounter [facility] note* Diagnosis PMB (postmenopausal bleeding)- Primary Postmenopausal bleeding Hormone replacement therapy (HRT) Need for prophylactic hormone replacement therapy (postmenopausal) Endometrial polyp Polyp of corpus uteri documented in this encounter [facility]* Diagnosis Epigastric pain- Primary Abdominal pain, epigastric RUQ pain Abdominal pain, right upper quadrant Nausea Nausea alone Gastroesophageal reflux disease with esophagitis without hemorrhage documented in this encounter [facility] note* Diagnosis Epigastric pain Abdominal pain, epigastric RUQ pain Abdominal pain, right upper quadrant Nausea Nausea alone Gastroesophageal reflux disease with esophagitis without hemorrhage documented in this encounter [facility]* Diagnosis Hip pain Pain in joint, pelvic region and thigh documented in this encounter [facility] for referral (narrative)* Diagnostic Procedure Only (Routine) - Closed Specialty Diagnoses / Procedures Referred By Stephanie t Referred To Contact [facility] Diagnoses Encounter for screening mammogram for malignant neoplasm of breast Procedures [place] SCREENING W ULI SCREENING DIGITAL BREAST TOMOSYNTHESIS BI SCREENING MAMMOGRAPHY BI 2-VIEW BREAST INC CAD Marissa Carrasco MD [address] [place] [address] [facility] [address] [place] [address] Referral ID Status Reason Start Date Expiration Date V isits Requested Visits Authorized [id number] Closed Auto-Generate d Referral 12/29/2021 01/28/2023 1 1 [facility] for referral (narrative)* Diagnostic Procedure Only (Routine) - Pending Review Specialty Diagnoses / Procedures Referred By Stephanie santana Referred To Contact XR IMAGING Diagnoses Pain in left hip Procedures XR HIP GENERAL 3V PELV/AP/LAT LEFT RADEX HIP UNILATERAL WITH PELVIS 2-3 VIEWS Crow Cross MD [address] [place] [address] Xr Imaging Referral ID Status Reason Start Date Expiration Date Visits Requested Visits Authorized [id number] Pending Review Auto-Generat ed Referral 02/02/2022 03/04/2023 1 1 [facility] for referral (narrative)* Diagnostic Procedure Only (Routine) - Closed Specialty Diagnoses / Procedures Referred By Stephanie santana Referred To Contact XR IMAGING Diagnoses Pain in left hip Procedures XR HIP GENERAL 3V PELV/AP/LAT LEFT RADEX HIP UNILATERAL WITH PELVIS 2-3 VIEWS Crow Cross MD [address] [place] [address] Xr Imaging Referral ID Status Reason Start Date Expiration Date V isits Requested Visits Authorized [id number] Closed Auto-Generate d Referral 02/02/2022 03/04/2023 1 1 [facility] for referral (narrative)* Outpatient Procedure (Routine) - Closed Specialty Diagnoses / Procedures Referred By Contac t Referred To Contact [facility] Diagnoses Iron deficiency Change in bowel habits Procedures COLONOSCOPY SCREENING COLONOSCOPY FLX DX W/COLLJ SPEC WHEN PFRMD Lexi Villeda PA-C [address] [place] [address] [address] Referral ID Status Reason Start Date Expiration Date V isits Requested Visits Authorized [id number] Closed Auto-Generate d Referral 10/05/2021 10/05/2022 1 1 * Outpatient Procedure (Routine) - Closed Specialty Diagnoses / Procedures Referred By Contac t Referred To Contact [facility] Diagnoses Iron deficiency Change in bowel habits Procedures EGD DIAGNOSTIC ESOPHAGOGASTRODUODENOSC OPY TRANSORAL DIAGNOSTIC Lexi Villeda PA-C [address] [place] [address] [address] Referral ID Status Reason Start Date Expiration Date V isits Requested Visits Authorized [id number] Closed Auto-Generate d Referral 10/05/2021 10/05/2022 1 1 [facility] for referral (narrative)* Outpatient Procedure (Routine) - Pending Review Specialty Diagnoses / Procedures Referred By Contac t Referred To Contact [facility] Diagnoses PMB (postmenopausal bleeding) Endometrial polyp Procedures ENDOMETRIAL BIOPSY ENDOMETRIAL BX W/WO ENDOCERVIX BX W/O DILAT SPX Marissa Carrasco MD [address] [place] [address] [address] Referral ID Status Reason Start Date Expiration Date Visits Requested Visits Authorized [id number] Pending Review Auto-Generat ed Referral 06/14/2023 1 1 [facility] for referral (narrative)* Diagnostic Procedure Only (Routine) - Pending Review Specialty Diagnoses / Procedures Referred By Stephanie t Referred To Contact [facility] Diagnoses Encounter for screening mammogram for breast cancer Procedures [facility] SCREENING W ULI SCREENING DIGITAL BREAST TOMOSYNTHESIS BI SCREENING MAMMOGRAPHY BI 2-VIEW BREAST INC CAD Blane Gannon DO [address] [place] [address] [facility] [address] [place] [address] Referral ID Status Reason Start Date Expiration Date Visits Requested Visits Authorized [id number] Pending Review Auto-Generat ed Referral 03/15/2023 04/13/2024 1 1 [facility] for referral (narrative)* Diagnostic Procedure Only (Routine) - Authorized Specialty Diagnoses / Procedures Referred By Gloryac t Referred To Contact [facility] Diagnoses Post-menopausal bleeding Spotting Pelvic pressure in female Procedures US FEMALE PELVIS TRANSVAG US TRANSVAGINAL Alycia Jacobs APRN.CHILDREN'S TUTOR NURSERY [address] [place] [address] [place] [address] Referral ID Status Reason Start Date Expiration Date Visits Requested Visits Authorized [id number] Authorized Auto-Generat ed Referral 04/13/2023 05/12/2024 1 1 * Diagnostic Procedure Only (Routine) - Authorized Specialty Diagnoses / Procedures Referred By Contac t Referred To Contact [facility] Diagnoses Post-menopausal bleeding Spotting Pelvic pressure in female Procedures US FEMALE PELVIS TRANSABD LTD US PELVIC NONOBSTETRIC IMAGE DCMTN LIMITED/F/U Alycia Jacobs APRN.[facility] [address] [place] [address] [place] [address] Referral ID Status Reason Start Date Expiration Date Visits Requested Visits Authorized [id number] Authorized Auto-Generat ed Referral 04/13/2023 05/12/2024 1 1 [facility] for referral (narrative)* Diagnostic Procedure Only (Routine) - Closed Specialty Diagnoses / Procedures Referred By Contac t Referred To Contact BR IMAGING Diagnoses Encounter for screening mammogram for breast cancer Procedures [place] SCREENING W ULI SCREENING DIGITAL BREAST TOMOSYNTHESIS BI SCREENING MAMMOGRAPHY BI 2-VIEW BREAST INC CAD Blane Gannon DO [address] [place] [address] Br Imaging [address] [facility] [address] Referral ID Status Reason Start Date Expiration Date V isits Requested Visits Authorized [id number] Closed Auto-Generate d Referral 03/15/2023 04/13/2024 1 1 [facility] for referral (narrative)* Diagnostic Procedure Only (Routine) - Closed Specialty Diagnoses / Procedures Referred By Contac t Referred To Contact US IMAGING Diagnoses Post-menopausal bleeding Spotting Pelvic pressure in female Procedures US FEMALE PELVIS TRANSVAG US TRANSVAGINAL Alycia Jacobs APRN.[facility] [address] [place] [address] [place] [id number] Referral ID Status Reason Start Date Expiration Date V isits Requested Visits Authorized [id number] Closed Auto-Generate d Referral 04/13/2023 05/12/2024 1 1 * Diagnostic Procedure Only (Routine) - Closed Specialty Diagnoses / Procedures Referred By Contac t Referred To Contact US IMAGING Diagnoses Post-menopausal bleeding Spotting Pelvic pressure in female Procedures US FEMALE PELVIS TRANSABD LTD US PELVIC NONOBSTETRIC IMAGE DCMTN LIMITED/F/U Alycia Jacobs APRN.[facility] [address] [place] [address] [place] [id number] Referral ID Status Reason Start Date Expiration Date V isits Requested Visits Authorized [id number] Closed Auto-Generate d Referral 04/13/2023 05/12/2024 1 1 [facility] for referral (narrative)* Diagnostic Procedure Only (Routine) - Authorized Specialty Diagnoses / Procedures Referred By Contac t Referred To Contact MOLECULAR & FUNCTIONAL IMAGING Diagnoses Epigastric pain RUQ pain Nausea Gastroesophageal reflux disease with esophagitis without hemorrhage Procedures NM HEPATOBILIARY W EF AND/OR RX HEPATOBIL SYST IMAG INC GB W/PHARMA INTERVENBlane Denny, DO [address] [place] [address] Molecular & Functional Imaging [address] [place] [address] Referral ID Status Reason Start Date Expiration Date Visits Requested Visits Authorized [id number] Authorized Auto-Generat ed Referral 09/13/2023 10/12/2024 1 1 [facility] for referral (narrative)* Diagnostic Procedure Only (Routine) - Closed Specialty Diagnoses / Procedures Referred By Contac t Referred To Contact MOLECULAR & FUNCTIONAL IMAGING Diagnoses Epigastric pain RUQ pain Nausea Gastroesophageal reflux disease with esophagitis without hemorrhage Procedures NM HEPATOBILIARY W EF AND/OR RX HEPATOBIL SYST IMAG INC GB W/PHARMA INTERVBlane Carroll, DO [address] [place] [address] Molecular & Functional Imaging [address] [place] [address] Referral ID Status Reason Start Date Expiration Date V isits Requested Visits Authorized [id number] Closed Auto-Generate d Referral 09/13/2023 10/12/2024 1 1 [facility] for visit Narrative* Diagnostic Procedure Only (Routine) - Closed Specialty Diagnoses / Procedures Referred By Contac t Referred To Contact BR IMAGING Diagnoses Encounter for screening mammogram for malignant neoplasm of breast Procedures [place] SCREENING W ULI SCREENING DIGITAL BREAST TOMOSYNTHESIS BI SCREENING MAMMOGRAPHY BI 2-VIEW BREAST INC CAD Marissa Carrasco MD [address] [place] [address] Br Imaging [address] [place] [address] Referral ID Status Reason Start Date Expiration Date V isits Requested Visits Authorized [id number] Closed Auto-Generate d Referral 12/29/2021 01/28/2023 1 1 [facility] for visit Narrative* Diagnostic Procedure Only (Routine) - Closed Specialty Diagnoses / Procedures Referred By Contac t Referred To Contact XR IMAGING Diagnoses Pain in left hip Procedures XR HIP GENERAL 3V PELV/AP/LAT LEFT RADEX HIP UNILATERAL WITH PELVIS 2-3 VIEWS Crow Cross MD [address] [place] [address] Xr Imaging Referral ID Status Reason Start Date Expiration Date V isits Requested Visits Authorized [id number] Closed Auto-Generate d Referral 02/02/2022 03/04/2023 1 1 [facility] for visit Narrative* Diagnostic Procedure Only (Routine) - Closed Specialty Diagnoses / Procedures Referred By Contac t Referred To Contact BR IMAGING Diagnoses Encounter for screening mammogram for breast cancer Procedures [place] SCREENING W ULI SCREENING DIGITAL BREAST TOMOSYNTHESIS BI SCREENING MAMMOGRAPHY BI 2-VIEW BREAST INC CAD Blane Gannon L, DO [address] [place] [address] Br Imaging [address] [place] [address] Referral ID Status Reason Start Date Expiration Date V isits Requested Visits Authorized [id number] Closed Auto-Generate d Referral 03/15/2023 04/13/2024 1 1 [facility] Summary Purpose Family History No Family History Records FoundNo Family History Records FoundNo Family History Records Found Advance Directives Documents on File Type Date Recorded Patient Cigar Bander Hand Expl anation Advance Directive(s) 10/19/2021 7:14 AM Advance Directive(s) 11/06/2020 8:14 AM Advance Directive(s) 10/26/2020 11:10 AM Me jacquie Advance Directive(s) 10/23/2020 2:44 PM Advance Directive(s) 12/04/2018 6:50 AM Advance Directive(s) 11/16/2018 11:33 AM Documents on File Type Date Recorded Patient Cigar Bander Hand Expl anation Advance Directive(s) 10/19/2021 7:14 AM Advance Directive(s) 11/06/2020 8:14 AM Advance Directive(s) 10/26/2020 11:10 AM Me jacquie Advance Directive(s) 10/23/2020 2:44 PM Advance Directive(s) 12/04/2018 6:50 AM Advance Directive(s) 11/16/2018 11:33 AM Reason for Referral Specialty Diagnoses / Procedures Referred By Stephanie t Referred To Contact [facility] Diagnoses Primary osteoarthritis of left hip Chronic left hip pain Procedures CONSULT TO PHYSICAL THERAPY PHYSICAL THERAPY EVALUATION HIGH COMPLEX 45 MINS Crow Cross MD [address] [place] [address] [facility] [address] [place] [address] Referral ID Status Reason Start Date Expiration Date Visits Requested Visits Authorized [id number] Authorized PCP Requested Referral Auto-Generate d Referral 02/07/2022 02/07/2023 99 [phone] Additional Source Comments INFORMATION SOURCE (unrecogn ized section and content) DATE CREATED AUTHOR AUTHOR'S ORGANIZ ATION 10/05/2021 [facility] zayda Henriquez DATE CREATED AUTHOR AUTHOR'S ORGANIZ ATION 09/30/2023 [facility] Source Comments (unrecognize d section and content) In the event this informatio n is protected by the Federal Confidentiality of Alcohol and Drug Abuse Patient Records regulations: The Federal rules restrict any use of the information to criminally investigate or prosecute any alcohol or drug abuse patient.[facility] AdministrationIn the event this information is protected by the Federal Confidentiality of Alcohol and Drug Abuse Patient Records regulations: The Federal rules restrict any use of the information to criminally investigate or prosecute any alcohol or drug abuse patient.[facility] AdministrationIn the event this information is protected by the Federal Confidentiality of Alcohol and Drug Abuse Patient Records regulations: The Federal rules restrict any use of the information to criminally investigate or prosecute any alcohol or drug abuse patient.[facility] AdministrationIn the event this information is protected by the Federal Confidentiality of Alcohol and Drug Abuse Patient Records regulations: The Federal rules restrict any use of the information to criminally investigate or prosecute any alcohol or drug abuse patient.[facility] AdministrationIn the event this information is protected by the Federal Confidentiality of Alcohol and Drug Abuse Patient Records regulations: The Federal rules restrict any use of the information to criminally investigate or prosecute any alcohol or drug abuse patient.[facility] AdministrationIn the event this information is protected by the Federal Confidentiality of Alcohol and Drug Abuse Patient Records regulations: The Federal rules restrict any use of the information to criminally investigate or prosecute any alcohol or drug abuse patient.[facility] AdministrationIn the event this information is protected by the Federal Confidentiality of Alcohol and Drug Abuse Patient Records regulations: The Federal rules restrict any use of the information to criminally investigate or prosecute any alcohol or drug abuse patient.[facility] AdministrationIn the event this information is protected by the Federal Confidentiality of Alcohol and Drug Abuse Patient Records regulations: The Federal rules restrict any use of the information to criminally investigate or prosecute any alcohol or drug abuse patient.[facility] AdministrationIn the event this information is protected by the Federal Confidentiality of Alcohol and Drug Abuse Patient Records regulations: The Federal rules restrict any use of the information to criminally investigate or prosecute any alcohol or drug abuse patient.[facility] AdministrationIn the event this information is protected by the Federal Confidentiality of Alcohol and Drug Abuse Patient Records regulations: The Federal rules restrict any use of the information to criminally investigate or prosecute any alcohol or drug abuse patient.[facility] AdministrationIn the event this information is protected by the Federal Confidentiality of Alcohol and Drug Abuse Patient Records regulations: The Federal rules restrict any use of the information to criminally investigate or prosecute any alcohol or drug abuse patient.[facility] AdministrationIn the event this information is protected by the Federal Confidentiality of Alcohol and Drug Abuse Patient Records regulations: The Federal rules restrict any use of the information to criminally investigate or prosecute any alcohol or drug abuse patient.[facility] AdministrationIn the event this information is protected by the Federal Confidentiality of Alcohol and Drug Abuse Patient Records regulations: The Federal rules restrict any use of the information to criminally investigate or prosecute any alcohol or drug abuse patient.[facility] AdministrationIn the event this information is protected by the Federal Confidentiality of Alcohol and Drug Abuse Patient Records regulations: The Federal rules restrict any use of the information to criminally investigate or prosecute any alcohol or drug abuse patient.[facility] AdministrationIn the event this information is protected by the Federal Confidentiality of Alcohol and Drug Abuse Patient Records regulations: The Federal rules restrict any use of the information to criminally investigate or prosecute any alcohol or drug abuse patient.[facility] AdministrationIn the event this information is protected by the Federal Confidentiality of Alcohol and Drug Abuse Patient Records regulations: The Federal rules restrict any use of the information to criminally investigate or prosecute any alcohol or drug abuse patient.[facility] AdministrationIn the event this information is protected by the Federal Confidentiality of Alcohol and Drug Abuse Patient Records regulations: The Federal rules restrict any use of the information to criminally investigate or prosecute any alcohol or drug abuse patient.[facility] AdministrationIn the event this information is protected by the Federal Confidentiality of Alcohol and Drug Abuse Patient Records regulations: The Federal rules restrict any use of the information to criminally investigate or prosecute any alcohol or drug abuse patient.[facility] AdministrationIn the event this information is protected by the Federal Confidentiality of Alcohol and Drug Abuse Patient Records regulations: The Federal rules restrict any use of the information to criminally investigate or prosecute any alcohol or drug abuse patient.[facility] AdministrationIn the event this information is protected by the Federal Confidentiality of Alcohol and Drug Abuse Patient Records regulations: The Federal rules restrict any use of the information to criminally investigate or prosecute any alcohol or drug abuse patient.[facility] AdministrationIn the event this information is protected by the Federal Confidentiality of Alcohol and Drug Abuse Patient Records regulations: The Federal rules restrict any use of the information to criminally investigate or prosecute any alcohol or drug abuse patient.[facility] AdministrationIn the event this information is protected by the Federal Confidentiality of Alcohol and Drug Abuse Patient Records regulations: The Federal rules restrict any use of the information to criminally investigate or prosecute any alcohol or drug abuse patient.[facility] AdministrationIn the event this information is protected by the Federal Confidentiality of Alcohol and Drug Abuse Patient Records regulations: The Federal rules restrict any use of the information to criminally investigate or prosecute any alcohol or drug abuse patient.[facility] AdministrationIn the event this information is protected by the Federal Confidentiality of Alcohol and Drug Abuse Patient Records regulations: The Federal rules restrict any use of the information to criminally investigate or prosecute any alcohol or drug abuse patient.[facility] AdministrationIn the event this information is protected by the Federal Confidentiality of Alcohol and Drug Abuse Patient Records regulations: The Federal rules restrict any use of the information to criminally investigate or prosecute any alcohol or drug abuse patient.[facility] AdministrationIn the event this information is protected by the Federal Confidentiality of Alcohol and Drug Abuse Patient Records regulations: The Federal rules restrict any use of the information to criminally investigate or prosecute any alcohol or drug abuse patient.[facility] AdministrationIn the event this information is protected by the Federal Confidentiality of Alcohol and Drug Abuse Patient Records regulations: The Federal rules restrict any use of the information to criminally investigate or prosecute any alcohol or drug abuse patient.[facility] AdministrationIn the event this information is protected by the Federal Confidentiality of Alcohol and Drug Abuse Patient Records regulations: The Federal rules restrict any use of the information to criminally investigate or prosecute any alcohol or drug abuse patient.[facility] ClinicIn the event this information is protected by the Federal Confidentiality of Alcohol and Drug Abuse Patient Records regulations: The Federal rules restrict any use of the information to criminally investigate or prosecute any alcohol or drug abuse patient.[facility] AdministrationIn the event this information is protected by the Federal Confidentiality of Alcohol and Drug Abuse Patient Records regulations: The Federal rules restrict any use of the information to criminally investigate or prosecute any alcohol or drug abuse patient.[facility] AdministrationIn the event this information is protected by the Federal Confidentiality of Alcohol and Drug Abuse Patient Records regulations: The Federal rules restrict any use of the information to criminally investigate or prosecute any alcohol or drug abuse patient.[facility] AdministrationIn the event this information is protected by the Federal Confidentiality of Alcohol and Drug Abuse Patient Records regulations: The Federal rules restrict any use of the information to criminally investigate or prosecute any alcohol or drug abuse patient.[facility] Reason for Visit (unrecogniz ed section and [...] Procedures US FEMALE PELVIS TRANSVAG US TRANSVAGINAL Alycia Jacobs, JASPER.[facility] [address] [place] [address] [place] [address] Referral ID Status Reason Start Date Expiration Date V isits Requested Visits Authorized [id number] Closed Auto-Generate d Referral 04/13/2023 05/12/2024 1 1 Reason Comments Follow Up Reason Comments Patient Update Reason Comments [facility] Endocrinology Reason Comments Radiology NM Specialty Diagnoses / Procedures Referred By Contac t Referred To Contact MOLECULAR & FUNCTIONAL IMAGING Diagnoses Epigastric pain RUQ pain Nausea Gastroesophageal reflux disease with esophagitis without hemorrhage Procedures NM HEPATOBILIARY W EF AND/OR RX HEPATOBIL SYST IMAG INC GB W/PHARMA INTERVENJ Blane Gannon, DO [address] [place] [address] Molecular & Functional Imaging [address] [place] [address] Referral ID Status Reason Start Date Expiration Date V isits Requested Visits Authorized [id number] Closed Auto-Generate d Referral 09/13/2023 10/12/2024 1 1 Care Teams (unrecognized sec tion and content) 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 Relationship Specialty Start Date End Date Blane Gannon DO [address] [place], [place] [id number] PCP - General 10/02/15 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 Relationship Specialty Start Date End Date Blane Gannon DO [address] [place] [address] PCP - General 10/02/15 C[employer] 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 Relationship Specialty Start Date End Date Blane Gannon, DO [address] [place] [address] PCP - General 10/02/15 C[employer] 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 Relationship Specialty Start Date End Date Blane Gannon, DO [address] [place] [address] PCP - General 10/02/15 C[employer] 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 Relationship Specialty Start Date End Date Blane Gannon, DO [address] [place] [address] PCP - General 10/02/15 C[employer] Or 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 Relationship Specialty Start Date End Date Blane Gannon, DO [address] [place] [address] PCP - General 10/02/15 C[employer] Or 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 Relationship Specialty Start Date End Date Blane Gannon, DO [address] [place] [address] PCP - General 10/02/15 C[employer] 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 Relationship Specialty Start Date End Date Blane Gannon, DO [address] [place] [address] PCP - General 10/02/15 C[employer] 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 Relationship Specialty Start Date End Date lBane Gannon, DO [address] [place] [address] PCP - General 10/02/15 C[employer] Or 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 Relationship Specialty Start Date End Date Blane Gannon, DO [address] [place] [address] PCP - General 10/02/15 C[employer] Or 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 Relationship Specialty Start Date End Date Blane Gannon, [address] [place] [address] PCP - General 10/02/15 C[employer] 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 Relationship Specialty Start Date End Date Blane Gannon DO [address] [place] [address] PCP - General 10/02/15 C[employer] 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 Relationship Specialty Start Date End Date Blane Gannon DO [address] [place] [address] PCP - General 10/02/15 C[employer] 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 Relationship Specialty Start Date End Date Blane Gannon DO [address] [place] [address] PCP - General 10/02/15 C[employer] 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 Relationship Specialty Start Date End Date Blane Gannon DO [address] [place] [address] PCP - General 10/02/15 C[employer] 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 Relationship Specialty Start Date End Date Blane Gannon DO [address] [place] [address] PCP - General 10/02/15 C[employer] Or 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 Relationship Specialty Start Date End Date Blane Gannon DO [address] [place] [address] PCP - General 10/02/15 C[employer] 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 Relationship Specialty Start Date End Date Blane Gannon DO [address] [place] [address] PCP - General 10/02/15 C[employer] 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 Relationship Specialty Start Date End Date Blane Gannon DO [address] [place] [address] PCP - General 10/02/15 C[employer] 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 Relationship Specialty Start Date End Date GannonBlane chacon DO Shlomo [address] [place] [address] PCP - General 10/02/15 C[employer] 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 Relationship Specialty Start Date End Date Blane Gannon DO [address] [place] [address] PCP - General 10/02/15 FOR RECORDS PERTAINING [...] BE BASED ON THE PRIMARY CLINICAL RECORDS. [facility] [employer] [facility]. provides no warranty or guarantee of the accuracy or completeness of information in this document.
[2023-10-28 10:34] LABS: ALB/GLOB Ratio 0.8 RATIO (0.9-2.4); AST(SGOT) 105 U/L (15-37); Alanine Aminotransfer ALT/SGPT 159 U/L (13-56); Albumin, Serum 3.2 g/dL (3.2-5.0); Alkaline Phosphatase 105 U/L (45-117); Anion Gap 5 (5-15); BUN 18 mg/dL (7-18); BUN/Creat Ratio 16.4 RATIO (10-20); Calcium,Total 9.9 mg/dL (8.5-10.1); Chloride 110 mmol/L (98-107); EST Glomerular Filtration Rate 53 mL/min (>60); Est Glom Filt Rate - Afr Amer 64 mL/min (>60); Globulin 3.9 g/dL (2.2-4.2); Glucose 84 mg/dL (74-106); Potassium 3.8 mmol/L (3.5-5.1); Protein, Total 7.1 g/dL (6.4-8.2); Sodium Level 142 mmol/L (136-145)
== END | disposition home or self-care (01) ==
LOC: LAB 09:07
PROVIDERS: PCP Student in an Organized Health Care Education/Training Program; Referring Provider Internal Medicine Endocrinology, Diabetes & Metabolism; Visit Provider Internal Medicine Endocrinology, Diabetes & Metabolism
DX: E89.0 Postprocedural hypothyroidism (principal)
CPT/HCPCS: 36415; 80053

== ENCOUNTER → 2023-12-20 | Outpatient (CLI) | payer MEDICARE, BC, SELFPAY ==
[2023-12-20 18:25] LABS: ALB/GLOB Ratio 0.9 RATIO (0.9-2.4); AST(SGOT) 38 U/L (15-37); Alanine Aminotransfer ALT/SGPT 49 U/L (13-56); Albumin, Serum 3.6 g/dL (3.2-5.0); Alkaline Phosphatase 75 U/L (45-117); Anion Gap 5 (5-15); BUN 26 mg/dL (7-18); BUN/Creat Ratio 20.8 RATIO (10-20); Calcium,Total 9.2 mg/dL (8.5-10.1); Chloride 105 mmol/L (98-107); Creatinine, Serum 1.25 mg/dL (0.55-1.02); EST Glomerular Filtration Rate 45 mL/min (>60); Est Glom Filt Rate - Afr Amer 55 mL/min (>60); GGTP 34 U/L (5-55); Globulin 3.9 g/dL (2.2-4.2); Glucose 86 mg/dL (74-106); Potassium 3.6 mmol/L (3.5-5.1); Protein, Total 7.5 g/dL (6.4-8.2); Sodium Level 138 mmol/L (136-145)
[2023-12-20 20:18] LABS: Hepatitis B Surface Antigen Non-Reactive (Nonreactive); Hepatitis C Antibody Non-Reactive (Nonreactive)
[2023-12-22 15:08] LABS: ANTINUCLEAR ANTIBODIES DIRECT Negative (Negative); Alpha Antitrypsin Serum 145 mg/dL (101-187); Anti-Mitochondrial AB <20.0 Units (0.0-20.0); Anti-Smooth Muscle ABS 11 Units (0-19); Ceruloplasmin 33.1 mg/dL (19.0-39.0)
== END | disposition home or self-care (01) ==
LOC: MTLAB 14:41
PROVIDERS: PCP Student in an Organized Health Care Education/Training Program; Referring Provider Internal Medicine Gastroenterology; Visit Provider Internal Medicine Gastroenterology
DX: K75.9 Inflammatory liver disease, unspecified (principal)
CPT/HCPCS: 36415; 80053; 82103; 82390; 82977; 83516; 86038; 86803; 87340

== ENCOUNTER → 2024-01-19 | Outpatient (CLI) | payer MEDICARE, BC, SELFPAY ==
[2024-01-19 13:34] LABS: ALB/GLOB Ratio 0.9 RATIO (0.9-2.4); AST(SGOT) 25 U/L (15-37); Alanine Aminotransfer ALT/SGPT 30 U/L (13-56); Albumin, Serum 3.3 g/dL (3.2-5.0); Alkaline Phosphatase 78 U/L (45-117); Anion Gap 1 (5-15); BUN 16 mg/dL (7-18); BUN/Creat Ratio 18.2 RATIO (10-20); Calcium,Total 8.4 mg/dL (8.5-10.1); Chloride 109 mmol/L (98-107); Creatinine, Serum 0.88 mg/dL (0.55-1.02); EST Glomerular Filtration Rate 68 mL/min (>60); Est Glom Filt Rate - Afr Amer 82 mL/min (>60); Globulin 3.7 g/dL (2.2-4.2); Glucose 69 mg/dL (74-106); Potassium 3.7 mmol/L (3.5-5.1); Sodium Level 139 mmol/L (136-145)
== END | disposition home or self-care (01) ==
LOC: LAB 12:38
PROVIDERS: PCP Student in an Organized Health Care Education/Training Program
DX: D47.2 Monoclonal gammopathy (principal); D64.9 Anemia, unspecified
CPT/HCPCS: 36415; 80053

== ENCOUNTER → 2024-02-19 | Outpatient (CLI) | payer MEDICARE, BC, SELFPAY ==
[2024-02-19 10:05] LABS: ALB/GLOB Ratio 0.8 RATIO (0.9-2.4); AST(SGOT) 21 U/L (15-37); Alanine Aminotransfer ALT/SGPT 22 U/L (13-56); Albumin, Serum 3.2 g/dL (3.2-5.0); Alkaline Phosphatase 87 U/L (45-117); Anion Gap 3 (5-15); BUN 25 mg/dL (7-18); BUN/Creat Ratio 18.5 RATIO (10-20); Calcium,Total 10.6 mg/dL (8.5-10.1); Chloride 107 mmol/L (98-107); Cholesterol 189 mg/dL (200); Creatinine, Serum 1.35 mg/dL (0.55-1.02); EST Glomerular Filtration Rate 41 mL/min (>60); Est Glom Filt Rate - Afr Amer 50 mL/min (>60); Globulin 3.9 g/dL (2.2-4.2); Glucose 97 mg/dL (74-106); High Density Lipoprotein 54 mg/dL; Magnesium 2.4 mg/dL (1.6-2.6); Potassium 4.2 mmol/L (3.5-5.1); Protein, Total 7.1 g/dL (6.4-8.2); Sodium Level 139 mmol/L (136-145); Thyroid Stim Hormone (TSH) 0.07 uIU/mL (0.358-3.74); Triglycerides 123 mg/dL; Very Low Density Lipoprotein 25 mg/dL (5-40)
== END | disposition home or self-care (01) ==
LOC: LAB 09:05
PROVIDERS: PCP Student in an Organized Health Care Education/Training Program; Referring Provider Internal Medicine Endocrinology, Diabetes & Metabolism; Visit Provider Internal Medicine Endocrinology, Diabetes & Metabolism
DX: E89.0 Postprocedural hypothyroidism (principal); E78.2 Mixed hyperlipidemia; E83.42 Hypomagnesemia
CPT/HCPCS: 36415; 80053; 80061; 83735; 84443

== ENCOUNTER → 2024-02-26 | Outpatient (CLI) | payer MEDICARE, BC, SELFPAY ==
[2024-02-26 11:39] LABS: Anion Gap 6 (5-15); BUN 18 mg/dL (7-18); BUN/Creat Ratio 14.6 RATIO (10-20); Calcium,Total 9.4 mg/dL (8.5-10.1); Chloride 106 mmol/L (98-107); Creatinine, Serum 1.23 mg/dL (0.55-1.02); EST Glomerular Filtration Rate 46 mL/min (>60); Est Glom Filt Rate - Afr Amer 56 mL/min (>60); Glucose 85 mg/dL (74-106); Sodium Level 139 mmol/L (136-145)
== END | disposition home or self-care (01) ==
LOC: LAB 09:05
PROVIDERS: PCP Student in an Organized Health Care Education/Training Program; Referring Provider Internal Medicine Endocrinology, Diabetes & Metabolism; Visit Provider Internal Medicine Endocrinology, Diabetes & Metabolism
DX: E89.0 Postprocedural hypothyroidism (principal)
CPT/HCPCS: 36415; 80048

== ENCOUNTER → 2024-04-09 | Outpatient (CLI) | payer MEDICARE, BC, SELFPAY ==
[2024-04-09 11:19] LABS: ALB/GLOB Ratio 0.9 RATIO (0.9-2.4); AST(SGOT) 16 U/L (15-37); Alanine Aminotransfer ALT/SGPT 16 U/L (13-56); Albumin, Serum 3.3 g/dL (3.2-5.0); Alkaline Phosphatase 82 U/L (45-117); Anion Gap 3 (5-15); BUN 18 mg/dL (7-18); BUN/Creat Ratio 15.7 RATIO (10-20); Calcium,Total 8.7 mg/dL (8.5-10.1); Chloride 110 mmol/L (98-107); Creatinine, Serum 1.15 mg/dL (0.55-1.02); EST Glomerular Filtration Rate 50 mL/min (>60); Est Glom Filt Rate - Afr Amer 60 mL/min (>60); Globulin 3.8 g/dL (2.2-4.2); Glucose 93 mg/dL (74-106); Protein, Total 7.1 g/dL (6.4-8.2); Sodium Level 140 mmol/L (136-145); Thyroid Stim Hormone (TSH) 0.951 uIU/mL (0.358-3.740)
== END | disposition home or self-care (01) ==
LOC: LAB 09:31
PROVIDERS: PCP Student in an Organized Health Care Education/Training Program; Referring Provider Internal Medicine Endocrinology, Diabetes & Metabolism; Visit Provider Internal Medicine Endocrinology, Diabetes & Metabolism
DX: E89.0 Postprocedural hypothyroidism (principal)
CPT/HCPCS: 36415; 80053; 84443

== ENCOUNTER → 2024-07-26 | Outpatient (CLI) | payer MEDICARE, BC, SELFPAY ==
[2024-07-26 15:58] LABS: Absolute Lymphocyte Count 1.98 X10^3/uL (0.83-4.51); Absolute Neutrophil Count 3.4 X10^3/uL (2.0-7.7); Basophil# 0.06 X10^3/uL; Eosinophil# 0.17 X10^3/uL; Eosinophils% 2.9 % (0-5); Hematocrit 40.2 % (37-47); Hemoglobin 12.8 g/dL (12.0-15.0); Lymphocyte # 1.98 X10^3/ul (0.83-4.51); Lymphocyte % 33.4 % (19-41); Mean Corp Hgb Conc 31.8 g/dL (32-36); Mean Corpuscular Hgb 28.8 pg (27.0-32.0); Mean Corpuscular Volume 90.5 fL (81-99); Mean Platelet Vol. 9.2 fl (6.2-12.0); Monocyte# 0.31 X10^3/uL; Monocyte% 5.2 % (0-10); NRBC Flagged by Analyzer 0 % (0-5); Neutrophil # 3.38 X10^3/uL (2.7-7.7); Neutrophil % 57.2 % (47-70); Platelet Count 249 K/mm3 (150-450); RBC Distribution Width CV 12.8 % (11.6-14.6); RBC Distribution Width SD 42.2 fl (35.1-43.9); Red Blood Count 4.44 M/mm3 (4.2-5.4); White Blood Count 5.9 K/mm3 (4.4-11.0)
[2024-07-26 16:35] LABS: Ferritin 40 ng/mL (8-252); Iron 78 ug/dL (50-170); Iron Binding Capacity,Total 326 ug/dL (250-450); PERCENT IRON SATURATION 23.9 % (15.0-55.0)
== END | disposition home or self-care (01) ==
LOC: LAB 14:55
PROVIDERS: PCP Student in an Organized Health Care Education/Training Program; Referring Provider Internal Medicine Hematology & Oncology; Visit Provider Internal Medicine Hematology & Oncology
DX: D47.2 Monoclonal gammopathy (principal); D64.9 Anemia, unspecified
CPT/HCPCS: 36415; 82728; 83540; 83550; 85025

== ENCOUNTER → 2024-08-16 | Outpatient (CLI) | payer MEDICARE, BC, SELFPAY ==
[2024-08-16 11:43] LABS: PTHIN 20.9 pg/mL (18.4-80.1)
[2024-08-16 11:48] LABS: Vitamin D,25 Hydroxy 59.6 ng/mL
[2024-08-16 12:07] LABS: ALB/GLOB Ratio 0.9 RATIO (0.9-2.4); AST(SGOT) 18 U/L (15-37); Alanine Aminotransfer ALT/SGPT 16 U/L (13-56); Albumin, Serum 3.3 g/dL (3.2-5.0); Alkaline Phosphatase 85 U/L (45-117); Anion Gap 4 (5-15); BUN 19 mg/dL (7-18); Calcium,Total 8.1 mg/dL (8.5-10.1); Chloride 108 mmol/L (98-107); Cholesterol 193 mg/dL (200); Creatinine, Serum 0.73 mg/dL (0.55-1.02); EST Glomerular Filtration Rate 84 mL/min (>60); Est Glom Filt Rate - Afr Amer 101 mL/min (>60); Globulin 3.8 g/dL (2.2-4.2); Glucose 86 mg/dL (74-106); High Density Lipoprotein 57 mg/dL; Potassium 3.9 mmol/L (3.5-5.1); Protein, Total 7.1 g/dL (6.4-8.2); Sodium Level 139 mmol/L (136-145); Triglycerides 106 mg/dL; Very Low Density Lipoprotein 21 mg/dL (5-40)
== END | disposition home or self-care (01) ==
LOC: LAB 10:30
PROVIDERS: PCP Student in an Organized Health Care Education/Training Program; Referring Provider Internal Medicine Endocrinology, Diabetes & Metabolism; Visit Provider Internal Medicine Endocrinology, Diabetes & Metabolism
DX: E55.9 Vitamin D deficiency, unspecified (principal); E78.2 Mixed hyperlipidemia; E89.0 Postprocedural hypothyroidism; E89.2 Postprocedural hypoparathyroidism
CPT/HCPCS: 36415; 80053; 80061; 82306; 83970; 84443

== ENCOUNTER → 2025-01-24 | Outpatient (CLI) | payer MEDICARE, BC, SELFPAY ==
[2025-01-24 13:59] LABS: Absolute Lymphocyte Count 1.96 X10^3/uL (0.83-4.51); Absolute Neutrophil Count 4.4 X10^3/uL (2.0-7.7); Basophil# 0.06 X10^3/uL; Basophil% 0.9 % (0-1); Eosinophil# 0.15 X10^3/uL; Eosinophils% 2.2 % (0-5); Hemoglobin 12.6 g/dL (12.0-15.0); Lymphocyte # 1.96 X10^3/ul (0.83-4.51); Lymphocyte % 28.2 % (19-41); Mean Corp Hgb Conc 33.2 g/dL (32-36); Mean Corpuscular Hgb 29.5 pg (27.0-32.0); Mean Platelet Vol. 9.5 fl (6.2-12.0); Monocyte# 0.35 X10^3/uL; NRBC Flagged by Analyzer 0 % (0-5); Neutrophil # 4.43 X10^3/uL (2.7-7.7); Neutrophil % 63.6 % (47-70); Platelet Count 245 K/mm3 (150-450); RBC Distribution Width SD 42.5 fl (35.1-43.9); Red Blood Count 4.27 M/mm3 (4.2-5.4)
[2025-01-24 15:41] LABS: Ferritin 65 ng/mL (22-378); Iron 67 ug/dL (50-170)
== END | disposition home or self-care (01) ==
LOC: LAB 13:02
PROVIDERS: PCP Student in an Organized Health Care Education/Training Program; Referring Provider Internal Medicine Hematology & Oncology; Visit Provider Internal Medicine Hematology & Oncology
DX: D64.9 Anemia, unspecified (principal); D47.2 Monoclonal gammopathy
CPT/HCPCS: 36415; 82728; 83540; 85025

== ENCOUNTER → 2025-03-03 | Outpatient (CLI) | payer MEDICARE, BC, SELFPAY ==
[2025-03-03 14:36] LABS: AST(SGOT) 18 U/L (<=31); Alanine Aminotransfer ALT/SGPT 6 U/L (<=34); Albumin, Serum 4.0 g/dL (3.4-4.8); Alkaline Phosphatase 92 U/L (35-104); Anion Gap 10 (5-15); BUN 18 mg/dL (4-19); BUN/Creat Ratio 15.9 RATIO (10-20); Calcium,Total 9.1 mg/dL (7.6-11.0); Carbon Dioxide 25.0 mmol/L (21.0-32.0); Chloride 105 mmol/L (98-108); Globulin 3.2 g/dL (2.2-4.2); Glucose 102 mg/dL (70-99); Potassium 4.1 mmol/L (3.3-5.1)
== END | disposition home or self-care (01) ==
LOC: LAB 13:17
PROVIDERS: PCP Student in an Organized Health Care Education/Training Program; Referring Provider Internal Medicine Endocrinology, Diabetes & Metabolism; Visit Provider Internal Medicine Endocrinology, Diabetes & Metabolism
DX: E89.0 Postprocedural hypothyroidism (principal)
CPT/HCPCS: 36415; 80053; 84443

== ENCOUNTER → 2025-04-02 | Outpatient (CLI) | payer MEDICARE, BC, SELFPAY | END | disposition home or self-care (01) | LOC: LAB 12:09 | PROVIDERS: PCP Student in an Organized Health Care Education/Training Program; Referring Provider Physician Assistant Medical; Visit Provider Physician Assistant Medical | DX: E89.0 Postprocedural hypothyroidism (principal) | CPT/HCPCS: 36415; 84443 ==

== ENCOUNTER → 2025-06-26 | Outpatient (CLI) | payer MEDICARE, BC, SELFPAY | END | disposition home or self-care (01) | LOC: LAB 10:09 | PROVIDERS: PCP Student in an Organized Health Care Education/Training Program; Referring Provider Internal Medicine Endocrinology, Diabetes & Metabolism; Visit Provider Internal Medicine Endocrinology, Diabetes & Metabolism | DX: E89.0 Postprocedural hypothyroidism (principal) | CPT/HCPCS: 36415; 84439; 84443 ==

== ENCOUNTER → 2025-08-20 | Outpatient (CLI) | payer MEDICARE, BC, SELFPAY ==
[2025-08-20 10:16] LABS: Hematocrit 36.6 % (37-47); Hemoglobin 12.3 g/dL (12.0-15.0); Immature Granulocytes Count 0.020 X10^3/uL (0.0-0.0); Mean Corp Hgb Conc 33.6 g/dL (32-36); Mean Corpuscular Volume 87.1 fL (81-99); Mean Platelet Vol. 8.8 fl (6.2-12.0); NRBC Flagged by Analyzer 0 % (0-5); Platelet Count 229 K/mm3 (150-450); RBC Distribution Width CV 13.6 % (11.6-14.6); RBC Distribution Width SD 43.4 fl (35.1-43.9); Red Blood Count 4.20 M/mm3 (4.2-5.4); White Blood Count 5.8 K/mm3 (4.4-11.0)
[2025-08-20 11:01] LABS: AST(SGOT) 23 U/L (<=31); Alanine Aminotransfer ALT/SGPT 17 U/L (<=34); Albumin, Serum 3.8 g/dL (3.4-4.8); Alkaline Phosphatase 107 U/L (35-104); Anion Gap 9 (7-18); BUN 12 mg/dL (4-19); BUN/Creat Ratio 12.1 RATIO (10-20); Calcium,Total 8.4 mg/dL (7.6-11.0); Carbon Dioxide 25.8 mmol/L (20.0-29.0); Chloride 102 mmol/L (96-106); Cholesterol 199 mg/dL (<=200); Globulin 3.3 g/dL (2.2-4.2); Glucose 94 mg/dL (70-99); Low Density Lipoprotein Calc. 124 mg/dL; Potassium 4.1 mmol/L (3.5-5.1); Triglycerides 189 mg/dL; Very Low Density Lipoprotein 38 mg/dL (5-40); Vitamin D,25 Hydroxy 52.7 ng/mL (30-100); cholesterol:hdl ratio screen 4.75
[2025-08-20 11:28] LABS: Iron 93 ug/dL (50-170)
== END | disposition home or self-care (01) ==
LOC: LAB 09:07
PROVIDERS: PCP Student in an Organized Health Care Education/Training Program; Referring Provider Physician Assistant Medical; Visit Provider Physician Assistant Medical
DX: E55.9 Vitamin D deficiency, unspecified (principal); E78.2 Mixed hyperlipidemia; E89.0 Postprocedural hypothyroidism
CPT/HCPCS: 36415; 80053; 80061; 82306; 83540; 84443; 85025